=== PATIENT | female | born 1950 | race Caucasian/White ===

== ENCOUNTER 2016-06-09 02:05 | Inpatient (IN) | payer MEDICARE ==
[~2016-06-09] VITALS: Ht 167.6 cm; Wt 73.4 kg
[2016-06-09] VITALS (20 sets, daily range): BP systolic 76–188; BP diastolic 7–100; PULSE 87–151; RESP 16–40; TEMP 97.9–100.7; O2SAT 85–100
[2016-06-09] MEDS ORDERED: PIPERACIL-TAZO 4.5 GM PREMIX 100 ML IV ONE (02:15)
[2016-06-09] MEDS ORDERED: AZITHROMYCIN INJ 500 MG in SODIUM CHLOR 0.9% 250 ML INJ 250 ML IV ONE (02:15)
[2016-06-09] MEDS ORDERED: ACETAMINOPHEN 325 MG TAB PO ONE (02:15)
[2016-06-09] MEDS: RESP: ALBUTEROL 2.5 MG/IPRATROPIUM 0.5 MG NEB (SCH) INH ×2 (02:17→02:23)
--- NOTE | 2016-06-09 02:20 | PD ---
HPI Chief Complaint: Respiratory Distress Time Seen by Provider: 02:07 Travel History International Travel<30 days: No Contact w/Intl Traveler<30days: No Traveled to known affect area: No History of Present Illness HPI 65-year-old female came to the emergency room with history of progressive shortness of breath over past 2 days. She has history of COPD and says that it started 2 days ago. She was using her inhaler but her bleeding continued to get worse even at rest. Tonight she was unable to breathe better at all and called EMS. As per EMS she was saturating 78% with 2 L of oxygen. They started her on albuterol nebulizer which made the saturation bump up to 95%. She received 3 albuterol nebs prior to arrival. She also got IV Solu-Medrol. Patient upon arrival was still in respiratory distress but says she felt little better. She could only speak 2-3 words per breath. Her temperature was 100.7 orally. Heart rate was in 140s. Patient denied of any chest pain. She says that 16 years ago she was admitted in the ICU and was on a ventilator for COPD exacerbation. She says that she quit smoking 16 years ago. Her blood pressure was 188 systolic. Patient drove from [place] in March 2016 to come here. No leg swelling and some tenderness. No associated chest pain or syncopal episodes. [facility] Past Medical History Narrative Medical List of her past medical history as reviewed from the nursing note. Social History Tobacco Use: No Allergies-Medications (Allergen,Severity, Reaction): Coded Allergies: Doxycycline (Unverified Allergy, Mild, 06/09/16) Comments List of her allergies reviewed from the nursing note. Reported Meds & Prescriptions Reported Meds & Active Scripts Active Reported Albuterol Neb (Albuterol Sulfate) 1.25 Mg/3 Ml Neb 1.25 Mg NEB Q6HR NEB PRN Symbicort Inh (Budesonide/Formoterol Fumarate) 80-4.5 Mcg/Act Aero 2 Puff INH Q12HR Lisinopril 5 Mg Tab 5 Mg PO DAILY Omeprazole 40 Mg Cap 40 Mg PO DAILY Theophylline CR (Theophylline) 200 Mg Tab 200 Mg PO Q12H Narrative Medication List of her home medications reviewed from the nursing note. Review of Systems Except as stated in HPI: all other systems reviewed are Neg Physical Exam Narrative GENERAL: Awake, alert, anxious, moderate to severe respiratory distress SKIN: Warm and dry. HEAD: Atraumatic. Normocephalic. EYES: Pupils equal and round. No scleral icterus. No injection or drainage. ENT: No nasal bleeding or discharge. Mucous membranes pink and moist. NECK: Trachea midline. No JVD. CARDIOVASCULAR: Regular rate and rhythm. No murmur appreciated. RESPIRATORY: Decreased air entry bilaterally with coarse crackles in an expiratory wheeze. Using accessory muscles. GASTROINTESTINAL: Abdomen soft, non-tender, nondistended. Hepatic and splenic margins not palpable. MUSCULOSKELETAL: No obvious deformities. No clubbing. No cyanosis. No edema. NEUROLOGICAL: Awake and alert. No obvious cranial nerve deficits. Motor grossly within normal limits. Normal speech. PSYCHIATRIC: Appropriate mood and affect; insight and judgment normal. Data Data Last Documented VS Vital Signs Date Time Temp Pulse Resp B/P Pulse Ox O2 Delivery O2 Flow Rate FiO2 06/09/16 03:33 130 18 85/49 100 BiPAP 100 06/09/16 02:37 3 06/09/16 02:05 100.7 Orders Complete Blood Count With Diff (06/09/16 02:07) Basic Metabolic Panel (Bmp) (06/09/16 02:07) B-Type Natriuretic Peptide (06/09/16 02:07) Prothrombin Time / Inr (Pt) (06/09/16 02:07) Magnesium (Mg) (06/09/16 02:07) Troponin I (06/09/16 02:07) Arterial Blood Gas (Abg) (06/09/16 02:07) Influenzae A/B Antigen (06/09/16 02:07) Blood Culture (06/09/16 02:07) Iv Access Insert/Monitor (06/09/16 02:07) Electrocardiogram (06/09/16 02:07) Ecg Monitoring (06/09/16 02:07) Oximetry (06/09/16 02:07) Oxygen Administration (06/09/16 02:07) Chest, Single Ap (06/09/16 02:07) Lactic Acid (06/09/16 02:11) Albuterol-Ipratropium Neb (Duoneb Neb) (06/09/16 02:15) Piperacil-Tazo 4.5 Gm Premix (Zosyn 4.5 (06/09/16 02:15) Azithromycin Inj (Zithromax Inj) (06/09/16 02:15) Acetaminophen (Tylenol) (06/09/16 02:15) Arterial Blood Gas (Abg) (06/09/16 04:00) Admit To Inpatient (06/09/16 ) Vital Signs (Adult) Q4H (06/09/16 03:53) Activity Oob With Assistance (06/09/16 03:53) Operations Research Director / Telemetry .CONTINUOUS (06/09/16 03:53) Diet Heart Healthy (06/09/16 Breakfast) Sodium Chloride 0.9% Flush (Ns Flush) (06/09/16 04:00) Sodium Chloride 0.9% Flush (Ns Flush) (06/09/16 09:00) Basic Metabolic Panel (Bmp) (06/10/16 06:00) Complete Blood Count With Diff (06/10/16 06:00) Pt Request For Service (06/09/16 03:53) Enoxaparin Inj (Lovenox Inj) (06/09/16 09:00) Naloxone Inj (Narcan Inj) (06/09/16 04:00) Inpatient Certification (06/09/16 ) Admit Order (Ed Use Only) (06/09/16 03:53) Labs Laboratory Tests Test 06/09/16 06/09/16 02:15 02:36 White Blood Count 10.7 TH/MM3 Red Blood Count 4.56 MIL/MM3 Hemoglobin 12.7 GM/DL Hematocrit 39.7 % Mean Corpuscular Volume 87.1 FL Mean Corpuscular Hemoglobin 27.8 PG Mean Corpuscular Hemoglobin 32.0 % Concent Red Cell Distribution Width 14.8 % Platelet Count 281 TH/MM3 Mean Platelet Volume 8.9 FL Neutrophils (%) (Auto) 73.7 % Lymphocytes (%) (Auto) 17.5 % Monocytes (%) (Auto) 7.7 % Eosinophils (%) (Auto) 0.1 % Basophils (%) (Auto) 1.0 % Neutrophils # (Auto) 7.9 TH/MM3 Lymphocytes # (Auto) 1.9 TH/MM3 Monocytes # (Auto) 0.8 TH/MM3 Eosinophils # (Auto) 0.0 TH/MM3 Basophils # (Auto) 0.1 TH/MM3 CBC Comment AUTO DIFF Differential Comment AUTO DIFF CONFIRMED Platelet Estimate NORMAL Platelet Morphology Comment NORMAL Red Cell Morphology Comment NORMAL Prothrombin Time 11.9 SEC Prothromb Time International 1.1 RATIO Ratio Sodium Level 137 MEQ/L Potassium Level 4.5 MEQ/L Chloride Level 102 MEQ/L Carbon Dioxide Level 28.2 MEQ/L Anion Gap 7 MEQ/L Blood Urea Nitrogen 11 MG/DL Creatinine 1.05 MG/DL Estimat Glomerular Filtration 52 ML/MIN Rate Random Glucose 151 MG/DL Lactic Acid Level 1.8 mmol/L Calcium Level 8.8 MG/DL Magnesium Level 2.1 MG/DL Troponin I LESS THAN 0.02 NG/ML B-Type Natriuretic Peptide 199 PG/ML Theophylline Level 21.5 MCG/ML Blood Gas Puncture Site LT RADIAL Blood Gas Patient Temperature 98.6 Blood Gas HCO3 26 mmol/L Blood Gas Base Excess 0.9 mmol/L Blood Gas Oxygen Saturation 88 % Arterial Blood pH 7.34 Arterial Blood Partial 50 mmHg Pressure CO2 Arterial Blood Partial 61 mmHG Pressure O2 Arterial Blood Oxygen Content 15.5 Vol % Arterial Blood 1.8 % Carboxyhemoglobin Arterial Blood Methemoglobin 1.6 % Blood Gas Hemoglobin 12.5 G/DL Oxygen Delivery Device NASAL CANNULA Blood Gas Liter Flow 2.5 L/M MDM Medical Decision Making Medical Screen Exam Complete: Yes Emergency Medical Condition: Yes Medical Record Reviewed: Yes Interpretation(s) Twelve-lead EKG was reviewed by me. Normal sinus rhythm, normal axis, PVCs, tachycardia, motion artifacts. Heart rate of 150 bpm. Differential Diagnosis Pneumonia, sepsis, acute COPD exacerbation, influenza Narrative Course 3:30 AM blood test results are back and patient has some renal insufficiency. Apart from that blood gas is suggestive of hypoxia. There is no CO2 retention. Chest x-ray is read as bibasilar infiltrates. Patient was given 3 duo nebs upon arrival along with Tylenol for the fever. However after the duo nebs she continued to be tachypneic and short of breath. Air entry had improved however. I decided to start her on BiPAP. I just reassessed her and her heart rate is down to the 120s and patient seems to be asleep and looks comfortable. Patient is getting antibiotics as per sepsis protocol. I will give her a liter of fluid bolus at this point since it does not look like she is in congestive heart failure. Awaiting for the hospitalist to call back for admission. Critical Care Narrative Aggregate critical care time was 45 minutes. Time to perform other separately billable procedures was not included in the critical care time. My time did not include minutes spent treating any other patients simultaneously or on activities that did not directly contribute to the patient's treatment. The services I provided to this patient were to treat and/or prevent clinically significant deterioration that could result in: Respiratory distress, hypoxia, Acute COPD exacerbation, pneumonia, BiPAP I provided critical care services requiring my management, as noted below: Chart data review, documentation time, medication orders and management, vital sign assessments/reviewing monitor data, ordering and reviewing lab tests, ordering and interpreting/reviewing x-rays and diagnostic studies, care of the patient and discussion of the patient with the admitting physicians. Procedures EKG Prior to Arrival: Yes Diagnosis Primary Impression: Respiratory distress Additional Impressions: Acute exacerbation of chronic obstructive pulmonary disease (COPD) Fever Qualified Code: R50.9 - Fever, unspecified fever cause Hypoxia Pneumonia Qualified Code: J18.9 - Pneumonia of both lower lobes due to infectious organism Admitting Information Admitting Physician Requests: Floyd Field MD Jun 09, 2016 02:20
[2016-06-09] MEDS ORDERED: LISI-519 PO (02:35)
[2016-06-09] MEDS ORDERED: OMEP40CA2 PO (02:35)
[2016-06-09] MEDS ORDERED: SYMB80AE INH (02:35)
[2016-06-09] MEDS ORDERED: ALBU1.25 NEB (02:35)
[2016-06-09] MEDS ORDERED: THEO200T4 PO (02:35)
[2016-06-09 02:38] LABS: AUTOMATED NEUTROPHIL # 7.9 TH/MM3 (1.8-7.7); BASOPHIL # 0.1 TH/MM3 (0-0.2); EOSINOPHIL % 0.1 % (0.0-4.0); HEMATOCRIT 39.7 % (35.0-46.0); LYMPH % 17.5 % (9.0-44.0); LYMPHOCYTE # 1.9 TH/MM3 (1.0-4.8); MEAN CELL VOLUME 87.1 FL (80.0-100.0); MEAN CORPUSCULAR HEMOGLOBIN 27.8 PG (27.0-34.0); MONO % 7.7 % (0.0-8.0); NEUT % 73.7 % (16.0-70.0); PLATELET COUNT 281 TH/MM3 (150-450); RED BLOOD COUNT 4.56 MIL/MM3 (4.00-5.30); RED CELL DISTRIBUTION WIDTH 14.8 % (11.6-17.2); WHITE BLOOD COUNT 10.7 TH/MM3 (4.0-11.0)
[2016-06-09 02:45] LABS: HEMO FLAGS AUTO DIFF
[2016-06-09 02:47] LABS: INTERNATIONAL NORMALIZED RATIO 1.1 RATIO; PROTHROMBIN TIME - PATIENT 11.9 SEC (9.8-11.6)
[2016-06-09 02:51] LABS: BLOOD GAS BASE EXCESS 0.9 mmol/L (-2-2); BLOOD GAS CARBOXYHEMOGLOBIN 1.8 % (0-4); BLOOD GAS HCO3 26 mmol/L (22-26); BLOOD GAS METHEMOGLOBIN 1.6 % (0-2); BLOOD GAS O2 HGB SATURATION 88 % (90-100); BLOOD GAS OXYGEN CONTENT 15.5 Vol % (12.0-20.0); BLOOD GAS PCO2 50 mmHg (38-42); BLOOD GAS PO2 61 mmHG (61-120); BLOOD GAS TOTAL HGB 12.5 G/DL (12.0-16.0); TEMP CORR TO 98.6
[2016-06-09 02:52] LABS: CRITICAL VALUE YES; DRAW SITE LT RADIAL; LITER FLOW 2.5 L/M; NUMBER OF ARTERIAL PUNCTURES 1; OXYGEN DEVICE NASAL CANNULA
[2016-06-09 02:53] LABS: STAT YES; ULNAR PULSE PRESENT
[2016-06-09 03:05] LABS: ANION GAP 7 MEQ/L (5-15); BICARBONATE 28.2 MEQ/L (21.0-32.0); BLOOD UREA NITROGEN 11 MG/DL (7-18); CHLORIDE 102 MEQ/L (98-107); GLOMERULAR FILTRATION RATE 52 ML/MIN (>89); MAGNESIUM 2.1 MG/DL (1.5-2.5); POTASSIUM 4.5 MEQ/L (3.5-5.1); SODIUM (NA) 137 MEQ/L (136-145)
--- NOTE | 2016-06-09 03:14 | RADRPT ---
EXAM DATE/TIME: 06/09/2016 02:26 [facility] COMPARISON: No previous studies available for comparison. INDICATIONS : Patient states shortness of breath. MEDICAL HISTORY : Hypertension. Chronic obstructive pulmonary disease. SURGICAL HISTORY : None. ENCOUNTER: Initial ACUITY: 1 day PAIN SCORE: 0/10 LOCATION: Bilateral chest FINDINGS: Mild bibasilar opacities are present suggesting slight degree of pulmonary edema. No pleural effusion . No pneumothorax. Normal heart size. CONCLUSION: Mild bibasilar infiltrates. Jesus Estrada MD on June 09, 2016 at 3:12 Board Certified Radiologist. This report was verified electronically.
[2016-06-09 03:31] LABS: PLATELET ESTIMATE SMEAR NORMAL (NORMAL); PLATELET MORPHOLOGY NORMAL (NORMAL); SCAN/DIFF AUTO DIFF CONFIRMED
[2016-06-09] MEDS ORDERED: SODIUM CHLORIDE 0.9% FLUSH 5 ML FLUSH FLUSH PRN (04:00)
[2016-06-09] MEDS ORDERED: NALOXONE HCL 0.4 MG/ML AMP IV PRN (04:00)
[2016-06-09] MEDS ORDERED: SODIUM CHLOR 0.9% 1000 ML INJ 1,000 ML IV ONE ×2 (04:15→06:00)
[2016-06-09] MEDS: RESP: ALBUTEROL 2.5 MG/IPRATROPIUM 0.5 MG NEB (SCH) NEB ×4 (04:30→21:11)
[2016-06-09 04:37] LABS: BLOOD GAS BASE EXCESS 1.7 mmol/L (-2-2); BLOOD GAS CARBOXYHEMOGLOBIN 1.8 % (0-4); BLOOD GAS HCO3 27 mmol/L (22-26); BLOOD GAS O2 HGB SATURATION 96 % (90-100); BLOOD GAS OXYGEN CONTENT 16.1 Vol % (12.0-20.0); BLOOD GAS PCO2 47 mmHg (38-42); BLOOD GAS PO2 331 mmHG (61-120); BLOOD GAS TOTAL HGB 11.4 G/DL (12.0-16.0); CRITICAL VALUE NO; DRAW SITE LT RADIAL; FIO2 100 %; NUMBER OF ARTERIAL PUNCTURES 1; OXYGEN DEVICE BiPAP; STAT NO; TEMP CORR TO 98.6; ULNAR PULSE PRESENT; VENT SETTINGS IPAP14/EPAP7
--- NOTE | 2016-06-09 05:31 | HHI.HP ---
[facility] No Primary Care Physician Admission Diagnosis respiratory distress, acute COPD exacerbation, hypoxia, pneumonia Diagnoses: Chief Complaint: Shortness of breath Travel History International Travel<30 Days: No Contact w/Intl Traveler <30 Da: No Traveled to Known Affected Are: No History of Present Illness History from patient, her at the bedside, ER physician communication, and review of medical records. Patient reported that she came to the hospital because she has been short of breath for the past 2 days. Denies fever. Reports of cough productive of yellowish sputum. Denies any chest pain/palpitations/dizziness/focal weakness. Denies seeing any blood in her stool or urine. Denies abdominal pains. Patient took multiple rounds of nebulizer treatments at home and did not improve much therefore called 911. As per ER report, patient also did receive about 6 rounds of nebulizer treatments between ambulance personnel and ER treatment. She was however not doing well and her saturation was not picking up and therefore she was placed on BiPAP. The time of my exam, patient is awake, alert, oriented. She is on BiPAP. FiO2 of 90%, saturating 96%. After the BiPAP placement, patient also became hypotensive with systolic in the 70s and diastolic as low as 40s and 50s. However patient is awake alert and asymptomatic. Not tachycardic. She was given IV fluids bolus total 2 L. After that treatment, patient's blood pressure did machine pecan picker to about 110/70. Review of Systems Other 12 point review of system was obtained and negative apart from what is mentioned in HPI Past Family Social History Past Medical History Hypertension COPDon home nocturnal oxygen Breast cancerstatus post right cystectomy, chemotherapy, radiation therapy2 years ago Past Surgical History Right mastectomy Meniscus tear repair Reported Medications Patient's medication. EMR reviewed. Patient states that she only takes lisinopril and theophylline. The rest are all her inhalers. Allergies: Coded Allergies: Doxycycline (Unverified Allergy, Mild, 06/09/16) Family History Reports of family history of breast cancer in sister. Social History Used to smoke cigarettes, quit 17 years ago. Denies any alcohol abuse or drug abuse. Lives with her Physical Exam Vital Signs Vital Signs Date Time Temp Pulse Resp B/P Pulse Ox O2 Delivery O2 Flow Rate FiO2 06/09/16 05:21 103 19 89/52 100 BiPAP 90 06/09/16 05:00 104 18 76/43 100 BiPAP 90 06/09/16 04:36 98.7 107 18 77/42 100 BiPAP 90 06/09/16 04:26 100 90 06/09/16 03:33 130 18 85/49 100 BiPAP 100 06/09/16 03:00 99 100 06/09/16 02:37 151 40 163/77 95 Nasal Cannula 3 06/09/16 02:35 95 Nasal Cannula 2.50 06/09/16 02:13 40 100 Aerosol Mask 8 06/09/16 02:05 88 Nasal Cannula 4 06/09/16 02:05 100.7 150 40 188/100 100 Aerosol Mask 8 Physical Exam GENERAL: This is a well-nourished, well-developed patient, in no apparent distress. On BiPAP. Saturating 96% on FiO2 of 90%. SKIN: No rashes, ecchymoses or lesions. Cool and dry. HEAD: Atraumatic. Normocephalic. No temporal or scalp tenderness. EYES No scleral icterus. No injection or drainage. ENT: Nose without bleeding, purulent drainage or septal hematoma Airway patent. NECK: Trachea midline. No JVD CARDIOVASCULAR: Regular rate and rhythm without murmurs, gallops, or rubs. RESPIRATORY: Limited exam due to BiPAP sounds GASTROINTESTINAL: Abdomen soft, non-tender, nondistended. No guarding. MUSCULOSKELETAL: Extremities without clubbing, cyanosis, or edema. No calf tenderness. NEUROLOGICAL: Awake and alert. Motor and sensory grossly within normal limits. Normal speech. Laboratory Laboratory Tests Test 06/09/16 06/09/16 06/09/16 02:15 02:36 04:16 White Blood Count 10.7 Red Blood Count 4.56 Hemoglobin 12.7 Hematocrit 39.7 Mean Corpuscular Volume 87.1 Mean Corpuscular Hemoglobin 27.8 Mean Corpuscular Hemoglobin 32.0 Concent Red Cell Distribution Width 14.8 Platelet Count 281 Mean Platelet Volume 8.9 Neutrophils (%) (Auto) 73.7 Lymphocytes (%) (Auto) 17.5 Monocytes (%) (Auto) 7.7 Eosinophils (%) (Auto) 0.1 Basophils (%) (Auto) 1.0 Neutrophils # (Auto) 7.9 Lymphocytes # (Auto) 1.9 Monocytes # (Auto) 0.8 Eosinophils # (Auto) 0.0 Basophils # (Auto) 0.1 CBC Comment AUTO DIFF Differential Comment AUTO DIFF CONFIRMED Platelet Estimate NORMAL Platelet Morphology Comment NORMAL Red Cell Morphology Comment NORMAL Prothrombin Time 11.9 Prothromb Time International 1.1 Ratio Sodium Level 137 Potassium Level 4.5 Chloride Level 102 Carbon Dioxide Level 28.2 Anion Gap 7 Blood Urea Nitrogen 11 Creatinine 1.05 Estimat Glomerular Filtration 52 Rate Random Glucose 151 Lactic Acid Level 1.8 Calcium Level 8.8 Magnesium Level 2.1 Troponin I LESS THAN 0.02 B-Type Natriuretic Peptide 199 Blood Gas Puncture Site LT RADIAL LT RADIAL Blood Gas Patient Temperature 98.6 98.6 Blood Gas HCO3 26 27 Blood Gas Base Excess 0.9 1.7 Blood Gas Oxygen Saturation 88 96 Arterial Blood pH 7.34 7.37 Arterial Blood Partial 50 47 Pressure CO2 Arterial Blood Partial 61 331 Pressure O2 Arterial Blood Oxygen Content 15.5 16.1 Arterial Blood 1.8 1.8 Carboxyhemoglobin Arterial Blood Methemoglobin 1.6 2.0 Blood Gas Hemoglobin 12.5 11.4 Oxygen Delivery Device NASAL CANNULA BiPAP Blood Gas Liter Flow 2.5 Blood Gas Ventilator Setting [id number] Blood Gas Inspired Oxygen 100 Date/Time Procedure Status Source Growth 06/09/16 02:15 Influenza Types A,B Antigen ([facility]ILLIP) - Final Complete Nasal Aspirate NEGATIVE FOR FLU A AND B ANTIGEN.... 06/09/16 02:15 Aerobic Blood Culture Received Blood Peripheral Pending 06/09/16 02:15 Anaerobic Blood Culture Received Blood Peripheral Pending Result Diagram: 06/09/165 06/09/16 0215 Imaging Last 48 hours Impressions Chest X-Ray 06/09/16 0207 Signed Impressions: Service Date/Time: June 02:26 - CONCLUSION: Mild bibasilar infiltrates. Jesus Estrada MD CT Angiography 06/09/16 0000 Signed Impressions: Service Date/Time: June 06:47 - CONCLUSION: 1. Negative for pulmonary embolus. 2. Moderate to severe emphysema. 3. Multiple calcified gallstones. Antony Ledezma MD Assessment and Plan Problem List: (1) Pneumonia ICD Code: J18.9 Status: Acute (2) Hypoxia ICD Code: R09.02 Status: Acute (3) Respiratory distress ICD Code: R06.00 Status: Acute Assessment and Plan Impression: COPD exacerbation Pneumonia Mild elevated BNP Plan: Continue BiPAP. Nebulizers scheduled and when necessary. Solu-Medrol 40 mg IV every 6 hours. We'll follow up clinically. Also start patient on levofloxacin 750 mg IV every 24 hours. Resume home antihypertensives. Resume theophylline. Check theophylline level. DVT prophylaxiswith Lovenox. GI prophylaxis on pantoprazole. Critical care time 35 minutes Discussed Condition With Patient's and ER Physician Certification 2 Midnight Certification Type: Admission for Inpatient Services Order for Inpatient Services The services are ordered in accordance with Medicare regulations or non- Medicare payer requirements, as applicable. In the case of services not specified as inpatient-only, they are appropriately provided as inpatient services in accordance with the 2-midnight benchmark. Estimated LOS (days): 3 days is the estimated time the patient will need to remain in the hospital, assuming treatment plan goals are met and no additional complications. Post-Hospital Plan: Home Problem Qualifiers (1) Pneumonia: Qualified Code: J18.9 - Pneumonia of both lower lobes due to infectious organism Emily Horn MD Jun 09, 2016 05:31
[2016-06-09] MEDS: methylPREDNISolone SOD SUCC 40 MG/1 ML VIAL IV PUSH SCH ×4 (06:17→23:07)
[2016-06-09] MEDS ORDERED: IOHEXOL 350 MG/ML 10 ML VIAL (for RAD DIAG) IV ONE (06:50)
--- NOTE | 2016-06-09 07:08 | RADRPT ---
EXAM DATE/TIME: 06/09/2016 06:47 [facility] COMPARISON: No previous studies available for comparison. INDICATIONS : Short of breath. IV CONTRAST: 60 cc Omnipaque 350 (iohexol) IV RADIATION DOSE: 23.19 CTDIvol (mGy) MEDICAL HISTORY : Hypercholesterolemia. Hypertension. Chronic obstructive pulmonary disease. SURGICAL HISTORY : Mastectomy, right. ENCOUNTER: Initial ACUITY: 1 day PAIN SCALE: 0/10 LOCATION: chest TECHNIQUE: Volumetric scanning of the chest was performed using a pulmonary embolism protocol MIP images were re constructed. Using automated exposure control and adjustment of the mA and/or kV according to patien t size, radiation dose was kept as low as reasonably achievable to obtain optimal diagnostic quality images. FINDINGS: No filling defects to suggest pulmonary embolus. Moderate to severe centrilobular emphysema. No pleur al pericardial effusion. No adenopathy. Right breast implant. No acute finding upper abdomen. Multiple calcified gallstones. CONCLUSION: 1. Negative for pulmonary embolus. 2. Moderate to severe emphysema. 3. Multiple calcified gallstones. Antony Ledezma MD on June 09, 2016 at 6:58 Board Certified Radiologist. This report was verified electronically.
[2016-06-09] MEDS: SODIUM CHLORIDE 0.9% FLUSH 5 ML FLUSH FLUSH SCH ×2 (08:05→19:56)
[2016-06-09] MEDS: PANTOPRAZOLE SOD 40 MG DELAYED RELEASE TAB PO SCH (08:05)
[2016-06-09] MEDS: LEVOFLOXACIN 750 MG PREMIX INJ 150 ML IV SCH (08:05)
[2016-06-09] MEDS: ENOXAPARIN SODIUM 40 MG/0.4 ML SYRINGE SQ SCH (08:05)
[2016-06-09] MEDS: LISINOPRIL 5 MG TAB PO SCH (08:19)
[2016-06-09] MEDS: RESP: ALBUTEROL 2.5 MG/IPRATROPIUM 0.5 MG NEB (PRN) NEB (12:17)
[2016-06-09] MEDS ORDERED: PILL SPLITTER OTHER PRN (18:15)
[2016-06-09] MEDS: BUDESONIDE-FORMOTEROL 80/4.5 MCG INHALER INH SCH (19:56)
[2016-06-09] MEDS: CALCIPOTRIENE 0.005% CREAM 60 GM TOPICAL SCH (21:00)
[2016-06-09] MEDS ORDERED: CHLORHEXIDINE GLUCONATE 2 % 1 PACK (2 CLOTHS)(extra cloths) TOP PRN (23:00)
[2016-06-09] MEDS: ALPRAZolam 0.25 MG TAB PO PRN (23:07)
[2016-06-10] VITALS (16 sets, daily range): BP systolic 108–149; BP diastolic 54–73; PULSE 90–99; RESP 14–22; TEMP 97.6–98.5; O2SAT 94–99
[2016-06-10] MEDS: RESP: ALBUTEROL 2.5 MG/IPRATROPIUM 0.5 MG NEB (SCH) NEB ×4 (03:38→20:34)
[2016-06-10] MEDS: CHLORHEXIDINE GLUCONATE 2 % 1 PACK (2 CLOTHS)(taper/protocol) TOP SCH (04:00)
[2016-06-10 05:20] LABS: BICARBONATE 28.7 MEQ/L (21.0-32.0); THEOPHYLLINE 3.7 MCG/ML (10.0-20.0)
[2016-06-10] MEDS: methylPREDNISolone SOD SUCC 40 MG/1 ML VIAL IV PUSH SCH ×3 (06:01→17:18)
--- NOTE | 2016-06-10 06:55 | EKG ---
Date Performed: 06/09/2016 Time Performed: 02:14:02 PTAGE: 65 years EKG: SINUS TACHYCARDIA WITH OCCASIONAL SUPRAVENTRICULAR PREMATURE COMPLEXES, POSSIBLE ATRIAL FLU TTER NONSPECIFIC T-WAVE ABNORMALITY ABNORMAL RHYTHM ECG NO PREVIOUS TRACING DOCTOR: Dilan Keller Interpretating Date/Time 06/10/2016 06:53:31
[2016-06-10 07:34] LABS: AUTOMATED NEUTROPHIL # 7.4 TH/MM3 (1.8-7.7); BASOPHIL % 0.2 % (0.0-2.0); EOSINOPHIL % 0.1 % (0.0-4.0); HEMATOCRIT 32.6 % (35.0-46.0); HEMO FLAGS DIFF FINAL; LYMPH % 2.3 % (9.0-44.0); LYMPHOCYTE # 0.2 TH/MM3 (1.0-4.8); MEAN CELL VOLUME 86.4 FL (80.0-100.0); MEAN CORPUSCULAR HEMOGLOBIN 27.9 PG (27.0-34.0); MEAN CORPUSCULAR HGB CONC 32.3 % (32.0-36.0); MONO % 3.2 % (0.0-8.0); NEUT % 94.2 % (16.0-70.0); PLATELET COUNT 201 TH/MM3 (150-450); RED BLOOD COUNT 3.77 MIL/MM3 (4.00-5.30); RED CELL DISTRIBUTION WIDTH 15.2 % (11.6-17.2); WHITE BLOOD COUNT 7.9 TH/MM3 (4.0-11.0)
[2016-06-10] MEDS ORDERED: POLYETHYLENE GLYCOL 17 GM PKG PO PRN (07:45)
[2016-06-10] MEDS: ENOXAPARIN SODIUM 40 MG/0.4 ML SYRINGE SQ SCH (08:07)
[2016-06-10] MEDS: PANTOPRAZOLE SOD 40 MG DELAYED RELEASE TAB PO SCH (08:07)
[2016-06-10] MEDS: LEVOFLOXACIN 750 MG PREMIX INJ 150 ML IV SCH (08:07)
[2016-06-10] MEDS: ACETAMINOPHEN 325 MG TAB PO PRN ×2 (08:07→22:30)
[2016-06-10] MEDS: LISINOPRIL 5 MG TAB PO SCH (08:07)
[2016-06-10] MEDS: CALCIPOTRIENE 0.005% CREAM 60 GM TOPICAL SCH ×2 (09:18→21:16)
[2016-06-10] MEDS: SODIUM CHLORIDE 0.9% FLUSH 5 ML FLUSH FLUSH SCH ×2 (09:19→21:17)
[2016-06-10] MEDS: BUDESONIDE-FORMOTEROL 80/4.5 MCG INHALER INH SCH ×2 (09:22→21:17)
[2016-06-10 11:38] LABS: BLOOD GAS BASE EXCESS 1.8 mmol/L (-2-2); BLOOD GAS HCO3 28 mmol/L (22-26); BLOOD GAS O2 HGB SATURATION 97 % (90-100); BLOOD GAS OXYGEN CONTENT 14.1 Vol % (12.0-20.0); BLOOD GAS PCO2 63 mmHg (38-42); BLOOD GAS PO2 121 mmHg (61-120); BLOOD GAS TOTAL HGB 10.2 G/DL (12.0-16.0); CRITICAL VALUE YES; DRAW SITE LT BRACHIAL; FIO2 40 %; NUMBER OF ARTERIAL PUNCTURES 2; OXYGEN DEVICE BIPAP; STAT NO; TEMP CORR TO 98.6; VENT SETTINGS IPAP12/EPAP5
[2016-06-10] MEDS ORDERED: FUROSEMIDE 40 MG/4 ML VIAL IV PUSH ONE (13:00)
--- NOTE | 2016-06-10 13:31 | HHI.PR ---
Subjective Remarks Follow-up for shortness of breath I was paged since patient has been more short of breath, I asked to have BIPAP started. ABG was done. ABG showed hypoxic and hypercapnic respiratory failure. Per patient, she is more short of breath, quite tired, no chest pain, nausea or vomiting. No lower extremity edema. No change in mental status. Patient is awake, conversant and oriented. Objective Vitals Vital Signs Date Time Temp Pulse Resp B/P Pulse Ox O2 Delivery O2 Flow Rate FiO2 06/10/16 10:26 97 40 06/10/16 10:06 95 Nasal Cannula 4.00 06/10/16 10:00 92 06/10/16 08:00 98 06/10/16 06:00 97 06/10/16 04:00 97 06/10/16 04:00 98.5 97 21 136/61 97 06/10/16 02:00 93 06/10/16 00:00 98.4 98 22 108/54 98 06/10/16 00:00 96 06/09/16 22:00 94 06/09/16 21:13 95 Nasal Cannula 4.00 06/09/16 20:00 98.6 96 20 121/57 95 06/09/16 20:00 96 06/09/16 18:00 92 06/09/16 16:00 97 06/09/16 16:00 98.3 06/09/16 14:00 89 I/O 06/09/16 06/09/16 06/09/16 06/10/16 06/10/16 06/10/16 07:00 15:00 23:00 07:00 15:00 23:00 Intake Total 520 ml 240 ml 120 ml Balance 520 ml 240 ml 120 ml Intake Oral 520 ml 240 ml 120 ml # Voids 2 1 1 # Bowel Movements 0 1 0 Result Diagram: 06/10/16 0325 06/10/16 0325 Objective Remarks GENERAL: In mild respiratory distress, on BiPAP. SKIN: No rashes, ecchymoses or lesions. Cool and dry. HEAD: Atraumatic. Normocephalic. No temporal or scalp tenderness. NECK: Trachea midline. No JVD CARDIOVASCULAR: Regular rate and rhythm without murmurs, gallops, or rubs. RESPIRATORY: Crackles at both bases especially on the left, occasional wheezing. GASTROINTESTINAL: Abdomen soft, non-tender, nondistended. No guarding. MUSCULOSKELETAL: Extremities without clubbing, cyanosis, or edema. No calf tenderness. NEUROLOGICAL: Awake and alert. Motor and sensory grossly within normal limits. Normal speech. A/P Problem List: (1) Pneumonia ICD Code: J18.9 Status: Acute (2) Hypoxia ICD Code: R09.02 Status: Acute (3) Respiratory distress ICD Code: R06.00 Status: Acute Assessment and Plan This is a 65-year-old female admitted with respiratory failure secondary to COPD exacerbation Acute hypoxic and hypercapnic respiratory failure secondary to COPD exacerbation and pneumonia- continue BiPAP, blood gas showing respiratory acidosis. Recheck ABG in 2-3 hours. Check stat chest x-ray, will give a dose of Lasix, check BMP and BNP. Start Lasix twice a day. Recheck CBC and BMP tomorrow. CT scan reviewed negative for PE. Chest x-ray previously showed bilateral infiltrates. Continue steroids, continue Levaquin, no leukocytosis, continue duo nebs [id number] and as needed, oxygen support. Continue Symbicort. Resume theophylline, MRSA negative. Check urine Legionella, rapid flu negative. Insert FC Rule out congestive heart failure - check echocardiogram, recheck CXR Theophylline toxicity-may resume theophylline, theophylline levels are low today. DVT prophylaxis: Lovenox Aggregate critical care time was 35 minutes spent at bedside or in the hospital [facility]. Time to perform other separately billable procedures was not included in the critical care time. My time did not include minutes spent treating any other patients simultaneously or on activities that did not directly contribute to the patient's treatment. The services I provided to this patient were to treat and/or prevent clinically significant deterioration that could result in: organ failure, , disability or imminent clinical deterioration in the patient's condition. I provided critical care services requiring my management, as noted below: chart data review, documentation time, medication orders and management, vital sign assessments/reviewing monitor data, ordering and reviewing lab tests, ordering and interpreting/reviewing x-rays and diagnostic studies, care of the patient and discussion with other physicians and caregivers as needed. Will discuss with Dr. Hanson as NIKOLAYI. Discussed with RN Problem Qualifiers (1) Pneumonia: Qualified Code: J18.9 - Pneumonia of both lower lobes due to infectious organism Hank Bhakta MD Jun 10, 2016 13:31
--- NOTE | 2016-06-10 14:29 | RADRPT ---
EXAM DATE/TIME: 06/10/2016 13:12 [facility] COMPARISON: CHEST SINGLE AP, June 09, 2016, 2:26. INDICATIONS : Shortness of breath. MEDICAL HISTORY : Hypertension. Chronic obstructive pulmonary disease. SURGICAL HISTORY : None. ENCOUNTER: Subsequent ACUITY: 2 days PAIN SCORE: 0/10 LOCATION: Bilateral chest FINDINGS: Lungs are hyperaerated. There is no evidence of acute air space disease or significant congestion. Heart and mediastinal structures are stable. CONCLUSION: COPD No evidence of acute cardiopulmonary process. Guy Quach MD on June 10, 2016 at 14:27 Board Certified Radiologist. This report was verified electronically.
[2016-06-10 15:09] LABS: BLOOD GAS BASE EXCESS 4.7 mmol/L (-2-2); BLOOD GAS HCO3 30 mmol/L (22-26); BLOOD GAS METHEMOGLOBIN 0.9 % (0-2); BLOOD GAS O2 HGB SATURATION 96 % (90-100); BLOOD GAS OXYGEN CONTENT 14.7 Vol % (12.0-20.0); BLOOD GAS PCO2 59 mmHg (38-42); BLOOD GAS PO2 100 mmHg (61-120); BLOOD GAS TOTAL HGB 10.8 G/DL (12.0-16.0); CRITICAL VALUE YES; DRAW SITE LT BRACHIAL; FIO2 40 %; NUMBER OF ARTERIAL PUNCTURES 1; OXYGEN DEVICE BIPAP; STAT NO; TEMP CORR TO 98.6; VENT SETTINGS IPAP12/EPAP5
[2016-06-10] MEDS ORDERED: FUROSEMIDE 40 MG/4 ML VIAL IV PUSH SCH (18:00)
[2016-06-10] MEDS: ALPRAZolam 0.25 MG TAB PO PRN (18:46)
[2016-06-10] MEDS: THEOPHYLLINE PO SCH (21:00)
[2016-06-11] VITALS (19 sets, daily range): BP systolic 81–145; BP diastolic 51–78; PULSE 76–98; RESP 18–28; TEMP 97.3–99.2; O2SAT 88–99
[2016-06-11] MEDS: methylPREDNISolone SOD SUCC 40 MG/1 ML VIAL IV PUSH SCH ×4 (01:24→18:03)
[2016-06-11] MEDS: RESP: ALBUTEROL 2.5 MG/IPRATROPIUM 0.5 MG NEB (SCH) NEB ×4 (03:26→20:08)
[2016-06-11] MEDS: CHLORHEXIDINE GLUCONATE 2 % 1 PACK (2 CLOTHS)(taper/protocol) TOP SCH (04:00)
[2016-06-11 06:12] LABS: AUTOMATED NEUTROPHIL # 7.9 TH/MM3 (1.8-7.7); HEMATOCRIT 35.1 % (35.0-46.0); HEMO FLAGS DIFF FINAL; LYMPH % 3.2 % (9.0-44.0); LYMPHOCYTE # 0.3 TH/MM3 (1.0-4.8); MEAN CELL VOLUME 86.2 FL (80.0-100.0); MEAN CORPUSCULAR HEMOGLOBIN 27.9 PG (27.0-34.0); MEAN CORPUSCULAR HGB CONC 32.4 % (32.0-36.0); MONO % 3.2 % (0.0-8.0); NEUT % 93.6 % (16.0-70.0); PLATELET COUNT 259 TH/MM3 (150-450); RED BLOOD COUNT 4.07 MIL/MM3 (4.00-5.30); RED CELL DISTRIBUTION WIDTH 15.1 % (11.6-17.2); WHITE BLOOD COUNT 8.4 TH/MM3 (4.0-11.0)
[2016-06-11 07:15] LABS: BICARBONATE 33.9 MEQ/L (21.0-32.0); MAGNESIUM 2.5 MG/DL (1.5-2.5); POTASSIUM 3.8 MEQ/L (3.5-5.1)
[2016-06-11] MEDS ORDERED: ETOMIDATE 20 MG/10 ML VIAL ONE (08:14)
[2016-06-11] MEDS ORDERED: PROPOFOL 1000 MG/100 ML INJ 100 ML ONE (08:15)
[2016-06-11] MEDS ORDERED: PROPOFOL 1000 MG/100 ML INJ 100 ML IV SCH (08:45)
[2016-06-11] MEDS ORDERED: MAGNESIUM SULFATE INJ 2 GM in SODIUM CHLORIDE 0.9% INJ 96 ML IV PRN (08:45)
[2016-06-11] MEDS ORDERED: POTASSIUM CHLOR 40 MEQ PREMIX 100 ML IV PRN ×2 (08:45)
[2016-06-11] MEDS ORDERED: POTASSIUM CHLOR 20 MEQ PREMIX 100 ML IV PRN ×2 (08:45)
[2016-06-11] MEDS ORDERED: MAGNESIUM OXIDE 400 MG TAB PO PRN (08:45)
[2016-06-11] MEDS ORDERED: SODIUM PHOSPHATE INJ 30 MMOL in SODIUM CHLOR 0.9% 250 ML INJ 240 ML IV PRN (08:45)
[2016-06-11] MEDS ORDERED: POTASSIUM PHOSPHATE MONOBASIC 500 MG TAB PO PRN (08:45)
[2016-06-11] MEDS ORDERED: POTASSIUM CL 40 MEQ/30 ML LIQ UDC PO/TUBE PRN ×2 (08:45)
[2016-06-11] MEDS ORDERED: POTASSIUM PHOSPHATE MONOBASIC 500 MG TAB PO/TUBE PRN (08:45)
[2016-06-11] MEDS ORDERED: GLUCAGON 1 MG/ML VIAL OTHER PRN (08:45)
[2016-06-11] MEDS ORDERED: MAGNESIUM SULFATE INJ 4 GM in SODIUM CHLORIDE 0.9% INJ 92 ML IV PRN (08:45)
[2016-06-11] MEDS ORDERED: POTASSIUM PHOSPHATE INJ 30 MMOL in SODIUM CHLOR 0.9% 250 ML INJ 250 ML IV PRN (08:45)
[2016-06-11] MEDS: LISINOPRIL 5 MG TAB PO SCH (09:00)
[2016-06-11] MEDS: SODIUM CHLORIDE 0.9% FLUSH 5 ML FLUSH FLUSH SCH ×2 (09:00→20:40)
[2016-06-11] MEDS: THEOPHYLLINE PO SCH ×2 (09:00→21:00)
[2016-06-11] MEDS: INSULIN NovoLIN REGULAR SUPPLEMENTAL SCALE SQ SCH ×3 (09:00→20:41)
--- NOTE | 2016-06-11 09:13 | MB ---
cc: FARIDEH GIRON M.D. DATE OF CONSULTATION: 06/11/2016 DATE OF : 1950. REASON FOR CONSULTATION: The patient is a 65 year old female with past medical history of chronic obstructive pulmonary disease on home oxygen nocturnally hypertension, breast cancer, status post chemotherapy and radiation approximately a two years ago. She was admitted to [facility] on June 14, under hospitalist service for any acute hypercapnic respiratory failure and COPD exacerbation. The patient was treated with bronchial bronchodilators and empiric antibiotics. She had multiple arterial blood gases since admission and her last ABG from yesterday afternoon showed pH of 7.33, CO2 59, pAO2 100, bicarb of 30 and saturation of 96% on BiPap 12/5 with 40% FIO2. This morning the patient was in respiratory distress, in addition she was tachypneic, tachycardiac and using her accessory muscles for respirations. She was on a BiPap for a short time without any significant improvements and given her respiratory status, She was subsequently intubated by myself and placed on full mechanical ventilation. PAST MEDICAL HISTORY: 1. Past medical history significant for hypertension 2. COPD 3. Breast cancer. PAST SURGICAL HISTORY 1. Previous right mastectomy 2. previous man meniscus tear repair. ALLERGIES DOXYCYCLINE FAMILY HISTORY Sister with breast cancer. SOCIAL HISTORY Ex-smoker, quit smoking 17 years ago. No history of alcohol or drug use. She lives with . MEDICATIONS: Medications reviewed which include 1. Symbicort 2. Lovenox 3. Protonix 4. Levaquin 5. lisinopril 6. Solu-Medrol REVIEW OF SYSTEMS As per HPI. Rest of the systems limited as the patient is intubated. PHYSICAL EXAMINATION IN GENERAL: 65-year female intubated for acute hypoxemic rest for acute hypercapnic respiratory failure. VITAL SIGNS: Temperature 97.7. Pulse was 89% earlier on 4 liters now on 97% on vent support blood pressure 141/73, vent setting assist control rate of 14, tidal volume 450, PEEP of five, FIO2 100%. HEAD, EYES, EARS, NOSE, AND THROAT: Atraumatic, normocephalic pupil equal and active to accommodation X on muscles intact. Conjunctivae pink. Nonicteric sclerae. Oral mucosa within normal. NECK: Supple. No JVD, adenopathy or thyromegaly. Trachea midline. Orally intubated. CARDIOVASCULAR SYSTEM: Tachycardiac normal S1-S2. No murmurs, rubs or gallops noted. PULMONARY: Pulmonary exam bilateral equal entry with few scattered wheezing overall diminished. ABDOMEN: Soft, nontender, no distension. Positive bowel sounds. EXTREMITIES: No cyanosis, clubbing or edema. NEUROLOGIC: Intubated and sedated with Diprivan. LABORATORY DATA Sodium of 42,003.8, chloride 102, CO2 33, BUN 29, creatinine 1.21, glucose of 94, WBC 8.4, hemoglobin 11.4, hematocrit 35, platelet count 259. RADIOGRAPHY CT angiogram of the chest from June 09 negative for PE however it showed moderate to severe emphysema and multiple calcified gallstones. Chest x-ray Yesterday showed COPD changes with no evidence of any acute cardiopulmonary process. IMPRESSION 1. Acute hypercapnic and hypoxemic respiratory failure. 2. COPD exacerbation. 3. Hypertension. 4. History of breast cancer. 5. Mild acute kidney injury. 1. RECOMMENDATIONS: We will continue with Diprivan infusion for sedation and daily sedation vacation when appropriate. 2. Continue with vent support and maintain saturation above 92%. Bronchodilators in the form of DuoNeb q. six and will initiate an ICU vent bundle. Continue with IV steroids in the form of Solu-Medrol 40 mg IV q. six. 3. Obtain chest x-ray and ABG post intubation. 4. Monitor heart rate and blood pressure and maintain MAP greater 65 mmHg. Continue with lisinopril 5 mg p.o. daily. 5. Monitor renal function Is and Os and electrolyte replacement per protocol. 6. Switch Protonix to 40 mg IV daily. 7. Insert OG tube and start tube feeds within the next 24 hours if remains intubated. 8. Continue with empiric antibiotics in the form of Levaquin and monitor for signs of infections which include fever and WBC. Monitor CBC 9. Place on sliding scale insulin with Accu-Chek q. 6-hour for glycemic control as the patient is on IV steroids. 10. GI prophylaxis with Protonix 40 mg IV daily and DVT prophylaxis with SCDs and in addition the patient is on Lovenox 40 mg Subcu daily. 11. Further recommendations will be based on hospital course. 12. Critical care time 50 minutes excluding procedures. Thank you MD Rip Poon /8:40 AM /9:03 AM
--- NOTE | 2016-06-11 09:17 | RADRPT ---
EXAM DATE/TIME: 06/11/2016 08:36 [place] COMPARISON: CHEST SINGLE AP, June 10, 2016, 13:12. INDICATIONS : Post Intubation. MEDICAL HISTORY : Hypercholesterolemia. Hypertension. Chronic obstructive pulmonary disease. SURGICAL HISTORY : Mastectomy, right. ENCOUNTER: Initial ACUITY: 1 day PAIN SCORE: Non-responsive. LOCATION: Bilateral chest FINDINGS: A single view of the chest demonstrates the lungs to be symmetrically aerated without evidence of mas s, infiltrate or effusion. Endotracheal tube 5 cm above the irieno. The cardiomediastinal contours ar e unremarkable. Osseous structures are intact. CONCLUSION: 1. No acute cardiopulmonary disease. 2. Adequate placement of endotracheal tube. Salty Henley MD on June 11, 2016 at 9:15 Board Certified Radiologist. This report was verified electronically.
[2016-06-11 09:36] LABS: BLOOD GAS BASE EXCESS 5.7 mmol/L (-2-2); BLOOD GAS HCO3 33 mmol/L (22-26); BLOOD GAS METHEMOGLOBIN 1.1 % (0-2); BLOOD GAS O2 HGB SATURATION 93 % (90-100); BLOOD GAS OXYGEN CONTENT 15.1 Vol % (12.0-20.0); BLOOD GAS PCO2 80 mmHg (38-42); BLOOD GAS PO2 85 mmHg (61-120); BLOOD GAS TOTAL HGB 11.6 G/DL (12.0-16.0); CRITICAL VALUE YES; TEMP CORR TO 98.6
[2016-06-11 09:37] LABS: DRAW SITE RT RADIAL; FIO2 40 %; NUMBER OF ARTERIAL PUNCTURES 1; OXYGEN DEVICE VENTILATOR; STAT NO; ULNAR PULSE PRESENT; VENT SETTINGS A/C 450/14/5PEEP
[2016-06-11] MEDS ORDERED: RESP: ALBUTEROL 2.5 MG/IPRATROPIUM 0.5 MG NEB (SCH) NEB (10:00)
[2016-06-11] MEDS: LEVOFLOXACIN 750 MG PREMIX INJ 150 ML IV SCH (10:27)
[2016-06-11] MEDS: PANTOPRAZOLE SODIUM 40 MG VIAL IV PUSH SCH (10:28)
[2016-06-11] MEDS: ENOXAPARIN SODIUM 40 MG/0.4 ML SYRINGE SQ SCH (10:28)
[2016-06-11] MEDS: BUDESONIDE-FORMOTEROL 80/4.5 MCG INHALER INH SCH ×2 (10:28→20:40)
[2016-06-11] MEDS ORDERED: SODIUM CHLORID 0.9% 500 ML INJ 500 ML IV ONE (10:30)
[2016-06-11] MEDS: CALCIPOTRIENE 0.005% CREAM 60 GM TOPICAL SCH ×2 (11:26→20:42)
--- NOTE | 2016-06-11 12:12 | EC ---
Study Study Date:06/11/2016 STUDY CONCLUSIONS SUMMARY - Left ventricle: The cavity size was normal. Wall thickness was normal. Systolic function was normal. The estimated ejection fraction was in the range of 50% to 55%. Wall motion was normal; there were no regional wall motion abnormalities. - Aortic valve: Valve area: 1.22cm^2(VTI). Valve area: 1.25cm^2 (Vmax). - Mitral valve: Mildly calcified annulus. Mildly thickened leaflets, . If LV function is below 40, please consider prescribing an ACEI or ARB or document rationale for non-use. PROCEDURE DATA STUDY STATUS: Elective. Procedure: Transthoracic echocardiography. Image quality was adequate. Scanning was performed from the parasternal, apical, and subcostal acoustic windows. Study completion: The patient tolerated the procedure well. Transthoracic echocardiography. M-mode, complete 2D, complete spectral Doppler, and color Doppler. Height: Height: 66in. Weight: Weight: 123.7lb. Body mass index: BMI: 20kg/m^2. Body surface area: BSA: 1.63m^2. Patient status: Inpatient. CARDIAC ANATOMY LEFT VENTRICLE: The cavity size was normal. Wall thickness was normal. Systolic function was normal. The estimated ejection fraction was in the range of 50% to 55%. Wall motion was normal; there were no regional wall motion abnormalities. AORTIC VALVE: Mildly thickened, mildly calcified leaflets. Doppler: Transvalvular velocity was within the normal range. There was no stenosis. No regurgitation. Valve area: 1.22cm^2(VTI). Indexed valve area: 0.75cm^2/m^2 (VTI). Valve area: 1.25cm^2 (Vmax). Indexed valve area: 0.77cm^2/m^2 (Vmax). Mean gradient: 2mm Hg (S). AORTA: Aortic root: The aortic root was normal in size. MITRAL VALVE: Mildly calcified annulus. Mildly thickened leaflets, . Doppler: Transvalvular velocity was within the normal range. There was no evidence for stenosis. Trace regurgitation. LEFT ATRIUM: The atrium was normal in size. RIGHT VENTRICLE: The cavity size was normal. Wall thickness was normal. PULMONIC VALVE: Doppler: Transvalvular velocity was within the normal range. There was no evidence for stenosis. No regurgitation. TRICUSPID VALVE: Structurally normal valve. Doppler: Transvalvular velocity was within the normal range. Trace regurgitation. PULMONARY ARTERY: The main pulmonary artery was normal-sized. Systolic pressure was within the normal range. RIGHT ATRIUM: The atrium was normal in size. PERICARDIUM: There was no pericardial effusion. SYSTEMIC VEINS: Inferior vena cava: The vessel was normal in size. Patient weight: 123.7lb _Ejection fraction:_ 65-75% _Fractional shortening:_ 32% up to 5Kg 5-11.5Kg 11.6-22.9Kg 23-45Kg 45-57Kg Aortic Root 7-13 <17 13-22 17-27 17-27 LA diam 6-13 <23 24-38 33-47 37-40 RVID 10-17 7-15 7-15 7-18 8-17 LVIDd 12-22 <32 24-38 33-47 37-40 LVPW 2-4 3-6 5-7 6-8 7-8 IVS 2-4 3-6 5-7 6-8 7-8 BASIC MEASUREMENTS ADULT NORMAL Left ventricle LV internal dimension, ED, chordal *52.3 mm 43-52 level, PLAX LV internal dimension, ES, chordal 37.6 mm 23-38 level, PLAX Fractional shortening, chordal level, *28 % >29 PLAX LV posterior wall thickness, ED 7.77 mm IVS/LVPW ratio, ED 0.91 <1.3 Ventricular septum Septal thickness, ED 7.09 mm Aorta Root diameter, ED 31 mm Left atrium Anterior-posterior dimension 26 mm Anterior-posterior dimension index 1.6 cm/m^2 <2.2 DOPPLER MEASUREMENTS ADULT NORMAL Main pulmonary artery Pressure, S 17 mm Hg =30 Aortic valve Peak velocity, S 97.9 cm/s Mean velocity, S 68.1 cm/s VTI, S 15.2 cm Mean gradient, S 2 mm Hg Valve area, VTI 1.22 cm^2 Valve area index, VTI 0.75 cm^2/m^2 Valve area, Vmax 1.25 cm^2 Valve area index, Vmax 0.77 cm^2/m^2 Mitral valve Peak E-wave velocity 25.2 cm/s Peak A-wave velocity 45.9 cm/s Peak E/A ratio 0.5 Tricuspid valve Regurgitant peak velocity 191 cm/s Peak RV-RA gradient, S 15 mm Hg Maximal regurgitant velocity 191 cm/s Systemic veins Estimated CVP 5 mm Hg Right ventricle RV pressure, S 20 mm Hg <30 Pulmonic valve Peak velocity, S 91.7 cm/s LEGEND: Mean values are shown as u=mean value. Asterisk (*) hall values outside specified normal range. Prepared and signed by Pastor Morales [id number]
[2016-06-11 12:32] LABS: BLOOD GAS BASE EXCESS 6.3 mmol/L (-2-2); BLOOD GAS CARBOXYHEMOGLOBIN 1.2 % (0-4); BLOOD GAS HCO3 31 mmol/L (22-26); BLOOD GAS METHEMOGLOBIN 0.9 % (0-2); BLOOD GAS O2 HGB SATURATION 95 % (90-100); BLOOD GAS PCO2 53 mmHg (38-42); BLOOD GAS PO2 83 mmHg (61-120); BLOOD GAS TOTAL HGB 10.5 G/DL (12.0-16.0); CRITICAL VALUE YES; OXYGEN DEVICE VENTILATOR; TEMP CORR TO 98.6
[2016-06-11 12:33] LABS: DRAW SITE LT RADIAL; FIO2 40 %; NUMBER OF ARTERIAL PUNCTURES 1; STAT NO; ULNAR PULSE PRESENT; VENT SETTINGS A/C 450/18/5PEEP
[2016-06-11] MEDS: CHLORHEXIDINE 0.12% (ORAL KIT) 15 ML CUP MT SCH (20:41)
[2016-06-12] VITALS (19 sets, daily range): BP systolic 95–133; BP diastolic 52–71; PULSE 67–80; RESP 18–19; TEMP 97.2–98.3; O2SAT 91–97
[2016-06-12] MEDS: methylPREDNISolone SOD SUCC 40 MG/1 ML VIAL IV PUSH SCH ×5 (00:18→23:57)
[2016-06-12] MEDS: INSULIN NovoLIN REGULAR SUPPLEMENTAL SCALE SQ SCH ×4 (03:00→20:49)
[2016-06-12] MEDS: RESP: ALBUTEROL 2.5 MG/IPRATROPIUM 0.5 MG NEB (SCH) NEB ×4 (03:46→20:25)
[2016-06-12] MEDS: fentaNYL DRIP 250 ML IV SCH (03:52)
[2016-06-12] MEDS: CHLORHEXIDINE GLUCONATE 2 % 1 PACK (2 CLOTHS)(taper/protocol) TOP SCH (04:00)
[2016-06-12 07:05] LABS: AUTOMATED NEUTROPHIL # 4.3 TH/MM3 (1.8-7.7); BASOPHIL % 0.1 % (0.0-2.0); HEMO FLAGS DIFF FINAL; LYMPH % 4.1 % (9.0-44.0); LYMPHOCYTE # 0.2 TH/MM3 (1.0-4.8); MEAN CELL VOLUME 85.6 FL (80.0-100.0); MEAN CORPUSCULAR HEMOGLOBIN 27.6 PG (27.0-34.0); MEAN CORPUSCULAR HGB CONC 32.3 % (32.0-36.0); MONO % 5.9 % (0.0-8.0); NEUT % 89.9 % (16.0-70.0); PLATELET COUNT 220 TH/MM3 (150-450); RED BLOOD COUNT 3.74 MIL/MM3 (4.00-5.30); WHITE BLOOD COUNT 4.8 TH/MM3 (4.0-11.0)
--- NOTE | 2016-06-12 07:12 | HHI.CCPN ---
Subjective Remarks/Hospital Course The patient is a 65 year old female with past medical history of chronic obstructive pulmonary disease on home oxygen nocturnally hypertension, breast cancer, status post chemotherapy and radiation approximately a two years ago. She was admitted to [facility] on June 14, under hospitalist service for any acute hypercapnic respiratory failure and COPD exacerbation. The patient was treated with bronchial bronchodilators and empiric antibiotics. She had multiple arterial blood gases since admission and her last ABG from yesterday afternoon showed pH of 7.33, CO2 59, pAO2 100, bicarb of 30 and saturation of 96% on BiPap 04/11 with 40% FIO2. This morning the patient was in respiratory distress, in addition she was tachypneic, tachycardiac and using her accessory muscles for respirations. She was on a BiPap for a short time without any significant improvements and given her respiratory status, She was subsequently intubated by myself and placed on full mechanical ventilation. 06/12 Patient is on fentanyl infusion for sedation but awake intubated. Afebrile. Objective Vital Signs Date Time Temp Pulse Resp B/P Pulse Ox O2 Delivery O2 Flow Rate FiO2 06/12/16 04:06 92 40 06/12/16 00:00 71 06/12/16 00:00 98.3 19 95/52 06/11/16 07:50 Nasal Cannula 4.00 Intake and Output 06/11/16 06/11/16 06/12/16 08:00 16:00 00:00 Intake Total 300 ml 520 ml 357 ml Output Total 350 ml 150 ml 100 ml Balance -50 ml 370 ml 257 ml Result Diagram: 06/12/16 0550 06/11/16 0433 Other Results Laboratory Tests Test 06/11/16 06/11/16 06/12/16 09:30 12:22 05:50 Blood Gas Puncture Site RT RADIAL LT RADIAL Blood Gas Patient Temperature 98.6 98.6 Blood Gas HCO3 33 mmol/L 31 mmol/L Blood Gas Base Excess 5.7 mmol/L 6.3 mmol/L Blood Gas Oxygen Saturation 93 % 95 % Arterial Blood pH 7.24 7.39 Arterial Blood Partial 80 mmHg 53 mmHg Pressure CO2 Arterial Blood Partial 85 mmHg 83 mmHg Pressure O2 Arterial Blood Oxygen Content 15.1 Vol % 14.0 Vol % Arterial Blood 1.0 % 1.2 % Carboxyhemoglobin Arterial Blood Methemoglobin 1.1 % 0.9 % Blood Gas Hemoglobin 11.6 G/DL 10.5 G/DL Oxygen Delivery Device VENTILATOR VENTILATOR Blood Gas Ventilator Setting A/C A/C 450/14/5PEEP 450/18/5PEEP Blood Gas Inspired Oxygen 40 % 40 % White Blood Count 4.8 TH/MM3 Red Blood Count 3.74 MIL/MM3 Hemoglobin 10.3 GM/DL Hematocrit 32.0 % Mean Corpuscular Volume 85.6 FL Mean Corpuscular Hemoglobin 27.6 PG Mean Corpuscular Hemoglobin 32.3 % Concent Red Cell Distribution Width 15.0 % Platelet Count 220 TH/MM3 Mean Platelet Volume 9.5 FL Neutrophils (%) (Auto) 89.9 % Lymphocytes (%) (Auto) 4.1 % Monocytes (%) (Auto) 5.9 % Eosinophils (%) (Auto) 0.0 % Basophils (%) (Auto) 0.1 % Neutrophils # (Auto) 4.3 TH/MM3 Lymphocytes # (Auto) 0.2 TH/MM3 Monocytes # (Auto) 0.3 TH/MM3 Eosinophils # (Auto) 0.0 TH/MM3 Basophils # (Auto) 0.0 TH/MM3 CBC Comment DIFF FINAL Differential Comment Imaging Last Impressions Chest X-Ray 06/11/16 0000 Signed Impressions: Service Date/Time: Saturday, June 11, 2016 08:36 - CONCLUSION: 1. No acute cardiopulmonary disease. 2. Adequate placement of endotracheal tube. Salty Henley MD CT Angiography 06/09/16 0000 Signed Impressions: Service Date/Time: June 06:47 - CONCLUSION: 1. Negative for pulmonary embolus. 2. Moderate to severe emphysema. 3. Multiple calcified gallstones. Antony Ledezma MD Objective Remarks GENERAL: Patient is 65 yo intubated and sedated. SKIN: Warm and dry. HEAD: Normocephalic. EYES: No scleral icterus. No injection or drainage. NECK: Supple, trachea midline. No JVD or lymphadenopathy. CARDIOVASCULAR: Regular rate and rhythm without murmurs, gallops, or rubs. RESPIRATORY: Breath sounds equal bilaterally. No accessory muscle use.Diminished GASTROINTESTINAL: Abdomen soft, non-tender, nondistended. MUSCULOSKELETAL: No cyanosis, or edema. Neuro: Intubated A/P Assessment and Plan 1. VDRF 2. COPD exacerbation. 3. Hypertension. 4. History of breast cancer. 5. Acute kidney injury. Plan Neuro: On Fentanyl infusion for sedation, daily sedation vacation when appropriate. Pulm: Continue with vent support and maintain saturation above 92%. Bronchodilators, Solu-Medrol 40 mg IV q.6 ICU vent bundle, start SBT daily as aamir CV: Monitor HR and BP keep MAP >65 mmHg. Echo showed EF 50-55%, no RWMA : Monitor renal function Is and Os and electrolyte replacement per protocol. Place on NS@100 ml/hr GI: Protonix to 40 mg IV daily for GI prophylaxis. On Glucerna 1.5 advance to goal rate 45ml/hr ID: Continue with empiric abx(Levaquin) and monitor for signs of infections ( fever and WBC) Heme: Monitor CBC Endo: On SSI with Accu-Chek q. 6-hour for glycemic control GI prophylaxis with Protonix 40 mg IV daily and DVT prophylaxis with SCDs/ Lovenox 40 mg Subcu daily. Level 3 Carolee Martel MD Jun 12, 2016 07:11
[2016-06-12 07:33] LABS: BICARBONATE 31.8 MEQ/L (21.0-32.0); MAGNESIUM 2.6 MG/DL (1.5-2.5); POTASSIUM 3.8 MEQ/L (3.5-5.1)
[2016-06-12] MEDS: SODIUM CHLOR 0.9% 1000 ML INJ 1,000 ML IV SCH ×2 (08:00→17:19)
[2016-06-12] MEDS: CHLORHEXIDINE 0.12% (ORAL KIT) 15 ML CUP MT SCH ×2 (08:01→20:50)
[2016-06-12] MEDS: ENOXAPARIN SODIUM 40 MG/0.4 ML SYRINGE SQ SCH (08:52)
[2016-06-12] MEDS: SODIUM CHLORIDE 0.9% FLUSH 5 ML FLUSH FLUSH SCH ×2 (08:52→20:48)
[2016-06-12] MEDS: PANTOPRAZOLE SODIUM 40 MG VIAL IV PUSH SCH (08:53)
[2016-06-12] MEDS: THEOPHYLLINE PO SCH ×2 (08:53→20:50)
[2016-06-12] MEDS: CALCIPOTRIENE 0.005% CREAM 60 GM TOPICAL SCH ×2 (08:53→20:49)
[2016-06-12] MEDS: BUDESONIDE-FORMOTEROL 80/4.5 MCG INHALER INH SCH ×2 (08:54→20:49)
[2016-06-12] MEDS: ONDANSETRON HCL 4 MG/2 ML VIAL IV PUSH PRN (15:20)
[2016-06-13] VITALS (15 sets, daily range): BP systolic 90–159; BP diastolic 56–77; PULSE 61–77; RESP 11–20; TEMP 97.1–97.7; O2SAT 94–97
[2016-06-13] MEDS: SODIUM CHLOR 0.9% 1000 ML INJ 1,000 ML IV SCH ×3 (02:14→22:23)
[2016-06-13] MEDS: INSULIN NovoLIN REGULAR SUPPLEMENTAL SCALE SQ SCH ×4 (03:00→21:02)
[2016-06-13] MEDS: RESP: ALBUTEROL 2.5 MG/IPRATROPIUM 0.5 MG NEB (SCH) NEB (03:33)
[2016-06-13] MEDS: methylPREDNISolone SOD SUCC 40 MG/1 ML VIAL IV PUSH SCH ×3 (06:28→18:00)
[2016-06-13 07:59] LABS: AUTOMATED NEUTROPHIL # 5.8 TH/MM3 (1.8-7.7); BASOPHIL % 0.1 % (0.0-2.0); HEMATOCRIT 30.4 % (35.0-46.0); HEMO FLAGS DIFF FINAL; LYMPH % 3.2 % (9.0-44.0); LYMPHOCYTE # 0.2 TH/MM3 (1.0-4.8); MEAN CELL VOLUME 86.5 FL (80.0-100.0); MEAN CORPUSCULAR HEMOGLOBIN 27.6 PG (27.0-34.0); MEAN CORPUSCULAR HGB CONC 31.9 % (32.0-36.0); MONO % 6.2 % (0.0-8.0); NEUT % 90.5 % (16.0-70.0); PLATELET COUNT 207 TH/MM3 (150-450); RED BLOOD COUNT 3.51 MIL/MM3 (4.00-5.30); RED CELL DISTRIBUTION WIDTH 15.2 % (11.6-17.2); WHITE BLOOD COUNT 6.4 TH/MM3 (4.0-11.0)
[2016-06-13] MEDS: CHLORHEXIDINE 0.12% (ORAL KIT) 15 ML CUP MT SCH ×2 (08:00→20:15)
[2016-06-13] MEDS: ALPRAZolam 0.25 MG TAB PO PRN (08:15)
--- NOTE | 2016-06-13 08:16 | HHI.CCPN ---
Subjective Remarks/Hospital Course The patient is a 65 year old female with past medical history of chronic obstructive pulmonary disease on home oxygen nocturnally hypertension, breast cancer, status post chemotherapy and radiation approximately a two years ago. She was admitted to [facility] on June 14, under hospitalist service for any acute hypercapnic respiratory failure and COPD exacerbation. The patient was treated with bronchial bronchodilators and empiric antibiotics. She had multiple arterial blood gases since admission and her last ABG from yesterday afternoon showed pH of 7.33, CO2 59, pAO2 100, bicarb of 30 and saturation of 96% on BiPap 04/11 with 40% FIO2. This morning the patient was in respiratory distress, in addition she was tachypneic, tachycardiac and using her accessory muscles for respirations. She was on a BiPap for a short time without any significant improvements and given her respiratory status, She was subsequently intubated by myself and placed on full mechanical ventilation. 06/12 Patient is on fentanyl infusion for sedation but awake intubated. Afebrile. 06/13 No acute events overnight. Sedated and intubated. Patient tolerated CPAP x 2 hrs yesterday. Afebrile. Objective Vital Signs Date Time Temp Pulse Resp B/P Pulse Ox O2 Delivery O2 Flow Rate FiO2 06/13/16 08:00 97 40 06/13/16 06:00 67 06/13/16 04:00 97.7 18 127/67 06/11/16 07:50 Nasal Cannula 4.00 Intake and Output 06/12/16 06/12/16 06/13/16 08:00 16:00 00:00 Intake Total 441 ml 1175 ml 1097 ml Output Total 150 ml 250 ml 200 ml Balance 291 ml 925 ml 897 ml Result Diagram: 06/13/16 0615 06/12/16 0550 Other Results Laboratory Tests Test 06/13/16 06:15 White Blood Count 6.4 TH/MM3 Red Blood Count 3.51 MIL/MM3 Hemoglobin 9.7 GM/DL Hematocrit 30.4 % Mean Corpuscular Volume 86.5 FL Mean Corpuscular Hemoglobin 27.6 PG Mean Corpuscular Hemoglobin 31.9 % Concent Red Cell Distribution Width 15.2 % Platelet Count 207 TH/MM3 Mean Platelet Volume 9.6 FL Neutrophils (%) (Auto) 90.5 % Lymphocytes (%) (Auto) 3.2 % Monocytes (%) (Auto) 6.2 % Eosinophils (%) (Auto) 0.0 % Basophils (%) (Auto) 0.1 % Neutrophils # (Auto) 5.8 TH/MM3 Lymphocytes # (Auto) 0.2 TH/MM3 Monocytes # (Auto) 0.4 TH/MM3 Eosinophils # (Auto) 0.0 TH/MM3 Basophils # (Auto) 0.0 TH/MM3 CBC Comment DIFF FINAL Differential Comment Imaging Last Impressions Chest X-Ray 06/11/16 0000 Signed Impressions: Service Date/Time: Saturday, June 11, 2016 08:36 - CONCLUSION: 1. No acute cardiopulmonary disease. 2. Adequate placement of endotracheal tube. Salty Henley MD CT Angiography 06/09/16 Signed Impressions: Service Date/Time: June 06:47 - CONCLUSION: 1. Negative for pulmonary embolus. 2. Moderate to severe emphysema. 3. Multiple calcified gallstones. Antony Ledezma MD Objective Remarks GENERAL: Patient is 65 yo intubated and sedated. SKIN: Warm and dry. HEAD: Normocephalic. EYES: No scleral icterus. No injection or drainage. NECK: Supple, trachea midline. No JVD or lymphadenopathy. CARDIOVASCULAR: Regular rate and rhythm without murmurs, gallops, or rubs. RESPIRATORY: Breath sounds equal bilaterally. No accessory muscle use.Diminished GASTROINTESTINAL: Abdomen soft, non-tender, nondistended. MUSCULOSKELETAL: No cyanosis, or edema. Neuro: Intubated A/P Assessment and Plan 1. VDRF 2. COPD exacerbation. 3. Hypertension. 4. History of breast cancer. 5. Acute kidney injury. Plan Neuro: On Fentanyl infusion for sedation, daily sedation vacation when appropriate. Pulm: Continue with vent support and maintain saturation above 92%. Bronchodilators, Solu-Medrol 40 mg IV q.6 ICU vent bundle, SBT daily as aamir and possible extubation today CV: Monitor HR and BP keep MAP >65 mmHg. Echo showed EF 50-55%, no RWMA : Monitor renal function I/Os and electrolyte replacement per protocol. On NS@100 ml/hr GI: Protonix to 40 mg IV daily for GI prophylaxis. On Glucerna 1.5 @45ml/hr ID: Continue with empiric abx(Levaquin) and monitor for signs of infections ( fever and WBC) Heme: Monitor CBC Endo: On SSI with Accu-Chek q. 6-hour for glycemic control GI prophylaxis with Protonix 40 mg IV daily and DVT prophylaxis with SCDs/ Lovenox 40 mg Subcu daily. Level 3 Carolee Martel MD Jun 13, 2016 08:16
[2016-06-13 08:32] LABS: BICARBONATE 32.1 MEQ/L (21.0-32.0); MAGNESIUM 2.8 MG/DL (1.5-2.5)
[2016-06-13] MEDS: ONDANSETRON HCL 4 MG/2 ML VIAL IV PUSH PRN ×2 (08:50→12:20)
[2016-06-13] MEDS: PANTOPRAZOLE SODIUM 40 MG VIAL IV PUSH SCH (08:50)
[2016-06-13] MEDS: ENOXAPARIN SODIUM 40 MG/0.4 ML SYRINGE SQ SCH (08:51)
[2016-06-13] MEDS: SODIUM CHLORIDE 0.9% FLUSH 5 ML FLUSH FLUSH SCH ×2 (08:53→20:15)
[2016-06-13] MEDS: CALCIPOTRIENE 0.005% CREAM 60 GM TOPICAL SCH ×2 (09:00→20:14)
[2016-06-13] MEDS: BUDESONIDE-FORMOTEROL 80/4.5 MCG INHALER INH SCH ×2 (09:00→20:15)
[2016-06-13] MEDS: THEOPHYLLINE PO SCH ×2 (09:00→20:15)
[2016-06-13] MEDS: LEVOFLOXACIN 750 MG PREMIX INJ 150 ML IV SCH (09:02)
[2016-06-13] MEDS: CHLORHEXIDINE GLUCONATE 2 % 1 PACK (2 CLOTHS)(taper/protocol) TOP SCH (10:36)
[2016-06-13] MEDS: fentaNYL DRIP 250 ML IV SCH (12:22)
[2016-06-13 13:04] LABS: BLOOD GAS BASE EXCESS 3.7 mmol/L (-2-2); BLOOD GAS CARBOXYHEMOGLOBIN 0.8 % (0-4); BLOOD GAS HCO3 30 mmol/L (22-26); BLOOD GAS METHEMOGLOBIN 1.1 % (0-2); BLOOD GAS O2 HGB SATURATION 94 % (90-100); BLOOD GAS OXYGEN CONTENT 13.8 Vol % (12.0-20.0); BLOOD GAS PCO2 70 mmHg (38-42); BLOOD GAS PO2 90 mmHg (61-120); BLOOD GAS TOTAL HGB 10.4 G/DL (12.0-16.0); TEMP CORR TO 98.6
[2016-06-13 13:05] LABS: CRITICAL VALUE YES; DRAW SITE LT RADIAL; FIO2 40 %; NUMBER OF ARTERIAL PUNCTURES 1; OXYGEN DEVICE VENTILATOR; STAT NO; ULNAR PULSE PRESENT; VENT SETTINGS CPAP+5/PS10
[2016-06-14] VITALS (17 sets, daily range): BP systolic 107–142; BP diastolic 64–97; PULSE 53–83; RESP 18–20; TEMP 97.5–98.8; O2SAT 93–99
[2016-06-14] MEDS: RESP: ALBUTEROL 1.25 MG/3 ML NEB (PRN) NEB (00:07)
[2016-06-14] MEDS: methylPREDNISolone SOD SUCC 40 MG/1 ML VIAL IV PUSH SCH ×3 (00:40→18:00)
[2016-06-14] MEDS: ALPRAZolam 0.25 MG TAB PO PRN ×2 (00:40→10:27)
[2016-06-14] MEDS: MIDAZOLAM 100 MG/ML INJ 100 ML IV SCH (02:21)
[2016-06-14] MEDS: INSULIN NovoLIN REGULAR SUPPLEMENTAL SCALE SQ SCH ×4 (03:02→21:00)
[2016-06-14] MEDS: CHLORHEXIDINE GLUCONATE 2 % 1 PACK (2 CLOTHS)(taper/protocol) TOP SCH (04:00)
[2016-06-14] MEDS: fentaNYL DRIP 250 ML IV SCH (05:36)
[2016-06-14] MEDS: SODIUM CHLOR 0.9% 1000 ML INJ 1,000 ML IV SCH ×2 (06:38→21:45)
[2016-06-14 07:11] LABS: AUTOMATED NEUTROPHIL # 5.1 TH/MM3 (1.8-7.7); HEMATOCRIT 30.9 % (35.0-46.0); HEMO FLAGS DIFF FINAL; LYMPH % 3.1 % (9.0-44.0); LYMPHOCYTE # 0.2 TH/MM3 (1.0-4.8); MEAN CELL VOLUME 88.3 FL (80.0-100.0); MEAN CORPUSCULAR HEMOGLOBIN 27.4 PG (27.0-34.0); NEUT % 91.9 % (16.0-70.0); PLATELET COUNT 177 TH/MM3 (150-450); RED CELL DISTRIBUTION WIDTH 15.5 % (11.6-17.2); WHITE BLOOD COUNT 5.5 TH/MM3 (4.0-11.0)
[2016-06-14 07:51] LABS: BICARBONATE 32.5 MEQ/L (21.0-32.0); POTASSIUM 4.7 MEQ/L (3.5-5.1)
[2016-06-14] MEDS: CHLORHEXIDINE 0.12% (ORAL KIT) 15 ML CUP MT SCH ×4 (08:00→19:41)
--- NOTE | 2016-06-14 08:20 | HHI.CCPN ---
Subjective Remarks/Hospital Course The patient is a 65 year old female with past medical history of chronic obstructive pulmonary disease on home oxygen nocturnally hypertension, breast cancer, status post chemotherapy and radiation approximately a two years ago. She was admitted to [facility] on June 14, under hospitalist service for any acute hypercapnic respiratory failure and COPD exacerbation. The patient was treated with bronchial bronchodilators and empiric antibiotics. She had multiple arterial blood gases since admission and her last ABG from yesterday afternoon showed pH of 7.33, CO2 59, pAO2 100, bicarb of 30 and saturation of 96% on BiPap 04/11 with 40% FIO2. This morning the patient was in respiratory distress, in addition she was tachypneic, tachycardiac and using her accessory muscles for respirations. She was on a BiPap for a short time without any significant improvements and given her respiratory status, She was subsequently intubated by myself and placed on full mechanical ventilation. 06/12 Patient is on fentanyl infusion for sedation but awake intubated. Afebrile. 06/13 No acute events overnight. Sedated and intubated. Patient tolerated CPAP x 2 hrs yesterday. Afebrile. 06/14 Patient had high peak pressires overnight switched to PRVC/AC mode and Versed drip was added to Fentanyl drip. Tolerating tube feeds. Afebrile. Objective Vital Signs Date Time Temp Pulse Resp B/P Pulse Ox O2 Delivery O2 Flow Rate FiO2 06/14/16 06:00 53 06/14/16 04:16 98 40 06/14/16 04:00 98.2 18 112/65 06/11/16 07:50 Nasal Cannula 4.00 Intake and Output 06/13/16 06/13/16 06/14/16 08:00 16:00 00:00 Intake Total 1269 ml 942 ml 603 ml Output Total 275 ml 300 ml 125.0 ml Balance 994 ml 642 ml 478.0 ml Result Diagram: 06/14/16 0502 06/14/16 0502 Other Results Laboratory Tests Test 06/13/16 06/14/16 12:55 05:02 Blood Gas Puncture Site LT RADIAL Blood Gas Patient Temperature 98.6 Blood Gas HCO3 30 mmol/L Blood Gas Base Excess 3.7 mmol/L Blood Gas Oxygen Saturation 94 % Arterial Blood pH 7.26 Arterial Blood Partial 70 mmHg Pressure CO2 Arterial Blood Partial 90 mmHg Pressure O2 Arterial Blood Oxygen Content 13.8 Vol % Arterial Blood 0.8 % Carboxyhemoglobin Arterial Blood Methemoglobin 1.1 % Blood Gas Hemoglobin 10.4 G/DL Oxygen Delivery Device VENTILATOR Blood Gas Ventilator Setting CPAP+5/PS10 Blood Gas Inspired Oxygen 40 % White Blood Count 5.5 TH/MM3 Red Blood Count 3.50 MIL/MM3 Hemoglobin 9.6 GM/DL Hematocrit 30.9 % Mean Corpuscular Volume 88.3 FL Mean Corpuscular Hemoglobin 27.4 PG Mean Corpuscular Hemoglobin 31.0 % Concent Red Cell Distribution Width 15.5 % Platelet Count 177 TH/MM3 Mean Platelet Volume 9.5 FL Neutrophils (%) (Auto) 91.9 % Lymphocytes (%) (Auto) 3.1 % Monocytes (%) (Auto) 5.0 % Eosinophils (%) (Auto) 0.0 % Basophils (%) (Auto) 0.0 % Neutrophils # (Auto) 5.1 TH/MM3 Lymphocytes # (Auto) 0.2 TH/MM3 Monocytes # (Auto) 0.3 TH/MM3 Eosinophils # (Auto) 0.0 TH/MM3 Basophils # (Auto) 0.0 TH/MM3 CBC Comment DIFF FINAL Differential Comment Sodium Level 149 MEQ/L Potassium Level 4.7 MEQ/L Chloride Level 111 MEQ/L Carbon Dioxide Level 32.5 MEQ/L Anion Gap 6 MEQ/L Blood Urea Nitrogen 68 MG/DL Creatinine 1.17 MG/DL Estimat Glomerular Filtration 46 ML/MIN Rate Random Glucose 159 MG/DL Calcium Level 8.1 MG/DL Phosphorus Level 2.4 MG/DL Magnesium Level 3.0 MG/DL Imaging Last Impressions Chest X-Ray 06/11/16 0000 Signed Impressions: Service Date/Time: Saturday, June 11, 2016 08:36 - CONCLUSION: 1. No acute cardiopulmonary disease. 2. Adequate placement of endotracheal tube. Salty Henley MD CT Angiography 06/09/16 0000 Signed Impressions: Service Date/Time: June 06:47 - CONCLUSION: 1. Negative for pulmonary embolus. 2. Moderate to severe emphysema. 3. Multiple calcified gallstones. Antony Ledezma MD Objective Remarks GENERAL: Patient is 65 yo intubated and sedated. SKIN: Warm and dry. HEAD: Normocephalic. EYES: No scleral icterus. No injection or drainage. NECK: Supple, trachea midline. No JVD or lymphadenopathy. CARDIOVASCULAR: Regular rate and rhythm without murmurs, gallops, or rubs. RESPIRATORY: Breath sounds equal bilaterally. No accessory muscle use.Diminished GASTROINTESTINAL: Abdomen soft, non-tender, nondistended. MUSCULOSKELETAL: No cyanosis, or edema. Neuro: Intubated A/P Assessment and Plan 1. VDRF 2. COPD exacerbation. 3. Hypertension. 4. History of breast cancer. 5. Acute kidney injury. Plan Neuro: On Fentanyl/Versed infusion for sedation, daily sedation vacation Pulm: O PRVC/AC RR 18, TV 500, PEEP: 5, FIO2 40%, IT:1.0 Continue with vent support and maintain saturation above 92%. Bronchodilators, decrease Solu-Medrol 40 mg IV q12. Pulm eval ICU vent bundle, SBT daily as aamir CV: Monitor HR and BP keep MAP >65 mmHg. Echo showed EF 50-55%, no RWMA : Monitor renal function I/Os and electrolyte replacement per protocol. d/c IVF, place on Free water 250ml Q12, monitor sodium level. GI: Protonix to 40 mg IV daily for GI prophylaxis. On Glucerna 1.5 @45ml/hr ID: Continue with empiric abx(Levaquin) and monitor for signs of infections ( fever and WBC) Heme: Monitor CBC Endo: On SSI with Accu-Chek q. 6-hour for glycemic control GI prophylaxis with Protonix 40 mg IV daily and DVT prophylaxis with SCDs/ Lovenox 40 mg Subcu daily. CCT 30 mins Carolee Martel MD Jun 14, 2016 08:20
[2016-06-14] MEDS: THEOPHYLLINE PO SCH ×2 (09:00→19:41)
[2016-06-14] MEDS: SODIUM CHLORIDE 0.9% FLUSH 5 ML FLUSH FLUSH SCH ×2 (09:00→21:13)
[2016-06-14] MEDS: FREE WATER G-TUBE SCH ×2 (09:00→21:00)
[2016-06-14 09:26] LABS: BLOOD GAS BASE EXCESS 4.1 mmol/L (-2-2); BLOOD GAS CARBOXYHEMOGLOBIN 1.2 % (0-4); BLOOD GAS HCO3 29 mmol/L (22-26); BLOOD GAS METHEMOGLOBIN 0.9 % (0-2); BLOOD GAS O2 HGB SATURATION 96 % (90-100); BLOOD GAS OXYGEN CONTENT 13.1 Vol % (12.0-20.0); BLOOD GAS PCO2 55 mmHg (38-42); BLOOD GAS PO2 114 mmHg (61-120); BLOOD GAS TOTAL HGB 9.5 G/DL (12.0-16.0); CRITICAL VALUE YES; OXYGEN DEVICE VENTILATOR; TEMP CORR TO 98.6
[2016-06-14 09:27] LABS: DRAW SITE LT RADIAL; FIO2 40 %; NUMBER OF ARTERIAL PUNCTURES 1; STAT NO; ULNAR PULSE PRESENT; VENT SETTINGS SEE COMMENTS
[2016-06-14] MEDS: ENOXAPARIN SODIUM 40 MG/0.4 ML SYRINGE SQ SCH (10:28)
[2016-06-14] MEDS: PANTOPRAZOLE SODIUM 40 MG VIAL IV PUSH SCH (10:28)
[2016-06-14] MEDS: BUDESONIDE-FORMOTEROL 80/4.5 MCG INHALER INH SCH ×2 (10:29→19:41)
[2016-06-14] MEDS: CALCIPOTRIENE 0.005% CREAM 60 GM TOPICAL SCH ×2 (10:29→21:00)
[2016-06-14 13:06] LABS: BLOOD GAS CARBOXYHEMOGLOBIN 1.1 % (0-4); BLOOD GAS HCO3 30 mmol/L (22-26); BLOOD GAS METHEMOGLOBIN 0.8 % (0-2); BLOOD GAS O2 HGB SATURATION 93 % (90-100); BLOOD GAS OXYGEN CONTENT 13.4 Vol % (12.0-20.0); BLOOD GAS PCO2 61 mmHg (38-42); BLOOD GAS PO2 77 mmHg (61-120); BLOOD GAS TOTAL HGB 10.2 G/DL (12.0-16.0); TEMP CORR TO 98.6
[2016-06-14 13:07] LABS: CRITICAL VALUE YES; DRAW SITE RT RADIAL; FIO2 35 %; NUMBER OF ARTERIAL PUNCTURES 1; OXYGEN DEVICE VENTILATOR; STAT NO; ULNAR PULSE PRESENT; VENT SETTINGS CPAP 5, PS10
[2016-06-14 18:23] LABS: HEMATOCRIT 29.4 % (35.0-46.0); REVIEW FLAG FINAL
[2016-06-14] MEDS: RESP: ALBUTEROL 2.5 MG/IPRATROPIUM 0.5 MG NEB (PRN) NEB (20:02)
[2016-06-14 23:22] LABS: HEMATOCRIT 30.8 % (35.0-46.0); REVIEW FLAG FINAL
[2016-06-14 23:31] LABS: APTT (PATIENT) 25.4 SEC (24.3-30.1)
[2016-06-15] VITALS (17 sets, daily range): BP systolic 103–153; BP diastolic 55–70; PULSE 61–73; RESP 12–24; TEMP 97.6–98.9; O2SAT 93–100
[2016-06-15] MEDS: INSULIN NovoLIN REGULAR SUPPLEMENTAL SCALE SQ SCH ×4 (01:45→21:00)
[2016-06-15] MEDS: SODIUM CHLOR 0.9% 1000 ML INJ 1,000 ML IV SCH ×2 (01:53→16:19)
[2016-06-15] MEDS: methylPREDNISolone SOD SUCC 40 MG/1 ML VIAL IV PUSH SCH ×2 (03:57→16:19)
[2016-06-15] MEDS: MIDAZOLAM 100 MG/ML INJ 100 ML IV SCH (03:57)
--- NOTE | 2016-06-15 05:24 | MB ---
cc: JAKOB HORN DATE OF CONSULTATION 06/14/2016 REASON FOR CONSULTATION COPD and respiratory failure. HISTORY OF PRESENT ILLNESS This is a 65-year-old white female who was seen in the emergency room for shortness of breath of 2-3 days duration. Has had a past history for chronic bronchitis. She had used a nebulize and in spite of taking 2-3 nebulized albuterol treatments, she did not feel better and thus was brought in by [facility]. Upon arrival the patient was alert and was placed on BiPap for respiratory failure and subsequently the patient became hypotensive and was intubated and placed on ventilator support. The patient had been sedated for the past 24 hours. Attempts have been made to wean her down to C-PAP and presently she is on 40% FIO2 and PEEP of 5 and seems to be responding well and maintaining adequate saturations of over 95%. The patient is not running any fevers. She has clear secretions in the ET tube and seems to be cooperative and responding well to commands. PAST HISTORY The patient's past history has been significant for - 1. Carcinoma of the breast with the right mastectomy and chemotherapy as well as radiation therapy two years ago. 1. She has had meniscus repair. 2. History of hypertension. 3. History of chronic bronchitis and has been on home O2 at 2 liters at night. ALLERGIES DOXYCYCLINE. HABITS The patient has a longstanding history of smoking for over 30 years a pack per day. No significant alcohol use. SYSTEMS REVIEW The patient is intubated and on ventilator support. PHYSICAL EXAMINATION GENERAL: This is averagely built elderly white female who is in bed. She is responsive, intubated, assisting the ventilator. VITAL SIGNS: Blood pressure 130/70, pulse is 105, respirations of 24, temperature 98.2. HEENT: Head normocephalic. Pupils are reactive and equal. Tongue is dry. Throat is injected. Nasal mucosa edematous. NECK: Supple. No bruits or thyroid enlargement or lymphadenopathy. CHEST: Equal movements with percussion note, resonant throughout. Breath sounds slightly diminished over the periphery with wheezes heard throughout both lung espinoza. Prolonged expirations. HEART: The heart sounds are irregular. S1-S2 with no murmur. No S3 gallop. ABDOMEN: Soft, protuberant, without masses. No organomegaly or tenderness. The bowel sounds are active. EXTREMITIES: No edema. Peripheral pulses are diminished. There is no calf tenderness or swelling. NEUROLOGIC: She is moving all extremities with no gross motor deficits and cranial nerves grossly intact. RECTAL: Exam is deferred. SKIN: No lesions. IMPRESSION 1. Acute respiratory failure. 2. COPD with emphysema, chronic bronchitis. 3. History of hypertension. 4. History of breast cancer with right mastectomy and radiation therapy. PLAN 1. The patient will be weaned to C-PAP, FIO2 of 35% and sedation will be held, nebulized albuterol/Atrovent solution started every 6 hours and Solu-Medrol 40 mg IV every 8 hours. 2. We will also continue with antibiotic coverage as ordered and also hold off on the tube feedings at this time. 3. If her Wai and post-vital capacity are adequate, the patient will be extubated to nasal cannula at 3 liters. The patient will have a pulmonary function study ordered when she is stable and we will also get a culture from the tracheal aspirate with Gram's stain. Thank you Dr. Hanson for this consultation. Jakob Horn MD JVD/FILIBERTO /10:52 PM /5:06 AM
--- NOTE | 2016-06-15 05:27 | RADRPT ---
EXAM DATE/TIME: 06/15/2016 03:30 [facility] COMPARISON: CHEST SINGLE AP, June 11, 2016, 8:36. INDICATIONS : Shortness of breath. MEDICAL HISTORY : Hypercholesterolemia. Hypertension Chronic obstructive pulmonary disease. SURGICAL HISTORY : Mastectomy, right. ENCOUNTER: Subsequent ACUITY: 4 - 6 days PAIN SCORE: Non-responsive. LOCATION: Bilateral chest FINDINGS: Endotracheal tube and enteric tube again seen. EKG leads overlie the chest. No consolidation or effus ion. Heart size normal. CONCLUSION: No significant change has occurred. Teto Anderson MD on June 15, 2016 at 5:25 Board Certified Radiologist. This report was verified electronically.
[2016-06-15] MEDS: CHLORHEXIDINE 0.12% (ORAL KIT) 15 ML CUP MT SCH ×4 (07:25→21:08)
[2016-06-15] MEDS: BUDESONIDE-FORMOTEROL 80/4.5 MCG INHALER INH SCH ×2 (07:25→21:00)
[2016-06-15] MEDS: THEOPHYLLINE PO SCH ×2 (09:00→21:00)
[2016-06-15] MEDS: FREE WATER G-TUBE SCH ×2 (09:00→21:00)
[2016-06-15] MEDS: CALCIPOTRIENE 0.005% CREAM 60 GM TOPICAL SCH ×2 (09:00→21:09)
[2016-06-15] MEDS: SODIUM CHLORIDE 0.9% FLUSH 5 ML FLUSH FLUSH SCH ×2 (09:00→21:06)
[2016-06-15] MEDS: PANTOPRAZOLE SODIUM 40 MG VIAL IV PUSH SCH ×2 (09:00→21:07)
--- NOTE | 2016-06-15 14:03 | RADRPT ---
EXAM DATE/TIME: 06/15/2016 11:15 [facility] COMPARISON: No previous studies available for comparison. INDICATIONS : Hemmorrhage. DOSE: 21.2 mCi Tc99m Ultratag labeled red blood cells IV IMAGIN hrs MEDICAL HISTORY : Carcinoma, breast. Hypertension. Chronic obstructive pulmonary disease. SURGICAL HISTORY : Bilateral knee surgery. ENCOUNTER: Initial ACUITY: 1 day PAIN SCALE: 2/10 LOCATION: Abdomen. TECHNIQUE: Following the modified in vitro labeling of autologous red cells, dynamic continuous i mages were acquired for the specified interval. FINDINGS: BIODISTRIBUTION: There is a very good labeling of red cells without significant uptake in the gas tric wall. There is good delineation of the blood pool of the spleen and abdominal vessels. BLEEDING: No episodes of active GI bleeding are observed during specified interval of continuous observation. CONCLUSION: Negative for slight gastrointestinal hemorrhage. Gary Cook MD FACR on June 15, 2016 at 14:01 Board Certified Radiologist. This report was verified electronically.
--- NOTE | 2016-06-15 14:35 | PD.CONS ---
HPI History of Present Illness This is a 65 year old female with past medical history of chronic obstructive pulmonary disease on home oxygen nocturnally, hypertension, breast cancer, s/p chemotherapy and radiation approximately a two years ago who is here for acute hypercapnic respiratory failure and COPD exacerbation. Currently patient is sedated on a vent, GI consulted for lower GI bleed that started yesterday around 6 pm, this is described as dark maroon, significant amount of bleeding. Not able to obtain further information, no previous history of this per . Bleeding scan negative. Significant drop in hgb, yesterday hgb was 9.7 , it was 12.7 on 06/09/16. (Lissy Nunez) PFSH Past Medical History Per EMR Hypertension COPDon home nocturnal oxygen Breast cancerstatus post right cystectomy, chemotherapy, radiation therapy2 years ago Past Surgical History Per EMR Right mastectomy Meniscus tear repair (Lissy Nunez) Coded Allergies: Doxycycline (Unverified Allergy, Mild, 06/09/16) Medications Current Medications Medications (Trade) Dose Ordered Sig/Reese Route Start Time Stop Time Status Last Admin (NS Flush) 2 ml UNSCH PRN FLUSH 06/09/16 04:00 06/09/16 17:12 (NS Flush) 2 ml BID FLUSH 06/09/16 09:00 06/15/16 09:00 (Narcan Inj) 0.4 mg UNSCH PRN IV 06/09/16 04:00 (Prinivil) 5 mg DAILY PO 06/09/16 09:00 Hold 06/10/16 08:07 Patient Own Medication PT OWN MED: THEOCHRON (THEOPHYLL... Q12HR PO 06/09/16 09:00 (Symbicort 80-4.5 Mcg Inh) 2 puff Q12HR INH 06/09/16 21:00 06/14/16 10:29 (Xanax) 0.125 mg Q6H PRN PO 06/09/16 17:45 06/14/16 10:27 (Dovonex 0.005% Cream) 1 applic Q12HR TOPICAL 06/09/16 21:00 06/15/16 09:00 (Pill Splitter) 1 ea UNSCH PRN OTHER 06/09/16 18:15 Miscellaneous Information Patient in critical care unit? Ass... Q361D XX 06/09/16 22:45 (Tylenol) 650 mg Q4H PRN PO 06/10/16 07:45 06/10/16 22:30 (Miralax) 17 gm DAILY PRN PO 06/10/16 07:45 Chlorhexidine Gluconate 15 ml 15 ml BID@08,20 MT 06/11/16 20:00 06/14/16 19:41 (Diprivan 1000 Mg/100ml Inj) 100 ml @ 0 mls/hr TITRATE IV 06/11/16 08:45 06/11/16 08:58 (D50w (Vial) Inj) 25 ml UNSCH PRN IV PUSH 06/11/16 08:45 (Glucagon Inj) 1 mg UNSCH PRN OTHER 06/11/16 08:45 Insulin Human Regular 1 1 Q6H SQ 06/11/16 09:00 06/14/16 03:02 Potassium Chloride 100 ml @ 50 mls/hr Q2H PRN IV 06/11/16 08:45 (KCl 20 Meq Premix Inj) 100 ml @ 50 mls/hr Q2H PRN IV 06/11/16 08:45 Potassium Chloride 40 meq 40 meq UNSCH PRN PO/TUBE 06/11/16 08:45 Potassium Chloride 100 ml @ 25 mls/hr UNSCH PRN IV 06/11/16 08:45 Potassium Chloride 100 ml @ 50 mls/hr Q2H PRN IV 06/11/16 08:45 (Magnesium Sulfate Inj/NS Inj) 100 ml @ 50 mls/hr UNSCH PRN IV 06/11/16 08:45 Magnesium Oxide 800 mg 800 mg UNSCH PRN PO 06/11/16 08:45 (Magnesium Sulfate Inj/NS Inj) 100 ml @ 50 mls/hr UNSCH PRN IV 06/11/16 08:45 Potassium Phosphate 2000 mg 2,000 mg Q4H PRN PO 06/11/16 08:45 (Sodium Phosphate Inj/NS 250 ml Inj) 250 ml @ 42 mls/hr UNSCH PRN IV 06/11/16 08:45 (KCl 40 Meq/30 ml Liq) 40 meq UNSCH PRN PO/TUBE 06/11/16 08:45 Potassium Phosphate 2000 mg 2,000 mg UNSCH PRN PO/TUBE 06/11/16 08:45 Potassium Phosphate 30 mmol/ Sodium Chloride 260 ml @ 42 mls/hr UNSCH PRN IV 06/11/16 08:45 Fentanyl Citrate 250 ml @ 0 mls/hr TITRATE IV 06/11/16 10:30 06/14/16 05:36 (Levaquin 750 Mg Premix Inj) 150 ml @ 100 mls/hr Q48H IV 06/13/16 10:00 06/13/16 09:02 (Zofran Inj) 4 mg Q6HR PRN IV PUSH 06/11/16 20:45 06/13/16 12:20 Chlorhexidine Gluconate 15 ml 15 ml BID@08,20 MT 06/14/16 08:00 06/15/16 07:25 (Versed Inj) 100 ml @ 0 mls/hr TITRATE IV 06/14/16 01:45 06/15/16 03:57 (SoluMEDROL INJ) 40 mg Q12H IV PUSH 06/14/16 18:00 06/15/16 03:57 (Free Water) 250 ml Q12H G-TUBE 06/14/16 09:00 06/15/16 09:00 Pantoprazole Sodium 40 mg 40 mg BID IV PUSH 06/15/16 09:00 (NS 1000 ml Inj) 1,000 ml @ 100 mls/hr Q10H IV 06/14/16 21:45 06/15/16 01:53 Family History Reports of family history of breast cancer in sister. Social History Per EMR Used to smoke cigarettes, quit 17 years ago. Denies any alcohol abuse or drug abuse. Lives with her (Lissy Nunez) Review of Systems ROS Unable to obtain, patient sedated on a vent (Lissy Nunez) GI Exam Vitals I&O Vital Signs Date Time Temp Pulse Resp B/P Pulse Ox O2 Delivery O2 Flow Rate FiO2 06/15/16 12:00 97.6 62 12 103/59 100 06/15/16 12:00 35 06/15/16 12:00 62 06/15/16 10:00 68 06/15/16 08:10 35 06/15/16 08:00 67 06/15/16 08:00 97.6 72 12 145/64 96 06/15/16 08:00 35 06/15/16 07:31 93 35 06/15/16 06:00 66 06/15/16 05:04 99 35 06/15/16 04:00 98.0 61 18 125/65 97 06/15/16 04:00 61 06/15/16 04:00 40 06/15/16 02:00 62 06/15/16 00:32 100 35 06/15/16 00:00 40 06/15/16 00:00 98.9 65 24 140/63 98 06/15/16 00:00 65 06/15/16 00:00 98.2 65 18 140/63 98 06/14/16 22:00 69 06/14/16 20:01 96 35 06/14/16 20:00 40 06/14/16 20:00 65 06/14/16 20:00 98.8 61 18 119/69 98 06/14/16 18:00 65 112/65 06/14/16 16:42 95 35 06/14/16 16:00 97.5 62 20 142/91 97 06/14/16 16:00 40 I/O 06/14/16 06/14/16 06/14/16 06/15/16 06/15/16 06/15/16 07:00 15:00 23:00 07:00 15:00 23:00 Intake Total 1283 ml 1089 ml 591 ml 850 ml Output Total 200 ml 400 ml 350 ml 450 ml Balance 1083 ml 689 ml 241 ml 400 ml IV Total 905 ml 558 ml 366 ml 850 ml Tube Feeding 318 ml 281 ml 225 ml Other 60 ml 250 ml Output Urine Total 200 ml 400 ml 350 ml 450 ml Tube Feeding Residual Discard 0 ml # Bowel Movements 1 1 Imaging Last Impressions Chest X-Ray 06/15/16 0600 Signed Impressions: Service Date/Time: Wednesday, June 15, 2016 03:30 - CONCLUSION: No significant change has occurred. Teto Anderson MD GI Bleed Scan Nuclear Medicine 06/15/16 0000 Signed Impressions: Service Date/Time: Wednesday, June 15, 2016 11:15 - CONCLUSION: Negative for slight gastrointestinal hemorrhage. Gary Cook MD FACR CT Angiography 06/09/16 0000 Signed Impressions: Service Date/Time: June 06:47 - CONCLUSION: 1. Negative for pulmonary embolus. 2. Moderate to severe emphysema. 3. Multiple calcified gallstones. Antony Ledezma MD Laboratory Test 06/14/16 06/14/16 06/14/16 18:04 23:00 23:05 Hemoglobin 9.3 GM/DL 9.7 GM/DL Hematocrit 29.4 % 30.8 % Blood Type B POSITIVE B POSITIVE Antibody Screen NEGATIVE Crossmatch Leukocyte-Reduced Red Blood Cells Blood Bank Comment Prothrombin Time 11.0 SEC Prothromb Time International 1.0 RATIO Ratio Activated Partial 25.4 SEC Thromboplast Time Fibrinogen 217 mg/dL Date/Time Procedure Status Source Growth 06/14/16 17:30 Stool Occult Blood ([facility]) - Final Complete Stool Stool HEMOCCULT POSITIVE Physical Examination HEENT: normocephalic; atraumatic; no jaundice. Throat is clear. NECK: Neck is supple, no JVD, no lymphadenopathy. CHEST: Chest is clear to auscultation and percussion. CARDIAC: Regular rate and rhythm with no murmur gallop or rubs. ABDOMEN: Soft, nondistended, nontender; no hepatosplenomegaly; bowel sounds are present in all four quadrants. EXTREMITIES: No clubbing, cyanosis, or edema. SKIN: Normal; no rash; no jaundice. RN DIABETES: Sedated on a vent (Lissy Nunez) Assessment and Plan Plan - Lower gI bleed, acute onset started yesterday- Currently patient is sedated on a vent, GI consulted for lower GI bleed that started yesterday around 6 pm, this is described as dark maroon, significant amount of bleeding. Not able to obtain further information, no family in the room. Bleeding scan negative. Significant drop in hgb, yesterday hgb was 9.7, it was 12.7 on 06/09/16. - respiratory failure and COPD exacerbation- per [facility], on a vent - Acute kidney failure per [facility] Plan: - NPO - EGD/Colonoscopy in the am, this was discussed with nurse, and at bed side, risk, alternatives, and benefits were discussed and is agreeing - Golytely today - Monitor hh - Transfuse as needed - Notify GI for active bleed - Cont. PPI - supportive care - Patient seen and examined by Dr. Subramanian and myself and this note is written on his behalf. (Lissy Nunez) Physician Comments Seen and examined with Ms. Mayra KESSLER, egd/colonoscopy planned for tomorrow. Bleeding scan -p. Monitor labs. Will follow, thank you (Gregoria Subramanian MD) Lissy Nunez Jun 15, 2016 14:35 Gregoria Subramanian MD Jun 15, 2016 17:00
[2016-06-15 15:13] LABS: AUTOMATED NEUTROPHIL # 4.2 TH/MM3 (1.8-7.7); BASOPHIL % 0.1 % (0.0-2.0); EOSINOPHIL % 0.1 % (0.0-4.0); HEMATOCRIT 31.8 % (35.0-46.0); HEMO FLAGS DIFF FINAL; LYMPH % 11.2 % (9.0-44.0); LYMPHOCYTE # 0.6 TH/MM3 (1.0-4.8); MEAN CORPUSCULAR HEMOGLOBIN 27.6 PG (27.0-34.0); MEAN CORPUSCULAR HGB CONC 32.1 % (32.0-36.0); MONO % 9.1 % (0.0-8.0); NEUT % 79.5 % (16.0-70.0); PLATELET COUNT 172 TH/MM3 (150-450); RED CELL DISTRIBUTION WIDTH 15.5 % (11.6-17.2); WHITE BLOOD COUNT 5.3 TH/MM3 (4.0-11.0)
--- NOTE | 2016-06-15 15:38 | HHI.CCPN ---
Subjective Remarks/Hospital Course The patient is a 65 year old female with past medical history of chronic obstructive pulmonary disease on home oxygen nocturnally hypertension, breast cancer, status post chemotherapy and radiation approximately a two years ago. She was admitted to [facility] on June 14, under hospitalist service for any acute hypercapnic respiratory failure and COPD exacerbation. The patient was treated with bronchial bronchodilators and empiric antibiotics. She had multiple arterial blood gases since admission and her last ABG from yesterday afternoon showed pH of 7.33, CO2 59, pAO2 100, bicarb of 30 and saturation of 96% on BiPap 04/11 with 40% FIO2. This morning the patient was in respiratory distress, in addition she was tachypneic, tachycardiac and using her accessory muscles for respirations. She was on a BiPap for a short time without any significant improvements and given her respiratory status, She was subsequently intubated by myself and placed on full mechanical ventilation. 06/12 Patient is on fentanyl infusion for sedation but awake intubated. Afebrile. 06/13 No acute events overnight. Sedated and intubated. Patient tolerated CPAP x 2 hrs yesterday. Afebrile. 06/14 Patient had high peak pressires overnight switched to PRVC/AC mode and Versed drip was added to Fentanyl drip. Tolerating tube feeds. Afebrile. Objective Vital Signs Date Time Temp Pulse Resp B/P Pulse Ox O2 Delivery O2 Flow Rate FiO2 06/15/16 12:00 97.6 62 12 103/59 100 06/15/16 12:00 35 06/14/16 10:26 BiPAP/CPAP 06/11/16 07:50 4.00 Intake and Output 06/14/16 06/14/16 06/15/16 08:00 16:00 00:00 Intake Total 1283 ml 1089 ml 591 ml Output Total 200 ml 400 ml 350 ml Balance 1083 ml 689 ml 241 ml Result Diagram: 06/15/16 1455 06/14/16 0502 Other Results Microbiology Date/Time Procedure Status Source Growth 06/14/16 17:30 Stool Occult Blood ([facility]) - Final Complete Stool Stool HEMOCCULT POSITIVE Imaging Last Impressions Chest X-Ray 06/11/16 0000 Signed Impressions: Service Date/Time: Saturday, June 11, 2016 08:36 - CONCLUSION: 1. No acute cardiopulmonary disease. 2. Adequate placement of endotracheal tube. Salty Henley MD CT Angiography 06/09/16 0000 Signed Impressions: Service Date/Time: June 06:47 - CONCLUSION: 1. Negative for pulmonary embolus. 2. Moderate to severe emphysema. 3. Multiple calcified gallstones. Antony Ledezma MD Objective Remarks GENERAL: Patient is 65 yo intubated and sedated. SKIN: Warm and dry. HEAD: Normocephalic. EYES: No scleral icterus. No injection or drainage. NECK: Supple, trachea midline. No JVD or lymphadenopathy. CARDIOVASCULAR: Regular rate and rhythm without murmurs, gallops, or rubs. RESPIRATORY: Breath sounds equal bilaterally. No accessory muscle use.Diminished GASTROINTESTINAL: Abdomen soft, non-tender, nondistended. MUSCULOSKELETAL: No cyanosis, or edema. Neuro: Intubated A/P Assessment and Plan 1. VDRF 2. COPD exacerbation. 3. Hypertension. 4. History of breast cancer. 5. Acute kidney injury. Plan Neuro: On Fentanyl/Versed infusion for sedation, daily sedation vacation Pulm: O PRVC/AC RR 18, TV 500, PEEP: 5, FIO2 40%, IT:1.0 Continue with vent support and maintain saturation above 92%. Bronchodilators, decrease Solu-Medrol 40 mg IV q12. Pulm eval ICU vent bundle, Flowers SBT today Patient scheduled for colonoscopy and EGD tomorrow morning We'll proceed with SBT tomorrow after procedures CV: Monitor HR and BP keep MAP >65 mmHg. Echo showed EF 50-55%, no RWMA : Monitor renal function I/Os and electrolyte replacement per protocol. d/c IVF, place on Free water 250ml Q12, monitor sodium level. GI: Protonix to 40 mg IV daily for GI prophylaxis. No obvious GI bleed H&H is stable On Glucerna 1.5 @45ml/hr ID: Continue with empiric abx(Levaquin) and monitor for signs of infections ( fever and WBC) Heme: Monitor CBC Endo: On SSI with Accu-Chek q. 6-hour for glycemic control GI prophylaxis with Protonix 40 mg IV daily and DVT prophylaxis with SCDs/ Lovenox 40 mg Subcu daily. CCT 30 mins Ventura Bailon MD Jun 15, 2016 15:38
[2016-06-15 15:50] LABS: BICARBONATE 29.7 MEQ/L (21.0-32.0); MAGNESIUM 2.8 MG/DL (1.5-2.5); POTASSIUM 4.7 MEQ/L (3.5-5.1)
[2016-06-15] MEDS ORDERED: PEG (High)/E-LYTE SOLN 4000 ML BTL PO ONE (16:00)
[2016-06-15] MEDS: LEVOFLOXACIN 750 MG PREMIX INJ 150 ML IV SCH (16:19)
[2016-06-15 18:26] LABS: REVIEW FLAG FINAL
--- NOTE | 2016-06-15 19:07 | HHI.PR ---
Subjective Remarks Had a lower GI bleed. Went for a Scan . Transfused 1 U packed cells.Hgb now stable.Still on Vent support Objective Vital Signs Date Time Temp Pulse Resp B/P Pulse Ox O2 Delivery O2 Flow Rate FiO2 06/15/16 18:00 73 06/15/16 16:04 95 35 06/15/16 16:00 35 06/15/16 16:00 98.4 65 13 153/70 99 06/15/16 16:00 67 06/15/16 14:00 64 06/15/16 12:00 97.6 62 12 103/59 100 06/15/16 12:00 35 06/15/16 12:00 62 06/15/16 10:00 68 06/15/16 08:10 35 06/15/16 08:00 67 06/15/16 08:00 97.6 72 12 145/64 96 06/15/16 08:00 35 06/15/16 07:31 93 35 06/15/16 06:00 66 06/15/16 05:04 99 35 06/15/16 04:00 98.0 61 18 125/65 97 06/15/16 04:00 61 06/15/16 04:00 40 06/15/16 02:00 62 06/15/16 00:32 100 35 06/15/16 00:00 40 06/15/16 00:00 98.9 65 24 140/63 98 06/15/16 00:00 65 06/15/16 00:00 98.2 65 18 140/63 98 06/14/16 22:00 69 06/14/16 20:01 96 35 06/14/16 20:00 40 06/14/16 20:00 65 06/14/16 20:00 98.8 61 18 119/69 98 I/O 06/14/16 06/14/16 06/14/16 06/15/16 06/15/16 06/15/16 07:00 15:00 23:00 07:00 15:00 23:00 Intake Total 1283 ml 1089 ml 591 ml 850 ml 1020 ml Output Total 200 ml 400 ml 350 ml 450 ml 550 ml Balance 1083 ml 689 ml 241 ml 400 ml 470 ml IV Total 905 ml 558 ml 366 ml 850 ml 1020 ml Tube Feeding 318 ml 281 ml 225 ml Other 60 ml 250 ml Output Urine Total 200 ml 400 ml 350 ml 450 ml 550 ml Tube Feeding Residual Discard 0 ml # Bowel Movements 1 1 Result Diagram: 06/15/16 1806 06/15/16 1455 Objective Remarks GENERAL: This is averagely built elderly white female who is in bed. She is responsive, intubated, assisting the ventilator.Follows commands. HEENT: Head normocephalic. Pupils are reactive and equal. Tongue is dry. Throat is clear. Nasal mucosa edematous. NECK: Supple. No bruits or thyroid enlargement or lymphadenopathy. CHEST: Equal movements with percussion note, resonant throughout. Breath sounds slightly diminished over the periphery with wheezes heard throughout both lung espinoza. HEART: The heart sounds are irregular. S1-S2 with no murmur. No S3 gallop. ABDOMEN: Soft, protuberant, without masses. No organomegaly or tenderness. The bowel sounds are active. EXTREMITIES: No edema. Peripheral pulses are diminished. There is no calf tenderness or swelling. NEUROLOGIC: She is moving all extremities with no gross motor deficits . RECTAL: Exam is deferred. SKIN: No lesions. Assessment and Plan Assessment and Plan IMPRESSION 1. Acute respiratory failure. 2. COPD with emphysema, chronic bronchitis. 3. History of hypertension. 4. History of breast cancer with right mastectomy and radiation therapy. 5. GI Bleeding. Plan : 1. Wean Vent to rate 15 and FIO2 35 %. 2. CBC,BMP in am. 3. EGD , Colonoscopy in am. 4. Keep sedated lightly. 5. CXR in am. 6. [facility] [place] jahaira , Darlene Cuevas MD Jun 15, 2016 19:07
[2016-06-16] VITALS (15 sets, daily range): BP systolic 95–146; BP diastolic 56–80; PULSE 56–70; RESP 18; TEMP 97–98.5; O2SAT 90–100
[2016-06-16] MEDS: INSULIN NovoLIN REGULAR SUPPLEMENTAL SCALE SQ SCH ×4 (03:00→21:00)
[2016-06-16] MEDS: SODIUM CHLOR 0.9% 1000 ML INJ 1,000 ML IV SCH ×3 (03:45→23:45)
[2016-06-16] MEDS: fentaNYL DRIP 250 ML IV SCH (03:47)
[2016-06-16] MEDS: MIDAZOLAM 100 MG/ML INJ 100 ML IV SCH ×2 (03:47→22:38)
--- NOTE | 2016-06-16 05:30 | RADRPT ---
EXAM DATE/TIME: 06/16/2016 03:58 [facility] COMPARISON: CHEST SINGLE AP, June 15, 2016, 3:30. INDICATIONS : Shortness of breath, possible pulmonary disease. MEDICAL HISTORY : Hypertension. Carcinoma, breast. Chronic obstructive pulmonary disease. SURGICAL HISTORY : None. ENCOUNTER: Subsequent ACUITY: 1 week PAIN SCORE: Non-responsive. LOCATION: Bilateral chest FINDINGS: Hyperinflation. Heart size upper limits normal. Endotracheal tube in satisfactory position. NG tube c ourses beneath the diaphragm. There are degenerative changes of the spine. CONCLUSION: No significant change has occurred. Teto Anderson MD on June 16, 2016 at 5:28 Board Certified Radiologist. This report was verified electronically.
[2016-06-16] MEDS: methylPREDNISolone SOD SUCC 40 MG/1 ML VIAL IV PUSH SCH ×2 (06:00→17:54)
[2016-06-16 06:13] LABS: BLOOD GAS BASE EXCESS 2.9 mmol/L (-2-2); BLOOD GAS CARBOXYHEMOGLOBIN 1.2 % (0-4); BLOOD GAS HCO3 28 mmol/L (22-26); BLOOD GAS METHEMOGLOBIN 0.4 % (0-2); BLOOD GAS O2 HGB SATURATION 97 % (90-100); BLOOD GAS OXYGEN CONTENT 14.6 Vol % (12.0-20.0); BLOOD GAS PCO2 52 mmHg (38-42); BLOOD GAS PO2 116 mmHg (61-120); BLOOD GAS TOTAL HGB 10.6 G/DL (12.0-16.0); TEMP CORR TO 98.6
[2016-06-16 06:15] LABS: CRITICAL VALUE YES; DRAW SITE LT BRACHIAL; FIO2 35 %; NUMBER OF ARTERIAL PUNCTURES 1; OXYGEN DEVICE VENTILATOR; STAT NO; ULNAR PULSE PRESENT; VENT SETTINGS PRVC/AC
[2016-06-16] MEDS: CHLORHEXIDINE 0.12% (ORAL KIT) 15 ML CUP MT SCH ×4 (08:00→21:29)
--- NOTE | 2016-06-16 08:45 | HHI.CCPN ---
Subjective Remarks/Hospital Course The patient is a 65 year old female with past medical history of chronic obstructive pulmonary disease on home oxygen nocturnally hypertension, breast cancer, status post chemotherapy and radiation approximately a two years ago. She was admitted to [facility] on June 14, under hospitalist service for any acute hypercapnic respiratory failure and COPD exacerbation. The patient was treated with bronchial bronchodilators and empiric antibiotics. She had multiple arterial blood gases since admission and her last ABG from yesterday afternoon showed pH of 7.33, CO2 59, pAO2 100, bicarb of 30 and saturation of 96% on BiPap 04/11 with 40% FIO2. This morning the patient was in respiratory distress, in addition she was tachypneic, tachycardiac and using her accessory muscles for respirations. She was on a BiPap for a short time without any significant improvements and given her respiratory status, She was subsequently intubated by myself and placed on full mechanical ventilation. 06/12 Patient is on fentanyl infusion for sedation but awake intubated. Afebrile. 06/13 No acute events overnight. Sedated and intubated. Patient tolerated CPAP x 2 hrs yesterday. Afebrile. 06/14 Patient had high peak pressure overnight switched to PRVC/AC mode and Versed drip was added to Fentanyl drip. Tolerating tube feeds. Afebrile. 06/16 no acute events overnight Objective Vital Signs Date Time Temp Pulse Resp B/P Pulse Ox O2 Delivery O2 Flow Rate FiO2 06/16/16 08:08 100 35 06/16/16 06:00 66 06/16/16 04:00 98.5 18 141/60 06/14/16 10:26 BiPAP/CPAP Intake and Output 06/15/16 06/15/16 06/16/16 08:00 16:00 00:00 Intake Total 850 ml 1020 ml 877 ml Output Total 450 ml 550 ml 350 ml Balance 400 ml 470 ml 527 ml Result Diagram: 06/15/16 1806 06/15/16 1455 Other Results Microbiology Date/Time Procedure Status Source Growth 06/14/16 17:30 Stool Occult Blood (PHILLIP) - Final Complete Stool Stool HEMOCCULT POSITIVE Laboratory Tests Test 06/16/16 06:02 Blood Gas Puncture Site LT BRACHIAL Blood Gas Patient Temperature 98.6 Blood Gas HCO3 28 mmol/L (22-26) Blood Gas Base Excess 2.9 mmol/L (-2-2) Blood Gas Oxygen Saturation 97 % (90-100) Arterial Blood pH 7.35 (7.380-7.420) Arterial Blood Partial 52 mmHg (38-42) Pressure CO2 Arterial Blood Partial 116 mmHg Pressure O2 (61-120) Arterial Blood Oxygen Content 14.6 Vol % (12.0-20.0) Arterial Blood 1.2 % (0-4) Carboxyhemoglobin Arterial Blood Methemoglobin 0.4 % (0-2) Blood Gas Hemoglobin 10.6 G/DL (12.0-16.0) Oxygen Delivery Device VENTILATOR Blood Gas Ventilator Setting PRVC/AC Blood Gas Inspired Oxygen 35 % Imaging Last Impressions Chest X-Ray 06/11/16 0000 Signed Impressions: Service Date/Time: Saturday, June 11, 2016 08:36 - CONCLUSION: 1. No acute cardiopulmonary disease. 2. Adequate placement of endotracheal tube. Salty Henley MD CT Angiography 06/09/16 0000 Signed Impressions: Service Date/Time: June 06:47 - CONCLUSION: 1. Negative for pulmonary embolus. 2. Moderate to severe emphysema. 3. Multiple calcified gallstones. Antony Ledezma MD Objective Remarks GENERAL: Patient is 65 yo intubated and sedated. SKIN: Warm and dry. HEAD: Normocephalic. EYES: No scleral icterus. No injection or drainage. NECK: Supple, trachea midline. No JVD or lymphadenopathy. CARDIOVASCULAR: Regular rate and rhythm without murmurs, gallops, or rubs. RESPIRATORY: Breath sounds equal bilaterally. No accessory muscle use.Diminished GASTROINTESTINAL: Abdomen soft, non-tender, nondistended. MUSCULOSKELETAL: No cyanosis, or edema. Neuro: Intubated Procedures EGD and colonoscopy today A/P Assessment and Plan Acute respiratory failure - Continue mechanical ventilatory - SBT and attempts to wean post procedures COPD exacerbation - Steroid - Albuterol/ipratropium Hypertension - Echo showed EF 50-55%, no RWMA - Currently normotensive - Lisinopril home dose due to acute renal failure Acute kidney injury - IV fluid hydration - Electrolyte replacement per ICU protocol - Monitor urine output and creatinine GI bleed - Patient scheduled for colonoscopy and EGD today - Continue PPI IV - Continue to monitor H&H - GI consult appreciated DVT GI prophylaxis - Teds SCDs IV PPI Critical Care: The total critical care time was 35 minutes. Time to perform other separately billable procedures was not included in the critical care time. Ventura Bailon MD Jun 16, 2016 08:45
[2016-06-16] MEDS: SODIUM CHLORIDE 0.9% FLUSH 5 ML FLUSH FLUSH SCH ×2 (09:00→22:39)
[2016-06-16] MEDS: CALCIPOTRIENE 0.005% CREAM 60 GM TOPICAL SCH (09:00)
[2016-06-16] MEDS: FREE WATER G-TUBE SCH ×2 (09:00→21:00)
[2016-06-16] MEDS: PANTOPRAZOLE SODIUM 40 MG VIAL IV PUSH SCH ×2 (09:19→21:26)
[2016-06-16] MEDS: DEXTROSE 50% IN WATER 50 ML VIAL(D50) IV PUSH PRN (10:30)
[2016-06-16 10:45] LABS: BASOPHIL % 0.2 % (0.0-2.0); EOSINOPHIL % 0.8 % (0.0-4.0); HEMATOCRIT 30.1 % (35.0-46.0); HEMO FLAGS DIFF FINAL; LYMPH % 14.7 % (9.0-44.0); LYMPHOCYTE # 0.6 TH/MM3 (1.0-4.8); MEAN CELL VOLUME 85.8 FL (80.0-100.0); MEAN CORPUSCULAR HEMOGLOBIN 27.6 PG (27.0-34.0); MEAN CORPUSCULAR HGB CONC 32.2 % (32.0-36.0); MONO % 8.9 % (0.0-8.0); NEUT % 75.4 % (16.0-70.0); PLATELET COUNT 177 TH/MM3 (150-450); RED BLOOD COUNT 3.51 MIL/MM3 (4.00-5.30); RED CELL DISTRIBUTION WIDTH 15.7 % (11.6-17.2)
[2016-06-16 11:14] LABS: BICARBONATE 31.9 MEQ/L (21.0-32.0); CALCIUM-PROTEIN CORRECTED 8.6 MG/DL (8.5-10.1); MAGNESIUM 2.5 MG/DL (1.5-2.5); POTASSIUM 4.2 MEQ/L (3.5-5.1); TOTAL BILIRUBIN ADULT 0.3 MG/DL (0.2-1.0)
[2016-06-16] MEDS: LEVOFLOXACIN 750 MG PREMIX INJ 150 ML IV SCH (16:00)
--- NOTE | 2016-06-16 18:51 | HHI.PR ---
Subjective Remarks Had EGD and Colonoscopy. Has Gastric and Duodenal ulcers . No active bleed .Hgb now stable. Still on Vent support Objective Vital Signs Date Time Temp Pulse Resp B/P Pulse Ox O2 Delivery O2 Flow Rate FiO2 06/16/16 17:03 98 35 06/16/16 16:00 67 06/16/16 16:00 97.0 65 18 95/56 100 06/16/16 12:00 35 06/16/16 11:45 100 35 06/16/16 08:08 100 35 06/16/16 08:00 58 06/16/16 06:00 66 06/16/16 04:28 100 35 06/16/16 04:00 98.5 56 18 141/60 100 06/16/16 04:00 63 06/16/16 04:00 35 06/16/16 01:11 98 35 06/16/16 00:00 35 06/16/16 00:00 98.2 70 18 133/70 100 06/16/16 00:00 70 06/15/16 22:00 63 06/15/16 20:17 97 35 06/15/16 20:00 35 06/15/16 20:00 66 06/15/16 20:00 98.0 66 18 109/55 98 I/O 06/15/16 06/15/16 06/15/16 06/16/16 06/16/16 06/16/16 07:00 15:00 23:00 07:00 15:00 23:00 Intake Total 850 ml 1020 ml 877 ml 755 ml 650 ml Output Total 450 ml 550 ml 350 ml 450 ml 501 ml Balance 400 ml 470 ml 527 ml 305 ml 149 ml IV Total 850 ml 1020 ml 627 ml 755 ml 650 ml Tube Feeding 0 ml Other 250 ml Output Urine Total 450 ml 550 ml 350 ml 450 ml 500 ml Stool Total 0 ml 1 ml # Bowel Movements 4 Result Diagram: 06/16/16 1010 06/16/16 1010 Objective Remarks GENERAL: This is averagely built elderly white female who is in bed. She is responsive, intubated, assisting the ventilator. HEENT: Head normocephalic. Pupils are reactive and equal. Tongue is dry. Throat is clear. Nasal mucosa edematous. NECK: Supple. No bruits or thyroid enlargement or lymphadenopathy. CHEST: Equal movements with percussion note, resonant throughout. Breath sounds slightly diminished over the periphery with wheezes heard throughout both lung espinoza.Few right base Crackles. HEART: The heart sounds are irregular. S1-S2 with no murmur. No S3 gallop. ABDOMEN: Soft, protuberant, without masses. No organomegaly or tenderness. The bowel sounds are active. EXTREMITIES: Mild edema. Peripheral pulses are diminished. There is no calf tenderness or swelling. NEUROLOGIC: She is moving all extremities with no gross motor deficits . RECTAL: Exam is deferred. SKIN: No lesions. Assessment and Plan Assessment and Plan IMPRESSION 1. Acute respiratory failure. 2. COPD with emphysema, chronic bronchitis. 3. History of hypertension. 4. History of breast cancer with right mastectomy and radiation therapy. 5. GI Bleeding. Plan : 1. Wean Vent to rate 16 and FIO2 30 %. 2. CBC,BMP in am. 3. Chest X ray in am 4. Keep sedated lightly. 5. Cont Antibiotics as ordered. 6. CPAP trial in am. and Check NIF,FVC. 6. Nebs jahaira , Darlene Cuevas MD Jun 16, 2016 18:51
[2016-06-16] MEDS: RESP: ALBUTEROL 2.5 MG/IPRATROPIUM 0.5 MG NEB (PRN) NEB (19:26)
[2016-06-16] MEDS: THEOPHYLLINE PO SCH (21:00)
[2016-06-16] MEDS: BUDESONIDE-FORMOTEROL 80/4.5 MCG INHALER INH SCH (21:00)
[2016-06-17] VITALS (20 sets, daily range): BP systolic 114–163; BP diastolic 63–83; PULSE 44–111; RESP 10–18; TEMP 97–98.9; O2SAT 93–100
[2016-06-17] MEDS: INSULIN NovoLIN REGULAR SUPPLEMENTAL SCALE SQ SCH ×4 (03:00→21:00)
[2016-06-17] MEDS: fentaNYL DRIP 250 ML IV SCH (04:46)
[2016-06-17] MEDS: methylPREDNISolone SOD SUCC 40 MG/1 ML VIAL IV PUSH SCH ×2 (04:47→18:00)
[2016-06-17] MEDS: CALCIPOTRIENE 0.005% CREAM 60 GM TOPICAL SCH ×3 (04:47→22:11)
[2016-06-17 05:32] LABS: BLOOD GAS BASE EXCESS -0.9 mmol/L (-2-2); BLOOD GAS CARBOXYHEMOGLOBIN 1.2 % (0-4); BLOOD GAS HCO3 25 mmol/L (22-26); BLOOD GAS METHEMOGLOBIN 0.9 % (0-2); BLOOD GAS O2 HGB SATURATION 95 % (90-100); BLOOD GAS OXYGEN CONTENT 14.1 Vol % (12.0-20.0); BLOOD GAS PCO2 58 mmHg (38-42); BLOOD GAS PO2 99 mmHg (61-120); BLOOD GAS TOTAL HGB 10.5 G/DL (12.0-16.0); TEMP CORR TO 98.6
[2016-06-17 05:33] LABS: CRITICAL VALUE YES; FIO2 40 %; OXYGEN DEVICE VENTILATOR; VENT SETTINGS PRVC/AC
[2016-06-17 05:34] LABS: DRAW SITE LT BRACHIAL; NUMBER OF ARTERIAL PUNCTURES 1; STAT NO
[2016-06-17] MEDS: CHLORHEXIDINE 0.12% (ORAL KIT) 15 ML CUP MT SCH ×4 (08:00→22:10)
[2016-06-17] MEDS: BUDESONIDE-FORMOTEROL 80/4.5 MCG INHALER INH SCH ×2 (08:27→22:11)
[2016-06-17] MEDS: PANTOPRAZOLE SODIUM 40 MG VIAL IV PUSH SCH ×2 (09:00→22:12)
[2016-06-17] MEDS: FREE WATER G-TUBE SCH ×2 (09:00→21:00)
[2016-06-17] MEDS: SODIUM CHLORIDE 0.9% FLUSH 5 ML FLUSH FLUSH SCH ×2 (09:00→22:10)
--- NOTE | 2016-06-17 09:10 | HHI.CCPN ---
Subjective Remarks/Hospital Course The patient is a 65 year old female with past medical history of chronic obstructive pulmonary disease on home oxygen nocturnally hypertension, breast cancer, status post chemotherapy and radiation approximately a two years ago. She was admitted to [facility] on June 14, under hospitalist service for any acute hypercapnic respiratory failure and COPD exacerbation. The patient was treated with bronchial bronchodilators and empiric antibiotics. She had multiple arterial blood gases since admission and her last ABG from yesterday afternoon showed pH of 7.33, CO2 59, pAO2 100, bicarb of 30 and saturation of 96% on BiPap 04/11 with 40% FIO2. This morning the patient was in respiratory distress, in addition she was tachypneic, tachycardiac and using her accessory muscles for respirations. She was on a BiPap for a short time without any significant improvements and given her respiratory status, She was subsequently intubated by myself and placed on full mechanical ventilation. 06/12 Patient is on fentanyl infusion for sedation but awake intubated. Afebrile. 06/13 No acute events overnight. Sedated and intubated. Patient tolerated CPAP x 2 hrs yesterday. Afebrile. 06/14 Patient had high peak pressure overnight switched to PRVC/AC mode and Versed drip was added to Fentanyl drip. Tolerating tube feeds. Afebrile. 06/16 no acute events overnight 06/17 EGD performed yesterday with finding of gastric ulcer and duodenal ulcer not actively bleeding Objective Vital Signs Date Time Temp Pulse Resp B/P Pulse Ox O2 Delivery O2 Flow Rate FiO2 06/17/16 08:13 100 40 06/17/16 08:00 98.0 74 16 163/75 06/14/16 10:26 BiPAP/CPAP Intake and Output 06/16/16 06/16/16 06/17/16 08:00 16:00 00:00 Intake Total 755 ml 650 ml 580 ml Output Total 450 ml 501 ml 301 ml Balance 305 ml 149 ml 279 ml Result Diagram: 06/16/16 1010 06/16/16 1010 Other Results Microbiology Date/Time Procedure Status Source Growth 06/14/16 17:30 Stool Occult Blood (PHILLIP) - Final Complete Stool Stool HEMOCCULT POSITIVE Laboratory Tests Test 06/17/16 05:20 Blood Gas Puncture Site LT BRACHIAL Blood Gas Patient Temperature 98.6 Blood Gas HCO3 25 mmol/L (22-26) Blood Gas Base Excess -0.9 mmol/L (-2-2) Blood Gas Oxygen Saturation 95 % (90-100) Arterial Blood pH 7.26 (7.380-7.420) Arterial Blood Partial 58 mmHg (38-42) Pressure CO2 Arterial Blood Partial 99 mmHg Pressure O2 (61-120) Arterial Blood Oxygen Content 14.1 Vol % (12.0-20.0) Arterial Blood 1.2 % (0-4) Carboxyhemoglobin Arterial Blood Methemoglobin 0.9 % (0-2) Blood Gas Hemoglobin 10.5 G/DL (12.0-16.0) Oxygen Delivery Device VENTILATOR Blood Gas Ventilator Setting PRVC/AC Blood Gas Inspired Oxygen 40 % Imaging Last Impressions Chest X-Ray 06/11/16 0000 Signed Impressions: Service Date/Time: Saturday, June 11, 2016 08:36 - CONCLUSION: 1. No acute cardiopulmonary disease. 2. Adequate placement of endotracheal tube. Salty Henley MD CT Angiography 06/09/16 0000 Signed Impressions: Service Date/Time: June 06:47 - CONCLUSION: 1. Negative for pulmonary embolus. 2. Moderate to severe emphysema. 3. Multiple calcified gallstones. Antony Ledezma MD Objective Remarks GENERAL: Patient is 65 yo intubated and sedated. SKIN: Warm and dry. HEAD: Normocephalic. EYES: No scleral icterus. No injection or drainage. NECK: Supple, trachea midline. No JVD or lymphadenopathy. CARDIOVASCULAR: Regular rate and rhythm without murmurs, gallops, or rubs. RESPIRATORY: Breath sounds equal bilaterally. No accessory muscle use.Diminished GASTROINTESTINAL: Abdomen soft, non-tender, nondistended. MUSCULOSKELETAL: No cyanosis, or edema. Neuro: Intubated Procedures EGD and colonoscopy today A/P Assessment and Plan Acute respiratory failure - SBT today - Repeat ABG COPD exacerbation - Steroid - Albuterol/ipratropium - Pulmonary consult appreciated Hypertension - Echo showed EF 50-55%, no RWMA - Currently normotensive - Lisinopril home dose due to acute renal failure Acute kidney injury - IV fluid hydration - Electrolyte replacement per ICU protocol - Monitor urine output and creatinine GI bleed -EGD yesterday revealed gastric and duodenal ulcers - Continue PPI IV - No active bleeding - GI consult appreciated DVT GI prophylaxis - Teds SCDs IV PPI Critical Care: The total critical care time was 35 minutes. Time to perform other separately billable procedures was not included in the critical care time. Ventura Bailon MD Jun 17, 2016 09:10
[2016-06-17] MEDS: SODIUM CHLOR 0.9% 1000 ML INJ 1,000 ML IV SCH ×2 (09:45→19:32)
--- NOTE | 2016-06-17 11:48 | HHI.GIFU ---
Subjective Remarks Patient still vented but alert, by bed side, no signs of bleeding. ( Lissy Nunez VICTORIA) Objective Vitals I&O Vital Signs Date Time Temp Pulse Resp B/P Pulse Ox O2 Delivery O2 Flow Rate FiO2 06/17/16 10:37 85 06/17/16 10:28 99 40 06/17/16 08:13 100 40 06/17/16 08:00 98.0 74 16 163/75 99 06/17/16 08:00 35 06/17/16 08:00 72 06/17/16 07:50 35 06/17/16 06:00 72 06/17/16 04:05 97 40 06/17/16 04:00 97.2 66 16 139/75 99 06/17/16 04:00 35 06/17/16 04:00 84 06/17/16 02:00 76 06/17/16 01:09 98 40 06/17/16 00:00 97.0 84 18 114/67 97 06/17/16 00:00 84 06/17/16 00:00 35 06/16/16 22:20 90 45 06/16/16 22:00 66 06/16/16 20:00 35 06/16/16 20:00 66 06/16/16 20:00 97.3 67 18 146/80 91 06/16/16 19:26 94 35 06/16/16 18:00 66 06/16/16 17:03 98 35 06/16/16 16:00 67 06/16/16 16:00 97.0 65 18 95/56 100 06/16/16 16:00 35 06/16/16 12:00 35 06/16/16 11:45 100 35 I/O 06/16/16 06/16/16 06/16/16 06/17/16 06/17/16 06/17/16 07:00 15:00 23:00 07:00 15:00 23:00 Intake Total 755 ml 650 ml 580 ml 175 ml Output Total 450 ml 501 ml 301 ml 301 ml Balance 305 ml 149 ml 279 ml -126 ml IV Total 755 ml 650 ml 580 ml 175 ml Tube Feeding 0 ml 0 ml 0 ml Output Urine Total 450 ml 500 ml 300 ml 300 ml Stool Total 1 ml 1 ml 1 ml # Bowel Movements 4 Laboratory Laboratory Tests Test 06/17/16 05:20 Blood Gas Puncture Site LT BRACHIAL Blood Gas Patient Temperature 98.6 Blood Gas HCO3 25 Blood Gas Base Excess -0.9 Blood Gas Oxygen Saturation 95 Arterial Blood pH 7.26 Arterial Blood Partial 58 Pressure CO2 Arterial Blood Partial 99 Pressure O2 Arterial Blood Oxygen Content 14.1 Arterial Blood 1.2 Carboxyhemoglobin Arterial Blood Methemoglobin 0.9 Blood Gas Hemoglobin 10.5 Oxygen Delivery Device VENTILATOR Blood Gas Ventilator Setting PRVC/AC Blood Gas Inspired Oxygen 40 Date/Time Procedure Status Source Growth 06/14/16 17:30 Stool Occult Blood (PHILLIP) - Final Complete Stool Stool HEMOCCULT POSITIVE Imaging Last Impressions Chest X-Ray 06/16/16 0600 Signed Impressions: Service Date/Time: June 03:58 - CONCLUSION: No significant change has occurred. Teto Anderson MD GI Bleed Scan Nuclear Medicine 06/15/16 0000 Signed Impressions: Service Date/Time: Wednesday, June 15, 2016 11:15 - CONCLUSION: Negative for slight gastrointestinal hemorrhage. Gary Cook MD FACR CT Angiography 06/09/16 0000 Signed Impressions: Service Date/Time: June 06:47 - CONCLUSION: 1. Negative for pulmonary embolus. 2. Moderate to severe emphysema. 3. Multiple calcified gallstones. Antony Ledezma MD Physical Exam HEENT: normocephalic; atraumatic; no jaundice. Throat is clear. NECK: Neck is supple, no JVD, no lymphadenopathy. CHEST: Chest is clear to auscultation and percussion. CARDIAC: Regular rate and rhythm with no murmur gallop or rubs. ABDOMEN: Soft, nondistended, nontender; no hepatosplenomegaly; bowel sounds are present in all four quadrants. EXTREMITIES: No clubbing, cyanosis, or edema. SKIN: Gen. edema [employer]ICE [employer]PERATOR: alert on the vent (Lissy Nunez) Assessment and Plan Plan - Lower gI bleed, acute onset - no more bleeding s/p EGD/colonoscopy on (06/16/16 )---> gastric ulcer, colonic ulcer, colon polyps, colitis, diverticulosis, internal hemorrhoids, bx pending hgb stable - respiratory failure and COPD exacerbation- per [facility], on a vent - Acute kidney failure per [facility] Plan: - If no signs of bleeding, can feed patient - Await bx - Monitor hh - Notify GI for active bleed - Cont. PPI - supportive care - Patient seen and examined by Dr. Subramanian and myself and this note is written on his behalf. (Lissy Nunez) Physician Comments Seen and examined with Ms. Mayra KESSLER, s/p egd/colonoscopy yesterday. Colitis, gastric ulcer. Monitor labs. No Nsaids. TF as tolerated. (Gregoria Subramanian MD) Lissy Nunez Jun 17, 2016 11:48 Gregoria Subramanian MD Jun 17, 2016 16:43
--- NOTE | 2016-06-17 12:51 | HHI.PR ---
Subjective Remarks Had EGD and Colonoscopy. Has Gastric and Duodenal ulcers . No active bleed .Hgb now stable. Still on Vent support and on CPAP now FIO2 40%. Objective Vital Signs Date Time Temp Pulse Resp B/P Pulse Ox O2 Delivery O2 Flow Rate FiO2 06/17/16 12:23 35 06/17/16 10:37 85 06/17/16 10:28 99 40 06/17/16 08:13 100 40 06/17/16 08:00 98.0 74 16 163/75 99 06/17/16 08:00 35 06/17/16 08:00 72 06/17/16 07:50 35 06/17/16 06:00 72 06/17/16 04:05 97 40 06/17/16 04:00 97.2 66 16 139/75 99 06/17/16 04:00 35 06/17/16 04:00 84 06/17/16 02:00 76 06/17/16 01:09 98 40 06/17/16 00:00 97.0 84 18 114/67 97 06/17/16 00:00 84 06/17/16 00:00 35 06/16/16 22:20 90 45 06/16/16 22:00 66 06/16/16 20:00 35 06/16/16 20:00 66 06/16/16 20:00 97.3 67 18 146/80 91 06/16/16 19:26 94 35 06/16/16 18:00 66 06/16/16 17:03 98 35 06/16/16 16:00 67 06/16/16 16:00 97.0 65 18 95/56 100 06/16/16 16:00 35 I/O 06/16/16 06/16/16 06/16/16 06/17/16 06/17/16 06/17/16 07:00 15:00 23:00 07:00 15:00 23:00 Intake Total 755 ml 650 ml 580 ml 175 ml Output Total 450 ml 501 ml 301 ml 301 ml Balance 305 ml 149 ml 279 ml -126 ml IV Total 755 ml 650 ml 580 ml 175 ml Tube Feeding 0 ml 0 ml 0 ml Output Urine Total 450 ml 500 ml 300 ml 300 ml Stool Total 1 ml 1 ml 1 ml # Bowel Movements 4 Result Diagram: 06/16/16 1010 06/16/16 1010 Objective Remarks GENERAL: This is averagely built elderly white female who is in bed. She is responsive, intubated, assisting the ventilator. HEENT: Head normocephalic. Pupils are reactive and equal. Throat is clear. Nasal mucosa edematous. NECK: Supple. No bruits or thyroid enlargement or lymphadenopathy. CHEST: Equal movements with percussion note, resonant throughout. Breath sounds slightly diminished over the periphery with wheezes heard throughout both lung espinoza.Few Crackles. HEART: The heart sounds are irregular. S1-S2 with no murmur. No S3 gallop. ABDOMEN: Soft, protuberant, without masses. No organomegaly or tenderness. The bowel sounds are active. EXTREMITIES: No edema. Peripheral pulses are diminished. There is no calf tenderness or swelling. NEUROLOGIC: She is moving all extremities with no gross motor deficits . RECTAL: Exam is deferred. SKIN: No lesions. Assessment and Plan Assessment and Plan IMPRESSION 1. Acute respiratory failure. 2. COPD with emphysema, chronic bronchitis. 3. History of hypertension. 4. History of breast cancer with right mastectomy and radiation therapy. 5. GI Bleeding. Plan : 1. Wean Vent to CPAP and FIO2 35 %. 2. CBC,BMP in am. 3. NIF ,FVC ABG 4. Extubate if stable. 5. Cont Antibiotics as ordered. 6. Hold sedation 6. Nebs jahaira , Darlene Cuevas MD Jun 17, 2016 12:51
[2016-06-17] MEDS ORDERED: DEXAMETHASONE SOD PHOS 20 MG/5 ML VIAL IV PUSH SCH (14:00)
[2016-06-17] MEDS ORDERED: DEXAMETHASONE SOD PHOS 20 MG/5 ML VIAL IV ONE (14:00)
[2016-06-17] MEDS: LEVOFLOXACIN 750 MG PREMIX INJ 150 ML IV SCH (16:00)
[2016-06-17] MEDS: MIDAZOLAM 100 MG/ML INJ 100 ML IV SCH (22:14)
[2016-06-18] VITALS (21 sets, daily range): BP systolic 111–223; BP diastolic 59–109; PULSE 55–170; RESP 13–17; TEMP 96.4–98.1; O2SAT 91–100
[2016-06-18] MEDS: hydrALAZINE HCL 20 MG/ML VIAL IV PRN ×3 (00:05→13:32)
[2016-06-18] MEDS: INSULIN NovoLIN REGULAR SUPPLEMENTAL SCALE SQ SCH ×4 (03:00→20:45)
[2016-06-18] MEDS: SODIUM CHLOR 0.9% 1000 ML INJ 1,000 ML IV SCH ×3 (05:44→20:45)
[2016-06-18] MEDS: methylPREDNISolone SOD SUCC 40 MG/1 ML VIAL IV PUSH SCH ×2 (05:45→17:13)
[2016-06-18 05:55] LABS: AUTOMATED NEUTROPHIL # 7.2 TH/MM3 (1.8-7.7); BASOPHIL % 0.2 % (0.0-2.0); HEMATOCRIT 31.3 % (35.0-46.0); HEMO FLAGS DIFF FINAL; LYMPH % 4.2 % (9.0-44.0); LYMPHOCYTE # 0.3 TH/MM3 (1.0-4.8); MEAN CELL VOLUME 87.6 FL (80.0-100.0); MEAN CORPUSCULAR HEMOGLOBIN 27.9 PG (27.0-34.0); MEAN CORPUSCULAR HGB CONC 31.9 % (32.0-36.0); MONO % 4.1 % (0.0-8.0); NEUT % 91.5 % (16.0-70.0); PLATELET COUNT 197 TH/MM3 (150-450); RED BLOOD COUNT 3.57 MIL/MM3 (4.00-5.30); RED CELL DISTRIBUTION WIDTH 15.5 % (11.6-17.2); WHITE BLOOD COUNT 7.9 TH/MM3 (4.0-11.0)
[2016-06-18 06:17] LABS: ALKALINE PHOSPHATASE 51 U/L (45-117); TOTAL BILIRUBIN ADULT 0.2 MG/DL (0.2-1.0)
[2016-06-18 06:24] LABS: ALT (GPT) 15 U/L (10-53); ANION GAP 7 MEQ/L (5-15); AST (GOT) 16 U/L (15-37); BICARBONATE 25.7 MEQ/L (21.0-32.0); BLOOD UREA NITROGEN 32 MG/DL (7-18); CHLORIDE 115 MEQ/L (98-107); GLOMERULAR FILTRATION RATE 78 ML/MIN (>89); MAGNESIUM 2.2 MG/DL (1.5-2.5); SODIUM (NA) 148 MEQ/L (136-145)
[2016-06-18 06:25] LABS: POTASSIUM 4.3 MEQ/L (3.5-5.1)
[2016-06-18] MEDS: CHLORHEXIDINE 0.12% (ORAL KIT) 15 ML CUP MT SCH ×4 (08:00→20:38)
[2016-06-18] MEDS: RESP: ALBUTEROL 1.25 MG/3 ML NEB (PRN) NEB ×2 (08:05→12:59)
[2016-06-18] MEDS: BUDESONIDE-FORMOTEROL 80/4.5 MCG INHALER INH SCH ×2 (08:05→20:38)
[2016-06-18] MEDS: FREE WATER G-TUBE SCH ×2 (09:00→20:35)
[2016-06-18] MEDS: THEOPHYLLINE PO SCH ×2 (09:00→20:42)
[2016-06-18] MEDS: PANTOPRAZOLE SODIUM 40 MG VIAL IV PUSH SCH ×2 (09:17→20:36)
[2016-06-18] MEDS: SODIUM CHLORIDE 0.9% FLUSH 5 ML FLUSH FLUSH SCH ×2 (09:17→20:35)
[2016-06-18] MEDS: CALCIPOTRIENE 0.005% CREAM 60 GM TOPICAL SCH ×2 (09:20→20:36)
--- NOTE | 2016-06-18 09:53 | HHI.CCPN ---
Subjective Remarks/Hospital Course The patient is a 65 year old female with past medical history of chronic obstructive pulmonary disease on home oxygen nocturnally hypertension, breast cancer, status post chemotherapy and radiation approximately a two years ago. She was admitted to [facility] on June 14, under hospitalist service for any acute hypercapnic respiratory failure and COPD exacerbation. The patient was treated with bronchial bronchodilators and empiric antibiotics. She had multiple arterial blood gases since admission and her last ABG from yesterday afternoon showed pH of 7.33, CO2 59, pAO2 100, bicarb of 30 and saturation of 96% on BiPap 04/11 with 40% FIO2. This morning the patient was in respiratory distress, in addition she was tachypneic, tachycardiac and using her accessory muscles for respirations. She was on a BiPap for a short time without any significant improvements and given her respiratory status, She was subsequently intubated by myself and placed on full mechanical ventilation. 06/12 Patient is on fentanyl infusion for sedation but awake intubated. Afebrile. 06/13 No acute events overnight. Sedated and intubated. Patient tolerated CPAP x 2 hrs yesterday. Afebrile. 06/14 Patient had high peak pressure overnight switched to PRVC/AC mode and Versed drip was added to Fentanyl drip. Tolerating tube feeds. Afebrile. 06/16 no acute events overnight 06/17 EGD performed yesterday with finding of gastric ulcer and duodenal ulcer not actively bleeding 06/18 patient did well on a spontaneous breathing trial yesterday however there was no cuff leak appreciated she will started on Decadron Objective Vital Signs Date Time Temp Pulse Resp B/P Pulse Ox O2 Delivery O2 Flow Rate FiO2 06/18/16 07:51 100 35 06/18/16 06:00 56 06/18/16 04:00 97.9 17 128/92 06/14/16 10:26 BiPAP/CPAP Intake and Output 06/17/16 06/17/16 06/18/16 08:00 16:00 00:00 Intake Total 175 ml 922 ml 661 ml Output Total 301 ml 425 ml 325 ml Balance -126 ml 497 ml 336 ml Result Diagram: 06/18/16 0530 06/18/16 0530 Imaging Last Impressions Chest X-Ray 06/11/16 0000 Signed Impressions: Service Date/Time: Saturday, June 11, 2016 08:36 - CONCLUSION: 1. No acute cardiopulmonary disease. 2. Adequate placement of endotracheal tube. Salty Henley MD CT Angiography 06/09/16 0000 Signed Impressions: Service Date/Time: June 06:47 - CONCLUSION: 1. Negative for pulmonary embolus. 2. Moderate to severe emphysema. 3. Multiple calcified gallstones. Antony Ledezma MD Objective Remarks GENERAL: Patient is 65 yo intubated and sedated. SKIN: Warm and dry. HEAD: Normocephalic. EYES: No scleral icterus. No injection or drainage. NECK: Supple, trachea midline. No JVD or lymphadenopathy. CARDIOVASCULAR: Regular rate and rhythm without murmurs, gallops, or rubs. RESPIRATORY: Breath sounds equal bilaterally. No accessory muscle use.Diminished GASTROINTESTINAL: Abdomen soft, non-tender, nondistended. MUSCULOSKELETAL: No cyanosis, or edema. Neuro: Intubated Procedures EGD and colonoscopy today A/P Assessment and Plan Acute respiratory failure - SBT today again - She was doing well yesterday however there was leak appreciated - We will reassess today for cuff leak - Continue Decadron COPD exacerbation - Steroid - Albuterol/ipratropium - Pulmonary consult appreciated Hypertension - Echo showed EF 50-55%, no RWMA - Currently normotensive - Lisinopril home dose due to acute renal failure Acute kidney injury - IV fluid hydration - Electrolyte replacement per ICU protocol - Monitor urine output and creatinine GI bleed -EGD yesterday revealed gastric and duodenal ulcers - Continue PPI IV - No active bleeding - GI consult appreciated DVT GI prophylaxis - Teds SCDs IV PPI Level III Ventura Bailon MD Jun 18, 2016 09:53
[2016-06-18] MEDS: DEXTROSE 50% IN WATER 50 ML VIAL(D50) IV PUSH PRN (09:58)
[2016-06-18] MEDS: DEXAMETHASONE SOD PHOS 20 MG/5 ML VIAL IV PUSH SCH (09:58)
[2016-06-18] MEDS ORDERED: RESP: RACEPINEPHRINE 2.25% 0.5 ML NEB ONE (13:06)
[2016-06-18] MEDS ORDERED: methylPREDNISolone SOD SUCC 125 MG/2 ML VIAL ONE (13:13)
[2016-06-18] MEDS ORDERED: KETAMINE HCL 500 MG/10 ML VIAL IV ONE (13:30)
[2016-06-18] MEDS ORDERED: MIDAZOLAM HCL 5 MG/ML VIAL (1 ML) IV ONE (13:30)
[2016-06-18] MEDS ORDERED: methylPREDNISolone SOD SUCC 125 MG/2 ML VIAL IV PUSH ONE (13:30)
[2016-06-18] MEDS: fentaNYL DRIP 250 ML IV SCH (13:35)
[2016-06-18] MEDS: MIDAZOLAM 100 MG/ML INJ 100 ML IV SCH (13:36)
--- NOTE | 2016-06-18 14:08 | HHI.GIFU ---
Subjective Remarks Resting in bed. Pt was just recently extubated, but now with mildly labored breathing, stridor, tachypnea, elevated blood pressure. Respiratory in giving patient treatment. No bleeding. (Ana Lilia Faulkner) Objective Vitals I&O Vital Signs Date Time Temp Pulse Resp B/P Pulse Ox O2 Delivery O2 Flow Rate FiO2 06/18/16 12:53 Nasal Cannula 4 06/18/16 10:55 96 35 06/18/16 10:00 76 06/18/16 08:00 35 06/18/16 08:00 79 06/18/16 08:00 97.6 79 16 146/109 100 06/18/16 07:51 100 35 06/18/16 06:00 56 06/18/16 04:05 100 40 06/18/16 04:00 97.9 67 17 128/92 100 06/18/16 04:00 67 06/18/16 04:00 35 06/18/16 02:00 81 06/18/16 01:04 100 40 06/18/16 00:40 223/93 06/18/16 00:00 72 06/18/16 00:00 97.5 72 16 157/91 91 06/18/16 00:00 35 06/17/16 22:00 44 06/17/16 21:26 94 35 06/17/16 20:00 47 06/17/16 20:00 97.6 47 16 125/63 93 06/17/16 20:00 35 06/17/16 18:00 61 06/17/16 16:08 98.9 108 16 157/83 93 06/17/16 16:03 73 06/17/16 16:01 35 06/17/16 15:49 95 35 06/17/16 15:13 111 06/17/16 14:57 99 40 I/O 06/17/16 06/17/16 06/17/16 06/18/16 06/18/16 06/18/16 07:00 15:00 23:00 07:00 15:00 23:00 Intake Total 175 ml 922 ml 661 ml 781 ml Output Total 301 ml 425 ml 325 ml 500 ml Balance -126 ml 497 ml 336 ml 281 ml Intake Oral 0 ml IV Total 175 ml 922 ml 661 ml 781 ml Tube Feeding 0 ml 0 ml 0 ml Other 0 ml Output Urine Total 300 ml 425 ml 325 ml 500 ml Stool Total 1 ml 0 ml # Bowel Movements 0 0 Laboratory Laboratory Tests Test 06/18/16 05:30 White Blood Count 7.9 Red Blood Count 3.57 Hemoglobin 10.0 Hematocrit 31.3 Mean Corpuscular Volume 87.6 Mean Corpuscular Hemoglobin 27.9 Mean Corpuscular Hemoglobin 31.9 Concent Red Cell Distribution Width 15.5 Platelet Count 197 Mean Platelet Volume 9.7 Neutrophils (%) (Auto) 91.5 Lymphocytes (%) (Auto) 4.2 Monocytes (%) (Auto) 4.1 Eosinophils (%) (Auto) 0.0 Basophils (%) (Auto) 0.2 Neutrophils # (Auto) 7.2 Lymphocytes # (Auto) 0.3 Monocytes # (Auto) 0.3 Eosinophils # (Auto) 0.0 Basophils # (Auto) 0.0 CBC Comment DIFF FINAL Differential Comment Sodium Level 148 Potassium Level 4.3 Chloride Level 115 Carbon Dioxide Level 25.7 Anion Gap 7 Blood Urea Nitrogen 32 Creatinine 0.74 Estimat Glomerular Filtration 78 Rate Random Glucose 77 Calcium Level 7.9 Phosphorus Level 3.1 Magnesium Level 2.2 Total Bilirubin 0.2 Aspartate Amino Transf 16 (AST/SGOT) Alanine Aminotransferase 15 (ALT/SGPT) Alkaline Phosphatase 51 Total Protein 4.9 Albumin 2.0 Date/Time Procedure Status Source Growth 06/14/16 17:30 Stool Occult Blood (PHILLIP) - Final Complete Stool Stool HEMOCCULT POSITIVE Imaging Last Impressions Chest X-Ray 06/16/16 0600 Signed Impressions: Service Date/Time: June 03:58 - CONCLUSION: No significant change has occurred. Teto Anderson MD GI Bleed Scan Nuclear Medicine 06/15/16 0000 Signed Impressions: Service Date/Time: Wednesday, June 15, 2016 11:15 - CONCLUSION: Negative for slight gastrointestinal hemorrhage. Gary Cook MD FACR CT Angiography 06/09/16 0000 Signed Impressions: Service Date/Time: June 06:47 - CONCLUSION: 1. Negative for pulmonary embolus. 2. Moderate to severe emphysema. 3. Multiple calcified gallstones. Antony Ledezma MD Physical Exam HEENT: Normocephalic; atraumatic; no jaundice. CHEST: Stridor upper airway, wheezing. Tachypnea, mild labored breathing. CARDIAC: RRR ABDOMEN: Soft, nondistended, nontender; no hepatosplenomegaly; bowel sounds are present in all four quadrants. EXTREMITIES: No clubbing, cyanosis, or edema. SKIN: Gen. edema TRADER: Lethargic. (Ana Lilia Faulkner) Assessment and Plan Plan ASSESSMENT: - Lower GIB. S/P EGD/Colonoscopy (06/16/16)---> Single ulcer, retroflexed views revealed no abnormalities, severe diverticulosis was noted in the sigmoid colon , near circumferential abnormal mucosa was found in the sigmoid colon, the mucosa was erythematous and ulcerated, a sessile polp ranging between 3-5mm in size was found in the transverse polyp, an adenomatous polyp was found in the sigmoid colon, polypectomy was performed using snare cautery, retroflexed views revealed medium internal hemorrhoids, revealed external hemorrhoids. Pathology with transverse polyp with tubular adenoma, large villous adenoma in sigmiod colon, the margin of resecton of the stalk appears free from adenomatous change, colonic mucosa with hyalinization of the stroma and loss of crypts consistent with ischemia. - Anemia secondary to above. 10.0/31.3. - Respiratory failure and COPD exacerbation. S/P Extubation, but now with stridor, wheezing, tachypnea, mildly labored breathing, Respiratory in giving breathing tx. - Acute kidney failure per [place] Plan: - If patient remains extubated, will need swallow evaluation before diet being started - Cont. PPI - Monitor HH - Transfuse as necessary - FU JUSTIN in 2 weeks from discharge - Supportive care - Patient seen and examined by Dr. Subramanian and myself and this note is written on his behalf. (Ana Lilia Faulkner) Physician Comments Seen and examined with Ms. Kaushik KESSLER, no active bleeding, pathology consistent with ischemia. Monitor labs. Colonoscopy in 4 to 8 weeks. Speech evaluation. (Gregoria Subramanian MD) Ana Lilia Faulkner Jun 18, 2016 14:08 Gregoria Subramanian MD Jun 18, 2016 16:11
[2016-06-18] MEDS ORDERED: DIGOXIN 0.5 MG/2 ML VIAL IV PUSH ONE (15:00)
[2016-06-18] MEDS: LEVOFLOXACIN 750 MG PREMIX INJ 150 ML IV SCH (16:03)
--- NOTE | 2016-06-18 16:11 | RADRPT ---
EXAM DATE/TIME: 06/18/2016 14:52 [facility] COMPARISON: CHEST SINGLE AP, June 16, 2016, 3:58. INDICATIONS : Central line placement. MEDICAL HISTORY : None. SURGICAL HISTORY : None. ENCOUNTER: Subsequent ACUITY: 2 days PAIN SCORE: Non-responsive. LOCATION: Bilateral chest FINDINGS: A single view of the chest demonstrates endotracheal tube in satisfactory position. NG coiled in stom ach. Left central line in superior vena cava. Right basilar airspace disease increased from June 16. Left lung relatively clear. Mild hyperinflation. CONCLUSION: 1. Left central line in superior vena cava without pneumothorax. Right basilar lung consolidation. Antony Ledezma MD on June 18, 2016 at 16:05 Board Certified Radiologist. This report was verified electronically.
[2016-06-18] MEDS: RESP: ALBUTEROL 2.5 MG/IPRATROPIUM 0.5 MG NEB (SCH) NEB ×3 (16:17→23:34)
[2016-06-18] MEDS: PROPOFOL 1000 MG/100 ML INJ 100 ML IV SCH (20:42)
[2016-06-19] VITALS (22 sets, daily range): BP systolic 116–163; BP diastolic 57–75; PULSE 65–96; RESP 16–19; TEMP 96.4–97.3; O2SAT 90–100
[2016-06-19] MEDS: INSULIN NovoLIN REGULAR SUPPLEMENTAL SCALE SQ SCH ×4 (03:00→21:00)
[2016-06-19] MEDS: RESP: ALBUTEROL 2.5 MG/IPRATROPIUM 0.5 MG NEB (SCH) NEB ×6 (03:46→23:20)
[2016-06-19 04:33] LABS: AUTOMATED NEUTROPHIL # 7.1 TH/MM3 (1.8-7.7); HEMATOCRIT 30.6 % (35.0-46.0); HEMO FLAGS DIFF FINAL; LYMPHOCYTE # 0.1 TH/MM3 (1.0-4.8); MEAN CORPUSCULAR HEMOGLOBIN 27.5 PG (27.0-34.0); MONO % 4.5 % (0.0-8.0); NEUT % 94.5 % (16.0-70.0); PLATELET COUNT 210 TH/MM3 (150-450); RED BLOOD COUNT 3.56 MIL/MM3 (4.00-5.30); RED CELL DISTRIBUTION WIDTH 15.2 % (11.6-17.2); WHITE BLOOD COUNT 7.5 TH/MM3 (4.0-11.0)
[2016-06-19 05:00] LABS: ALT (GPT) 13 U/L (10-53); ANION GAP 9 MEQ/L (5-15); AST (GOT) 7 U/L (15-37); BICARBONATE 23.9 MEQ/L (21.0-32.0); BLOOD UREA NITROGEN 30 MG/DL (7-18); CHLORIDE 116 MEQ/L (98-107); GLOMERULAR FILTRATION RATE 85 ML/MIN (>89); MAGNESIUM 2.1 MG/DL (1.5-2.5); POTASSIUM 3.9 MEQ/L (3.5-5.1); SODIUM (NA) 149 MEQ/L (136-145)
[2016-06-19 05:02] LABS: ALKALINE PHOSPHATASE 50 U/L (45-117); TOTAL BILIRUBIN ADULT 0.2 MG/DL (0.2-1.0)
[2016-06-19] MEDS: methylPREDNISolone SOD SUCC 40 MG/1 ML VIAL IV PUSH SCH ×2 (05:15→17:14)
[2016-06-19] MEDS: CHLORHEXIDINE 0.12% (ORAL KIT) 15 ML CUP MT SCH ×4 (08:00→21:02)
[2016-06-19] MEDS: SODIUM CHLORIDE 0.9% FLUSH 5 ML FLUSH FLUSH SCH ×2 (08:36→21:03)
[2016-06-19] MEDS: FREE WATER G-TUBE SCH ×2 (08:36→21:00)
[2016-06-19] MEDS: fentaNYL DRIP 250 ML IV SCH (08:37)
[2016-06-19] MEDS: PROPOFOL 1000 MG/100 ML INJ 100 ML IV SCH ×2 (08:37→15:56)
[2016-06-19] MEDS: PANTOPRAZOLE SODIUM 40 MG VIAL IV PUSH SCH ×2 (08:38→21:03)
[2016-06-19] MEDS: CALCIPOTRIENE 0.005% CREAM 60 GM TOPICAL SCH ×2 (08:39→21:04)
[2016-06-19] MEDS: THEOPHYLLINE PO SCH ×2 (09:00→21:00)
[2016-06-19] MEDS: BUDESONIDE-FORMOTEROL 80/4.5 MCG INHALER INH SCH ×2 (09:00→10:04)
[2016-06-19 09:51] LABS: BLOOD GAS BASE EXCESS -3.2 mmol/L (-2-2); BLOOD GAS CARBOXYHEMOGLOBIN 1.1 % (0-4); BLOOD GAS HCO3 22 mmol/L (22-26); BLOOD GAS METHEMOGLOBIN 0.9 % (0-2); BLOOD GAS O2 HGB SATURATION 96 % (90-100); BLOOD GAS OXYGEN CONTENT 13.7 Vol % (12.0-20.0); BLOOD GAS PCO2 47 mmHg (38-42); BLOOD GAS PO2 110 mmHg (61-120); BLOOD GAS TOTAL HGB 10.1 G/DL (12.0-16.0); CRITICAL VALUE NO; OXYGEN DEVICE VENTILATOR; TEMP CORR TO 98.6
[2016-06-19 09:52] LABS: DRAW SITE LT RADIAL; FIO2 40 %; NUMBER OF ARTERIAL PUNCTURES 1; STAT NO; VENT SETTINGS SEE COMMENTS
[2016-06-19] MEDS: DEXAMETHASONE SOD PHOS 20 MG/5 ML VIAL IV PUSH SCH (09:58)
[2016-06-19] MEDS: SODIUM CHLOR 0.9% 1000 ML INJ 1,000 ML IV SCH ×2 (12:39→21:04)
[2016-06-19] MEDS: LEVOFLOXACIN 750 MG PREMIX INJ 150 ML IV SCH (15:55)
[2016-06-19] MEDS ORDERED: SODIUM CHLOR 0.9% 1000 ML INJ 1,000 ML IV ONE (16:15)
--- NOTE | 2016-06-19 16:50 | HHI.CCPN ---
Subjective Remarks/Hospital Course The patient is a 65 year old female with past medical history of chronic obstructive pulmonary disease on home oxygen nocturnally hypertension, breast cancer, status post chemotherapy and radiation approximately a two years ago. She was admitted to [facility] on June 14, under hospitalist service for any acute hypercapnic respiratory failure and COPD exacerbation. The patient was treated with bronchial bronchodilators and empiric antibiotics. She had multiple arterial blood gases since admission and her last ABG from yesterday afternoon showed pH of 7.33, CO2 59, pAO2 100, bicarb of 30 and saturation of 96% on BiPap 04/11 with 40% FIO2. This morning the patient was in respiratory distress, in addition she was tachypneic, tachycardiac and using her accessory muscles for respirations. She was on a BiPap for a short time without any significant improvements and given her respiratory status, She was subsequently intubated by myself and placed on full mechanical ventilation. 06/12 Patient is on fentanyl infusion for sedation but awake intubated. Afebrile. 06/13 No acute events overnight. Sedated and intubated. Patient tolerated CPAP x 2 hrs yesterday. Afebrile. 06/14 Patient had high peak pressure overnight switched to PRVC/AC mode and Versed drip was added to Fentanyl drip. Tolerating tube feeds. Afebrile. 06/16 no acute events overnight 06/17 EGD performed yesterday with finding of gastric ulcer and duodenal ulcer not actively bleeding 06/18 patient did well on a spontaneous breathing trial yesterday however there was no cuff leak appreciated she will started on Decadron 06/19 extubated yesterday afternoon developed stridor requiring reintubation Objective Vital Signs Date Time Temp Pulse Resp B/P Pulse Ox O2 Delivery O2 Flow Rate FiO2 06/19/16 16:00 40 06/19/16 16:00 79 06/19/16 16:00 97.3 16 116/57 91 06/18/16 12:53 Nasal Cannula 4 Intake and Output 06/18/16 06/18/16 06/19/16 08:00 16:00 00:00 Intake Total 781 ml 1680 ml 911 ml Output Total 500 ml 300 ml 225 ml Balance 281 ml 1380 ml 686 ml Result Diagram: 06/19/16 0340 06/19/16 0340 Other Results Laboratory Tests Test 06/19/16 09:41 Blood Gas Puncture Site LT RADIAL Blood Gas Patient Temperature 98.6 Blood Gas HCO3 22 mmol/L (22-26) Blood Gas Base Excess -3.2 mmol/L (-2-2) Blood Gas Oxygen Saturation 96 % (90-100) Arterial Blood pH 7.30 (7.380-7.420) Arterial Blood Partial 47 mmHg (38-42) Pressure CO2 Arterial Blood Partial 110 mmHg Pressure O2 (61-120) Arterial Blood Oxygen Content 13.7 Vol % (12.0-20.0) Arterial Blood 1.1 % (0-4) Carboxyhemoglobin Arterial Blood Methemoglobin 0.9 % (0-2) Blood Gas Hemoglobin 10.1 G/DL (12.0-16.0) Oxygen Delivery Device VENTILATOR Blood Gas Ventilator Setting SEE COMMENTS Blood Gas Inspired Oxygen 40 % Imaging Last Impressions Chest X-Ray 06/11/16 0000 Signed Impressions: Service Date/Time: Saturday, June 11, 2016 08:36 - CONCLUSION: 1. No acute cardiopulmonary disease. 2. Adequate placement of endotracheal tube. Salty Henley MD CT Angiography 06/09/16 0000 Signed Impressions: Service Date/Time: June 06:47 - CONCLUSION: 1. Negative for pulmonary embolus. 2. Moderate to severe emphysema. 3. Multiple calcified gallstones. Antony Ledezma MD Objective Remarks GENERAL: Patient is 65 yo intubated and sedated. SKIN: Warm and dry. HEAD: Normocephalic. EYES: No scleral icterus. No injection or drainage. NECK: Supple, trachea midline. No JVD or lymphadenopathy. CARDIOVASCULAR: Regular rate and rhythm without murmurs, gallops, or rubs. RESPIRATORY: Breath sounds equal bilaterally. No accessory muscle use.Diminished GASTROINTESTINAL: Abdomen soft, non-tender, nondistended. MUSCULOSKELETAL: No cyanosis, or edema. Neuro: Intubated Procedures EGD and colonoscopy today A/P Assessment and Plan Acute respiratory failure - SBT tomorrow if there is a cuff leak appreciated - Continue Decadron COPD exacerbation - Steroid - Albuterol/ipratropium - Pulmonary consult appreciated Hypertension - Echo showed EF 50-55%, no RWMA - Currently normotensive - Lisinopril home dose due to acute renal failure Acute kidney injury - IV fluid hydration - Electrolyte replacement per ICU protocol - Monitor urine output and creatinine GI bleed -EGD yesterday revealed gastric and duodenal ulcers - Continue PPI IV - No active bleeding - GI consult appreciated DVT GI prophylaxis - Teds SCDs IV PPI Level III Ventura Bailon MD Jun 19, 2016 16:50
[2016-06-20] VITALS (18 sets, daily range): BP systolic 117–198; BP diastolic 55–89; PULSE 69–102; RESP 8–18; TEMP 96.9–98.4; O2SAT 91–99
[2016-06-20] MEDS: fentaNYL DRIP 250 ML IV SCH ×2 (00:03→20:25)
[2016-06-20] MEDS: PROPOFOL 1000 MG/100 ML INJ 100 ML IV SCH ×3 (00:03→20:25)
[2016-06-20] MEDS: INSULIN NovoLIN REGULAR SUPPLEMENTAL SCALE SQ SCH ×4 (03:00→20:37)
[2016-06-20] MEDS: RESP: ALBUTEROL 2.5 MG/IPRATROPIUM 0.5 MG NEB (SCH) NEB ×6 (04:02→23:19)
[2016-06-20 04:19] LABS: AUTOMATED NEUTROPHIL # 9.1 TH/MM3 (1.8-7.7); BASOPHIL % 0.1 % (0.0-2.0); HEMATOCRIT 29.4 % (35.0-46.0); HEMO FLAGS DIFF FINAL; LYMPH % 1.1 % (9.0-44.0); LYMPHOCYTE # 0.1 TH/MM3 (1.0-4.8); MEAN CELL VOLUME 86.3 FL (80.0-100.0); MEAN CORPUSCULAR HEMOGLOBIN 27.7 PG (27.0-34.0); MEAN CORPUSCULAR HGB CONC 32.1 % (32.0-36.0); MONO % 6.1 % (0.0-8.0); NEUT % 92.7 % (16.0-70.0); PLATELET COUNT 201 TH/MM3 (150-450); RED CELL DISTRIBUTION WIDTH 15.2 % (11.6-17.2); WHITE BLOOD COUNT 9.8 TH/MM3 (4.0-11.0)
[2016-06-20 04:38] LABS: ALT (GPT) 12 U/L (10-53); ANION GAP 6 MEQ/L (5-15); AST (GOT) 7 U/L (15-37); BICARBONATE 25.6 MEQ/L (21.0-32.0); BLOOD UREA NITROGEN 33 MG/DL (7-18); CHLORIDE 116 MEQ/L (98-107); GLOMERULAR FILTRATION RATE 70 ML/MIN (>89); MAGNESIUM 2.1 MG/DL (1.5-2.5); SODIUM (NA) 148 MEQ/L (136-145)
[2016-06-20 04:40] LABS: ALKALINE PHOSPHATASE 50 U/L (45-117); TOTAL BILIRUBIN ADULT 0.2 MG/DL (0.2-1.0)
--- NOTE | 2016-06-20 05:14 | RADRPT ---
EXAM DATE/TIME: 06/20/2016 03:46 [facility] COMPARISON: CHEST SINGLE AP, June 18, 2016, 14:52. INDICATIONS : Shortness of breath, possible pulmonary disease. MEDICAL HISTORY : Hypertension. Carcinoma, breast. Chronic obstructive pulmonary disease. SURGICAL HISTORY : None. ENCOUNTER: Subsequent ACUITY: 1 week PAIN SCORE: Non-responsive. LOCATION: Bilateral chest FINDINGS: The cardiac silhouette is enlarged in transverse diameter. Support lines and tubes are in satisfactor y position. There is bilateral lower lobe atelectasis versus pneumonia. A small right sided effusion is present. CONCLUSION: 1. Increasing bibasilar atelectasis versus pneumonia 2. Small right effusion To Dailey MD on June 20, 2016 at 5:12 Board Certified Radiologist. This report was verified electronically.
[2016-06-20 05:26] LABS: BLOOD GAS BASE EXCESS -2.3 mmol/L (-2-2); BLOOD GAS CARBOXYHEMOGLOBIN 1.2 % (0-4); BLOOD GAS HCO3 23 mmol/L (22-26); BLOOD GAS METHEMOGLOBIN 1.2 % (0-2); BLOOD GAS O2 HGB SATURATION 82 % (90-100); BLOOD GAS OXYGEN CONTENT 11.1 Vol % (12.0-20.0); BLOOD GAS PCO2 50 mmHg (38-42); BLOOD GAS PO2 53 mmHg (61-120); BLOOD GAS TOTAL HGB 9.7 G/DL (12.0-16.0); TEMP CORR TO 98.6
[2016-06-20 05:27] LABS: CRITICAL VALUE YES; OXYGEN DEVICE VENTILATOR
[2016-06-20 05:28] LABS: DRAW SITE RT RADIAL; FIO2 40 %; NUMBER OF ARTERIAL PUNCTURES 1; STAT NO; ULNAR PULSE PRESENT; VENT SETTINGS PRVC/AC
[2016-06-20] MEDS: methylPREDNISolone SOD SUCC 40 MG/1 ML VIAL IV PUSH SCH ×2 (05:34→18:00)
[2016-06-20] MEDS: CHLORHEXIDINE 0.12% (ORAL KIT) 15 ML CUP MT SCH ×4 (07:22→20:25)
--- NOTE | 2016-06-20 07:54 | HHI.CCPN ---
Subjective Remarks/Hospital Course The patient is a 65 year old female with past medical history of chronic obstructive pulmonary disease on home oxygen nocturnally hypertension, breast cancer, status post chemotherapy and radiation approximately a two years ago. She was admitted to [facility] on June 14, under hospitalist service for any acute hypercapnic respiratory failure and COPD exacerbation. The patient was treated with bronchial bronchodilators and empiric antibiotics. She had multiple arterial blood gases since admission and her last ABG from yesterday afternoon showed pH of 7.33, CO2 59, pAO2 100, bicarb of 30 and saturation of 96% on BiPap 04/11 with 40% FIO2. This morning the patient was in respiratory distress, in addition she was tachypneic, tachycardiac and using her accessory muscles for respirations. She was on a BiPap for a short time without any significant improvements and given her respiratory status, She was subsequently intubated by myself and placed on full mechanical ventilation. 06/12 Patient is on fentanyl infusion for sedation but awake intubated. Afebrile. 06/13 No acute events overnight. Sedated and intubated. Patient tolerated CPAP x 2 hrs yesterday. Afebrile. 06/14 Patient had high peak pressure overnight switched to PRVC/AC mode and Versed drip was added to Fentanyl drip. Tolerating tube feeds. Afebrile. 06/16 no acute events overnight 06/17 EGD performed yesterday with finding of gastric ulcer and duodenal ulcer not actively bleeding 06/18 patient did well on a spontaneous breathing trial yesterday however there was no cuff leak appreciated she will started on Decadron 06/19 extubated yesterday afternoon developed stridor requiring reintubation 06/20 Patient is sedated with Diprivan, Fentanyl and intubated. Afebrile. Objective Vital Signs Date Time Temp Pulse Resp B/P Pulse Ox O2 Delivery O2 Flow Rate FiO2 06/20/16 06:00 74 06/20/16 04:07 98 40 06/20/16 04:00 97.1 16 139/65 06/18/16 12:53 Nasal Cannula 4 Intake and Output 06/19/16 06/19/16 06/20/16 08:00 16:00 00:00 Intake Total 974 ml 1377 ml 2365 ml Output Total 200 ml 175 ml 300.0 ml Balance 774 ml 1202 ml 2065.0 ml Result Diagram: 06/20/16 0355 06/20/16 0355 Other Results Laboratory Tests Test 06/19/16 06/20/16 06/20/16 09:41 03:55 05:14 Blood Gas Puncture Site LT RADIAL RT RADIAL Blood Gas Patient Temperature 98.6 98.6 Blood Gas HCO3 22 mmol/L 23 mmol/L Blood Gas Base Excess -3.2 mmol/L -2.3 mmol/L Blood Gas Oxygen Saturation 96 % 82 % Arterial Blood pH 7.30 7.29 Arterial Blood Partial 47 mmHg 50 mmHg Pressure CO2 Arterial Blood Partial 110 mmHg 53 mmHg Pressure O2 Arterial Blood Oxygen Content 13.7 Vol % 11.1 Vol % Arterial Blood 1.1 % 1.2 % Carboxyhemoglobin Arterial Blood Methemoglobin 0.9 % 1.2 % Blood Gas Hemoglobin 10.1 G/DL 9.7 G/DL Oxygen Delivery Device VENTILATOR VENTILATOR Blood Gas Ventilator Setting SEE COMMENTS PRVC/AC Blood Gas Inspired Oxygen 40 % 40 % White Blood Count 9.8 TH/MM3 Red Blood Count 3.40 MIL/MM3 Hemoglobin 9.4 GM/DL Hematocrit 29.4 % Mean Corpuscular Volume 86.3 FL Mean Corpuscular Hemoglobin 27.7 PG Mean Corpuscular Hemoglobin 32.1 % Concent Red Cell Distribution Width 15.2 % Platelet Count 201 TH/MM3 Mean Platelet Volume 9.5 FL Neutrophils (%) (Auto) 92.7 % Lymphocytes (%) (Auto) 1.1 % Monocytes (%) (Auto) 6.1 % Eosinophils (%) (Auto) 0.0 % Basophils (%) (Auto) 0.1 % Neutrophils # (Auto) 9.1 TH/MM3 Lymphocytes # (Auto) 0.1 TH/MM3 Monocytes # (Auto) 0.6 TH/MM3 Eosinophils # (Auto) 0.0 TH/MM3 Basophils # (Auto) 0.0 TH/MM3 CBC Comment DIFF FINAL Differential Comment Sodium Level 148 MEQ/L Potassium Level 4.0 MEQ/L Chloride Level 116 MEQ/L Carbon Dioxide Level 25.6 MEQ/L Anion Gap 6 MEQ/L Blood Urea Nitrogen 33 MG/DL Creatinine 0.82 MG/DL Estimat Glomerular Filtration 70 ML/MIN Rate Random Glucose 135 MG/DL Calcium Level 7.6 MG/DL Phosphorus Level 2.6 MG/DL Magnesium Level 2.1 MG/DL Total Bilirubin 0.2 MG/DL Aspartate Amino Transf 7 U/L (AST/SGOT) Alanine Aminotransferase 12 U/L (ALT/SGPT) Alkaline Phosphatase 50 U/L Total Protein 4.7 GM/DL Albumin 2.0 GM/DL Imaging Last Impressions Chest X-Ray 06/20/16 0600 Signed Impressions: Service Date/Time: Monday, June 20, 2016 03:46 - CONCLUSION: 1. Increasing bibasilar atelectasis versus pneumonia 2. Small right effusion To Dailey MD GI Bleed Scan Nuclear Medicine 06/15/16 0000 Signed Impressions: Service Date/Time: Wednesday, June 15, 2016 11:15 - CONCLUSION: Negative for slight gastrointestinal hemorrhage. Gary Cook MD FACR CT Angiography 06/09/16 0000 Signed Impressions: Service Date/Time: June 06:47 - CONCLUSION: 1. Negative for pulmonary embolus. 2. Moderate to severe emphysema. 3. Multiple calcified gallstones. Antony Ledezma MD Objective Remarks GENERAL: Patient is 65 yo intubated and sedated. SKIN: Warm and dry. HEAD: Normocephalic. EYES: No scleral icterus. No injection or drainage. NECK: Supple, trachea midline. No JVD or lymphadenopathy. CARDIOVASCULAR: Regular rate and rhythm without murmurs, gallops, or rubs. RESPIRATORY: Breath sounds equal bilaterally. No accessory muscle use.Diminished GASTROINTESTINAL: Abdomen soft, non-tender, nondistended. MUSCULOSKELETAL: No cyanosis, or edema. Neuro: Intubated A/P Assessment and Plan 1)VDRF 2)COPD exacerbation 3)Hypertension 4)Acute kidney injury- improved 5)GI bleed -EGD yesterday revealed gastric and duodenal ulcers 6)Anemia 7)Hypernatremia Plan Neuro: On Diprivan, Fentanyl infusion for sedation, daily sedation vacation. CV:Monitor HR and BP keep MAP>65mmHg Echo showed EF 50-55% Pulm: Continue with vent support keep sat >92% Bronchodilators, ICU vent bundle, CPAP trials a stol On Solumederol 40mg Q12, d/c Decadron : Monitor renal function, I/O's, electrolytes replacement protocol. On Free water 250ml Q12. Diurese with Bumex 1mg x1. d/c IVF GI: On Glucerna 1.5 @30ml/hr advance to goal rate, on Protonic 40mg BID ID: Continue with empiric abx ( Levaquin)monitor for signs of infections ( Fever , WBC) Check sputum cx Heme: Monitor CBC Endo: SSI if needed for glycemic control GI prophylaxis- on Protonix 40mg BID DVT prophylaxis- SCD's, not on chemical AC prophylaxis due to GI bleed CCT 30 mins Carolee Martel MD Jun 20, 2016 07:54
[2016-06-20] MEDS: SODIUM CHLORIDE 0.9% FLUSH 5 ML FLUSH FLUSH SCH ×2 (07:58→20:25)
[2016-06-20] MEDS ORDERED: BUMETANIDE INJ 1 MG/4 ML VIAL IV PUSH ONE (08:00)
[2016-06-20 08:35] LABS: BLOOD GAS BASE EXCESS -2.5 mmol/L (-2-2); BLOOD GAS CARBOXYHEMOGLOBIN 0.9 % (0-4); BLOOD GAS HCO3 23 mmol/L (22-26); BLOOD GAS METHEMOGLOBIN 1.2 % (0-2); BLOOD GAS O2 HGB SATURATION 96 % (90-100); BLOOD GAS OXYGEN CONTENT 14.6 Vol % (12.0-20.0); BLOOD GAS PCO2 52 mmHg (38-42); BLOOD GAS PO2 111 mmHg (61-120); BLOOD GAS TOTAL HGB 10.7 G/DL (12.0-16.0); CRITICAL VALUE YES; DRAW SITE L RAD; FIO2 35 %; NUMBER OF ARTERIAL PUNCTURES 1; OXYGEN DEVICE VENTILATOR; STAT NO; TEMP CORR TO 98.6; ULNAR PULSE PRESENT; VENT SETTINGS CPAP 5/12PS
--- NOTE | 2016-06-20 08:35 | HHI.GIFU ---
Subjective Remarks Resting in bed, lightly sedated on CPAP. Denies abdominal pain. Tolerating TF. Objective Vitals I&O Vital Signs Date Time Temp Pulse Resp B/P Pulse Ox O2 Delivery O2 Flow Rate FiO2 06/20/16 08:00 40 06/20/16 08:00 102 06/20/16 08:00 97.4 101 8 198/89 99 06/20/16 07:47 35 06/20/16 07:37 96 40 06/20/16 06:00 74 06/20/16 04:07 98 40 06/20/16 04:00 77 06/20/16 04:00 97.1 77 16 139/65 99 06/20/16 04:00 40 06/20/16 02:00 84 06/20/16 01:10 98 40 06/20/16 00:00 74 06/20/16 00:00 96.9 74 16 117/55 95 06/20/16 00:00 40 06/19/16 22:05 94 40 06/19/16 22:00 85 06/19/16 20:00 40 06/19/16 20:00 97.0 78 16 118/57 90 06/19/16 20:00 78 06/19/16 19:13 94 40 06/19/16 18:00 88 06/19/16 17:52 95 40 06/19/16 16:00 40 06/19/16 16:00 79 06/19/16 16:00 97.3 79 16 116/57 91 06/19/16 14:42 93 40 06/19/16 14:00 89 06/19/16 12:00 96 06/19/16 12:00 40 06/19/16 12:00 96.7 96 19 141/65 93 06/19/16 11:30 93 40 06/19/16 10:04 96 40 06/19/16 10:00 94 06/19/16 09:58 40 06/19/16 09:58 96 40 I/O 06/19/16 06/19/16 06/19/16 06/20/16 06/20/16 06/20/16 07:00 15:00 23:00 07:00 15:00 23:00 Intake Total 974 ml 1377 ml 2365 ml 1279 ml Output Total 200 ml 175 ml 300.0 ml 200 ml Balance 774 ml 1202 ml 2065.0 ml 1079 ml IV Total 974 ml 986 ml 1897 ml 1082 ml Tube Feeding 141 ml 218 ml 197 ml Tube Irrigant 250 ml 250 ml Output Urine Total 200 ml 175 ml 100 ml 200 ml Tube Feeding Residual Discard 200.0 ml # Bowel Movements 0 0 0 0 Laboratory Laboratory Tests Test 06/19/16 06/20/16 06/20/16 09:41 03:55 05:14 Blood Gas Puncture Site LT RADIAL RT RADIAL Blood Gas Patient Temperature 98.6 98.6 Blood Gas HCO3 22 23 Blood Gas Base Excess -3.2 -2.3 Blood Gas Oxygen Saturation 96 82 Arterial Blood pH 7.30 7.29 Arterial Blood Partial 47 50 Pressure CO2 Arterial Blood Partial 110 53 Pressure O2 Arterial Blood Oxygen Content 13.7 11.1 Arterial Blood 1.1 1.2 Carboxyhemoglobin Arterial Blood Methemoglobin 0.9 1.2 Blood Gas Hemoglobin 10.1 9.7 Oxygen Delivery Device VENTILATOR VENTILATOR Blood Gas Ventilator Setting SEE COMMENTS PRVC/AC Blood Gas Inspired Oxygen 40 40 White Blood Count 9.8 Red Blood Count 3.40 Hemoglobin 9.4 Hematocrit 29.4 Mean Corpuscular Volume 86.3 Mean Corpuscular Hemoglobin 27.7 Mean Corpuscular Hemoglobin 32.1 Concent Red Cell Distribution Width 15.2 Platelet Count 201 Mean Platelet Volume 9.5 Neutrophils (%) (Auto) 92.7 Lymphocytes (%) (Auto) 1.1 Monocytes (%) (Auto) 6.1 Eosinophils (%) (Auto) 0.0 Basophils (%) (Auto) 0.1 Neutrophils # (Auto) 9.1 Lymphocytes # (Auto) 0.1 Monocytes # (Auto) 0.6 Eosinophils # (Auto) 0.0 Basophils # (Auto) 0.0 CBC Comment DIFF FINAL Differential Comment Sodium Level 148 Potassium Level 4.0 Chloride Level 116 Carbon Dioxide Level 25.6 Anion Gap 6 Blood Urea Nitrogen 33 Creatinine 0.82 Estimat Glomerular Filtration 70 Rate Random Glucose 135 Calcium Level 7.6 Phosphorus Level 2.6 Magnesium Level 2.1 Total Bilirubin 0.2 Aspartate Amino Transf 7 (AST/SGOT) Alanine Aminotransferase 12 (ALT/SGPT) Alkaline Phosphatase 50 Total Protein 4.7 Albumin 2.0 Date/Time Procedure Status Source Growth 06/19/16 17:38 Gram Stain Received Sputum Endotracheal Pending 06/19/16 17:38 Sputum Culture Received Sputum Endotracheal Pending Imaging Last Impressions Chest X-Ray 06/20/16 0600 Signed Impressions: Service Date/Time: Monday, June 20, 2016 03:46 - CONCLUSION: 1. Increasing bibasilar atelectasis versus pneumonia 2. Small right effusion To Dailey MD GI Bleed Scan Nuclear Medicine 06/15/16 0000 Signed Impressions: Service Date/Time: Wednesday, June 15, 2016 11:15 - CONCLUSION: Negative for slight gastrointestinal hemorrhage. Gary Cook MD FACR CT Angiography 06/09/16 0000 Signed Impressions: Service Date/Time: June 06:47 - CONCLUSION: 1. Negative for pulmonary embolus. 2. Moderate to severe emphysema. 3. Multiple calcified gallstones. Antony Ledezma MD Physical Exam HEENT: Normocephalic; atraumatic; no jaundice. CHEST: OETT to CPAP. Resp. even/unlabored CARDIAC: RRR ABDOMEN: Soft, nondistended, nontender; no hepatosplenomegaly; bowel sounds are present in all four quadrants. EXTREMITIES: No clubbing, cyanosis, or edema. SKIN: Gen. 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 S/P EGD/Colonoscopy (06/16/16)---> Single ulcer, retroflexed views revealed no abnormalities, severe diverticulosis was noted in the sigmoid colon, near circumferential abnormal mucosa was found in the sigmoid colon, the mucosa was erythematous and ulcerated, a sessile polp ranging between 3-5mm in size was found in the transverse polyp, an adenomatous polyp was found in the sigmoid colon, polypectomy was performed using snare cautery, retroflexed views revealed medium internal hemorrhoids, revealed external hemorrhoids. Pathology with transverse polyp with tubular adenoma, large villous adenoma in sigmiod colon, the margin of resecton of the stalk appears free from adenomatous change, colonic mucosa with hyalinization of the stroma and loss of crypts consistent with ischemia.HH stable 9.4/29.4 - Anemia secondary to above. Stable. HH 9./29.4 - Respiratory failure and COPD exacerbation. S/P Extubation Monday, but required reintubation. Vent per CCM Plan: - TF via OGT - Cont. PPI - Monitor HH - Transfuse as necessary - FU JUSTIN in 2 weeks from discharge - Will need repeat colonoscopy in 4-8 weeks - Patient seen and examined by Dr. Mcleod and myself and this note is written on her behalf. Ana Lilia Faulkner Jun 20, 2016 08:35
[2016-06-20] MEDS: FREE WATER G-TUBE SCH ×2 (09:00→20:25)
[2016-06-20] MEDS: CALCIPOTRIENE 0.005% CREAM 60 GM TOPICAL SCH ×2 (09:00→20:37)
[2016-06-20] MEDS: THEOPHYLLINE PO SCH ×2 (09:00→20:47)
[2016-06-20] MEDS: PANTOPRAZOLE SODIUM 40 MG VIAL IV PUSH SCH ×2 (10:32→20:35)
--- NOTE | 2016-06-20 12:08 | HHI.CCPN ---
Subjective Remarks/Hospital Course The patient is a 65 year old female with past medical history of chronic obstructive pulmonary disease on home oxygen nocturnally hypertension, breast cancer, status post chemotherapy and radiation approximately a two years ago. She was admitted to [facility] on June 14, under hospitalist service for any acute hypercapnic respiratory failure and COPD exacerbation. The patient was treated with bronchial bronchodilators and empiric antibiotics. She had multiple arterial blood gases since admission and her last ABG from yesterday afternoon showed pH of 7.33, CO2 59, pAO2 100, bicarb of 30 and saturation of 96% on BiPap 04/11 with 40% FIO2. This morning the patient was in respiratory distress, in addition she was tachypneic, tachycardiac and using her accessory muscles for respirations. She was on a BiPap for a short time without any significant improvements and given her respiratory status, She was subsequently intubated by myself and placed on full mechanical ventilation. 06/12 Patient is on fentanyl infusion for sedation but awake intubated. Afebrile. 06/13 No acute events overnight. Sedated and intubated. Patient tolerated CPAP x 2 hrs yesterday. Afebrile. 06/14 Patient had high peak pressure overnight switched to PRVC/AC mode and Versed drip was added to Fentanyl drip. Tolerating tube feeds. Afebrile. 06/16 no acute events overnight 06/17 EGD performed yesterday with finding of gastric ulcer and duodenal ulcer not actively bleeding 06/18 patient did well on a spontaneous breathing trial yesterday however there was no cuff leak appreciated she will started on Decadron 06/19 extubated yesterday afternoon developed stridor requiring reintubation 06/20 Patient is sedated with Diprivan, Fentanyl and intubated. Afebrile. Objective Vital Signs Date Time Temp Pulse Resp B/P Pulse Ox O2 Delivery O2 Flow Rate FiO2 06/20/16 11:16 95 35 06/20/16 10:00 78 06/20/16 08:00 97.4 8 198/89 06/18/16 12:53 Nasal Cannula 4 Intake and Output 06/19/16 06/19/16 06/20/16 08:00 16:00 00:00 Intake Total 974 ml 1377 ml 2365 ml Output Total 200 ml 175 ml 300.0 ml Balance 774 ml 1202 ml 2065.0 ml Result Diagram: 06/20/16 0355 06/20/16 0355 Other Results Laboratory Tests Test 06/20/16 06/20/16 05:14 08:26 Blood Gas Puncture Site RT RADIAL L RAD Blood Gas Patient Temperature 98.6 98.6 Blood Gas HCO3 23 mmol/L 23 mmol/L (22-26) (22-26) Blood Gas Base Excess -2.3 mmol/L -2.5 mmol/L (-2-2) (-2-2) Blood Gas Oxygen Saturation 82 % (90-100) 96 % (90-100) Arterial Blood pH 7.29 7.27 (7.380-7.420) (7.380-7.420) Arterial Blood Partial 50 mmHg (38-42) 52 mmHg (38-42) Pressure CO2 Arterial Blood Partial 53 mmHg 111 mmHg Pressure O2 (61-120) (61-120) Arterial Blood Oxygen Content 11.1 Vol % 14.6 Vol % (12.0-20.0) (12.0-20.0) Arterial Blood 1.2 % (0-4) 0.9 % (0-4) Carboxyhemoglobin Arterial Blood Methemoglobin 1.2 % (0-2) 1.2 % (0-2) Blood Gas Hemoglobin 9.7 G/DL 10.7 G/DL (12.0-16.0) (12.0-16.0) Oxygen Delivery Device VENTILATOR VENTILATOR Blood Gas Ventilator Setting PRVC/AC CPAP 5/12PS Blood Gas Inspired Oxygen 40 % 35 % Imaging Last Impressions Chest X-Ray 06/20/16 0600 Signed Impressions: Service Date/Time: Monday, June 20, 2016 03:46 - CONCLUSION: 1. Increasing bibasilar atelectasis versus pneumonia 2. Small right effusion To Dailey MD GI Bleed Scan Nuclear Medicine 06/15/16 0000 Signed Impressions: Service Date/Time: Wednesday, June 15, 2016 11:15 - CONCLUSION: Negative for slight gastrointestinal hemorrhage. Gary Cook MD FACR CT Angiography 06/09/16 0000 Signed Impressions: Service Date/Time: June 06:47 - CONCLUSION: 1. Negative for pulmonary embolus. 2. Moderate to severe emphysema. 3. Multiple calcified gallstones. Antony Ledezma MD Objective Remarks GENERAL: Patient is 65 yo intubated and sedated. SKIN: Warm and dry. HEAD: Normocephalic. EYES: No scleral icterus. No injection or drainage. NECK: Supple, trachea midline. No JVD or lymphadenopathy. CARDIOVASCULAR: Regular rate and rhythm without murmurs, gallops, or rubs. RESPIRATORY: Breath sounds equal bilaterally. No accessory muscle use.Diminished GASTROINTESTINAL: Abdomen soft, non-tender, nondistended. MUSCULOSKELETAL: No cyanosis, or edema. Neuro: Intubated A/P Assessment and Plan 1)VDRF 2)COPD exacerbation 3)Hypertension 4)Acute kidney injury- improved 5)GI bleed -EGD yesterday revealed gastric and duodenal ulcers 6)Anemia 7)Hypernatremia Plan Neuro: On Diprivan, Fentanyl infusion for sedation, daily sedation vacation. CV:Monitor HR and BP keep MAP>65mmHg Echo showed EF 50-55% Pulm: Continue with vent support keep sat >92% Bronchodilators, ICU vent bundle, CPAP trials a stol On Solumederol 40mg Q12, d/c Decadron : Monitor renal function, I/O's, electrolytes replacement protocol. On Free water 250ml Q12. Diurese with Bumex 1mg x1. d/c IVF GI: On Glucerna 1.5 @30ml/hr advance to goal rate, on Protonic 40mg BID ID: Continue with empiric abx ( Levaquin)monitor for signs of infections ( Fever , WBC) Check sputum cx Heme: Monitor CBC Endo: SSI if needed for glycemic control GI prophylaxis- on Protonix 40mg BID DVT prophylaxis- SCD's, not on chemical AC prophylaxis due to GI bleed CCT 30 mins Carolee Martel MD Jun 20, 2016 12:08
[2016-06-20 12:35] LABS: BLOOD GAS BASE EXCESS -0.8 mmol/L (-2-2); BLOOD GAS CARBOXYHEMOGLOBIN 1.3 % (0-4); BLOOD GAS HCO3 24 mmol/L (22-26); BLOOD GAS METHEMOGLOBIN 0.9 % (0-2); BLOOD GAS O2 HGB SATURATION 95 % (90-100); BLOOD GAS OXYGEN CONTENT 13.4 Vol % (12.0-20.0); BLOOD GAS PCO2 45 mmHg (38-42); BLOOD GAS PO2 87 mmHg (61-120); CRITICAL VALUE NO; OXYGEN DEVICE VENTILATOR; TEMP CORR TO 98.6
[2016-06-20 12:37] LABS: DRAW SITE LT RADIAL; FIO2 35 %; NUMBER OF ARTERIAL PUNCTURES 1; STAT NO; ULNAR PULSE PRESENT; VENT SETTINGS A/C450/18/8PEEP
--- NOTE | 2016-06-20 12:48 | HHI.PR ---
Subjective Remarks Awake and on vent support .Hgb now stable. Still on Vent support and on A/C 18 now FIO2 35%. Good output. CXR shows basal atelectasis Objective Vital Signs Date Time Temp Pulse Resp B/P Pulse Ox O2 Delivery O2 Flow Rate FiO2 06/20/16 12:00 78 06/20/16 12:00 35 06/20/16 11:16 95 35 06/20/16 10:00 78 06/20/16 08:00 40 06/20/16 08:00 102 06/20/16 08:00 97.4 101 8 198/89 99 06/20/16 07:47 35 06/20/16 07:37 96 40 06/20/16 06:00 74 06/20/16 04:07 98 40 06/20/16 04:00 77 06/20/16 04:00 97.1 77 16 139/65 99 06/20/16 04:00 40 06/20/16 02:00 84 06/20/16 01:10 98 40 06/20/16 00:00 74 06/20/16 00:00 96.9 74 16 117/55 95 06/20/16 00:00 40 06/19/16 22:05 94 40 06/19/16 22:00 85 06/19/16 20:00 40 06/19/16 20:00 97.0 78 16 118/57 90 06/19/16 20:00 78 06/19/16 19:13 94 40 06/19/16 18:00 88 06/19/16 17:52 95 40 06/19/16 16:00 40 06/19/16 16:00 79 06/19/16 16:00 97.3 79 16 116/57 91 06/19/16 14:42 93 40 06/19/16 14:00 89 I/O 06/19/16 06/19/16 06/19/16 06/20/16 06/20/16 06/20/16 07:00 15:00 23:00 07:00 15:00 23:00 Intake Total 974 ml 1377 ml 2365 ml 1279 ml Output Total 200 ml 175 ml 300.0 ml 200 ml Balance 774 ml 1202 ml 2065.0 ml 1079 ml IV Total 974 ml 986 ml 1897 ml 1082 ml Tube Feeding 141 ml 218 ml 197 ml Tube Irrigant 250 ml 250 ml Output Urine Total 200 ml 175 ml 100 ml 200 ml Tube Feeding Residual Discard 200.0 ml # Bowel Movements 0 0 0 0 Result Diagram: 06/20/1635406/20/16354 Objective Remarks GENERAL: This is averagely built elderly white female who is in bed. She is responsive, intubated, assisting the ventilator. HEENT: Head normocephalic. Pupils are reactive and equal. Throat is clear. Nasal mucosa edematous. NECK: Supple. No bruits or thyroid enlargement or lymphadenopathy. CHEST: Equal movements with percussion note, resonant throughout. Breath sounds slightly diminished over the periphery with Few basal Crackles. HEART: The heart sounds are irregular. S1-S2 with no murmur. No S3 gallop. ABDOMEN: Soft, protuberant, without masses. No organomegaly or tenderness. The bowel sounds are active. EXTREMITIES: No edema. Peripheral pulses are diminished. There is no calf tenderness or swelling. NEUROLOGIC: She is moving all extremities . Lethargic RECTAL: Exam is deferred. SKIN: No lesions. Assessment and Plan Assessment and Plan IMPRESSION 1. Acute respiratory failure. 2. COPD with emphysema, chronic bronchitis. 3. History of hypertension. 4. History of breast cancer with right mastectomy and radiation therapy. 5. GI Bleeding. Plan : 1. Wean Vent to rate 12, and FIO2 35 %. 2. CXR in am 3. NIF ,FVC ABG in am. 4. Reduce sedation 5. Cont Antibiotics as ordered. 6. Tube feeds at 40 CC , Jevity. 6. Nebs qid , duoneb. 7. Taper IV solumedrol to BID Darlene Horn MD Jun 20, 2016 12:48
[2016-06-20] MEDS: LEVOFLOXACIN 750 MG PREMIX INJ 150 ML IV SCH (15:32)
[2016-06-20] MEDS: METOCLOPRAMIDE HCL 10 MG/2 ML VIAL IV PUSH PRN (20:45)
[2016-06-21] VITALS (20 sets, daily range): BP systolic 105–182; BP diastolic 55–96; PULSE 70–115; RESP 14–18; TEMP 97.4–99.8; O2SAT 90–98
[2016-06-21] MEDS: INSULIN NovoLIN REGULAR SUPPLEMENTAL SCALE SQ SCH ×4 (02:50→20:25)
[2016-06-21] MEDS: PROPOFOL 1000 MG/100 ML INJ 100 ML IV SCH ×2 (03:08→10:23)
[2016-06-21] MEDS: RESP: ALBUTEROL 2.5 MG/IPRATROPIUM 0.5 MG NEB (SCH) NEB ×6 (03:42→23:17)
[2016-06-21 04:53] LABS: AUTOMATED NEUTROPHIL # 9.9 TH/MM3 (1.8-7.7); HEMATOCRIT 28.9 % (35.0-46.0); HEMO FLAGS DIFF FINAL; LYMPH % 1.6 % (9.0-44.0); LYMPHOCYTE # 0.2 TH/MM3 (1.0-4.8); MEAN CELL VOLUME 85.2 FL (80.0-100.0); MEAN CORPUSCULAR HEMOGLOBIN 28.1 PG (27.0-34.0); MONO % 4.7 % (0.0-8.0); NEUT % 93.7 % (16.0-70.0); PLATELET COUNT 189 TH/MM3 (150-450); RED BLOOD COUNT 3.39 MIL/MM3 (4.00-5.30); RED CELL DISTRIBUTION WIDTH 15.5 % (11.6-17.2); WHITE BLOOD COUNT 10.6 TH/MM3 (4.0-11.0)
[2016-06-21 05:12] LABS: MAGNESIUM 2.3 MG/DL (1.5-2.5); POTASSIUM 4.2 MEQ/L (3.5-5.1)
[2016-06-21] MEDS: methylPREDNISolone SOD SUCC 40 MG/1 ML VIAL IV PUSH SCH ×2 (06:20→17:13)
[2016-06-21] MEDS: CHLORHEXIDINE 0.12% (ORAL KIT) 15 ML CUP MT SCH ×4 (07:18→20:24)
--- NOTE | 2016-06-21 07:24 | HHI.CCPN ---
Subjective Remarks/Hospital Course The patient is a 65 year old female with past medical history of chronic obstructive pulmonary disease on home oxygen nocturnally hypertension, breast cancer, status post chemotherapy and radiation approximately a two years ago. She was admitted to [facility] on June 14, under hospitalist service for any acute hypercapnic respiratory failure and COPD exacerbation. The patient was treated with bronchial bronchodilators and empiric antibiotics. She had multiple arterial blood gases since admission and her last ABG from yesterday afternoon showed pH of 7.33, CO2 59, pAO2 100, bicarb of 30 and saturation of 96% on BiPap 04/11 with 40% FIO2. This morning the patient was in respiratory distress, in addition she was tachypneic, tachycardiac and using her accessory muscles for respirations. She was on a BiPap for a short time without any significant improvements and given her respiratory status, She was subsequently intubated by myself and placed on full mechanical ventilation. 06/12 Patient is on fentanyl infusion for sedation but awake intubated. Afebrile. 06/13 No acute events overnight. Sedated and intubated. Patient tolerated CPAP x 2 hrs yesterday. Afebrile. 06/14 Patient had high peak pressure overnight switched to PRVC/AC mode and Versed drip was added to Fentanyl drip. Tolerating tube feeds. Afebrile. 06/16 no acute events overnight 06/17 EGD performed yesterday with finding of gastric ulcer and duodenal ulcer not actively bleeding 06/18 patient did well on a spontaneous breathing trial yesterday however there was no cuff leak appreciated she will started on Decadron 06/19 extubated yesterday afternoon developed stridor requiring reintubation 06/20 Patient is sedated with Diprivan, Fentanyl and intubated. Afebrile. 06/21 Patient remains sedated and intubated. Did not tolerate CPAP trials yesterday. Afebrile. Now on PRVC/AC RR 18, TV: 450, PEEP: 5, IT:0.8, FIO2 40%. Objective Vital Signs Date Time Temp Pulse Resp B/P Pulse Ox O2 Delivery O2 Flow Rate FiO2 06/21/16 06:00 72 06/21/16 04:09 95 40 06/21/16 04:00 98.1 18 135/63 06/18/16 12:53 Nasal Cannula 4 Intake and Output 06/20/16 06/20/16 06/21/16 08:00 16:00 00:00 Intake Total 1279 ml 693 ml 947 ml Output Total 200 ml 1300 ml 525.0 ml Balance 1079 ml -607 ml 422.0 ml Result Diagram: 06/21/16 0410 06/21/16 0410 Other Results L Laboratory Tests Test 06/20/16 06/20/16 06/21/16 08:26 12:28 04:10 Blood Gas Puncture Site L RAD LT RADIAL Blood Gas Patient Temperature 98.6 98.6 Blood Gas HCO3 23 mmol/L 24 mmol/L Blood Gas Base Excess -2.5 mmol/L -0.8 mmol/L Blood Gas Oxygen Saturation 96 % 95 % Arterial Blood pH 7.27 7.35 Arterial Blood Partial 52 mmHg 45 mmHg Pressure CO2 Arterial Blood Partial 111 mmHg 87 mmHg Pressure O2 Arterial Blood Oxygen Content 14.6 Vol % 13.4 Vol % Arterial Blood 0.9 % 1.3 % Carboxyhemoglobin Arterial Blood Methemoglobin 1.2 % 0.9 % Blood Gas Hemoglobin 10.7 G/DL 10.0 G/DL Oxygen Delivery Device VENTILATOR VENTILATOR Blood Gas Ventilator Setting CPAP 5/12PS A/C450/18/8PEEP Blood Gas Inspired Oxygen 35 % 35 % White Blood Count 10.6 TH/MM3 Red Blood Count 3.39 MIL/MM3 Hemoglobin 9.5 GM/DL Hematocrit 28.9 % Mean Corpuscular Volume 85.2 FL Mean Corpuscular Hemoglobin 28.1 PG Mean Corpuscular Hemoglobin 33.0 % Concent Red Cell Distribution Width 15.5 % Platelet Count 189 TH/MM3 Mean Platelet Volume 9.6 FL Neutrophils (%) (Auto) 93.7 % Lymphocytes (%) (Auto) 1.6 % Monocytes (%) (Auto) 4.7 % Eosinophils (%) (Auto) 0.0 % Basophils (%) (Auto) 0.0 % Neutrophils # (Auto) 9.9 TH/MM3 Lymphocytes # (Auto) 0.2 TH/MM3 Monocytes # (Auto) 0.5 TH/MM3 Eosinophils # (Auto) 0.0 TH/MM3 Basophils # (Auto) 0.0 TH/MM3 CBC Comment DIFF FINAL Differential Comment Sodium Level 146 MEQ/L Potassium Level 4.2 MEQ/L Chloride Level 112 MEQ/L Carbon Dioxide Level 29.0 MEQ/L Anion Gap 5 MEQ/L Blood Urea Nitrogen 39 MG/DL Creatinine 0.88 MG/DL Estimat Glomerular Filtration 64 ML/MIN Rate Random Glucose 109 MG/DL Calcium Level 7.7 MG/DL Phosphorus Level 2.8 MG/DL Magnesium Level 2.3 MG/DL Imaging Last Impressions Chest X-Ray 06/20/16 0600 Signed Impressions: Service Date/Time: Monday, June 20, 2016 03:46 - CONCLUSION: 1. Increasing bibasilar atelectasis versus pneumonia 2. Small right effusion To Dailey MD GI Bleed Scan Nuclear Medicine 06/15/16 0000 Signed Impressions: Service Date/Time: Wednesday, June 15, 2016 11:15 - CONCLUSION: Negative for slight gastrointestinal hemorrhage. Gary Cook MD FACR CT Angiography 06/09/16 0000 Signed Impressions: Service Date/Time: June 06:47 - CONCLUSION: 1. Negative for pulmonary embolus. 2. Moderate to severe emphysema. 3. Multiple calcified gallstones. Antony Ledezma MD Objective Remarks GENERAL: Patient is 65 yo intubated and sedated. SKIN: Warm and dry. HEAD: Normocephalic. EYES: No scleral icterus. No injection or drainage. NECK: Supple, trachea midline. No JVD or lymphadenopathy. CARDIOVASCULAR: Regular rate and rhythm without murmurs, gallops, or rubs. RESPIRATORY: Breath sounds equal bilaterally. No accessory muscle use.Diminished GASTROINTESTINAL: Abdomen soft, non-tender, nondistended. MUSCULOSKELETAL: No cyanosis, or edema. Neuro: Intubated A/P Assessment and Plan 1)VDRF 2)COPD exacerbation 3)Hypertension 4)Acute kidney injury- improved 5)GI bleed -EGD yesterday revealed gastric and duodenal ulcers 6)Anemia 7)Hypernatremia Plan Neuro: On Diprivan, Fentanyl infusion for sedation, daily sedation vacation. CV:Monitor HR and BP keep MAP>65mmHg Echo showed EF 50-55% Pulm: On PRVC/AC RR 18, TV: 450, PEEP: 5, IT:0.8, FIO2 40%. Continue with vent support keep sat >92% Bronchodilators, ICU vent bundle, CPAP trials a stol On Solumederol 40mg Q12, : Monitor renal function, I/O's, electrolytes replacement protocol. On Free water 250ml Q12. Diurese with Bumex 1mg x1 GI: On Glucerna 1.5 @30ml/hr advance to goal rate, on Protonic 40mg BID ID: Continue with empiric abx ( Levaquin)monitor for signs of infections ( Fever , WBC) Heme: Monitor CBC Endo: SSI (low scale) for glycemic control GI prophylaxis- on Protonix 40mg BID DVT prophylaxis- SCD's, not on chemical AC prophylaxis due to GI bleed CCT 30 mins Carolee Martel MD Jun 21, 2016 07:24
[2016-06-21] MEDS ORDERED: BUMETANIDE INJ 1 MG/4 ML VIAL IV PUSH ONE (07:30)
[2016-06-21] MEDS: PANTOPRAZOLE SODIUM 40 MG VIAL IV PUSH SCH ×2 (08:17→20:24)
[2016-06-21] MEDS: hydrALAZINE HCL 20 MG/ML VIAL IV PRN ×3 (08:17→23:26)
[2016-06-21] MEDS: THEOPHYLLINE PO SCH ×2 (08:18→20:24)
[2016-06-21] MEDS: FREE WATER G-TUBE SCH ×2 (08:18→20:24)
[2016-06-21] MEDS: SODIUM CHLORIDE 0.9% FLUSH 5 ML FLUSH FLUSH SCH ×2 (08:18→20:23)
[2016-06-21] MEDS: CALCIPOTRIENE 0.005% CREAM 60 GM TOPICAL SCH ×2 (08:18→20:24)
[2016-06-21] MEDS ORDERED: DILTIAZEM HCL 25 MG/5 ML VIAL IV ONE ×2 (10:00→10:45)
[2016-06-21 10:38] LABS: BLOOD GAS BASE EXCESS 0.4 mmol/L (-2-2); BLOOD GAS CARBOXYHEMOGLOBIN 1.2 % (0-4); BLOOD GAS HCO3 26 mmol/L (22-26); BLOOD GAS O2 HGB SATURATION 97 % (90-100); BLOOD GAS OXYGEN CONTENT 16.4 Vol % (12.0-20.0); BLOOD GAS PCO2 50 mmHg (38-42); BLOOD GAS PO2 158 mmHg (61-120); BLOOD GAS TOTAL HGB 11.8 G/DL (12.0-16.0); TEMP CORR TO 98.6
[2016-06-21 10:39] LABS: CRITICAL VALUE NO; DRAW SITE LT RADIAL; FIO2 45 %; NUMBER OF ARTERIAL PUNCTURES 1; OXYGEN DEVICE VENTILATOR; STAT NO; ULNAR PULSE PRESENT; VENT SETTINGS CPAP 5/10PS
--- NOTE | 2016-06-21 11:24 | HHI.PR ---
Subjective Remarks Awake and on vent support HR >125. Anxious. on CPAP now FIO2 45%. Good output. CXR shows basal atelectasis Objective Vital Signs Date Time Temp Pulse Resp B/P Pulse Ox O2 Delivery O2 Flow Rate FiO2 06/21/16 10:00 114 06/21/16 09:34 45 06/21/16 08:00 97.4 104 14 153/89 97 06/21/16 08:00 115 06/21/16 08:00 40 06/21/16 07:56 98 40 06/21/16 06:00 72 06/21/16 04:09 95 40 06/21/16 04:00 40 06/21/16 04:00 98.1 75 18 135/63 97 06/21/16 04:00 75 06/21/16 02:00 70 06/21/16 01:04 96 40 06/21/16 00:00 98.4 75 18 135/63 95 06/21/16 00:00 40 06/21/16 00:00 75 06/20/16 22:00 69 06/20/16 20:38 96 40 06/20/16 20:00 75 06/20/16 20:00 98.4 75 18 135/63 95 06/20/16 20:00 40 06/20/16 18:00 76 06/20/16 16:00 80 06/20/16 16:00 97.6 81 18 142/66 96 06/20/16 16:00 40 06/20/16 15:37 91 40 06/20/16 14:00 86 06/20/16 12:00 97.7 87 18 146/68 96 06/20/16 12:00 78 06/20/16 12:00 35 I/O 06/20/16 06/20/16 06/20/16 06/21/16 06/21/16 06/21/16 07:00 15:00 23:00 07:00 15:00 23:00 Intake Total 1279 ml 693 ml 947 ml 629 ml Output Total 200 ml 1300 ml 525 ml 350 ml 0 ml Balance 1079 ml -607 ml 422 ml 279 ml 0 ml IV Total 1082 ml 488 ml 451 ml 282 ml Tube Feeding 197 ml 205 ml 246 ml 287 ml Other 250 ml 60 ml Output Urine Total 200 ml 1300 ml 525 ml 350 ml Tube Feeding Residual Discard 0 ml 0 ml 0 ml # Bowel Movements 0 0 0 Result Diagram: 06/21/1640906/21/16409 Objective Remarks GENERAL: This is averagely built elderly white female who is in bed. She is responsive, intubated, assisting the ventilator. HEENT: Head normocephalic. Pupils are reactive and equal. Throat is clear. Nasal mucosa edematous. NECK: Supple. No bruits or thyroid enlargement or lymphadenopathy. CHEST: Equal movements with percussion note, resonant throughout. Breath sounds slightly diminished over the periphery with Bilateral wheeze. HEART: The heart sounds are irregular. S1-S2 with no murmur. No S3 gallop. ABDOMEN: Soft, protuberant, without masses. No organomegaly or tenderness. The bowel sounds are active. EXTREMITIES: No edema. Peripheral pulses are diminished. There is no calf tenderness or swelling. NEUROLOGIC: She is moving all extremities . Lethargic RECTAL: Exam is deferred. SKIN: No lesions. Assessment and Plan Assessment and Plan IMPRESSION 1. Acute respiratory failure. 2. COPD with emphysema, chronic bronchitis. 3. History of hypertension. 4. History of breast cancer with right mastectomy and radiation therapy. 5. GI Bleeding. Plan : 1. Wean Vent to rate 12, and FIO2 35 %. 2. Labs in am 3. NIF ,FVC ABG today while on CPAP 4. Reduce sedation 5. Cont Antibiotics as ordered. 6. Tube feeds at 50 CC. 6. Nebs qid , duoneb. 7. Cont IV solumedrol to BID Darlene oHrn MD Jun 21, 2016 11:24
[2016-06-21] MEDS: DEXMEDETOMIDINE INJ 50 ML IV SCH ×4 (11:25→23:53)
[2016-06-21] MEDS: LEVOFLOXACIN 750 MG PREMIX INJ 150 ML IV SCH (15:04)
--- NOTE | 2016-06-21 16:02 | HHI.GIFU ---
Subjective Remarks Resting in bed. Lightly sedated on vent. No active bleeding. Tolerating tf. Objective Vitals I&O Vital Signs Date Time Temp Pulse Resp B/P Pulse Ox O2 Delivery O2 Flow Rate FiO2 06/21/16 14:00 108 06/21/16 12:58 97.5 108 15 105/55 90 06/21/16 12:00 50 06/21/16 12:00 115 06/21/16 11:37 90 50 06/21/16 10:00 114 06/21/16 09:34 45 06/21/16 08:00 97.4 104 14 153/89 97 06/21/16 08:00 115 06/21/16 08:00 40 06/21/16 07:56 98 40 06/21/16 06:00 72 06/21/16 04:09 95 40 06/21/16 04:00 40 06/21/16 04:00 98.1 75 18 135/63 97 06/21/16 04:00 75 06/21/16 02:00 70 06/21/16 01:04 96 40 06/21/16 00:00 98.4 75 18 135/63 95 06/21/16 00:00 40 06/21/16 00:00 75 06/20/16 22:00 69 06/20/16 20:38 96 40 06/20/16 20:00 75 06/20/16 20:00 98.4 75 18 135/63 95 06/20/16 20:00 40 06/20/16 18:00 76 I/O 06/20/16 06/20/16 06/20/16 06/21/16 06/21/16 06/21/16 07:00 15:00 23:00 07:00 15:00 23:00 Intake Total 1279 ml 693 ml 947 ml 629 ml 782 ml Output Total 200 ml 1300 ml 525 ml 350 ml 1700 ml Balance 1079 ml -607 ml 422 ml 279 ml -918 ml IV Total 1082 ml 488 ml 451 ml 282 ml 438 ml Tube Feeding 197 ml 205 ml 246 ml 287 ml 344 ml Other 250 ml 60 ml Output Urine Total 200 ml 1300 ml 525 ml 350 ml 1700 ml Tube Feeding Residual Discard 0 ml 0 ml 0 ml # Bowel Movements 0 0 0 Laboratory Laboratory Tests Test 06/21/16 06/21/16 04:10 10:30 White Blood Count 10.6 Red Blood Count 3.39 Hemoglobin 9.5 Hematocrit 28.9 Mean Corpuscular Volume 85.2 Mean Corpuscular Hemoglobin 28.1 Mean Corpuscular Hemoglobin 33.0 Concent Red Cell Distribution Width 15.5 Platelet Count 189 Mean Platelet Volume 9.6 Neutrophils (%) (Auto) 93.7 Lymphocytes (%) (Auto) 1.6 Monocytes (%) (Auto) 4.7 Eosinophils (%) (Auto) 0.0 Basophils (%) (Auto) 0.0 Neutrophils # (Auto) 9.9 Lymphocytes # (Auto) 0.2 Monocytes # (Auto) 0.5 Eosinophils # (Auto) 0.0 Basophils # (Auto) 0.0 CBC Comment DIFF FINAL Differential Comment Sodium Level 146 Potassium Level 4.2 Chloride Level 112 Carbon Dioxide Level 29.0 Anion Gap 5 Blood Urea Nitrogen 39 Creatinine 0.88 Estimat Glomerular Filtration 64 Rate Random Glucose 109 Calcium Level 7.7 Phosphorus Level 2.8 Magnesium Level 2.3 Blood Gas Puncture Site LT RADIAL Blood Gas Patient Temperature 98.6 Blood Gas HCO3 26 Blood Gas Base Excess 0.4 Blood Gas Oxygen Saturation 97 Arterial Blood pH 7.33 Arterial Blood Partial 50 Pressure CO2 Arterial Blood Partial 158 Pressure O2 Arterial Blood Oxygen Content 16.4 Arterial Blood 1.2 Carboxyhemoglobin Arterial Blood Methemoglobin 1.0 Blood Gas Hemoglobin 11.8 Oxygen Delivery Device VENTILATOR Blood Gas Ventilator Setting CPAP 5/10PS Blood Gas Inspired Oxygen 45 Date/Time Procedure Status Source Growth 06/19/16 17:38 Gram Stain - Final Complete Sputum Endotracheal 06/19/16 17:38 Sputum Culture - Final Complete Sputum Endotracheal MODERATE GROWTH NORMAL RESPIRATORY TESFAYE Imaging Last Impressions Chest X-Ray 06/20/16 0600 Signed Impressions: Service Date/Time: Monday, June 20, 2016 03:46 - CONCLUSION: 1. Increasing bibasilar atelectasis versus pneumonia 2. Small right effusion To Dailey MD GI Bleed Scan Nuclear Medicine 06/15/16 0000 Signed Impressions: Service Date/Time: Wednesday, June 15, 2016 11:15 - CONCLUSION: Negative for slight gastrointestinal hemorrhage. Gary Cook MD FACR CT Angiography 06/09/16 0000 Signed Impressions: Service Date/Time: June 06:47 - CONCLUSION: 1. Negative for pulmonary embolus. 2. Moderate to severe emphysema. 3. Multiple calcified gallstones. Antony Ledezma MD Physical Exam HEENT: Normocephalic; atraumatic; no jaundice. CHEST: OETT to vent. Resp. even/unlabored CARDIAC: RRR ABDOMEN: Soft, nondistended, nontender; no hepatosplenomegaly; bowel sounds are present in all four quadrants. EXTREMITIES: No clubbing, cyanosis, or edema. SKIN: Gen. edema RESIDENTIAL DIRECT SUPPORT PROFESSIONAL: Lethargic, but opens eyes to name. Assessment and Plan Plan ASSESSMENT: - Lower GIB. S/P EGD/Colonoscopy (06/16/16)---> Single ulcer, retroflexed views revealed no abnormalities, severe diverticulosis was noted in the sigmoid colon, near circumferential abnormal mucosa was found in the sigmoid colon, the mucosa was erythematous and ulcerated, a sessile polp ranging between 3-5mm in size was found in the transverse polyp, an adenomatous polyp was found in the sigmoid colon, polypectomy was performed using snare cautery, retroflexed views revealed medium internal hemorrhoids, revealed external hemorrhoids. Pathology with transverse polyp with tubular adenoma, large villous adenoma in sigmiod colon, the margin of resecton of the stalk appears free from adenomatous change, colonic mucosa with hyalinization of the stroma and loss of crypts consistent with ischemia. HH stable 9.5/28.9. No active bleeding. - Anemia secondary to above. Stable. HH stable. - Respiratory failure and COPD exacerbation. S/P Extubation Monday, but required reintubation. Vent per [facility] Plan: - TF via OGT - Cont. PPI - Monitor HH - Transfuse as necessary - FU JUSTIN in 2 weeks from discharge - Will need repeat colonoscopy in 4-8 weeks - GI will sign off, please reconsult as needed - Patient seen and examined by Dr. Mcleod and myself and this note is written on her behalf. Ana Lilia Faulkner Jun 21, 2016 16:02
[2016-06-22] VITALS (20 sets, daily range): BP systolic 106–181; BP diastolic 57–85; PULSE 65–105; RESP 18–20; TEMP 97.4–99.3; O2SAT 94–98
[2016-06-22] MEDS: DEXMEDETOMIDINE INJ 50 ML IV SCH ×10 (01:47→23:36)
[2016-06-22] MEDS: INSULIN NovoLIN REGULAR SUPPLEMENTAL SCALE SQ SCH ×4 (03:00→20:55)
[2016-06-22] MEDS: RESP: ALBUTEROL 2.5 MG/IPRATROPIUM 0.5 MG NEB (SCH) NEB ×3 (03:51→12:13)
[2016-06-22 05:20] LABS: AUTOMATED NEUTROPHIL # 9.7 TH/MM3 (1.8-7.7); HEMATOCRIT 29.4 % (35.0-46.0); HEMO FLAGS DIFF FINAL; LYMPH % 2.4 % (9.0-44.0); LYMPHOCYTE # 0.2 TH/MM3 (1.0-4.8); MEAN CELL VOLUME 84.9 FL (80.0-100.0); MEAN CORPUSCULAR HEMOGLOBIN 27.4 PG (27.0-34.0); MEAN CORPUSCULAR HGB CONC 32.3 % (32.0-36.0); MONO % 3.9 % (0.0-8.0); NEUT % 93.7 % (16.0-70.0); PLATELET COUNT 145 TH/MM3 (150-450); RED BLOOD COUNT 3.46 MIL/MM3 (4.00-5.30); RED CELL DISTRIBUTION WIDTH 15.4 % (11.6-17.2); WHITE BLOOD COUNT 10.3 TH/MM3 (4.0-11.0)
[2016-06-22] MEDS: PROPOFOL 1000 MG/100 ML INJ 100 ML IV SCH ×3 (05:32→23:36)
[2016-06-22 05:43] LABS: BICARBONATE 29.8 MEQ/L (21.0-32.0); POTASSIUM 4.5 MEQ/L (3.5-5.1)
[2016-06-22] MEDS: methylPREDNISolone SOD SUCC 40 MG/1 ML VIAL IV PUSH SCH ×2 (06:02→17:21)
[2016-06-22] MEDS: PANTOPRAZOLE SODIUM 40 MG VIAL IV PUSH SCH ×2 (07:58→20:19)
[2016-06-22] MEDS: FREE WATER G-TUBE SCH ×3 (07:58→20:18)
[2016-06-22] MEDS: SODIUM CHLORIDE 0.9% FLUSH 5 ML FLUSH FLUSH SCH ×2 (07:59→20:19)
[2016-06-22] MEDS: CALCIPOTRIENE 0.005% CREAM 60 GM TOPICAL SCH ×2 (07:59→20:23)
[2016-06-22] MEDS: CHLORHEXIDINE 0.12% (ORAL KIT) 15 ML CUP MT SCH ×4 (08:00→20:19)
[2016-06-22] MEDS: THEOPHYLLINE PO SCH ×2 (08:01→20:19)
[2016-06-22] MEDS: hydrALAZINE HCL 20 MG/ML VIAL IV PRN ×2 (08:34→19:35)
--- NOTE | 2016-06-22 08:50 | HHI.CCPN ---
Subjective Remarks/Hospital Course The patient is a 65 year old female with past medical history of chronic obstructive pulmonary disease on home oxygen nocturnally hypertension, breast cancer, status post chemotherapy and radiation approximately a two years ago. She was admitted to [facility] on June 14, under hospitalist service for any acute hypercapnic respiratory failure and COPD exacerbation. The patient was treated with bronchial bronchodilators and empiric antibiotics. She had multiple arterial blood gases since admission and her last ABG from yesterday afternoon showed pH of 7.33, CO2 59, pAO2 100, bicarb of 30 and saturation of 96% on BiPap 04/11 with 40% FIO2. This morning the patient was in respiratory distress, in addition she was tachypneic, tachycardiac and using her accessory muscles for respirations. She was on a BiPap for a short time without any significant improvements and given her respiratory status, She was subsequently intubated by myself and placed on full mechanical ventilation. 06/12 Patient is on fentanyl infusion for sedation but awake intubated. Afebrile. 06/13 No acute events overnight. Sedated and intubated. Patient tolerated CPAP x 2 hrs yesterday. Afebrile. 06/14 Patient had high peak pressure overnight switched to PRVC/AC mode and Versed drip was added to Fentanyl drip. Tolerating tube feeds. Afebrile. 06/16 no acute events overnight 06/17 EGD performed yesterday with finding of gastric ulcer and duodenal ulcer not actively bleeding 06/18 patient did well on a spontaneous breathing trial yesterday however there was no cuff leak appreciated she will started on Decadron 06/19 extubated yesterday afternoon developed stridor requiring reintubation 06/20 Patient is sedated with Diprivan, Fentanyl and intubated. Afebrile. 06/21 Patient remains sedated and intubated. Did not tolerate CPAP trials yesterday. Afebrile. Now on PRVC/AC RR 18, TV: 450, PEEP: 5, IT:0.8, FIO2 40%. 06/22 No acute events overnight. On Diprivan, fentanyl and Precedex infusion however she is awake. Afebrile. Objective Vital Signs Date Time Temp Pulse Resp B/P Pulse Ox O2 Delivery O2 Flow Rate FiO2 06/22/16 08:36 97 40 06/22/16 06:00 69 06/22/16 04:00 99.3 18 115/58 06/18/16 12:53 Nasal Cannula 4 Intake and Output 06/21/16 06/21/16 06/22/16 08:00 16:00 00:00 Intake Total 629 ml 782 ml 909 ml Output Total 350.0 ml 1700.0 ml 360.0 ml Balance 279.0 ml -918.0 ml 549.0 ml Result Diagram: 06/22/16 0325 06/22/16 0325 Other Results Laboratory Tests Test 06/21/16 06/22/16 10:30 03:25 Blood Gas Puncture Site LT RADIAL Blood Gas Patient Temperature 98.6 Blood Gas HCO3 26 mmol/L Blood Gas Base Excess 0.4 mmol/L Blood Gas Oxygen Saturation 97 % Arterial Blood pH 7.33 Arterial Blood Partial 50 mmHg Pressure CO2 Arterial Blood Partial 158 mmHg Pressure O2 Arterial Blood Oxygen Content 16.4 Vol % Arterial Blood 1.2 % Carboxyhemoglobin Arterial Blood Methemoglobin 1.0 % Blood Gas Hemoglobin 11.8 G/DL Oxygen Delivery Device VENTILATOR Blood Gas Ventilator Setting CPAP 5/10PS Blood Gas Inspired Oxygen 45 % White Blood Count 10.3 TH/MM3 Red Blood Count 3.46 MIL/MM3 Hemoglobin 9.5 GM/DL Hematocrit 29.4 % Mean Corpuscular Volume 84.9 FL Mean Corpuscular Hemoglobin 27.4 PG Mean Corpuscular Hemoglobin 32.3 % Concent Red Cell Distribution Width 15.4 % Platelet Count 145 TH/MM3 Mean Platelet Volume 10.3 FL Neutrophils (%) (Auto) 93.7 % Lymphocytes (%) (Auto) 2.4 % Monocytes (%) (Auto) 3.9 % Eosinophils (%) (Auto) 0.0 % Basophils (%) (Auto) 0.0 % Neutrophils # (Auto) 9.7 TH/MM3 Lymphocytes # (Auto) 0.2 TH/MM3 Monocytes # (Auto) 0.4 TH/MM3 Eosinophils # (Auto) 0.0 TH/MM3 Basophils # (Auto) 0.0 TH/MM3 CBC Comment DIFF FINAL Differential Comment Sodium Level 145 MEQ/L Potassium Level 4.5 MEQ/L Chloride Level 109 MEQ/L Carbon Dioxide Level 29.8 MEQ/L Anion Gap 6 MEQ/L Blood Urea Nitrogen 41 MG/DL Creatinine 0.87 MG/DL Estimat Glomerular Filtration 65 ML/MIN Rate Random Glucose 126 MG/DL Calcium Level 7.8 MG/DL Imaging Last Impressions Chest X-Ray 06/20/16 0600 Signed Impressions: Service Date/Time: Monday, June 20, 2016 03:46 - CONCLUSION: 1. Increasing bibasilar atelectasis versus pneumonia 2. Small right effusion To Dailey MD GI Bleed Scan Nuclear Medicine 06/15/16 0000 Signed Impressions: Service Date/Time: Wednesday, June 15, 2016 11:15 - CONCLUSION: Negative for slight gastrointestinal hemorrhage. Gary Cook MD FACR CT Angiography 06/09/16 0000 Signed Impressions: Service Date/Time: June 06:47 - CONCLUSION: 1. Negative for pulmonary embolus. 2. Moderate to severe emphysema. 3. Multiple calcified gallstones. Antony Ledezma MD Objective Remarks GENERAL: Patient is 65 yo intubated and sedated. SKIN: Warm and dry. HEAD: Normocephalic. EYES: No scleral icterus. No injection or drainage. NECK: Supple, trachea midline. No JVD or lymphadenopathy. CARDIOVASCULAR: Regular rate and rhythm without murmurs, gallops, or rubs. RESPIRATORY: Breath sounds equal bilaterally. No accessory muscle use.Diminished GASTROINTESTINAL: Abdomen soft, non-tender, nondistended. MUSCULOSKELETAL: No cyanosis, or edema. Neuro: Intubated A/P Assessment and Plan 1)VDRF 2)COPD exacerbation 3)Hypertension 4)Acute kidney injury- improved 5)s/p GI bleed 6)Anemia 7)Hypernatremia Plan Neuro: On Diprivan, Fentanyl infusion for sedation, daily sedation vacation. On Precedex drip to facilitate with weaning trials. CV: Monitor HR and BP keep MAP>65mmHg Echo showed EF 50-55% Pulm: On PRVC/AC RR 18, TV: 450, PEEP: 5, IT:0.8, FIO2 50%. Decrease FIO2 40% Continue with vent support keep sat >92% Bronchodilators, ICU vent bundle, CPAP trials as aamir On Solumederol 40mg Q12, : Monitor renal function, I/O's, electrolytes replacement protocol. On Free water 250ml Q12. Place on D51/2NS@75ml/hr GI: On Protonic 40mg BID, hold tube feeds for recurrent GI bleed GI is following, for CT abd/pelvis S/P EGD/Colonoscopy (06/16/16)---> Single ulcer, retroflexed views revealed no abnormalities, severe diverticulosis was noted in the sigmoid colon, ID: Continue with empiric abx ( Levaquin)monitor for signs of infections ( Fever , WBC) Heme: Monitor CBC. H/H stable Endo: SSI (low scale) for glycemic control GI prophylaxis- on Protonix 40mg BID DVT prophylaxis- SCD's, not on chemical AC prophylaxis due to GI bleed CCT 30 mins Carolee Martel MD Jun 22, 2016 08:50
[2016-06-22 11:43] LABS: HEMATOCRIT 30.7 % (35.0-46.0); REVIEW FLAG FINAL
--- NOTE | 2016-06-22 12:36 | HHI.GIFU ---
Subjective Remarks Reconsulted for bleeding. Received call this morning that patient had a large amount of bloody stool- maroon with clots. Stat HH was stable. Pt lightly sedated, denies any abdominal pain. (Ana Lilia Faulkner) Objective Vitals I&O Vital Signs Date Time Temp Pulse Resp B/P Pulse Ox O2 Delivery O2 Flow Rate FiO2 06/22/16 12:15 94 40 06/22/16 08:36 97 40 06/22/16 08:36 40 06/22/16 06:00 69 06/22/16 04:15 97 40 06/22/16 04:00 50 06/22/16 04:00 71 06/22/16 04:00 99.3 71 18 115/58 97 06/22/16 02:00 76 06/22/16 01:08 96 40 06/22/16 00:00 99.3 100 20 118/58 94 06/22/16 00:00 50 06/22/16 00:00 100 06/21/16 23:20 165/69 06/21/16 22:00 82 06/21/16 20:00 99.8 86 18 112/59 95 06/21/16 20:00 86 06/21/16 20:00 50 06/21/16 19:59 95 50 06/21/16 18:00 96 06/21/16 16:29 91 50 06/21/16 16:00 100 06/21/16 16:00 97.9 98 18 182/96 91 06/21/16 16:00 40 06/21/16 14:00 108 06/21/16 12:58 97.5 108 15 105/55 90 I/O 06/21/16 06/21/16 06/21/16 06/22/16 06/22/16 06/22/16 07:00 15:00 23:00 07:00 15:00 23:00 Intake Total 629 ml 782 ml 909 ml 715 ml Output Total 350 ml 1700 ml 360 ml 450 ml 150.0 ml Balance 279 ml -918 ml 549 ml 265 ml -150.0 ml IV Total 282 ml 438 ml 357 ml 349 ml Tube Feeding 287 ml 344 ml 302 ml 306 ml Other 60 ml 250 ml 60 ml Output Urine Total 350 ml 1700 ml 360 ml 450 ml Tube Feeding Residual Discard 0 ml 0 ml 0 ml 0 ml 150.0 ml # Bowel Movements 0 1 1 1 Laboratory Laboratory Tests Test 06/22/16 06/22/16 03:25 10:45 White Blood Count 10.3 Red Blood Count 3.46 Hemoglobin 9.5 9.6 Hematocrit 29.4 30.7 Mean Corpuscular Volume 84.9 Mean Corpuscular Hemoglobin 27.4 Mean Corpuscular Hemoglobin 32.3 Concent Red Cell Distribution Width 15.4 Platelet Count 145 Mean Platelet Volume 10.3 Neutrophils (%) (Auto) 93.7 Lymphocytes (%) (Auto) 2.4 Monocytes (%) (Auto) 3.9 Eosinophils (%) (Auto) 0.0 Basophils (%) (Auto) 0.0 Neutrophils # (Auto) 9.7 Lymphocytes # (Auto) 0.2 Monocytes # (Auto) 0.4 Eosinophils # (Auto) 0.0 Basophils # (Auto) 0.0 CBC Comment DIFF FINAL Differential Comment Sodium Level 145 Potassium Level 4.5 Chloride Level 109 Carbon Dioxide Level 29.8 Anion Gap 6 Blood Urea Nitrogen 41 Creatinine 0.87 Estimat Glomerular Filtration 65 Rate Random Glucose 126 Calcium Level 7.8 Date/Time Procedure Status Source Growth 06/19/16 17:38 Gram Stain - Final Complete Sputum Endotracheal 06/19/16 17:38 Sputum Culture - Final Complete Sputum Endotracheal MODERATE GROWTH NORMAL RESPIRATORY TESFAYE Imaging Last Impressions Chest X-Ray 06/20/16 0600 Signed Impressions: Service Date/Time: Monday, June 20, 2016 03:46 - CONCLUSION: 1. Increasing bibasilar atelectasis versus pneumonia 2. Small right effusion To Dailey MD GI Bleed Scan Nuclear Medicine 06/15/16 0000 Signed Impressions: Service Date/Time: Wednesday, June 15, 2016 11:15 - CONCLUSION: Negative for slight gastrointestinal hemorrhage. Gary Cook MD FACR CT Angiography 06/09/16 0000 Signed Impressions: Service Date/Time: June 06:47 - CONCLUSION: 1. Negative for pulmonary embolus. 2. Moderate to severe emphysema. 3. Multiple calcified gallstones. Antony Ledezma MD Physical Exam HEENT: Normocephalic; atraumatic; no jaundice. CHEST: OETT to vent. Resp. even/unlabored CARDIAC: RRR ABDOMEN: Soft, nondistended, nontender; no hepatosplenomegaly; bowel sounds are present in all four quadrants. EXTREMITIES: No clubbing, cyanosis, or edema. SKIN: Gen. edema NURSING RESIDENT: Lethargic, but opens eyes to name. (Ana Lilia Faulkner) Assessment and Plan Plan ASSESSMENT: - Lower GIB. S/P EGD/Colonoscopy (06/16/16)---> Single ulcer, retroflexed views revealed no abnormalities, severe diverticulosis was noted in the sigmoid colon, near circumferential abnormal mucosa was found in the sigmoid colon, the mucosa was erythematous and ulcerated, a sessile polp ranging between 3-5mm in size was found in the transverse polyp, an adenomatous polyp was found in the sigmoid colon, polypectomy was performed using snare cautery, retroflexed views revealed medium internal hemorrhoids, revealed external hemorrhoids. Pathology with transverse polyp with tubular adenoma, large villous adenoma in sigmiod colon, the margin of resection of the stalk appears free from adenomatous change, colonic mucosa with hyalinization of the stroma and loss of crypts consistent with ischemia. She was doing well and therefore we signed off yesterday, but was called this am after patient had a large bloody stool with maroon blood/clots. Rpt. HH was stable- 9.5 this am and 9.6 after bloody stool. Will get CTA and GS evaluation. Likely related to ischemic colitis. - Anemia secondary to above. Stable. HH stable. - Respiratory failure and COPD exacerbation. S/P Extubation Monday, but required reintubation. Vent per [facility] Plan: - TF via OGT - Cont. PPI - Serial HH q6h - Transfuse as necessary - CTA abdomen/pelvis - GS Evaluation - FU JUSTIN in 2 weeks from discharge - Will need repeat colonoscopy in 4-8 weeks - Patient seen and examined by Dr. Mcleod and myself and this note is written on her behalf. (Ana Lilia Faulkner) Physician Comments seen, examined agree with above (Ellen Mcleod MD) Ana Lilia Faulkner Jun 22, 2016 12:36 Ellen Mcleod MD Jun 22, 2016 15:28
[2016-06-22] MEDS: ALTEPLASE RECOMBINANT 2 MG VIAL IV FLUSH PRN ×2 (15:00→18:17)
[2016-06-22] MEDS: DEXT 5%-NACL 0.45% 1000 ML INJ 1,000 ML IV SCH (15:08)
[2016-06-22] MEDS: LEVOFLOXACIN 750 MG PREMIX INJ 150 ML IV SCH (16:36)
[2016-06-22] MEDS: RESP: ALBUTEROL 2.5 MG/IPRATROPIUM 0.5 MG NEB (PRN) NEB (17:52)
[2016-06-22 18:04] LABS: HEMATOCRIT 27.3 % (35.0-46.0); REVIEW FLAG FINAL
--- NOTE | 2016-06-22 19:08 | HHI.PR ---
Subjective Remarks Awake and on vent support and on A/C 18. . Failed attempt at weaning. Anxious. FIO2 45%. Poor resp effort. CXR shows basal atelectasis Objective Vital Signs Date Time Temp Pulse Resp B/P Pulse Ox O2 Delivery O2 Flow Rate FiO2 06/22/16 18:00 79 06/22/16 17:52 97 40 06/22/16 16:00 40 06/22/16 16:00 97.6 78 18 133/66 96 06/22/16 16:00 78 06/22/16 14:00 92 06/22/16 12:15 94 40 06/22/16 12:00 97.6 90 20 106/57 95 06/22/16 12:00 90 06/22/16 12:00 40 06/22/16 10:30 40 06/22/16 10:00 105 06/22/16 08:36 97 40 06/22/16 08:36 40 06/22/16 08:30 40 06/22/16 08:00 88 06/22/16 08:00 97.5 88 18 181/85 98 06/22/16 06:00 69 06/22/16 04:15 97 40 06/22/16 04:00 50 06/22/16 04:00 71 06/22/16 04:00 99.3 71 18 115/58 97 06/22/16 02:00 76 06/22/16 01:08 96 40 06/22/16 00:00 99.3 100 20 118/58 94 06/22/16 00:00 50 06/22/16 00:00 100 06/21/16 23:20 165/69 06/21/16 22:00 82 06/21/16 20:00 99.8 86 18 112/59 95 06/21/16 20:00 86 06/21/16 20:00 50 06/21/16 19:59 95 50 I/O 06/21/16 06/21/16 06/21/16 06/22/16 06/22/16 06/22/16 07:00 15:00 23:00 07:00 15:00 23:00 Intake Total 629 ml 782 ml 909 ml 715 ml 434 ml Output Total 350 ml 1700 ml 360 ml 450 ml 650.0 ml Balance 279 ml -918 ml 549 ml 265 ml -216.0 ml IV Total 282 ml 438 ml 357 ml 349 ml 284 ml Tube Feeding 287 ml 344 ml 302 ml 306 ml 90 ml Other 60 ml 250 ml 60 ml 60 ml Output Urine Total 350 ml 1700 ml 360 ml 450 ml 500 ml Tube Feeding Residual Discard 0 ml 0 ml 0 ml 0 ml 150.0 ml # Bowel Movements 0 1 1 1 3 Result Diagram: 06/22/16 1640 06/22/16 0325 Objective Remarks GENERAL: This is averagely built elderly white female who is in bed. She is responsive, intubated, assisting the ventilator. HEENT: Head normocephalic. Pupils are reactive and equal. Throat is clear. Nasal mucosa edematous. NECK: Supple. No bruits or thyroid enlargement or lymphadenopathy. CHEST: Equal movements with Breath sounds slightly diminished over the periphery with Bilateral wheeze. HEART: The heart sounds are irregular. S1-S2 with no murmur. No S3 gallop. ABDOMEN: Soft, protuberant, without masses. No organomegaly or tenderness. The bowel sounds are active. EXTREMITIES: No edema. Peripheral pulses are diminished. There is no calf tenderness or swelling. NEUROLOGIC: She is moving all extremities . Lethargic RECTAL: Exam is deferred. SKIN: No lesions. Assessment and Plan Assessment and Plan IMPRESSION 1. Acute respiratory failure. 2. COPD with emphysema, chronic bronchitis. 3. History of hypertension. 4. History of breast cancer with right mastectomy and radiation therapy. 5. GI Bleeding. Plan : 1. Wean Vent to rate 14, and FIO2 35 %. 2. CPAP trial in am. 3. May need Tracheostomy if fails T Bar trial. 4. Reduce sedation 5. Cont Antibiotics as ordered. 6. Tube feeds at 50 CC. 6. Nebs qid , duoneb. 7. Cont IV Solumedrol 40 mg BID Darlene Horn MD Jun 22, 2016 19:08
[2016-06-22 22:26] LABS: HEMATOCRIT 27.6 % (35.0-46.0); REVIEW FLAG FINAL
[2016-06-23] VITALS (24 sets, daily range): BP systolic 98–160; BP diastolic 58–84; PULSE 52–110; RESP 18–24; TEMP 97.4–97.9; O2SAT 92–100
[2016-06-23] MEDS ORDERED: IOHEXOL 350 MG/ML 10 ML VIAL (for RAD DIAG) IV ONE ×2 (00:45→16:39)
[2016-06-23] MEDS: hydrALAZINE HCL 20 MG/ML VIAL IV PRN ×3 (01:10→10:18)
--- NOTE | 2016-06-23 01:51 | RADRPT ---
EXAM DATE/TIME: 06/23/2016 00:41 [facility] COMPARISON: CT PULMONARY ANGIOGRAM, June 09, 2016, 6:47. INDICATIONS : Bleeding, evaluate for ischemic colitis. IV CONTRAST: 97 cc Omnipaque 350 (iohexol) IV ORAL CONTRAST: No oral contrast ingested. RADIATION DOSE: 16.93 CTDIvol (mGy) MEDICAL HISTORY : Hypertension. Cancer of unknown origin. SURGICAL HISTORY : None. ENCOUNTER: Initial ACUITY: 2 weeks PAIN SCALE: Non-responsive LOCATION: abdomen TECHNIQUE: Volumetric scanning was performed using a multi-row detector CT scanner. The data was post processed with a variety of visualization algorithms including full volume maximum intensity projection, multi -planar sliding thin slab reformation, curved planar reformation, and surface rendering techniques. Using automated exposure control and adjustment of the mA and/or kV according to patient size, radiat ion dose was kept as low as reasonably achievable to obtain optimal diagnostic quality images. FINDINGS: Small bilateral pleural effusions are identified. There is subsegmental atelectasis in the right base . There is a 3 mm pleural-based nodule in the left base. Followup CT scan in 6 months is recommended . Visualized portion the pulmonary vasculature in the left lower lobe is tiny nonocclusive pulmonary embolism extending into a segmental branch on the left. The liver and spleen are normal in size and no focal defects are identified. There are multiple stone s within the gallbladder without wall thickening or pericholecystic fluid the largest measuring 3 mm. The pancreas demonstrates no evidence of mass and there is no dilatation of the pancreatic duct. The adrenal glands and kidneys appear normal bilaterally. No hydronephrosis or mass lesions are identifi ed. There is diffuse edema in the subcutaneous tissues consistent with anasarca. Free fluid is presen t in the pelvis. A Espinosa catheter is present within the bladder which does not allow for evaluation. There is diverticulosis without evidence of diverticulitis. The aorta is normal in caliber. There is no evidence of aneurysm or dissection. The renal artery orig ins are patent bilaterally. The celiac axis and superior mesenteric artery origins are also patent. CONCLUSION: 1. No evidence of mesenteric ischemia 2. Ascites 3. Nonocclusive pulmonary embolism involving the left lower lobe. CT angiography of the chest could b e performed to further evaluate this if clinically indicated. 4. Cholelithiasis 5. Anasarca 6. 3 mm nodule left base. Followup CT scan in 6 months is recommended. To Dailey MD on June 23, 2016 at 1:44 Board Certified Radiologist. This report was verified electronically.
[2016-06-23] MEDS: DEXMEDETOMIDINE INJ 50 ML IV SCH ×3 (02:50→09:42)
[2016-06-23] MEDS: INSULIN NovoLIN REGULAR SUPPLEMENTAL SCALE SQ SCH ×4 (03:27→19:55)
--- NOTE | 2016-06-23 04:42 | RADRPT ---
EXAM DATE/TIME: 06/23/2016 03:01 [facility] COMPARISON: CHEST SINGLE AP, June 20, 2016, 3:46. INDICATIONS : Shortness of breath MEDICAL HISTORY : Hypertension. Carcinoma, breast. Chronic obstructive pulmonary disease. SURGICAL HISTORY : None. ENCOUNTER: Subsequent ACUITY: 1 week PAIN SCORE: Non-responsive. LOCATION: Bilateral chest FINDINGS: The cardiac silhouette is normal in transverse diameter. The patient is rotated into the right teacher industrial arts ior oblique position. Support lines and tubes are in satisfactory position. There is resolving bibasi lar edema with decreasing effusions. CONCLUSION: 1. Resolving bibasilar edema and bilateral effusions To Dailey MD on June 23, 2016 at 4:40 Board Certified Radiologist. This report was verified electronically.
[2016-06-23 04:46] LABS: AUTOMATED NEUTROPHIL # 10.6 TH/MM3 (1.8-7.7); HEMATOCRIT 26.6 % (35.0-46.0); HEMO FLAGS DIFF FINAL; LYMPH % 1.8 % (9.0-44.0); LYMPHOCYTE # 0.2 TH/MM3 (1.0-4.8); MEAN CELL VOLUME 84.4 FL (80.0-100.0); MEAN CORPUSCULAR HEMOGLOBIN 27.7 PG (27.0-34.0); MEAN CORPUSCULAR HGB CONC 32.8 % (32.0-36.0); MONO % 2.2 % (0.0-8.0); PLATELET COUNT 139 TH/MM3 (150-450); RED BLOOD COUNT 3.15 MIL/MM3 (4.00-5.30); RED CELL DISTRIBUTION WIDTH 15.3 % (11.6-17.2)
[2016-06-23 05:32] LABS: BICARBONATE 32.6 MEQ/L (21.0-32.0)
[2016-06-23] MEDS: PROPOFOL 1000 MG/100 ML INJ 100 ML IV SCH ×3 (05:33→23:43)
[2016-06-23] MEDS: methylPREDNISolone SOD SUCC 40 MG/1 ML VIAL IV PUSH SCH ×2 (05:34→18:24)
[2016-06-23] MEDS: DEXT 5%-NACL 0.45% 1000 ML INJ 1,000 ML IV SCH (05:34)
[2016-06-23 05:52] LABS: CALCIUM-PROTEIN CORRECTED 8.9 MG/DL (8.5-10.1)
--- NOTE | 2016-06-23 07:22 | MB ---
cc: JAYDE CHUNG M.D. DATE OF CONSULTATION 06/22/2016 REASON FOR CONSULTATION Lower GI bleed, ischemic colitis. BRIEF HISTORY This is an unfortunate 65-year-old woman who is hospitalized in the [facility] room 505A and has been there since June 09, 2016. She initially presented with respiratory distress, acute exacerbation of COPD, hypoxia and pneumonia. She apparently has developed some lower GI bleed and as far as I can tell, she has received a total of one unit of blood. She had previously undergone a colonoscopy and upper endoscopy. The colonoscopy demonstrated a near circumferential abnormal mucosa in the sigmoid colon and severe diverticulosis. She had several small polyps that were removed. She was felt with this exacerbation of blood clots to have ischemic colitis. A CTA of the abdomen was performed which showed no evidence of mesenteric ischemia. Her hemoglobin this morning is 8.7. She remains hemodynamically stable. There are no family members at the bedside. The nurse came to the bedside in case. She just started tube feeding. The patient overnight had no further evidence of GI bleed. She had a small amount of dark liquidy stool and no evidence again of any bleeding. PAST MEDICAL HISTORY Her history is obtained from the chart. She apparently has a history of: 1. Hypertension 2. COPD with nocturnal oxygen 3. History of right breast cancer with right mastectomy and reconstruction. 4. She has had chemotherapy and radiation therapy two years ago. 5. She has had a meniscus repair. MEDICATIONS Her medications list includes: 1. Lisinopril 2. Theophylline 3. Inhalers ALLERGIES SHE HAS ALLERGY TO DOXICYCLINE. FAMILY HISTORY Breast cancer in her sister. SOCIAL HISTORY Prior tobacco abuser, quit 17 years ago. No alcohol or drug abuse. Lives with her . REVIEW OF SYSTEMS The review of systems is unobtainable. PHYSICAL EXAM Her physical exam shows an intubated older woman who is not responsive. She is on propofol. HEAD, EYES, EARS, NOSE, AND THROAT: She has an endotracheal tube in place. Her pupils were 3 mm, round and nonreactive. Her sclerae were anicteric. She is overall anasarcic, fairly puffy, but not tensely edematous. She has a left internal jugular central line. She has a an orogastric tube in place with tube feeding going through it. Her trachea appears midline. LUNGS: She has equal bilateral breath sounds anteriorly. HEART: Her heart sounds are distant, but appear without obvious murmur, rub or gallop. BREASTS: She has scarring from breast reconstructive surgery. ABDOMEN: Her abdomen is actually soft. It is not firm at all. It is not distended. There are a few bowel sounds. No obvious scars. No obvious hernias. There is no reaction to deep palpation of the abdomen. I cannot hear any bruits. EXTREMITIES: Her extremities show some edema, appears to be on the resolving side again not real tense edema, but definitely edema present. She has sequential compression device on. I can palpate radial and dorsalis pedis pulses. NEUROLOGIC: Again neurologically, she is obtunded. She is on medications for sedation and intubation. LABORATORY DATA Her laboratory values show a white count of 11 with 96% neutrophils. She has a hemoglobin of 8.7, platelet count of 139. Coag studies on the 14 of June were totally within normal limits. Her potassium is 4, creatinine 0.65. Her BUN is 35. She has a total protein of 4.5, prior albumin check was at 2. IMAGING STUDIES A CTA of the abdomen shows no evidence of mesenteric ischemia. She does have ascites and nonocclusive pulmonary embolism in the left lower lobe, cholelithiasis, anasarca, 3 mm nodule in the left base. CT scan followup was recommended. She had a chest x-ray which showed resolving bibasilar edema and bilateral effusions. ASSESSMENT This is a 65-year-old woman with question of ischemic colitis and lower GI bleed who has no evidence on physical examination or CT angiography of mesenteric ischemia. Certainly at this point, she is a high-risk a surgical candidate and there is really not any indication at this point for abdominal surgery. Most often times even in patient's who get ischemic colitis, this is adequately treated with resuscitation and support and not surgical intervention. I would be reluctant to advise any surgery at this time. I appreciate the opportunity to see this woman. I will sign off, but be available to return to see this patient should any indication for surgery arise. I have discussed my impression with the patient's bedside nurse. MD HIRAL Pacheco/JACIEL /7:01 AM /7:11 AM
[2016-06-23] MEDS: CHLORHEXIDINE 0.12% (ORAL KIT) 15 ML CUP MT SCH ×3 (08:00→19:54)
[2016-06-23] MEDS: RESP: ALBUTEROL 1.25 MG/3 ML NEB (PRN) NEB (08:27)
[2016-06-23] MEDS: PANTOPRAZOLE SODIUM 40 MG VIAL IV PUSH SCH ×2 (08:57→19:54)
[2016-06-23] MEDS: THEOPHYLLINE PO SCH ×2 (09:00→19:55)
[2016-06-23] MEDS: FREE WATER G-TUBE SCH (09:00)
[2016-06-23] MEDS: SODIUM CHLORIDE 0.9% FLUSH 5 ML FLUSH FLUSH SCH ×2 (09:01→19:55)
[2016-06-23] MEDS: CALCIPOTRIENE 0.005% CREAM 60 GM TOPICAL SCH ×2 (09:02→19:55)
[2016-06-23] MEDS ORDERED: BUMETANIDE INJ 1 MG/4 ML VIAL IV PUSH ONE (10:15)
[2016-06-23] MEDS: BUDESONIDE-FORMOTEROL 80/4.5 MCG INHALER INH SCH ×2 (10:18→19:54)
[2016-06-23 10:48] LABS: BLOOD GAS BASE EXCESS 0.5 mmol/L (-2-2); BLOOD GAS CARBOXYHEMOGLOBIN 1.1 % (0-4); BLOOD GAS HCO3 27 mmol/L (22-26); BLOOD GAS METHEMOGLOBIN 1.1 % (0-2); BLOOD GAS O2 HGB SATURATION 94 % (90-100); BLOOD GAS OXYGEN CONTENT 15.4 Vol % (12.0-20.0); BLOOD GAS PCO2 64 mmHg (38-42); BLOOD GAS PO2 94 mmHg (61-120); BLOOD GAS TOTAL HGB 11.6 G/DL (12.0-16.0); CRITICAL VALUE YES; DRAW SITE LT RADIAL; FIO2 40 %; NUMBER OF ARTERIAL PUNCTURES 1; OXYGEN DEVICE VENTILATOR; STAT NO; TEMP CORR TO 98.6; VENT SETTINGS CPAPPEEP5/PS5
[2016-06-23] MEDS: RESP: ALBUTEROL 2.5 MG/IPRATROPIUM 0.5 MG NEB (PRN) NEB (11:18)
--- NOTE | 2016-06-23 11:18 | HHI.CCPN ---
Subjective Remarks/Hospital Course The patient is a 65 year old female with past medical history of chronic obstructive pulmonary disease on home oxygen nocturnally, hypertension, breast cancer, status post chemotherapy and radiation approximately a two years ago. She was admitted to [facility] on June 14, under hospitalist service for any acute hypercapnic respiratory failure and COPD exacerbation. The patient was treated with bronchial bronchodilators and empiric antibiotics. She had multiple arterial blood gases since admission and her last ABG from yesterday afternoon showed pH of 7.33, CO2 59, pAO2 100, bicarb of 30 and saturation of 96% on BiPap 04/11 with 40% FIO2. This morning the patient was in respiratory distress, in addition she was tachypneic, tachycardiac and using her accessory muscles for respirations. She was on a BiPap for a short time without any significant improvements and given her respiratory status, She was subsequently intubated by myself and placed on full mechanical ventilation. 06/12 Patient is on fentanyl infusion for sedation but awake intubated. Afebrile. 06/13 No acute events overnight. Sedated and intubated. Patient tolerated CPAP x 2 hrs yesterday. Afebrile. 06/14 Patient had high peak pressure overnight switched to PRVC/AC mode and Versed drip was added to Fentanyl drip. Tolerating tube feeds. Afebrile. 06/16 no acute events overnight 06/17 EGD performed yesterday with finding of gastric ulcer and duodenal ulcer not actively bleeding 06/18 patient did well on a spontaneous breathing trial yesterday however there was no cuff leak appreciated she will started on Decadron 06/19 extubated yesterday afternoon developed stridor requiring reintubation 06/20 Patient is sedated with Diprivan, Fentanyl and intubated. Afebrile. 06/21 Patient remains sedated and intubated. Did not tolerate CPAP trials yesterday. Afebrile. Now on PRVC/AC RR 18, TV: 450, PEEP: 5, IT:0.8, FIO2 40%. 06/22 No acute events overnight. On Diprivan, fentanyl and Precedex infusion however she is awake. Afebrile. 06/23: Failed weaning trials again today due to tachypnea, and ABG 7.25/64 on 60 MIN SBT. Discussed with daughter and patient at bedside. Both agreeable for tracheostomy. Will plan for tomorrow. Objective Vital Signs Date Time Temp Pulse Resp B/P Pulse Ox O2 Delivery O2 Flow Rate FiO2 06/23/16 10:00 110 06/23/16 08:27 96 40 06/23/16 08:00 97.4 18 132/58 Intake and Output 06/22/16 06/22/16 06/23/16 08:00 16:00 00:00 Intake Total 715 ml 434 ml 1099 ml Output Total 600.0 ml 500 ml 375 ml Balance 115.0 ml -66 ml 724 ml Result Diagram: 06/23/16 0340 06/23/16 0340 Other Results Laboratory Tests Test 06/23/16 10:37 Blood Gas Puncture Site LT RADIAL Blood Gas Patient Temperature 98.6 Blood Gas HCO3 27 mmol/L (22-26) Blood Gas Base Excess 0.5 mmol/L (-2-2) Blood Gas Oxygen Saturation 94 % (90-100) Arterial Blood pH 7.25 (7.380-7.420) Arterial Blood Partial 64 mmHg (38-42) Pressure CO2 Arterial Blood Partial 94 mmHg Pressure O2 (61-120) Arterial Blood Oxygen Content 15.4 Vol % (12.0-20.0) Arterial Blood 1.1 % (0-4) Carboxyhemoglobin Arterial Blood Methemoglobin 1.1 % (0-2) Blood Gas Hemoglobin 11.6 G/DL (12.0-16.0) Oxygen Delivery Device VENTILATOR Blood Gas Ventilator Setting CPAPPEEP5/PS5 Blood Gas Inspired Oxygen 40 % Imaging Last Impressions Chest X-Ray 06/20/16 0600 Signed Impressions: Service Date/Time: Monday, June 20, 2016 03:46 - CONCLUSION: 1. Increasing bibasilar atelectasis versus pneumonia 2. Small right effusion To Dailey MD GI Bleed Scan Nuclear Medicine 06/15/16 0000 Signed Impressions: Service Date/Time: Wednesday, June 15, 2016 11:15 - CONCLUSION: Negative for slight gastrointestinal hemorrhage. Gary Cook MD FACR CT Angiography 06/09/16 0000 Signed Impressions: Service Date/Time: June 06:47 - CONCLUSION: 1. Negative for pulmonary embolus. 2. Moderate to severe emphysema. 3. Multiple calcified gallstones. Antony Ledezma MD Objective Remarks GENERAL: Patient is 65 yo intubated and awake alert. Patient has accessory muscle use while on C Pap SKIN: Warm and dry. HEAD: Normocephalic. EYES: No scleral icterus. No injection or drainage. NECK: Supple, trachea midline. No JVD or lymphadenopathy. CARDIOVASCULAR: Regular rate and rhythm without murmurs, gallops, or rubs. RESPIRATORY: Breath sounds equal bilaterally, with bilateral expiratory wheezes. Bilateral accessory muscle use while on C Pap GASTROINTESTINAL: Abdomen soft, non-tender, nondistended. MUSCULOSKELETAL: Swelling of the right upper extremity Neuro: Intubated. Awake alert follows commands Urinary Catheter: Yes Assessment to: Continue A/P Assessment and Plan 1)Acute hypoxemic and hypercarbic respiratory failure 2)COPD exacerbation 3)Hypertension 4)Acute kidney injury- improved 5)s/p GI bleed 6)Anemia 7)Hypernatremia Plan Neuro: On Diprivan, Fentanyl infusion for sedation, daily sedation vacation. On Precedex drip to facilitate with weaning trials. CV: Monitor HR and BP keep MAP>65mmHg Echo showed EF 50-55% Pulm: On PRVC/AC RR 18, TV: 450, PEEP: 5, IT:0.8, FIO2 50%. Decrease FIO2 40% Continue with vent support keep sat >90%. Failed CPAP trials again today with tachypnea and respiratory distress and PH 7.25 PCO2 64 on ABG after 60 MIN SBT Bronchodilators, ICU vent bundle, CPAP trials as aamir On Solumederol 40mg Q12, resume Symbicort : Monitor renal function, I/O's, electrolytes replacement protocol. On Free water 250ml Q12. DC D51/2NS@75ml/hr GI: On Protonic 40mg BID, resume tube feeds, NPO after midnight GI is following, for CT abd/pelvis S/P EGD/Colonoscopy (06/16/16)---> Single ulcer, retroflexed views revealed no abnormalities, severe diverticulosis was noted in the sigmoid colon, ID: Continue with empiric abx ( Levaquin)monitor for signs of infections ( Fever , WBC) Heme: Monitor CBC. H/H stable Endo: SSI (low scale) for glycemic control GI prophylaxis- on Protonix 40mg BID DVT prophylaxis- SCD's, not on chemical AC prophylaxis due to GI bleed CCT 35 mins Dispo: Discussed with patient and daughter. Unable to wean, will proceed with tracheostomy in AM Ahmet Lee MD Jun 23, 2016 11:18
[2016-06-23] MEDS: RESP: ALBUTEROL 2.5 MG/IPRATROPIUM 0.5 MG NEB (SCH) NEB ×4 (12:47→23:09)
--- NOTE | 2016-06-23 13:01 | HHI.PR ---
Subjective Remarks Awake and on vent support and on A/C 18. .Again Failed attempt at weaning. Anxious. FIO2 40%. O 2 Sats 95. CXR shows basal atelectasis Objective Vital Signs Date Time Temp Pulse Resp B/P Pulse Ox O2 Delivery O2 Flow Rate FiO2 06/23/16 11:12 92 40 06/23/16 10:42 93 40 06/23/16 10:00 110 06/23/16 09:40 95 40 06/23/16 09:20 97 40 06/23/16 09:20 40 06/23/16 08:27 96 40 06/23/16 08:00 97.4 52 18 132/58 97 06/23/16 08:00 40 06/23/16 08:00 52 06/23/16 06:00 54 06/23/16 04:12 97 40 06/23/16 04:00 97.4 53 18 117/59 97 06/23/16 04:00 40 06/23/16 04:00 53 06/23/16 02:00 55 06/23/16 01:08 98 40 06/23/16 00:00 53 06/23/16 00:00 40 06/23/16 00:00 97.4 53 18 160/74 97 06/22/16 23:30 98 100 06/22/16 22:08 98 40 06/22/16 22:00 65 06/22/16 20:00 70 06/22/16 20:00 40 06/22/16 20:00 97.4 70 18 163/72 96 06/22/16 19:10 96 40 06/22/16 18:00 79 06/22/16 17:52 97 40 06/22/16 16:00 40 06/22/16 16:00 97.6 78 18 133/66 96 06/22/16 16:00 78 06/22/16 14:00 92 I/O 06/22/16 06/22/16 06/22/16 06/23/16 06/23/16 06/23/16 07:00 15:00 23:00 07:00 15:00 23:00 Intake Total 715 ml 434 ml 1099 ml 760 ml Output Total 450 ml 650.0 ml 375 ml 425 ml Balance 265 ml -216.0 ml 724 ml 335 ml IV Total 349 ml 284 ml 849 ml 700 ml Tube Feeding 306 ml 90 ml 0 ml Other 60 ml 60 ml 250 ml 60 ml Output Urine Total 450 ml 500 ml 375 ml 425 ml Tube Feeding Residual Discard 0 ml 150.0 ml # Bowel Movements 1 3 Result Diagram: 06/23/1633906/23/16339 Objective Remarks GENERAL: This is averagely built elderly white female who is in bed. She is responsive, intubated, assisting the ventilator. HEENT: Head normocephalic. Pupils are reactive and equal. Throat is clear. Nasal mucosa clear. NECK: Supple. No bruits or thyroid enlargement or lymphadenopathy. CHEST: Equal movements with Breath with Bilateral wheeze. HEART: The heart sounds are irregular. S1-S2 with no murmur. No S3 gallop. ABDOMEN: Soft, protuberant, without masses. No organomegaly or tenderness. The bowel sounds are active. EXTREMITIES: No edema. Peripheral pulses are diminished. There is no calf tenderness or swelling. NEUROLOGIC: She is moving all extremities . Lethargic RECTAL: Exam is deferred. SKIN: No lesions. Assessment and Plan Assessment and Plan IMPRESSION 1. Acute respiratory failure. 2. COPD with emphysema, chronic bronchitis. 3. History of hypertension. 4. History of breast cancer with right mastectomy and radiation therapy. 5. GI Bleeding. Plan : 1. Cont Vent at A/C 18,PEEP +5 , and FIO2 35 %. 2. CPAP trial in am. 3. For Trach in am. 4. Reduce sedation 5. Cont Antibiotics as ordered. 6. Tube feeds at 50 CC. 6. Nebs qid , duoneb. 7. IV Solumedrol 40 mg BID 8. CBC,BMP Darlene Horn MD Jun 23, 2016 13:01
--- NOTE | 2016-06-23 13:26 | RADRPT ---
EXAM DATE/TIME: 06/23/2016 12:03 [facility] COMPARISON: No previous studies available for comparison. INDICATIONS : Bilateral arm swelling. MEDICAL HISTORY : Hypertension. Chronic obstructive pulmonary disease. Emphysema. Dyspnea. Breast CA. SURGICAL HISTORY : Mastectomy, right. Bilateral cataracts. Full upper dentures. ENCOUNTER: Initial ACUITY: 4 - 6 days PAIN SCORE: Non-responsive LOCATION: Bilateral arm. FINDINGS: RIGHT UPPER EXTREMITY: There is spontaneous flow documented in the brachial, basilic, cephalic, axillary, and subclavian vei ns. The vessels are compressible and augmentation response is documented. No filling defects are se en. The flow is phasic with respiration. Direction of flow in the jugular vein is caudal. LEFT UPPER EXTREMITY: There is echogenic noncompressible material seen throughout the cephalic vein. There is spontaneous f low documented in the brachial, basilic, axillary, and subclavian veins. The vessels are compressibl e and augmentation response is documented. No filling defects are seen. The flow is phasic with res piration. Direction of flow in the jugular vein is caudal. CONCLUSION: 1. Nonocclusive thrombus seen throughout the left cephalic vein. This is a superficial venous structu re. 2. No DVT. Kenny Devine Jr., MD on June 23, 2016 at 13:20 Board Certified Radiologist. This report was verified electronically.
--- NOTE | 2016-06-23 16:02 | RADRPT ---
EXAM DATE/TIME: 06/23/2016 15:42 [facility] COMPARISON: CT PULMONARY ANGIOGRAM, June 09, 2016, 6:47. INDICATIONS : Respiratory distress and shortness of breath. IV CONTRAST: 75 cc Omnipaque 350 (iohexol) IV RADIATION DOSE: 23.42 CTDIvol (mGy) MEDICAL HISTORY : Hypertension. Chronic obstructive pulmonary disease. SURGICAL HISTORY : None. ENCOUNTER: Initial ACUITY: 1 day PAIN SCALE: 3/10 LOCATION: chest TECHNIQUE: Volumetric scanning of the chest was performed using a pulmonary embolism protocol MIP images were re constructed. Using automated exposure control and adjustment of the mA and/or kV according to patien t size, radiation dose was kept as low as reasonably achievable to obtain optimal diagnostic quality images. FINDINGS: PULMONARY ARTERIES: Filling defects are identified on the left consistent with acute pulmonary emboli. Small volume throm bus is seen involving the lingular and basilar segmental branches. No large saddle emboli observed. LUNGS: Pronounced emphysematous changes. PLEURAE: Tiny posterior layering bilateral pleural effusions. MEDIASTINUM: There is good visualization of the great vessels of the middle mediastinum. No evidence of mediastin al or hilar adenopathy/mass. MUSCULOSKELETAL: Within normal limits for patient age. MISCELLANEOUS: Diffuse edema throughout the subcutaneous tissues of the flanks. Calcified gallstones. Trace amount o f free fluid adjacent to the spleen. A right breast implant observed. CONCLUSION: 1. Acute small volume pulmonary emboli involving the lingula and left lower lobe. 2. Pronounced emphysematous changes. 3. Anasarca. 4. Tiny bilateral pleural effusions. 5. Trace amount of free fluid within the abdomen. Kenny Devine Jr., MD on June 23, 2016 at 15:54 Board Certified Radiologist. This report was verified electronically.
--- NOTE | 2016-06-23 16:36 | HHI.GIFU ---
Subjective Remarks Resting in bed. Lightly sedated. On vent, but alert and able to answer questions by nodding yes/no. Denies n/v/abdominal pain. Nurse reports that she had small dark maroon stool- looked like old blood. No fresh active bleeding. (Ana Lilia Faulkner) Objective Vitals I&O Vital Signs Date Time Temp Pulse Resp B/P Pulse Ox O2 Delivery O2 Flow Rate FiO2 06/23/16 14:24 97 40 06/23/16 12:00 101 06/23/16 12:00 40 06/23/16 12:00 97.5 101 20 98/58 93 06/23/16 11:20 40 06/23/16 11:12 92 40 06/23/16 10:42 93 40 06/23/16 10:00 110 06/23/16 09:40 40 06/23/16 09:40 95 40 06/23/16 09:20 97 40 06/23/16 09:20 40 06/23/16 09:20 40 06/23/16 08:27 96 40 06/23/16 08:00 97.4 52 18 132/58 97 06/23/16 08:00 40 06/23/16 08:00 52 06/23/16 06:00 54 06/23/16 04:12 97 40 06/23/16 04:00 97.4 53 18 117/59 97 06/23/16 04:00 40 06/23/16 04:00 53 06/23/16 02:00 55 06/23/16 01:08 98 40 06/23/16 00:00 53 06/23/16 00:00 40 06/23/16 00:00 97.4 53 18 160/74 97 06/22/16 23:30 98 100 06/22/16 22:08 98 40 06/22/16 22:00 65 06/22/16 20:00 70 06/22/16 20:00 40 06/22/16 20:00 97.4 70 18 163/72 96 06/22/16 19:10 96 40 06/22/16 18:00 79 06/22/16 17:52 97 40 I/O 06/22/16 06/22/16 06/22/16 06/23/16 06/23/16 06/23/16 07:00 15:00 23:00 07:00 15:00 23:00 Intake Total 715 ml 434 ml 1099 ml 760 ml Output Total 450 ml 650.0 ml 375 ml 425 ml Balance 265 ml -216.0 ml 724 ml 335 ml IV Total 349 ml 284 ml 849 ml 700 ml Tube Feeding 306 ml 90 ml 0 ml Other 60 ml 60 ml 250 ml 60 ml Output Urine Total 450 ml 500 ml 375 ml 425 ml Tube Feeding Residual Discard 0 ml 150.0 ml # Bowel Movements 1 3 Laboratory Laboratory Tests Test 06/22/16 06/22/16 06/23/16 06/23/16 16:40 22:00 03:40 10:37 Hemoglobin 8.8 9.0 8.7 Hematocrit 27.3 27.6 26.6 White Blood Count 11.0 Red Blood Count 3.15 Mean Corpuscular Volume 84.4 Mean Corpuscular Hemoglobin 27.7 Mean Corpuscular Hemoglobin 32.8 Concent Red Cell Distribution Width 15.3 Platelet Count 139 Mean Platelet Volume 9.9 Neutrophils (%) (Auto) 96.0 Lymphocytes (%) (Auto) 1.8 Monocytes (%) (Auto) 2.2 Eosinophils (%) (Auto) 0.0 Basophils (%) (Auto) 0.0 Neutrophils # (Auto) 10.6 Lymphocytes # (Auto) 0.2 Monocytes # (Auto) 0.2 Eosinophils # (Auto) 0.0 Basophils # (Auto) 0.0 CBC Comment DIFF FINAL Differential Comment Sodium Level 144 Potassium Level 4.0 Chloride Level 107 Carbon Dioxide Level 32.6 Anion Gap 4 Blood Urea Nitrogen 35 Creatinine 0.65 Estimat Glomerular Filtration 91 Rate Random Glucose 159 Calcium Level 7.4 Protein Corrected Calcium 8.9 Total Protein 4.5 Blood Gas Puncture Site LT RADIAL Blood Gas Patient Temperature 98.6 Blood Gas HCO3 27 Blood Gas Base Excess 0.5 Blood Gas Oxygen Saturation 94 Arterial Blood pH 7.25 Arterial Blood Partial 64 Pressure CO2 Arterial Blood Partial 94 Pressure O2 Arterial Blood Oxygen Content 15.4 Arterial Blood 1.1 Carboxyhemoglobin Arterial Blood Methemoglobin 1.1 Blood Gas Hemoglobin 11.6 Oxygen Delivery Device VENTILATOR Blood Gas Ventilator Setting CPAPPEEP5/PS5 Blood Gas Inspired Oxygen 40 Date/Time Procedure Status Source Growth 06/19/16 17:38 Gram Stain - Final Complete Sputum Endotracheal 06/19/16 17:38 Sputum Culture - Final Complete Sputum Endotracheal MODERATE GROWTH NORMAL RESPIRATORY TESFAYE Imaging Last Impressions Upper Extremity Ultrasound 06/23/16 0000 Signed Impressions: Service Date/Time: June 12:03 - CONCLUSION: 1. Nonocclusive thrombus seen throughout the left cephalic vein. This is a superficial venous structure. 2. No DVT. Kenny Devine Jr., MD Chest X-Ray 06/23/16 0000 Signed Impressions: Service Date/Time: June 03:01 - CONCLUSION: 1. Resolving bibasilar edema and bilateral effusions To Dailey MD CT Angiography 06/23/16 0000 Signed Impressions: Service Date/Time: June 15:42 - CONCLUSION: 1. Acute small volume pulmonary emboli involving the lingula and left lower lobe. 2. Pronounced emphysematous changes. 3. Anasarca. 4. Tiny bilateral pleural effusions. 5. Trace amount of free fluid within the abdomen. Kenny Devine Jr., MD Abdomen/Pelvis CT 06/23/16 0000 Signed Impressions: Service Date/Time: June 00:41 - CONCLUSION: 1. No evidence of mesenteric ischemia 2. Ascites 3. Nonocclusive pulmonary embolism involving the left lower lobe. CT angiography of the chest could be performed to further evaluate this if clinically indicated. 4. Cholelithiasis 5. Anasarca 6. 3 mm nodule left base. Followup CT scan in 6 months is recommended. To Dailey MD GI Bleed Scan Nuclear Medicine 06/15/16 0000 Signed Impressions: Service Date/Time: Wednesday, June 15, 2016 11:15 - CONCLUSION: Negative for slight gastrointestinal hemorrhage. Gary Cook MD FACR Physical Exam HEENT: Normocephalic; atraumatic; no jaundice. CHEST: OETT to vent. Resp. even/unlabored CARDIAC: RRR ABDOMEN: Soft, nondistended, nontender; no hepatosplenomegaly; bowel sounds are present in all four quadrants. EXTREMITIES: No clubbing, cyanosis, or edema. SKIN: Gen. edema [employer]: Lethargic, but opens eyes and follows commands (Ana Lilia Faulkner) Assessment and Plan Plan ASSESSMENT: - Lower GIB. S/P EGD/Colonoscopy (06/16/16)---> Single ulcer, retroflexed views revealed no abnormalities, severe diverticulosis was noted in the sigmoid colon, near circumferential abnormal mucosa was found in the sigmoid colon, the mucosa was erythematous and ulcerated, a sessile polp ranging between 3-5mm in size was found in the transverse polyp, an adenomatous polyp was found in the sigmoid colon, polypectomy was performed using snare cautery, retroflexed views revealed medium internal hemorrhoids, revealed external hemorrhoids. Pathology with transverse polyp with tubular adenoma, large villous adenoma in sigmiod colon, the margin of resection of the stalk appears free from adenomatous change, colonic mucosa with hyalinization of the stroma and loss of crypts consistent with ischemia. She was doing well and therefore we signed off yesterday, but was called yesterday am after patient had a large bloody stool with maroon blood/clots. Likely related to ischemic colitis. CTA (06/23/16)----> 1. No evidence of mesenteric ischemia 2. Ascites 3. Nonocclusive pulmonary embolism involving the left lower lobe. CT angiography of the chest could be performed to further evaluate this if clinically indicated. 4. Cholelithiasis 5. Anasarca 6. 3 mm nodule left base. Followup CT scan in 6 months is recommended. HH Stable. 8.7. Nurse reports very small stool, dark maroon in color, appeared to be old blood. S/P GS evaluation. - Anemia secondary to above. Stable. HH stable. - Respiratory failure and COPD exacerbation. S/P Extubation Monday, but required reintubation. CT with small volume pulmonary embolic involving the lingula and left lower lobe, pleural effusions. Vent per [facility], plan for trach tomorrow. Plan: - TF via OGT - Cont. PPI - Monitor HH - Transfuse as necessary - S/P GS Evaluation - FU [facility]IN in 2 weeks from discharge - Will need repeat colonoscopy in 4-8 weeks - Patient seen and examined by Dr. Mcleod and myself and this note is written on her behalf. (Ana Lilia Faulkner) Physician Comments seen, examined agree with above discussed with dr richardson (Ellen Mcleod MD) Ana Lilia Faulkner Jun 23, 2016 16:36 Ellen Mcleod MD Jun 23, 2016 17:41
[2016-06-23] MEDS: LEVOFLOXACIN 750 MG PREMIX INJ 150 ML IV SCH (18:24)
[2016-06-23 18:26] LABS: HEMATOCRIT 29.8 % (35.0-46.0); MEAN CELL VOLUME 83.8 FL (80.0-100.0); MEAN CORPUSCULAR HEMOGLOBIN 27.5 PG (27.0-34.0); MEAN CORPUSCULAR HGB CONC 32.8 % (32.0-36.0); PLATELET COUNT 181 TH/MM3 (150-450); RED BLOOD COUNT 3.55 MIL/MM3 (4.00-5.30); RED CELL DISTRIBUTION WIDTH 15.4 % (11.6-17.2); REVIEW FLAG FINAL
[2016-06-23 18:36] LABS: APTT (PATIENT) 25.9 SEC (24.3-30.1); PROTHROMBIN TIME - PATIENT 11.1 SEC (9.8-11.6)
[2016-06-23] MEDS: fentaNYL DRIP 250 ML IV SCH (23:43)
[2016-06-24] VITALS (18 sets, daily range): BP systolic 106–150; BP diastolic 54–97; PULSE 78–95; RESP 16–20; TEMP 98–98.8; O2SAT 94–99
[2016-06-24] MEDS ORDERED: HEPARIN SODIUM - IV 10,000 UNITS/10 ML VIAL IV PRN ×2
[2016-06-24 00:38] LABS: APTT (PATIENT) 74.5 SEC (24.3-30.1)
[2016-06-24] MEDS: HEPARIN-D5W INJ 250 ML IV SCH ×2 (00:45→23:57)
[2016-06-24] MEDS: INSULIN NovoLIN REGULAR SUPPLEMENTAL SCALE SQ SCH ×4 (02:41→20:34)
[2016-06-24] MEDS: RESP: ALBUTEROL 2.5 MG/IPRATROPIUM 0.5 MG NEB (SCH) NEB ×6 (03:25→23:14)
[2016-06-24] MEDS: PROPOFOL 1000 MG/100 ML INJ 100 ML IV SCH ×5 (04:00→23:56)
[2016-06-24] MEDS: methylPREDNISolone SOD SUCC 40 MG/1 ML VIAL IV PUSH SCH ×2 (05:19→16:30)
[2016-06-24 06:11] LABS: APTT (PATIENT) 77.7 SEC (24.3-30.1)
[2016-06-24 06:12] LABS: BICARBONATE 31.7 MEQ/L (21.0-32.0); POTASSIUM 4.2 MEQ/L (3.5-5.1)
[2016-06-24] MEDS: BUDESONIDE-FORMOTEROL 80/4.5 MCG INHALER INH SCH ×2 (07:56→20:33)
[2016-06-24] MEDS: PANTOPRAZOLE SODIUM 40 MG VIAL IV PUSH SCH ×2 (07:56→20:33)
[2016-06-24] MEDS: SODIUM CHLORIDE 0.9% FLUSH 5 ML FLUSH FLUSH SCH ×2 (07:57→20:33)
[2016-06-24] MEDS: THEOPHYLLINE PO SCH ×2 (07:57→20:33)
[2016-06-24] MEDS: CHLORHEXIDINE 0.12% (ORAL KIT) 15 ML CUP MT SCH ×2 (07:57→20:32)
[2016-06-24] MEDS: CALCIPOTRIENE 0.005% CREAM 60 GM TOPICAL SCH ×2 (09:00→20:34)
[2016-06-24 09:33] LABS: APTT (PATIENT) 30.1 SEC (24.3-30.1)
[2016-06-24] MEDS ORDERED: MIDAZOLAM 100 MG/NS 100 ML DRIP Premix IV SCH (09:45)
[2016-06-24] MEDS ORDERED: MIDAZOLAM HCL 5 MG/ML VIAL (1 ML) IV ONE (10:00)
[2016-06-24] MEDS ORDERED: ROCURONIUM INJ 50 MG/5 ML VIAL IV ONE (10:00)
[2016-06-24] MEDS ORDERED: fentaNYL CITRATE 250 MCG/5 ML AMP IV PUSH ONE (10:00)
--- NOTE | 2016-06-24 11:00 | PD.PROCEDR ---
Procedure Note Procedure Percutaneous Dilation Tracheostomy Tube Placement Diagnosis: Severe COPD Indications: Failure to wean Anesthesia: Continuos Propofol and Versed, PRN Fentanyl Neuromuscular Blockade: Rocuronium 50 mg Description of the Procedure: The patient was sedated and paralyzed. The patient's neck was slightly extended. Landmarks were palpated and the anatomy of the anterior neck was deemed normal. A time out procedure was performed. The patient was placed on a volume control mode of ventilation, on 100% FiO2. The patient was prepped and draped sterilely. A bronchoscope was inserted into the endotracheal tube for endoscopic guidance (see separate bronchoscopy procedure note). Site was anesthetized with 1% lidocaine with 1:100k epinephrine was injected subcutaneously in the midline neck 1 cm above sternal notch. An approximately 2cm skin incision was made using a #15 blade. The cricoid cartilage, thyroid tissue, and tracheal rings were palpated in the midline. Under direct bronchoscopic guidance, the endotracheal tube was retracted to a level above the level of the skin incision. At this point, a introducer needle/catheter was advanced midline, was visualized in the lumen of the trachea. The needle was withdrawn leaving the catheter in place. J-shaped guidewire was advanced through the catheter into the lumen of the trachea, under direct bronchoscopic visualization. Using a modified Seldinger technique, a 14 Fr, dilator was used, followed by a Blue Rhino Percutaneous Tracheostomy Dilator, and finally a 28 Fr tracheostomy loading catheter with 8.0 Cuffed Shiley tracheostomy tube. The loading catheter and guidewire were removed and the tracheostomy tube was confirmed in the lumen of the trachea with bronchoscopy, end-tidal CO2, and returning volumes on the ventilator. The tracheostomy was sewn to the skin with interrupted 2.0 Prolene sutures, and a tracheostomy tie was applied to the skin. There were no immediate complications. There was less than 3 ml EBL. A chest x-ray has been ordered. I personally performed the procedure along with Ahmet Benitez MD Jun 24, 2016 11:00
--- NOTE | 2016-06-24 11:13 | HHI.CCPN ---
Subjective Remarks/Hospital Course The patient is a 65 year old female with past medical history of chronic obstructive pulmonary disease on home oxygen nocturnally, hypertension, breast cancer, status post chemotherapy and radiation approximately a two years ago. She was admitted to [facility] on June 14, under hospitalist service for any acute hypercapnic respiratory failure and COPD exacerbation. The patient was treated with bronchial bronchodilators and empiric antibiotics. She had multiple arterial blood gases since admission and her last ABG from yesterday afternoon showed pH of 7.33, CO2 59, pAO2 100, bicarb of 30 and saturation of 96% on BiPap 04/11 with 40% FIO2. This morning the patient was in respiratory distress, in addition she was tachypneic, tachycardiac and using her accessory muscles for respirations. She was on a BiPap for a short time without any significant improvements and given her respiratory status, She was subsequently intubated by myself and placed on full mechanical ventilation. 06/12 Patient is on fentanyl infusion for sedation but awake intubated. Afebrile. 06/13 No acute events overnight. Sedated and intubated. Patient tolerated CPAP x 2 hrs yesterday. Afebrile. 06/14 Patient had high peak pressure overnight switched to PRVC/AC mode and Versed drip was added to Fentanyl drip. Tolerating tube feeds. Afebrile. 06/16 no acute events overnight 06/17 EGD performed yesterday with finding of gastric ulcer and duodenal ulcer not actively bleeding 06/18 patient did well on a spontaneous breathing trial yesterday however there was no cuff leak appreciated she will started on Decadron 06/19 extubated yesterday afternoon developed stridor requiring reintubation 06/20 Patient is sedated with Diprivan, Fentanyl and intubated. Afebrile. 06/21 Patient remains sedated and intubated. Did not tolerate CPAP trials yesterday. Afebrile. Now on PRVC/AC RR 18, TV: 450, PEEP: 5, IT:0.8, FIO2 40%. 06/22 No acute events overnight. On Diprivan, fentanyl and Precedex infusion however she is awake. Afebrile. 06/23: Failed weaning trials again today due to tachypnea, and ABG 7.25/64 on 60 MIN SBT. Discussed with daughter and patient at bedside. Both agreeable for tracheostomy. Will plan for tomorrow. 06/24: Remains awake on vent on propofol and fentanyl. plan for trach today. CTA showed LLL, Lingula PE, heparin started yesterday, held today for trach Objective Vital Signs Date Time Temp Pulse Resp B/P Pulse Ox O2 Delivery O2 Flow Rate FiO2 06/24/16 07:56 95 40 06/24/16 06:00 86 06/24/16 04:00 98.1 16 150/97 Intake and Output 06/23/16 06/23/16 06/24/16 08:00 16:00 00:00 Intake Total 760 ml 423 ml 635 ml Output Total 425 ml 1450 ml 550 ml Balance 335 ml -1027 ml 85 ml Result Diagram: 06/23/16 1800 06/24/16 0530 Imaging Last Impressions Chest X-Ray 06/20/16 0600 Signed Impressions: Service Date/Time: Monday, June 20, 2016 03:46 - CONCLUSION: 1. Increasing bibasilar atelectasis versus pneumonia 2. Small right effusion To Dailey MD GI Bleed Scan Nuclear Medicine 06/15/16 0000 Signed Impressions: Service Date/Time: Wednesday, June 15, 2016 11:15 - CONCLUSION: Negative for slight gastrointestinal hemorrhage. Gary Cook MD FACR CT Angiography 06/09/16 0000 Signed Impressions: Service Date/Time: June 06:47 - CONCLUSION: 1. Negative for pulmonary embolus. 2. Moderate to severe emphysema. 3. Multiple calcified gallstones. Antony Ledezma MD Objective Remarks GENERAL: Patient is 65 yo intubated and awake alert. Awake despite propofol and fentanyl SKIN: Warm and dry. HEAD: Normocephalic. EYES: No scleral icterus. No injection or drainage. NECK: Supple, trachea midline. No JVD or lymphadenopathy. CARDIOVASCULAR: Regular rate and rhythm without murmurs, gallops, or rubs. RESPIRATORY: Breath sounds equal bilaterally, with bilateral expiratory wheezes. GASTROINTESTINAL: Abdomen soft, non-tender, nondistended. MUSCULOSKELETAL: Swelling of the right upper extremity Neuro: Intubated. Awake alert follows commands A/P Assessment and Plan 1)Acute hypoxemic and hypercarbic respiratory failure 2)COPD exacerbation 3)Acute PE LLL and Lingula 4)Acute kidney injury- improved 5)s/p GI bleed 6)Anemia 7)Hypernatremia 8)Hypernatremia Plan Neuro: On Diprivan, Fentanyl infusion for sedation, daily sedation vacation. Resume SAT 24 hours after trach CV: Monitor HR and BP keep MAP>65mmHg Echo showed EF 50-55% Pulm: On PRVC/AC RR 18, TV: 450, PEEP: 5, IT:0.8, FIO2 40%. Plan for tracheostomy today 06/24/16 CTA 06/23/16 showed LLL, Lingula PE, heparin started yesterday, held today for trach. resume 6 hours post trach if no bleeding Failed CPAP trials again 06/23/16 with tachypnea and respiratory distress and PH 7.25 PCO2 64 on ABG after 60 MIN SBT Bronchodilators, ICU vent bundle, CPAP trials as tolerated in 24 hours after trach On Solumederol 40mg Q12, Symbicort : Monitor renal function, I/O's, electrolytes replacement protocol. On Free water 250ml Q12. GI: On Protonic 40mg BID, resume tube feeds in 4-6 hours after trach GI is following, for CT abd/pelvis S/P EGD/Colonoscopy (06/16/16)---> Single ulcer, retroflexed views revealed no abnormalities, severe diverticulosis was noted in the sigmoid colon, IV Heparin cleared by GI Dr Mcleod 06/24/16 ID: Continue with empiric abx ( Levaquin)monitor for signs of infections ( Fever , WBC) Heme: Monitor CBC. H/H stable Endo: SSI (low scale) for glycemic control GI prophylaxis- on Protonix 40mg BID DVT prophylaxis- SCD's, IV Heparin for PE CCT 32 mins excluding procedures Ahmte Lee MD Jun 24, 2016 11:13
--- NOTE | 2016-06-24 11:27 | RADRPT ---
EXAM DATE/TIME: 06/24/2016 10:55 [facility] COMPARISON: CHEST SINGLE AP, June 23, 2016, 3:01. INDICATIONS: Evaluate post tracheostomy. MEDICAL HISTORY: Hypertension. Chronic obstructive pulmonary disease. SURGICAL HISTORY: None. ENCOUNTER: Initial ACUITY: 1 day PAIN SCORE: Non-responsive. LOCATION: Bilateral chest FINDINGS: Trache tube, central venous catheter are in good position. The lungs are hyperinflated. Minimal par enchymal changes are seen in the right base. CONCLUSION: 1. Trache tube in good position. 2. Minimal parenchymal changes right base. Gary Cook MD FACR on June 24, 2016 at 11:18 Board Certified Radiologist. This report was verified electronically.
--- NOTE | 2016-06-24 12:29 | HHI.GIFU ---
Subjective Remarks Patient had a trach done today, nurse by bed side inserting NGT. no bleeding reported, hh stable (Lissy Nunez [employer]) Objective Vitals I&O Vital Signs Date Time Temp Pulse Resp B/P Pulse Ox O2 Delivery O2 Flow Rate FiO2 06/24/16 11:13 95 50 06/24/16 10:15 96 100 06/24/16 09:32 98 100 06/24/16 07:56 95 40 06/24/16 06:00 86 06/24/16 04:07 96 40 06/24/16 04:00 92 06/24/16 04:00 40 06/24/16 04:00 98.1 92 16 150/97 97 06/24/16 02:00 83 06/24/16 01:15 99 40 06/24/16 00:00 95 06/24/16 00:00 40 06/24/16 00:00 98.0 95 18 124/62 99 06/23/16 23:09 99 40 06/23/16 22:00 91 06/23/16 20:45 98 40 06/23/16 20:00 103 06/23/16 20:00 97.9 103 20 148/80 100 06/23/16 20:00 40 06/23/16 18:10 98 40 06/23/16 18:00 105 06/23/16 16:00 105 06/23/16 16:00 97.8 105 24 148/84 100 06/23/16 16:00 40 06/23/16 15:30 100 06/23/16 14:24 97 40 06/23/16 14:00 105 I/O 06/23/16 06/23/16 06/23/16 06/24/16 06/24/16 06/24/16 07:00 15:00 23:00 07:00 15:00 23:00 Intake Total 760 ml 423 ml 635 ml 425 ml Output Total 425 ml 1450 ml 550 ml 300 ml Balance 335 ml -1027 ml 85 ml 125 ml Intake Oral 0 ml 0 ml IV Total 700 ml 363 ml 400 ml 425 ml Tube Feeding 0 ml 0 ml 175 ml 0 ml Other 60 ml 60 ml 60 ml Output Urine Total 425 ml 1450 ml 550 ml 300 ml # Bowel Movements 0 0 Laboratory Laboratory Tests Test 06/23/16 06/24/16 06/24/1617 18:00 00:00 05:30 08:50 White Blood Count 20.0 Red Blood Count 3.55 Hemoglobin 9.8 Hematocrit 29.8 Mean Corpuscular Volume 83.8 Mean Corpuscular Hemoglobin 27.5 Mean Corpuscular Hemoglobin 32.8 Concent Red Cell Distribution Width 15.4 Platelet Count 181 Mean Platelet Volume 9.8 Prothrombin Time 11.1 Prothromb Time International 1.0 Ratio Activated Partial 25.9 74.5 77.7 30.1 Thromboplast Time Sodium Level 143 Potassium Level 4.2 Chloride Level 107 Carbon Dioxide Level 31.7 Anion Gap 4 Blood Urea Nitrogen 37 Creatinine 0.76 Estimat Glomerular Filtration 76 Rate Random Glucose 78 Calcium Level 7.8 Date/Time Procedure Status Source Growth 06/19/16 17:38 Gram Stain - Final Complete Sputum Endotracheal 06/19/16 17:38 Sputum Culture - Final Complete Sputum Endotracheal MODERATE GROWTH NORMAL RESPIRATORY TESFAYE Imaging Last Impressions Upper Extremity Ultrasound 06/23/16 0000 Signed Impressions: Service Date/Time: June 12:03 - CONCLUSION: 1. Nonocclusive thrombus seen throughout the left cephalic vein. This is a superficial venous structure. 2. No DVT. Kenny Devine Jr., MD Chest X-Ray 06/23/16 0000 Signed Impressions: Service Date/Time: June 03:01 - CONCLUSION: 1. Resolving bibasilar edema and bilateral effusions To Dailey MD CT Angiography 06/23/16 0000 Signed Impressions: Service Date/Time: June 15:42 - CONCLUSION: 1. Acute small volume pulmonary emboli involving the lingula and left lower lobe. 2. Pronounced emphysematous changes. 3. Anasarca. 4. Tiny bilateral pleural effusions. 5. Trace amount of free fluid within the abdomen. Kenny Devine Jr., MD Abdomen/Pelvis CT 06/23/16 0000 Signed Impressions: Service Date/Time: June 00:41 - CONCLUSION: 1. No evidence of mesenteric ischemia 2. Ascites 3. Nonocclusive pulmonary embolism involving the left lower lobe. CT angiography of the chest could be performed to further evaluate this if clinically indicated. 4. Cholelithiasis 5. Anasarca 6. 3 mm nodule left base. Followup CT scan in 6 months is recommended. To Dailey MD GI Bleed Scan Nuclear Medicine 06/15/16 0000 Signed Impressions: Service Date/Time: Wednesday, June 15, 2016 11:15 - CONCLUSION: Negative for slight gastrointestinal hemorrhage. Gary Cook MD FACR Physical Exam HEENT: Normocephalic; atraumatic; no jaundice. CHEST: vented via trach.. Resp. even/unlabored CARDIAC: RRR ABDOMEN: Soft, nondistended, nontender; no hepatosplenomegaly; bowel sounds are present in all four quadrants. EXTREMITIES: + edema. SKIN: Gen. edema PARLOR CHAPERONE: sedated on a vent (Lissy Nunez) Assessment and Plan Plan ASSESSMENT: - Lower GIB. no more bleeding, hh stable. S/P EGD/Colonoscopy (06/16/16)---> Single ulcer, retroflexed views revealed no abnormalities, severe diverticulosis was noted in the sigmoid colon, near circumferential abnormal mucosa was found in the sigmoid colon, the mucosa was erythematous and ulcerated, a sessile polp ranging between 3-5mm in size was found in the transverse polyp, an adenomatous polyp was found in the sigmoid colon, polypectomy was performed using snare cautery, retroflexed views revealed medium internal hemorrhoids, revealed external hemorrhoids. Pathology with transverse polyp with tubular adenoma, large villous adenoma in sigmoid colon, the margin of resection of the stalk appears free from adenomatous change, colonic mucosa with hyalinization of the stroma and loss of crypts consistent with ischemia. She was doing well and therefore we signed off, but called again after patient had a large bloody stool with maroon blood/clots. CTA (06/23/16)----> 1. No evidence of mesenteric ischemia 2. Ascites 3. Nonocclusive pulmonary embolism involving the left lower lobe. CT angiography of the chest could be performed to further evaluate this if clinically indicated. 4. Cholelithiasis 5. Anasarca 6. 3 mm nodule left base. Followup CT scan in 6 months is recommended. S/P GS evaluation. - Anemia secondary to above. Stable. HH stable. - Respiratory failure and COPD exacerbation. S/P Extubation Monday, but required reintubation and now via trach. CT with small volume pulmonary embolic involving the lingula and left lower lobe, pleural effusions. per [facility] Plan: - TF via NGT - Cont. PPI - Monitor HH - Transfuse as necessary - S/P GS Evaluation - Will need repeat colonoscopy in 4-8 weeks - Patient seen and examined by Dr. Mcleod and myself and this note is written on her behalf. (Lissy Nunez) Physician Comments seen, examined agree with above (Ellen Mcleod MD) Lissy Nunez Jun 24, 2016 12:29 Ellen Mcleod MD Jun 24, 2016 15:32
[2016-06-24] MEDS: fentaNYL DRIP 250 ML IV SCH (14:22)
[2016-06-24 15:58] LABS: HEMATOCRIT 24.6 % (35.0-46.0); MEAN CELL VOLUME 84.3 FL (80.0-100.0); MEAN CORPUSCULAR HEMOGLOBIN 27.8 PG (27.0-34.0); PLATELET COUNT 153 TH/MM3 (150-450); RED BLOOD COUNT 2.91 MIL/MM3 (4.00-5.30); REVIEW FLAG FINAL; WHITE BLOOD COUNT 10.8 TH/MM3 (4.0-11.0)
[2016-06-24] MEDS: LEVOFLOXACIN 750 MG PREMIX INJ 150 ML IV SCH (16:28)
--- NOTE | 2016-06-24 20:36 | HHI.PR ---
Subjective Remarks Awake and on vent support and on A/C 16. .Had Trach done today FIO2 40%. O 2 Sats 93. Lethargic. Objective Vital Signs Date Time Temp Pulse Resp B/P Pulse Ox O2 Delivery O2 Flow Rate FiO2 06/24/16 16:00 40 06/24/16 16:00 98.3 88 20 106/70 97 06/24/16 15:49 95 40 06/24/16 14:42 99 40 06/24/16 12:00 50 06/24/16 12:00 98.3 78 18 106/54 94 06/24/16 11:13 95 50 06/24/16 10:15 96 100 06/24/16 09:32 98 100 06/24/16 08:00 98.8 95 18 144/62 95 06/24/16 08:00 40 06/24/16 07:56 95 40 06/24/16 06:00 86 06/24/16 04:07 96 40 06/24/16 04:00 92 06/24/16 04:00 40 06/24/16 04:00 98.1 92 16 150/97 97 06/24/16 02:00 83 06/24/16 01:15 99 40 06/24/16 00:00 95 06/24/16 00:00 40 06/24/16 00:00 98.0 95 18 124/62 99 06/23/16 23:09 99 40 06/23/16 22:00 91 06/23/16 20:45 98 40 I/O 06/23/16 06/23/16 06/23/16 06/24/16 06/24/16 06/24/16 07:00 15:00 23:00 07:00 15:00 23:00 Intake Total 760 ml 423 ml 635 ml 425 ml 650 ml Output Total 425 ml 1450 ml 550 ml 300 ml 200 ml Balance 335 ml -1027 ml 85 ml 125 ml 450 ml Intake Oral 0 ml 0 ml IV Total 700 ml 363 ml 400 ml 425 ml 650 ml Tube Feeding 0 ml 0 ml 175 ml 0 ml 0 ml Other 60 ml 60 ml 60 ml 0 ml Output Urine Total 425 ml 1450 ml 550 ml 300 ml 200 ml # Bowel Movements 0 0 0 Result Diagram: 06/24/16 1300 06/24/16 0530 Objective Remarks GENERAL: This is averagely built elderly white female who is on the vent.. She is responsive, assisting the ventilator. HEENT: Head normocephalic. Pupils are reactive and equal. Throat is clear. Nasal mucosa clear. NECK: Supple. No bruits or thyroid enlargement or lymphadenopathy. CHEST: Equal movements with Breath with Bilateral wheeze. HEART: The heart sounds are irregular. S1-S2 with no murmur. No S3 gallop. ABDOMEN: Soft, protuberant, without masses. No organomegaly or tenderness. The bowel sounds are active. EXTREMITIES: No edema. Peripheral pulses are diminished. There is no calf tenderness or swelling. NEUROLOGIC: She is moving all extremities . Lethargic RECTAL: Exam is deferred. SKIN: No lesions. Assessment and Plan Assessment and Plan IMPRESSION 1. Vent Dependant respiratory failure. 2. COPD with emphysema, chronic bronchitis. 3. History of hypertension. 4. History of breast cancer with right mastectomy and radiation therapy. 5. GI Bleeding. Plan : 1. Cont Vent at A/C 18,PEEP +5 , and FIO2 40 %. 2. CPAP trial in am. 3. Chest X ray in am 4. Reduce sedation 5. Cont Antibiotics as ordered. 6. Tube feeds at 50 CC. 6. Nebs qid , duoneb. 7. IV Solumedrol 40 mg BID 8. Tube feeds at 50 CC . 9. PEG tube next week Darlene Horn MD Jun 24, 2016 20:36
[2016-06-24 22:59] LABS: APTT (PATIENT) 65.6 SEC (24.3-30.1)
[2016-06-25] VITALS (18 sets, daily range): BP systolic 95–176; BP diastolic 3–78; PULSE 62–121; RESP 10–25; TEMP 98.1–99; O2SAT 93–100
[2016-06-25] MEDS: fentaNYL DRIP 250 ML IV SCH ×2 (00:52→22:13)
[2016-06-25] MEDS: ONDANSETRON HCL 4 MG/2 ML VIAL IV PUSH PRN (00:52)
[2016-06-25] MEDS: INSULIN NovoLIN REGULAR SUPPLEMENTAL SCALE SQ SCH ×4 (03:00→20:25)
[2016-06-25] MEDS: PROPOFOL 1000 MG/100 ML INJ 100 ML IV SCH ×2 (03:18→04:46)
[2016-06-25] MEDS: RESP: ALBUTEROL 2.5 MG/IPRATROPIUM 0.5 MG NEB (SCH) NEB ×5 (03:27→19:35)
--- NOTE | 2016-06-25 04:17 | RADRPT ---
EXAM DATE/TIME: 06/25/2016 02:52 [facility] COMPARISON: CHEST SINGLE AP, June 24, 2016, 10:55. INDICATIONS : Shortness of breath, possible pulmonary disease. MEDICAL HISTORY : Hypertension. Chronic obstructive pulmonary disease. SURGICAL HISTORY : None. ENCOUNTER: Subsequent ACUITY: 2 days PAIN SCORE: Non-responsive. LOCATION: Bilateral chest FINDINGS: The cardiac silhouette is normal in transverse diameter. Support lines and tubes are in satisfactory position. There is right basilar edema versus pneumonia. A small right sided effusion is present. The left lung is free of acute parenchymal opacity. CONCLUSION: 1. Right basilar edema versus pneumonia. There has been no significant change when compared to the pr ior exam. To Dailey MD on June 25, 2016 at 4:15 Board Certified Radiologist. This report was verified electronically.
[2016-06-25] MEDS: methylPREDNISolone SOD SUCC 40 MG/1 ML VIAL IV PUSH SCH ×2 (04:46→17:37)
[2016-06-25 05:15] LABS: AUTOMATED NEUTROPHIL # 9.7 TH/MM3 (1.8-7.7); HEMATOCRIT 23.6 % (35.0-46.0); HEMO FLAGS DIFF FINAL; LYMPH % 2.8 % (9.0-44.0); LYMPHOCYTE # 0.3 TH/MM3 (1.0-4.8); MEAN CELL VOLUME 84.6 FL (80.0-100.0); MEAN CORPUSCULAR HEMOGLOBIN 27.8 PG (27.0-34.0); MEAN CORPUSCULAR HGB CONC 32.9 % (32.0-36.0); MONO % 4.2 % (0.0-8.0); PLATELET COUNT 155 TH/MM3 (150-450); RED BLOOD COUNT 2.79 MIL/MM3 (4.00-5.30); RED CELL DISTRIBUTION WIDTH 15.4 % (11.6-17.2); WHITE BLOOD COUNT 10.5 TH/MM3 (4.0-11.0)
[2016-06-25 05:41] LABS: ANION GAP 6 MEQ/L (5-15); AST (GOT) 12 U/L (15-37); BICARBONATE 31.5 MEQ/L (21.0-32.0); BLOOD UREA NITROGEN 38 MG/DL (7-18); CHLORIDE 107 MEQ/L (98-107); GLOMERULAR FILTRATION RATE 77 ML/MIN (>89); MAGNESIUM 2.3 MG/DL (1.5-2.5); POTASSIUM 4.1 MEQ/L (3.5-5.1); SODIUM (NA) 144 MEQ/L (136-145)
[2016-06-25 05:44] LABS: ALKALINE PHOSPHATASE 46 U/L (45-117); ALT (GPT) 11 U/L (10-53); TOTAL BILIRUBIN ADULT 0.3 MG/DL (0.2-1.0)
[2016-06-25 06:25] LABS: APTT (PATIENT) 137.8 SEC (24.3-30.1)
[2016-06-25] MEDS: CHLORHEXIDINE 0.12% (ORAL KIT) 15 ML CUP MT SCH ×2 (08:00→20:42)
[2016-06-25 08:30] LABS: APTT (PATIENT) GREATER THAN 153.4 SEC (24.3-30.1)
[2016-06-25] MEDS: CALCIPOTRIENE 0.005% CREAM 60 GM TOPICAL SCH ×2 (09:00→20:43)
[2016-06-25] MEDS: BUDESONIDE-FORMOTEROL 80/4.5 MCG INHALER INH SCH ×2 (09:00→21:00)
[2016-06-25] MEDS: THEOPHYLLINE PO SCH ×2 (09:00→20:43)
[2016-06-25] MEDS: SODIUM CHLORIDE 0.9% FLUSH 5 ML FLUSH FLUSH SCH ×2 (09:31→20:42)
[2016-06-25] MEDS: PANTOPRAZOLE SODIUM 40 MG VIAL IV PUSH SCH ×2 (09:31→20:42)
[2016-06-25 14:14] LABS: APTT (PATIENT) 27.8 SEC (24.3-30.1)
--- NOTE | 2016-06-25 14:45 | HHI.CCPN ---
Subjective Remarks/Hospital Course The patient is a 65 year old female with past medical history of chronic obstructive pulmonary disease on home oxygen nocturnally, hypertension, breast cancer, status post chemotherapy and radiation approximately a two years ago. She was admitted to [facility] on June 14, under hospitalist service for any acute hypercapnic respiratory failure and COPD exacerbation. The patient was treated with bronchial bronchodilators and empiric antibiotics. She had multiple arterial blood gases since admission and her last ABG from yesterday afternoon showed pH of 7.33, CO2 59, pAO2 100, bicarb of 30 and saturation of 96% on BiPap 04/11 with 40% FIO2. This morning the patient was in respiratory distress, in addition she was tachypneic, tachycardiac and using her accessory muscles for respirations. She was on a BiPap for a short time without any significant improvements and given her respiratory status, She was subsequently intubated by myself and placed on full mechanical ventilation. 06/12 Patient is on fentanyl infusion for sedation but awake intubated. Afebrile. 06/13 No acute events overnight. Sedated and intubated. Patient tolerated CPAP x 2 hrs yesterday. Afebrile. 06/14 Patient had high peak pressure overnight switched to PRVC/AC mode and Versed drip was added to Fentanyl drip. Tolerating tube feeds. Afebrile. 06/16 no acute events overnight 06/17 EGD performed yesterday with finding of gastric ulcer and duodenal ulcer not actively bleeding 06/18 patient did well on a spontaneous breathing trial yesterday however there was no cuff leak appreciated she will started on Decadron 06/19 extubated yesterday afternoon developed stridor requiring reintubation 06/20 Patient is sedated with Diprivan, Fentanyl and intubated. Afebrile. 06/21 Patient remains sedated and intubated. Did not tolerate CPAP trials yesterday. Afebrile. Now on PRVC/AC RR 18, TV: 450, PEEP: 5, IT:0.8, FIO2 40%. 06/22 No acute events overnight. On Diprivan, fentanyl and Precedex infusion however she is awake. Afebrile. 06/23: Failed weaning trials again today due to tachypnea, and ABG 7.25/64 on 60 MIN SBT. Discussed with daughter and patient at bedside. Both agreeable for tracheostomy. Will plan for tomorrow. 06/24: Remains awake on vent on propofol and fentanyl. plan for trach today. CTA showed LLL, Lingula PE, heparin started yesterday, held today for trach 06/25: Afebrile. CPAP trials begun at 9 AM. Propofol infusion off. Continues on fentanyl infusion at 50 mcgs. Interacting with family. Heparin infusion continues. Objective Vital Signs Date Time Temp Pulse Resp B/P Pulse Ox O2 Delivery O2 Flow Rate FiO2 06/25/16 10:53 98 35 06/25/16 06:00 62 06/25/16 04:00 99.0 18 133/59 Intake and Output 06/24/16 06/24/16 06/25/16 08:00 16:00 00:00 Intake Total 425 ml 650 ml 620 ml Output Total 300 ml 200 ml 200 ml Balance 125 ml 450 ml 420 ml Result Diagram: 06/25/16 0440 06/25/16 0440 Imaging Last Impressions Chest X-Ray 06/20/16 0600 Signed Impressions: Service Date/Time: Monday, June 20, 2016 03:46 - CONCLUSION: 1. Increasing bibasilar atelectasis versus pneumonia 2. Small right effusion To Dailey MD GI Bleed Scan Nuclear Medicine 06/15/16 0000 Signed Impressions: Service Date/Time: Wednesday, June 15, 2016 11:15 - CONCLUSION: Negative for slight gastrointestinal hemorrhage. Gary Cook MD FACR CT Angiography 06/09/16 0000 Signed Impressions: Service Date/Time: June 06:47 - CONCLUSION: 1. Negative for pulmonary embolus. 2. Moderate to severe emphysema. 3. Multiple calcified gallstones. Antony Ledezma MD Objective Remarks GENERAL: Patient is 65 yo intubated and awake alert. Awake, GCS 11T with fentanyl infusion SKIN: Warm and dry. HEAD: Normocephalic. EYES: No scleral icterus. No injection or drainage. NECK: Supple, trachea midline. No JVD or lymphadenopathy. CARDIOVASCULAR: Regular rate and rhythm without murmurs, gallops, or rubs. RESPIRATORY: Breath sounds equal bilaterally, with bilateral expiratory wheezes. GASTROINTESTINAL: Abdomen soft, protuberant non-tender, nondistended. MUSCULOSKELETAL: Swelling of the right upper extremity Neuro: Intubated. Awake alert follows commands Urinary Catheter: Yes A/P Assessment and Plan 1)Acute hypoxemic and hypercarbic respiratory failure 2)COPD exacerbation 3)Acute PE LLL and Lingula 4)Acute kidney injury- improved 5)s/p GI bleed 6)Anemia 7)Hypernatremia Plan Neuro: GCS 11 T On Fentanyl infusion for sedation Daily sedation vacation. Currently on CPAP trials ,denies pain CV: Monitor HR and BP keep MAP>65mmHg Echo showed EF 50-55% Pulm: Mechanical ventilator settings On PRVC/AC RR 18, TV: 450, PEEP: 5, IT:0.8 , FIO2 40%. Tracheostomy 06/24/16-site without bleeding or drainage CTA 06/23/16 showed LLL, Lingula PE, heparininfusion began 06/23 Failed CPAP trials again 06/23/16 with tachypnea and respiratory distress and PH 7.25 PCO2 64 on ABG after 60 MIN SBT Bronchodilators, ICU vent bundle, CPAP trials as tolerated in 24 hours after trach On Solumederol 40mg Q12, Symbicort : Monitor renal function, I/O's, electrolytes replacement protocol. On Free water 250ml Q12. GI: On Protonix 40mg BID Tube feeds tolerate GI is following, for CT abd/pelvis S/P EGD/Colonoscopy (06/16/16)---> Single ulcer, retroflexed views revealed no abnormalities, severe diverticulosis was noted in the sigmoid colon, IV Heparin cleared by GI Dr Mcleod 06/24/16 Next week Plan for PEG ID: Continue with empiric abx ( Levaquin)monitor for signs of infections ( Fever , WBC) Heme: Monitor CBC. H/H stable Endo: SSI (low scale) for glycemic control GI prophylaxis- on Protonix 40mg BID DVT prophylaxis- SCD's, IV Heparin infusion for PE my billing statement This patient remains critically ill with one or more organ systems which are or may become a threat to life. I have spent in excess of 35 minutes discontinuously in the care and management of this patient. This time is exclusive of procedures, and includes, but is not limited to, evaluation of the patient, review of the medical record, discussions with family, consultants, nursing staff, or respiratory therapy, and documentation in the medical record. Physician Krysta Tamez MD Jun 25, 2016 14:45
--- NOTE | 2016-06-25 15:06 | HHI.PR ---
Subjective Remarks Awake and on vent support and on CPAP today and seems to tolerate it.. FIO2 35 %. O 2 Sats 95 Objective Vital Signs Date Time Temp Pulse Resp B/P Pulse Ox O2 Delivery O2 Flow Rate FiO2 06/25/16 10:53 98 35 06/25/16 10:51 35 06/25/16 08:00 87 06/25/16 08:00 98.6 87 18 138/3 97 06/25/16 08:00 40 06/25/16 07:20 97 40 06/25/16 06:00 62 06/25/16 04:17 100 40 06/25/16 04:00 80 06/25/16 04:00 99.0 80 18 133/59 100 06/25/16 04:00 40 06/25/16 02:00 77 06/25/16 01:22 100 40 06/25/16 00:00 98.3 76 25 95/50 97 06/25/16 00:00 76 06/25/16 00:00 40 06/24/16 22:00 87 06/24/16 20:43 97 40 06/24/16 20:00 40 06/24/16 20:00 98.6 80 18 147/68 95 06/24/16 20:00 80 06/24/16 16:00 40 06/24/16 16:00 98.3 88 20 106/70 97 06/24/16 15:49 95 40 I/O 06/24/16 06/24/16 06/24/16 06/25/16 06/25/16 06/25/16 07:00 15:00 23:00 07:00 15:00 23:00 Intake Total 425 ml 650 ml 620 ml 484 ml Output Total 300 ml 200 ml 200 ml 300 ml Balance 125 ml 450 ml 420 ml 184 ml Intake Oral 0 ml 0 ml 0 ml IV Total 425 ml 650 ml 446 ml 484 ml Tube Feeding 0 ml 0 ml 174 ml 0 ml Other 0 ml Output Urine Total 300 ml 200 ml 200 ml 300 ml # Bowel Movements 0 0 0 0 Result Diagram: 06/25/1643906/25/16439 Objective Remarks GENERAL: This is averagely built elderly white female who is on the vent.. She is responsive, assisting the ventilator. HEENT: Head normocephalic. Pupils are reactive and equal. Throat is clear. Nasal mucosa clear. NECK: Supple. No bruits or thyroid enlargement or lymphadenopathy. CHEST: Equal movements with decreased breath sounds. HEART: The heart sounds are irregular. S1-S2 with no murmur. No S3 gallop. ABDOMEN: Soft, protuberant, without masses. No organomegaly or tenderness. The bowel sounds are active. EXTREMITIES: No edema. Peripheral pulses are diminished. There is no calf tenderness or swelling. NEUROLOGIC: She is moving all extremities . Lethargic RECTAL: Exam is deferred. SKIN: No lesions. Assessment and Plan Assessment and Plan IMPRESSION 1. Vent Dependant respiratory failure. 2. COPD with emphysema, chronic bronchitis. 3. History of hypertension. 4. History of breast cancer with right mastectomy and radiation therapy. 5. GI Bleeding. Plan : 1. Cont Vent and to CPAP 5/10 , and FIO2 35 %. 2. A/C rate 10 at HS. 3. CBC,BMP in am 4. D/C sedation 5. Cont Antibiotics as ordered. 6. Tube feeds at 50 CC. 6. Nebs qid , duoneb. 7. PEG on Monday Darlene Horn MD Jun 25, 2016 15:05 Darlene Horn MD Jun 25, 2016 15:05
[2016-06-25] MEDS: hydrALAZINE HCL 20 MG/ML VIAL IV PRN ×2 (15:16→20:43)
[2016-06-25] MEDS: LEVOFLOXACIN 750 MG PREMIX INJ 150 ML IV SCH (17:36)
[2016-06-25] MEDS ORDERED: ALTEPLASE RECOMBINANT 2 MG VIAL INTRACATH SCH ×2 (21:30)
[2016-06-25 22:52] LABS: APTT (PATIENT) 53.1 SEC (24.3-30.1)
[2016-06-26] VITALS (20 sets, daily range): BP systolic 142–166; BP diastolic 64–72; PULSE 85–105; RESP 9–18; TEMP 98.3–99; O2SAT 93–98
[2016-06-26] MEDS: RESP: ALBUTEROL 2.5 MG/IPRATROPIUM 0.5 MG NEB (SCH) NEB ×7 (00:01→23:44)
[2016-06-26] MEDS: fentaNYL DRIP 250 ML IV SCH (02:04)
[2016-06-26] MEDS: HEPARIN-D5W INJ 250 ML IV SCH (02:05)
[2016-06-26 02:47] LABS: APTT (PATIENT) 51.3 SEC (24.3-30.1)
[2016-06-26] MEDS: INSULIN NovoLIN REGULAR SUPPLEMENTAL SCALE SQ SCH ×4 (03:00→20:09)
--- NOTE | 2016-06-26 04:18 | RADRPT ---
EXAM DATE/TIME: 06/26/2016 03:25 [facility] COMPARISON: CHEST SINGLE AP, June 25, 2016, 2:52. INDICATIONS : Shortness of breath, possible pulmonary disease. MEDICAL HISTORY : Hypertension. Chronic obstructive pulmonary disease. SURGICAL HISTORY : None. ENCOUNTER: Subsequent ACUITY: 3 days PAIN SCORE: Non-responsive. LOCATION: Bilateral chest FINDINGS: The cardiac silhouette is enlarged in transverse diameter. A tracheostomy tube is in place in the mid line. There is right lower lobe atelectasis versus pneumonia. There has been no significant change wh en compared to the prior exam. The left lung is free of acute parenchymal opacity. CONCLUSION: 1. Right lower lobe atelectasis versus pneumonia. There has been no significant change when compared to the prior exam. To Dailey MD on June 26, 2016 at 4:16 Board Certified Radiologist. This report was verified electronically.
[2016-06-26 04:49] LABS: HEMATOCRIT 27.6 % (35.0-46.0); MEAN CELL VOLUME 85.5 FL (80.0-100.0); MEAN CORPUSCULAR HEMOGLOBIN 27.6 PG (27.0-34.0); MEAN CORPUSCULAR HGB CONC 32.3 % (32.0-36.0); PLATELET COUNT 194 TH/MM3 (150-450); RED BLOOD COUNT 3.23 MIL/MM3 (4.00-5.30); RED CELL DISTRIBUTION WIDTH 15.2 % (11.6-17.2); REVIEW FLAG FINAL; WHITE BLOOD COUNT 14.5 TH/MM3 (4.0-11.0)
[2016-06-26 05:17] LABS: BICARBONATE 30.6 MEQ/L (21.0-32.0); MAGNESIUM 2.5 MG/DL (1.5-2.5); POTASSIUM 4.1 MEQ/L (3.5-5.1)
[2016-06-26] MEDS: methylPREDNISolone SOD SUCC 40 MG/1 ML VIAL IV PUSH SCH ×2 (05:42→17:15)
[2016-06-26 07:10] LABS: APTT (PATIENT) 44.5 SEC (24.3-30.1)
[2016-06-26] MEDS: CHLORHEXIDINE 0.12% (ORAL KIT) 15 ML CUP MT SCH ×2 (08:23→20:12)
[2016-06-26] MEDS: BUDESONIDE-FORMOTEROL 80/4.5 MCG INHALER INH SCH ×2 (08:23→20:09)
[2016-06-26] MEDS: PANTOPRAZOLE SODIUM 40 MG VIAL IV PUSH SCH ×2 (08:23→20:09)
[2016-06-26] MEDS: THEOPHYLLINE PO SCH ×2 (08:24→21:00)
[2016-06-26] MEDS: SODIUM CHLORIDE 0.9% FLUSH 5 ML FLUSH FLUSH SCH ×2 (08:24→20:08)
[2016-06-26] MEDS: CALCIPOTRIENE 0.005% CREAM 60 GM TOPICAL SCH ×2 (08:26→20:10)
[2016-06-26 10:32] LABS: BLOOD GAS BASE EXCESS 3.8 mmol/L (-2-2); BLOOD GAS CARBOXYHEMOGLOBIN 1.6 % (0-4); BLOOD GAS HCO3 29 mmol/L (22-26); BLOOD GAS METHEMOGLOBIN 1.2 % (0-2); BLOOD GAS O2 HGB SATURATION 91 % (90-100); BLOOD GAS OXYGEN CONTENT 11.3 Vol % (12.0-20.0); BLOOD GAS PCO2 55 mmHg (38-42); BLOOD GAS PO2 66 mmHg (61-120); BLOOD GAS TOTAL HGB 8.8 G/DL (12.0-16.0); CRITICAL VALUE YES; DRAW SITE LT RADIAL; FIO2 45 %; NUMBER OF ARTERIAL PUNCTURES 1; OXYGEN DEVICE VENTILATOR; STAT NO; TEMP CORR TO 98.6; ULNAR PULSE PRESENT; VENT SETTINGS CPAP 5/8PS
--- NOTE | 2016-06-26 11:20 | HHI.GIFU ---
Subjective Remarks Awake on Cpap (to trach), denies n/v/abdominal pain. Nurse reports no further bleeding. (Ana Lilia Faulkner) Objective Vitals I&O Vital Signs Date Time Temp Pulse Resp B/P Pulse Ox O2 Delivery O2 Flow Rate FiO2 06/26/16 10:00 97 06/26/16 08:00 45 06/26/16 08:00 98.6 91 9 161/69 94 06/26/16 08:00 100 06/26/16 07:38 50 06/26/16 07:38 95 45 06/26/16 06:00 85 06/26/16 04:15 93 50 06/26/16 04:00 98.6 105 15 158/67 95 06/26/16 04:00 50 06/26/16 04:00 105 06/26/16 02:00 97 06/26/16 01:19 94 50 06/26/16 00:00 96 06/26/16 00:00 98.5 96 18 142/64 93 06/26/16 00:00 35 06/25/16 22:00 108 06/25/16 20:00 98.7 103 19 176/78 96 06/25/16 20:00 35 06/25/16 20:00 103 06/25/16 19:36 94 35 06/25/16 18:00 102 06/25/16 16:00 98.1 118 12 145/69 93 06/25/16 16:00 40 06/25/16 16:00 119 06/25/16 15:21 95 35 06/25/16 14:00 121 06/25/16 12:00 102 06/25/16 12:00 98.2 97 10 167/74 98 06/25/16 12:00 40 I/O 06/25/16 06/25/16 06/25/16 06/26/16 06/26/16 06/26/16 07:00 15:00 23:00 07:00 15:00 23:00 Intake Total 484 ml 651 ml 310 ml 503 ml Output Total 300 ml 450 ml 525 ml 225 ml Balance 184 ml 201 ml -215 ml 278 ml Intake Oral 0 ml 0 ml 0 ml 0 ml IV Total 484 ml 479 ml 242 ml 298 ml Tube Feeding 0 ml 172 ml 68 ml 205 ml Output Urine Total 300 ml 450 ml 525 ml 225 ml # Bowel Movements 0 0 0 0 Laboratory Laboratory Tests Test 06/25/16 06/25/16 06/26/16 06/26/16 12:37 20:45 01:12 04:00 Activated Partial 27.8 53.1 51.3 44.5 Thromboplast Time White Blood Count 14.5 Red Blood Count 3.23 Hemoglobin 8.9 Hematocrit 27.6 Mean Corpuscular Volume 85.5 Mean Corpuscular Hemoglobin 27.6 Mean Corpuscular Hemoglobin 32.3 Concent Red Cell Distribution Width 15.2 Platelet Count 194 Mean Platelet Volume 9.7 Sodium Level 143 Potassium Level 4.1 Chloride Level 106 Carbon Dioxide Level 30.6 Anion Gap 6 Blood Urea Nitrogen 34 Creatinine 0.75 Estimat Glomerular Filtration 77 Rate Random Glucose 92 Calcium Level 8.1 Phosphorus Level 3.2 Magnesium Level 2.5 Test 06/26/16 10:25 Blood Gas Puncture Site LT RADIAL Blood Gas Patient Temperature 98.6 Blood Gas HCO3 29 Blood Gas Base Excess 3.8 Blood Gas Oxygen Saturation 91 Arterial Blood pH 7.35 Arterial Blood Partial 55 Pressure CO2 Arterial Blood Partial 66 Pressure O2 Arterial Blood Oxygen Content 11.3 Arterial Blood 1.6 Carboxyhemoglobin Arterial Blood Methemoglobin 1.2 Blood Gas Hemoglobin 8.8 Oxygen Delivery Device VENTILATOR Blood Gas Ventilator Setting CPAP 5/8PS Blood Gas Inspired Oxygen 45 Imaging Last Impressions Chest X-Ray 06/26/16 0600 Signed Impressions: Service Date/Time: Sunday, June 26, 2016 03:25 - CONCLUSION: 1. Right lower lobe atelectasis versus pneumonia. There has been no significant change when compared to the prior exam. To Dailey MD Upper Extremity Ultrasound 06/23/16 0000 Signed Impressions: Service Date/Time: June 12:03 - CONCLUSION: 1. Nonocclusive thrombus seen throughout the left cephalic vein. This is a superficial venous structure. 2. No DVT. Kenny Devine Jr., MD CT Angiography 06/23/16 0000 Signed Impressions: Service Date/Time: June 15:42 - CONCLUSION: 1. Acute small volume pulmonary emboli involving the lingula and left lower lobe. 2. Pronounced emphysematous changes. 3. Anasarca. 4. Tiny bilateral pleural effusions. 5. Trace amount of free fluid within the abdomen. Kenny Devine Jr., MD Abdomen/Pelvis CT 06/23/16 0000 Signed Impressions: Service Date/Time: June 00:41 - CONCLUSION: 1. No evidence of mesenteric ischemia 2. Ascites 3. Nonocclusive pulmonary embolism involving the left lower lobe. CT angiography of the chest could be performed to further evaluate this if clinically indicated. 4. Cholelithiasis 5. Anasarca 6. 3 mm nodule left base. Followup CT scan in 6 months is recommended. To Dailey MD GI Bleed Scan Nuclear Medicine 06/15/16 0000 Signed Impressions: Service Date/Time: Wednesday, June 15, 2016 11:15 - CONCLUSION: Negative for slight gastrointestinal hemorrhage. Gary Cook MD FACR Physical Exam HEENT: Normocephalic; atraumatic; no jaundice. CHEST: Trach to cpap. Resp. even/unlabored CARDIAC: RRR ABDOMEN: Soft, nondistended, nontender; no hepatosplenomegaly; bowel sounds are present in all four quadrants. EXTREMITIES: + edema. SKIN: Gen. edema ASSAYER HELPER: sedated on a vent (Ana Lilia Faulkner BIRTHING NURSE) Assessment and Plan Plan ASSESSMENT: - Lower GIB. S/P EGD/Colonoscopy (06/16/16)---> Single ulcer, retroflexed views revealed no abnormalities, severe diverticulosis was noted in the sigmoid colon, near circumferential abnormal mucosa was found in the sigmoid colon, the mucosa was erythematous and ulcerated, a sessile polp ranging between 3-5mm in size was found in the transverse polyp, an adenomatous polyp was found in the sigmoid colon, polypectomy was performed using snare cautery, retroflexed views revealed medium internal hemorrhoids, revealed external hemorrhoids. Pathology with transverse polyp with tubular adenoma, large villous adenoma in sigmoid colon, the margin of resection of the stalk appears free from adenomatous change, colonic mucosa with hyalinization of the stroma and loss of crypts consistent with ischemia. CTA (06/23/16)----> 1. No evidence of mesenteric ischemia 2. Ascites 3. Nonocclusive pulmonary embolism involving the left lower lobe. CT angiography of the chest could be performed to further evaluate this if clinically indicated. 4. Cholelithiasis 5. Anasarca 6. 3 mm nodule left base. Followup CT scan in 6 months is recommended. S/P GS evaluation. Pt has not had any further bleeding and HH is stable at 8.9/27.6. - Anemia secondary to above. HH is stable at 8.9/27.6. - Respiratory failure and COPD exacerbation. S/P tracheostomy. CT with small volume pulmonary embolic involving the lingula and left lower lobe, pleural effusions. per [facility] Plan: - TF via NGT - Cont. PPI - Monitor HH - Transfuse as necessary - S/P GS Evaluation - Will need repeat colonoscopy in 4-8 weeks - May need G tube, but she is doing well on CPAP and therefore we will wait and see if she is able to weaned off, if she is not able to be weaned then she will likely need a feeding tube next week - Patient seen and examined by Dr. Mcleod and myself and this note is written on her behalf. (Ana Lilia Faulkner) Physician Comments seen, examined agree with above (Ellen Mcleod MD) Ana Lilia Faulkner Jun 26, 2016 11:20 Ellen Mcleod MD Jun 26, 2016 13:13
--- NOTE | 2016-06-26 14:45 | HHI.PR ---
Subjective Remarks Awake and on vent support and on CPAP today and tolerating it well Able to follow commands . FIO2 35 %. O 2 Sats 95. Family at bedside. Objective Vital Signs Date Time Temp Pulse Resp B/P Pulse Ox O2 Delivery O2 Flow Rate FiO2 06/26/16 12:55 98 45 06/26/16 10:00 97 06/26/16 08:00 45 06/26/16 08:00 98.6 91 9 161/69 94 06/26/16 08:00 100 06/26/16 07:38 50 06/26/16 07:38 95 45 06/26/16 06:00 85 06/26/16 04:15 93 50 06/26/16 04:00 98.6 105 15 158/67 95 06/26/16 04:00 50 06/26/16 04:00 105 06/26/16 02:00 97 06/26/16 01:19 94 50 06/26/16 00:00 96 06/26/16 00:00 98.5 96 18 142/64 93 06/26/16 00:00 35 06/25/16 22:00 108 06/25/16 20:00 98.7 103 19 176/78 96 06/25/16 20:00 35 06/25/16 20:00 103 06/25/16 19:36 94 35 06/25/16 18:00 102 06/25/16 16:00 98.1 118 12 145/69 93 06/25/16 16:00 40 06/25/16 16:00 119 06/25/16 15:21 95 35 I/O 06/25/16 06/25/16 06/25/16 06/26/16 06/26/16 06/26/16 07:00 15:00 23:00 07:00 15:00 23:00 Intake Total 484 ml 651 ml 310 ml 503 ml Output Total 300 ml 450 ml 525 ml 225 ml Balance 184 ml 201 ml -215 ml 278 ml Intake Oral 0 ml 0 ml 0 ml 0 ml IV Total 484 ml 479 ml 242 ml 298 ml Tube Feeding 0 ml 172 ml 68 ml 205 ml Output Urine Total 300 ml 450 ml 525 ml 225 ml # Bowel Movements 0 0 0 0 Result Diagram: 06/26/1639906/26/160 Objective Remarks GENERAL: This is averagely built elderly white female who is on the vent.. She is responsive, assisting the ventilator.Trach in place. HEENT: Head normocephalic. Pupils are reactive and equal. Throat is clear. Nasal mucosa clear.NG is in. NECK: Supple. No bruits or thyroid enlargement or lymphadenopathy. CHEST: Equal movements with decreased breath sounds.Occ wheeze heard. HEART: The heart sounds are irregular. S1-S2 with no murmur. No S3 gallop. ABDOMEN: Soft, protuberant, without masses. No organomegaly or tenderness. The bowel sounds are active. EXTREMITIES: No edema. Peripheral pulses are diminished. There is no calf tenderness or swelling. NEUROLOGIC: She is moving all extremities . Lethargic RECTAL: Exam is deferred. SKIN: No lesions. Assessment and Plan Assessment and Plan IMPRESSION 1. Vent Dependant respiratory failure. 2. COPD with emphysema, chronic bronchitis. 3. History of hypertension. 4. History of breast cancer with right mastectomy and radiation therapy. 5. GI Bleeding. Plan : 1. Cont Vent and to CPAP 5/10 , and FIO2 35 %. Try T bar upto 2 hrs today 2. A/C rate 10 at HS. 3. CXR in am 4. D/C NG after PEG 5. Cont Antibiotics as ordered. 6. Tube feeds at 50 CC. 6. Nebs qisusanne , lucia. 7. PEG on Monday Darlene Horn MD Jun 26, 2016 14:45
[2016-06-26] MEDS: METOCLOPRAMIDE HCL 10 MG/2 ML VIAL IV PUSH PRN (15:52)
[2016-06-26] MEDS: LEVOFLOXACIN 750 MG PREMIX INJ 150 ML IV SCH (15:52)
[2016-06-26] MEDS: SODIUM CHLOR 0.9% 1000 ML INJ 1,000 ML IV SCH (16:32)
--- NOTE | 2016-06-26 16:51 | HHI.CCPN ---
Subjective Remarks/Hospital Course The patient is a 65 year old female with past medical history of chronic obstructive pulmonary disease on home oxygen nocturnally, hypertension, breast cancer, status post chemotherapy and radiation approximately a two years ago. She was admitted to [facility] on June 14, under hospitalist service for any acute hypercapnic respiratory failure and COPD exacerbation. The patient was treated with bronchial bronchodilators and empiric antibiotics. She had multiple arterial blood gases since admission and her last ABG from yesterday afternoon showed pH of 7.33, CO2 59, pAO2 100, bicarb of 30 and saturation of 96% on BiPap 04/11 with 40% FIO2. This morning the patient was in respiratory distress, in addition she was tachypneic, tachycardiac and using her accessory muscles for respirations. She was on a BiPap for a short time without any significant improvements and given her respiratory status, She was subsequently intubated by myself and placed on full mechanical ventilation. 06/12 Patient is on fentanyl infusion for sedation but awake intubated. Afebrile. 06/13 No acute events overnight. Sedated and intubated. Patient tolerated CPAP x 2 hrs yesterday. Afebrile. 06/14 Patient had high peak pressure overnight switched to PRVC/AC mode and Versed drip was added to Fentanyl drip. Tolerating tube feeds. Afebrile. 06/16 no acute events overnight 06/17 EGD performed yesterday with finding of gastric ulcer and duodenal ulcer not actively bleeding 06/18 patient did well on a spontaneous breathing trial yesterday however there was no cuff leak appreciated she will started on Decadron 06/19 extubated yesterday afternoon developed stridor requiring reintubation 06/20 Patient is sedated with Diprivan, Fentanyl and intubated. Afebrile. 06/21 Patient remains sedated and intubated. Did not tolerate CPAP trials yesterday. Afebrile. Now on PRVC/AC RR 18, TV: 450, PEEP: 5, IT:0.8, FIO2 40%. 06/22 No acute events overnight. On Diprivan, fentanyl and Precedex infusion however she is awake. Afebrile. 06/23: Failed weaning trials again today due to tachypnea, and ABG 7.25/64 on 60 MIN SBT. Discussed with daughter and patient at bedside. Both agreeable for tracheostomy. Will plan for tomorrow. 06/24: Remains awake on vent on propofol and fentanyl. plan for trach today. CTA showed LLL, Lingula PE, heparin started yesterday, held today for trach 06/25: Afebrile. CPAP trials begun at 9 AM. Propofol infusion off. Continues on fentanyl infusion at 50 mcgs. Interacting with family. Heparin infusion continues. 06/26: The patient was informed of 's today. With supportive personnel pre-stent family at bedside. IV infusion sedatives all discontinued. Ativan when necessary IV for anxiety/agitation ordered. The patient continues on CPAP trials successfully, plans for piece trials in a.m.. The patient was noted to have emesis and tube feeds have been off with subsequent decreasing urinary output. Reglan has been instituted in scheduled doses. Normal saline at 75 cc an hour instituted while tube feeds are off. Objective Vital Signs Date Time Temp Pulse Resp B/P Pulse Ox O2 Delivery O2 Flow Rate FiO2 06/26/16 16:10 96 45 06/26/16 14:00 104 06/26/16 12:00 98.8 11 147/64 Intake and Output 06/25/16 06/25/16 06/26/16 08:00 16:00 00:00 Intake Total 484 ml 651 ml 310 ml Output Total 300 ml 450 ml 525 ml Balance 184 ml 201 ml -215 ml Result Diagram: 06/26/16 0400 06/26/16 0400 Other Results Laboratory Tests Test 06/26/16 10:25 Blood Gas Puncture Site LT RADIAL Blood Gas Patient Temperature 98.6 Blood Gas HCO3 29 mmol/L (22-26) Blood Gas Base Excess 3.8 mmol/L (-2-2) Blood Gas Oxygen Saturation 91 % (90-100) Arterial Blood pH 7.35 (7.380-7.420) Arterial Blood Partial 55 mmHg (38-42) Pressure CO2 Arterial Blood Partial 66 mmHg Pressure O2 (61-120) Arterial Blood Oxygen Content 11.3 Vol % (12.0-20.0) Arterial Blood 1.6 % (0-4) Carboxyhemoglobin Arterial Blood Methemoglobin 1.2 % (0-2) Blood Gas Hemoglobin 8.8 G/DL (12.0-16.0) Oxygen Delivery Device VENTILATOR Blood Gas Ventilator Setting CPAP 5/8PS Blood Gas Inspired Oxygen 45 % Imaging Last Impressions Chest X-Ray 06/20/16 0600 Signed Impressions: Service Date/Time: Monday, June 20, 2016 03:46 - CONCLUSION: 1. Increasing bibasilar atelectasis versus pneumonia 2. Small right effusion To Dailey MD GI Bleed Scan Nuclear Medicine 06/15/16 0000 Signed Impressions: Service Date/Time: Wednesday, June 15, 2016 11:15 - CONCLUSION: Negative for slight gastrointestinal hemorrhage. Gary Cook MD FACR CT Angiography 06/09/16 0000 Signed Impressions: Service Date/Time: June 06:47 - CONCLUSION: 1. Negative for pulmonary embolus. 2. Moderate to severe emphysema. 3. Multiple calcified gallstones. Antony Ledezma MD Objective Remarks GENERAL: Patient is 65 yo intubated and awake alert. Awake, GCS 11T with fentanyl infusion SKIN: Warm and dry. HEAD: Normocephalic. EYES: No scleral icterus. No injection or drainage. NECK: Supple, trachea midline. No JVD or lymphadenopathy. CARDIOVASCULAR: Regular rate and rhythm without murmurs, gallops, or rubs. RESPIRATORY: Breath sounds equal bilaterally, with bilateral expiratory wheezes. GASTROINTESTINAL: Abdomen soft, protuberant non-tender, nondistended. MUSCULOSKELETAL: Swelling of the right upper extremity Neuro: Intubated. Awake alert follows commands Urinary Catheter: Yes Espinosa insert reason: Measure Accurate Output Vascular Central Line Catheter: Yes Assessment to: Remove A/P Assessment and Plan 1)Acute hypoxemic and hypercarbic respiratory failure 2)COPD exacerbation 3)Acute PE LLL and Lingula 4)Acute kidney injury- improved 5)s/p GI bleed 6)Anemia 7)Hypernatremia Plan Neuro: GCS 11 T. IV infusions discontinued. Ativan 1 mg every 4 hours when necessary, [place] 5/325-6 hours when necessary for pain Currently on CPAP trials ,denies pain CV: Monitor HR and BP keep MAP>65mmHg Echo showed EF 50-55% Pulm: Mechanical ventilator settings On PRVC/AC RR 18, TV: 450, PEEP: 5, IT:0.8 , FIO2 40%. Tracheostomy 06/24/16-site without bleeding or drainage CTA 06/23/16 showed LLL, Lingula PE, heparin infusion began 06/23. Plan to transition Successful CPAP trials Plan for T piece trials in a.m. Bronchodilators, ICU vent bundle On Solumederol 40mg Q12, Symbicort : Monitor renal function, I/O's, electrolytes replacement protocol. On Free water 250ml Q12. GI: On Protonix 40mg BID High residuals, tube feeds currently off. Reglan 5 mg 3 times a day GI is following, for CT abd/pelvis S/P EGD/Colonoscopy (06/16/16)---> Single ulcer, retroflexed views revealed no abnormalities, severe diverticulosis was noted in the sigmoid colon, IV Heparin cleared by GI Dr Mcleod 06/24/16 Next week Plan for PEG ID: Continue with empiric abx ( Levaquin)monitor for signs of infections ( Fever , WBC) Heme: Monitor CBC. 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 I have spent in excess of 31 minutes discontinuously in the care and management of this patient. This time is exclusive of procedures, and includes, but is not limited to, evaluation of the patient, review of the medical record, discussions with family, consultants, nursing staff, or respiratory therapy, and documentation in the medical record. Physician Krysta Tamez MD Jun 26, 2016 16:51
[2016-06-26] MEDS: ONDANSETRON HCL 4 MG/2 ML VIAL IV PUSH PRN (18:59)
[2016-06-26] MEDS: hydrALAZINE HCL 20 MG/ML VIAL IV PRN (20:11)
[2016-06-26] MEDS: METOCLOPRAMIDE HCL 10 MG/2 ML VIAL IM SCH (20:11)
[2016-06-27] VITALS (21 sets, daily range): BP systolic 135–157; BP diastolic 62–69; PULSE 85–112; RESP 10–15; TEMP 98–99; O2SAT 90–98
[2016-06-27] MEDS: INSULIN NovoLIN REGULAR SUPPLEMENTAL SCALE SQ SCH ×4 (03:00→19:18)
[2016-06-27] MEDS: RESP: ALBUTEROL 2.5 MG/IPRATROPIUM 0.5 MG NEB (SCH) NEB ×4 (03:58→20:14)
--- NOTE | 2016-06-27 05:04 | RADRPT ---
EXAM DATE/TIME: 06/27/2016 03:34 [facility] COMPARISON: CHEST SINGLE AP, June 26, 2016, 3:25. INDICATIONS : Shortness of breath, possible pulmonary disease. MEDICAL HISTORY : Hypertension. Chronic obstructive pulmonary disease. SURGICAL HISTORY : None. ENCOUNTER: Subsequent ACUITY: 4 - 6 days PAIN SCORE: Non-responsive. LOCATION: Bilateral chest FINDINGS: There is a tracheostomy tube in place. There is an NG tube with its tip in the stomach. The heart siz e is normal. There is increased density at the right mid and lower lung with silhouetting of the righ t hemidiaphragm. Left lung is clear. CONCLUSION: Right lower lobe suspected consolidation. Some degree of effusion cannot be excluded on the right. Jesus Enriquez MD on June 27, 2016 at 5:02 Board Certified Radiologist. This report was verified electronically.
[2016-06-27] MEDS: SODIUM CHLOR 0.9% 1000 ML INJ 1,000 ML IV SCH ×2 (05:20→17:23)
[2016-06-27] MEDS: methylPREDNISolone SOD SUCC 40 MG/1 ML VIAL IV PUSH SCH ×2 (05:24→17:23)
[2016-06-27] MEDS: METOCLOPRAMIDE HCL 10 MG/2 ML VIAL IM SCH ×2 (05:24→14:00)
[2016-06-27 05:49] LABS: HEMATOCRIT 24.7 % (35.0-46.0); MEAN CELL VOLUME 84.5 FL (80.0-100.0); MEAN CORPUSCULAR HEMOGLOBIN 28.5 PG (27.0-34.0); MEAN CORPUSCULAR HGB CONC 33.7 % (32.0-36.0); PLATELET COUNT 182 TH/MM3 (150-450); RED BLOOD COUNT 2.92 MIL/MM3 (4.00-5.30); RED CELL DISTRIBUTION WIDTH 15.4 % (11.6-17.2); REVIEW FLAG FINAL; WHITE BLOOD COUNT 9.3 TH/MM3 (4.0-11.0)
[2016-06-27 05:57] LABS: APTT (PATIENT) 44.3 SEC (24.3-30.1)
[2016-06-27 06:16] LABS: BICARBONATE 32.6 MEQ/L (21.0-32.0); MAGNESIUM 2.3 MG/DL (1.5-2.5); POTASSIUM 3.9 MEQ/L (3.5-5.1)
[2016-06-27] MEDS: BUDESONIDE-FORMOTEROL 80/4.5 MCG INHALER INH SCH ×2 (07:48→19:28)
[2016-06-27] MEDS: PANTOPRAZOLE SODIUM 40 MG VIAL IV PUSH SCH ×2 (08:01→19:28)
[2016-06-27] MEDS: HEPARIN-D5W INJ 250 ML IV SCH ×2 (08:02→19:32)
[2016-06-27] MEDS: THEOPHYLLINE PO SCH ×2 (08:03→19:18)
[2016-06-27] MEDS: SODIUM CHLORIDE 0.9% FLUSH 5 ML FLUSH FLUSH SCH ×2 (08:03→19:28)
[2016-06-27] MEDS: CHLORHEXIDINE 0.12% (ORAL KIT) 15 ML CUP MT SCH ×2 (08:03→19:28)
[2016-06-27] MEDS: CALCIPOTRIENE 0.005% CREAM 60 GM TOPICAL SCH ×2 (08:04→20:11)
[2016-06-27] MEDS ORDERED: ETOMIDATE 40 MG/20 ML VIAL ONE (09:46)
[2016-06-27] MEDS ORDERED: PROPOFOL 1000 MG/100 ML INJ 100 ML ONE (09:47)
[2016-06-27] MEDS: ONDANSETRON HCL 4 MG/2 ML VIAL IV PUSH PRN (12:01)
--- NOTE | 2016-06-27 13:16 | HHI.PR ---
Subjective Remarks Awake and on vent support and on CPAP today and tolerating it well . Writing notes . FIO2 35 %. O 2 Sats 97. Family at bedside.Will have PEG . Objective Vital Signs Date Time Temp Pulse Resp B/P Pulse Ox O2 Delivery O2 Flow Rate FiO2 06/27/16 12:53 95 45 06/27/16 10:40 90 45 06/27/16 10:00 112 06/27/16 08:00 45 06/27/16 08:00 106 06/27/16 08:00 98.9 103 12 142/66 96 06/27/16 07:38 93 40 06/27/16 07:38 40 06/27/16 06:00 86 06/27/16 04:00 40 06/27/16 04:00 88 06/27/16 04:00 99.0 88 15 135/62 98 06/27/16 03:59 97 40 06/27/16 02:00 86 06/27/16 01:21 96 40 06/27/16 00:00 85 06/27/16 00:00 98.5 85 14 140/63 95 06/27/16 00:00 40 06/26/16 22:21 95 40 06/26/16 22:00 88 06/26/16 20:50 45 06/26/16 20:50 98 45 06/26/16 20:00 95 06/26/16 20:00 99.0 95 16 166/72 97 06/26/16 20:00 45 06/26/16 19:42 97 45 06/26/16 18:00 86 06/26/16 16:10 96 45 06/26/16 16:00 98.3 99 9 164/68 96 06/26/16 16:00 99 06/26/16 16:00 45 06/26/16 14:00 104 I/O 06/26/16 06/26/16 06/26/16 06/27/16 06/27/16 06/27/16 07:00 15:00 23:00 07:00 15:00 23:00 Intake Total 503 ml 487 ml 578 ml 765 ml Output Total 225 ml 200 ml 850 ml 425 ml Balance 278 ml 287 ml -272 ml 340 ml Intake Oral 0 ml 0 ml 0 ml 0 ml IV Total 298 ml 356 ml 578 ml 627 ml Tube Feeding 205 ml 131 ml 0 ml 138 ml Output Urine Total 225 ml 200 ml 850 ml 425 ml # Bowel Movements 0 0 0 0 Result Diagram: 06/27/163 06/27/16 0453 Objective Remarks GENERAL: This is averagely built elderly white female who is on the vent.. She is responsive, assisting the ventilator.Trach in place. HEENT: Head normocephalic. Pupils are reactive and equal. Throat is clear. Nasal mucosa clear.NG is in. NECK: Supple. No bruits or thyroid enlargement or lymphadenopathy. CHEST: Equal movements with decreased breath sounds. Few basal crackles. HEART: The heart sounds are irregular. S1-S2 with no murmur. No S3 gallop. ABDOMEN: Soft, protuberant, without masses. No organomegaly or tenderness. The bowel sounds are active. EXTREMITIES: Min edema. Peripheral pulses are diminished. There is no calf tenderness or swelling. NEUROLOGIC: She is moving all extremities .alert oriented. RECTAL: Exam is deferred. SKIN: No lesions. Assessment and Plan Assessment and Plan IMPRESSION 1. Vent Dependant respiratory failure. 2. COPD with emphysema, chronic bronchitis. 3. History of hypertension. 4. History of breast cancer with right mastectomy and radiation therapy. 5. GI Bleeding. Plan : 1. Cont Vent and to CPAP 5/10 , and FIO2 40 %. 2. T Bar 45 % upto 4 hrs daily. 3. CXR ,BMP in am 4. Arrange Transfer to LTAC 5. Cont Antibiotics as ordered. 6. Tube feeds at 50 CC. 6. Nebs qid , duoneb. 7. PEG per GI. Darlene Horn MD Jun 27, 2016 13:16
--- NOTE | 2016-06-27 13:22 | HHI.GIFU ---
Subjective Remarks Resting in bed. No active bleeding. Nurse reports that she has a hard time getting to her goal rate on TF because she has nausea/vomiting when this is increased. No abdominal pain. (Ana Lilia Faulkner) Objective Vitals I&O Vital Signs Date Time Temp Pulse Resp B/P Pulse Ox O2 Delivery O2 Flow Rate FiO2 06/27/16 12:53 95 45 06/27/16 10:40 90 45 06/27/16 10:00 112 06/27/16 08:00 45 06/27/16 08:00 106 06/27/16 08:00 98.9 103 12 142/66 96 06/27/16 07:38 93 40 06/27/16 07:38 40 06/27/16 06:00 86 06/27/16 04:00 40 06/27/16 04:00 88 06/27/16 04:00 99.0 88 15 135/62 98 06/27/16 03:59 97 40 06/27/16 02:00 86 06/27/16 01:21 96 40 06/27/16 00:00 85 06/27/16 00:00 98.5 85 14 140/63 95 06/27/16 00:00 40 06/26/16 22:21 95 40 06/26/16 22:00 88 06/26/16 20:50 45 06/26/16 20:50 98 45 06/26/16 20:00 95 06/26/16 20:00 99.0 95 16 166/72 97 06/26/16 20:00 45 06/26/16 19:42 97 45 06/26/16 18:00 86 06/26/16 16:10 96 45 06/26/16 16:00 98.3 99 9 164/68 96 06/26/16 16:00 99 06/26/16 16:00 45 06/26/16 14:00 104 I/O 06/26/16 06/26/16 06/26/16 06/27/16 06/27/16 06/27/16 07:00 15:00 23:00 07:00 15:00 23:00 Intake Total 503 ml 487 ml 578 ml 765 ml Output Total 225 ml 200 ml 850 ml 425 ml Balance 278 ml 287 ml -272 ml 340 ml Intake Oral 0 ml 0 ml 0 ml 0 ml IV Total 298 ml 356 ml 578 ml 627 ml Tube Feeding 205 ml 131 ml 0 ml 138 ml Output Urine Total 225 ml 200 ml 850 ml 425 ml # Bowel Movements 0 0 0 0 Laboratory Laboratory Tests Test 06/27/16 06/27/16 04:53 04:56 White Blood Count 9.3 Red Blood Count 2.92 Hemoglobin 8.3 Hematocrit 24.7 Mean Corpuscular Volume 84.5 Mean Corpuscular Hemoglobin 28.5 Mean Corpuscular Hemoglobin 33.7 Concent Red Cell Distribution Width 15.4 Platelet Count 182 Mean Platelet Volume 10.3 Sodium Level 143 Potassium Level 3.9 Chloride Level 104 Carbon Dioxide Level 32.6 Anion Gap 6 Blood Urea Nitrogen 30 Creatinine 0.62 Estimat Glomerular Filtration 96 Rate Random Glucose 87 Calcium Level 7.8 Phosphorus Level 2.4 Magnesium Level 2.3 Activated Partial 44.3 Thromboplast Time Imaging Last Impressions Chest X-Ray 06/27/16 0600 Signed Impressions: Service Date/Time: Monday, June 27, 2016 03:34 - CONCLUSION: Right lower lobe suspected consolidation. Some degree of effusion cannot be excluded on the right. Jesus Enriquez MD Upper Extremity Ultrasound 06/23/16 0000 Signed Impressions: Service Date/Time: June 12:03 - CONCLUSION: 1. Nonocclusive thrombus seen throughout the left cephalic vein. This is a superficial venous structure. 2. No DVT. Kenny Devine Jr., MD CT Angiography 06/23/16 0000 Signed Impressions: Service Date/Time: June 15:42 - CONCLUSION: 1. Acute small volume pulmonary emboli involving the lingula and left lower lobe. 2. Pronounced emphysematous changes. 3. Anasarca. 4. Tiny bilateral pleural effusions. 5. Trace amount of free fluid within the abdomen. Kenny Devine Jr., MD Abdomen/Pelvis CT 06/23/16 0000 Signed Impressions: Service Date/Time: June 00:41 - CONCLUSION: 1. No evidence of mesenteric ischemia 2. Ascites 3. Nonocclusive pulmonary embolism involving the left lower lobe. CT angiography of the chest could be performed to further evaluate this if clinically indicated. 4. Cholelithiasis 5. Anasarca 6. 3 mm nodule left base. Followup CT scan in 6 months is recommended. To Dailey MD GI Bleed Scan Nuclear Medicine 06/15/16 0000 Signed Impressions: Service Date/Time: Wednesday, June 15, 2016 11:15 - CONCLUSION: Negative for slight gastrointestinal hemorrhage. Gary Cook MD FACR Physical Exam HEENT: Normocephalic; atraumatic; no jaundice. CHEST: Trach to cpap. Resp. even/unlabored CARDIAC: RRR ABDOMEN: Soft, nondistended, nontender; no hepatosplenomegaly; bowel sounds are present in all four quadrants. EXTREMITIES: + edema. SKIN: Gen. edema [employer]: alert, follows commands, nods appropriately (Ana Lilia Faulkner) Assessment and Plan Plan ASSESSMENT: - Lower GIB. S/P EGD/Colonoscopy (06/16/16)---> Single ulcer, retroflexed views revealed no abnormalities, severe diverticulosis was noted in the sigmoid colon, near circumferential abnormal mucosa was found in the sigmoid colon, the mucosa was erythematous and ulcerated, a sessile polp ranging between 3-5mm in size was found in the transverse polyp, an adenomatous polyp was found in the sigmoid colon, polypectomy was performed using snare cautery, retroflexed views revealed medium internal hemorrhoids, revealed external hemorrhoids. Pathology with transverse polyp with tubular adenoma, large villous adenoma in sigmoid colon, the margin of resection of the stalk appears free from adenomatous change, colonic mucosa with hyalinization of the stroma and loss of crypts consistent with ischemia. CTA (06/23/16)----> 1. No evidence of mesenteric ischemia 2. Ascites 3. Nonocclusive pulmonary embolism involving the left lower lobe. CT angiography of the chest could be performed to further evaluate this if clinically indicated. 4. Cholelithiasis 5. Anasarca 6. 3 mm nodule left base. Followup CT scan in 6 months is recommended. S/P GS evaluation. Pt has not had any further bleeding and HH is stable at 8.3/24.7. - Dysphagia, FEN. Nurse reports CCM wanting PEG tube placed. However, nurse reports that she is having a hard time getting to GR on TF's because every time they increase this, she has nausea/vomiting. Will consult IR for G/J tube placement. - Anemia secondary to above. HH is stable at 8.3/24.7. - Respiratory failure and COPD exacerbation. S/P tracheostomy. CT with small volume pulmonary embolic involving the lingula and left lower lobe, pleural effusions. per [facility] Plan: - TF via NGT - Cont. PPI - Monitor HH - Transfuse as necessary - Consult IR for G/J tube placement - S/P GS Evaluation - Will need repeat colonoscopy in 4-8 weeks - Supportive care - Patient seen and examined by Dr. Escobedo and myself and this note is written on his behalf. (Ana Lilia Faulkner) Physician Comments patient was seen and examined, we will do J tube by IR. we will F/U as needed, patient will need to be seen as outpatient for repeat colonoscopy (González Escobedo MD) Ana Lilia Faulkner Jun 27, 2016 13:22 González Escobedo MD Jun 27, 2016 19:14
[2016-06-27] MEDS: METOCLOPRAMIDE HCL 10 MG/2 ML VIAL IV PUSH SCH ×2 (14:00→20:11)
--- NOTE | 2016-06-27 14:34 | HHI.CCPN ---
Subjective Remarks/Hospital Course The patient is a 65 year old female with past medical history of chronic obstructive pulmonary disease on home oxygen nocturnally, hypertension, breast cancer, status post chemotherapy and radiation approximately a two years ago. She was admitted to [facility] on June 14, under hospitalist service for any acute hypercapnic respiratory failure and COPD exacerbation. The patient was treated with bronchial bronchodilators and empiric antibiotics. She had multiple arterial blood gases since admission and her last ABG from yesterday afternoon showed pH of 7.33, CO2 59, pAO2 100, bicarb of 30 and saturation of 96% on BiPap 04/11 with 40% FIO2. This morning the patient was in respiratory distress, in addition she was tachypneic, tachycardiac and using her accessory muscles for respirations. She was on a BiPap for a short time without any significant improvements and given her respiratory status, She was subsequently intubated by myself and placed on full mechanical ventilation. 06/12 Patient is on fentanyl infusion for sedation but awake intubated. Afebrile. 06/13 No acute events overnight. Sedated and intubated. Patient tolerated CPAP x 2 hrs yesterday. Afebrile. 06/14 Patient had high peak pressure overnight switched to PRVC/AC mode and Versed drip was added to Fentanyl drip. Tolerating tube feeds. Afebrile. 06/16 no acute events overnight 06/17 EGD performed yesterday with finding of gastric ulcer and duodenal ulcer not actively bleeding 06/18 patient did well on a spontaneous breathing trial yesterday however there was no cuff leak appreciated she will started on Decadron 06/19 extubated yesterday afternoon developed stridor requiring reintubation 06/20 Patient is sedated with Diprivan, Fentanyl and intubated. Afebrile. 06/21 Patient remains sedated and intubated. Did not tolerate CPAP trials yesterday. Afebrile. Now on PRVC/AC RR 18, TV: 450, PEEP: 5, IT:0.8, FIO2 40%. 06/22 No acute events overnight. On Diprivan, fentanyl and Precedex infusion however she is awake. Afebrile. 06/23: Failed weaning trials again today due to tachypnea, and ABG 7.25/64 on 60 MIN SBT. Discussed with daughter and patient at bedside. Both agreeable for tracheostomy. Will plan for tomorrow. 06/24: Remains awake on vent on propofol and fentanyl. plan for trach today. CTA showed LLL, Lingula PE, heparin started yesterday, held today for trach 06/25: Afebrile. CPAP trials begun at 9 AM. Propofol infusion off. Continues on fentanyl infusion at 50 mcgs. Interacting with family. Heparin infusion continues. 06/26: The patient was informed of 's today. With supportive personnel pre-stent family at bedside. IV infusion sedatives all discontinued. Ativan when necessary IV for anxiety/agitation ordered. The patient continues on CPAP trials successfully, plans for piece trials in a.m.. The patient was noted to have emesis and tube feeds have been off with subsequent decreasing urinary output. Reglan has been instituted in scheduled doses. Normal saline at 75 cc an hour instituted while tube feeds are off. Subjective 06/27: Afebrile. Tolerating T piece trial 10 minutes today. Was on CPAP prior throughout the a.m. Plan for GJ tube in a.m. No bowel movement 4 days. Objective Vital Signs Date Time Temp Pulse Resp B/P Pulse Ox O2 Delivery O2 Flow Rate FiO2 06/27/16 14:00 103 06/27/16 13:45 92 T-piece 6.00 45 06/27/16 12:00 98.5 11 157/66 Intake and Output 06/26/16 06/26/16 06/27/16 08:00 16:00 00:00 Intake Total 503 ml 487 ml 578 ml Output Total 225 ml 200 ml 850 ml Balance 278 ml 287 ml -272 ml Result Diagram: 06/27/16 0453 06/27/16 0453 Imaging Last Impressions Chest X-Ray 06/27/16 0600 Signed Impressions: Service Date/Time: Monday, June 27, 2016 03:34 - CONCLUSION: Right lower lobe suspected consolidation. Some degree of effusion cannot be excluded on the right. Jesus Enriquez MD Upper Extremity Ultrasound 06/23/16 0000 Signed Impressions: Service Date/Time: June 12:03 - CONCLUSION: 1. Nonocclusive thrombus seen throughout the left cephalic vein. This is a superficial venous structure. 2. No DVT. Kenny Devine Jr., MD CT Angiography 06/23/16 0000 Signed Impressions: Service Date/Time: June 15:42 - CONCLUSION: 1. Acute small volume pulmonary emboli involving the lingula and left lower lobe. 2. Pronounced emphysematous changes. 3. Anasarca. 4. Tiny bilateral pleural effusions. 5. Trace amount of free fluid within the abdomen. Kenny Devine Jr., MD Abdomen/Pelvis CT 06/23/16 0000 Signed Impressions: Service Date/Time: June 00:41 - CONCLUSION: 1. No evidence of mesenteric ischemia 2. Ascites 3. Nonocclusive pulmonary embolism involving the left lower lobe. CT angiography of the chest could be performed to further evaluate this if clinically indicated. 4. Cholelithiasis 5. Anasarca 6. 3 mm nodule left base. Followup CT scan in 6 months is recommended. To Dailey MD GI Bleed Scan Nuclear Medicine 06/15/16 0000 Signed Impressions: Service Date/Time: Wednesday, June 15, 2016 11:15 - CONCLUSION: Negative for slight gastrointestinal hemorrhage. Gary Cook MD FACR Objective Remarks GENERAL:65 yo female, status post tracheostomy awake and alert and following commands SKIN: Warm and dry. HEAD: Normocephalic. EYES: No scleral icterus. No injection or drainage. NECK: Supple, trachea midline. No JVD or lymphadenopathy. CARDIOVASCULAR: Regular rate and rhythm S1, S2 no S4 without murmur without murmurs, gallops, or rubs. RESPIRATORY: This breath sounds right lower lobe. Positive end expiratory wheeze. GASTROINTESTINAL: Abdomen soft, protuberant non-tender, nondistended. MUSCULOSKELETAL: Swelling of the right upper extremity Neuro: Intubated. Awake alert follows commands A/P Assessment and Plan Neuro/Psych: GCS 11 T. IV infusions discontinued. Xanax 0.125 mg mg every 4 hours when necessary for agitation, [place] 5/325-6 hours when necessary for pain Acetaminophen for fever CV: Hypertension Monitor HR and BP keep MAP>65mmHg Echo showed EF 50-55% At home on lisinopril 5 mill grams by mouth daily. Currently on hold Currently on normal saline at 75 cc an hour Pulm: COPD Vent dependent respiratory failure Left lower lobe PE Left lower lobe pulmonary nodule - 3 mm six-month CT recheck recommended Mechanical ventilator settings On PRVC/AC RR 18, TV: 450, PEEP: 5, IT:0.8, FIO2 40%. Tracheostomy 06/24/16-site without bleeding or drainage CTA 06/23/16 showed LLL, Lingula PE, heparin infusion began 06/23. Plan to transition Successful CPAP trials Plan for T piece trials in a.m. Bronchodilators, ICU vent bundle On Solumederol 40mg Q12, Symbicort 80/4.5 twice a day On theophylline 200 twice a day home. This is currently on hold : Monitor renal function, I/O's, electrolytes replacement protocol. GI: Cholelithiasis Sigmoid ulcer Diverticulosis Gastro-Esophageal reflux disease On Protonix 40mg BID On Prilosec 40 mg by mouth daily at home High residuals, tube feeds currently off. Reglan 5 mg 3 times a day GI is following S/P EGD/Colonoscopy (06/16/16)---> Single ulcer, retroflexed views revealed no abnormalities, severe diverticulosis was noted in the sigmoid colon, IV Heparin cleared by GI Dr Mcleod 06/24/16 Next week Plan for GJ tube ID: Continue with empiric abx ( Levaquin until 06/30)monitor for signs of infections ( Fever, WBC) Heme: Normocytic anemia Thrombocytopenia Monitor CBC. H/H stable Endo: SSI (low scale) for glycemic control GI prophylaxis- on Protonix 40mg BID DVT prophylaxis- SCD's, IV Heparin infusion for PE Critical Care: The total critical care time was 35 minutes. Time to perform other separately billable procedures was not included in the critical care time. Anderson Fabian MD Jun 27, 2016 14:34
[2016-06-27] MEDS: LEVOFLOXACIN 750 MG PREMIX INJ 150 ML IV SCH (16:33)
[2016-06-27] MEDS: ACETAMINOPHEN/HYDROcodone 325 MG/5 MG TAB PO PRN (19:27)
[2016-06-27] MEDS: LORazepam 2 MG/ML VIAL IV PUSH PRN (19:28)
[2016-06-28] VITALS (20 sets, daily range): BP systolic 123–169; BP diastolic 58–81; PULSE 82–101; RESP 12–23; TEMP 98–98.7; O2SAT 93–100
[2016-06-28] MEDS: LORazepam 2 MG/ML VIAL IV PUSH PRN ×2 (02:00→21:11)
[2016-06-28] MEDS: ACETAMINOPHEN/HYDROcodone 325 MG/5 MG TAB PO PRN ×2 (02:00→21:10)
[2016-06-28] MEDS: INSULIN NovoLIN REGULAR SUPPLEMENTAL SCALE SQ SCH ×4 (02:01→21:00)
[2016-06-28] MEDS: RESP: ALBUTEROL 2.5 MG/IPRATROPIUM 0.5 MG NEB (SCH) NEB ×4 (03:27→19:47)
[2016-06-28] MEDS: methylPREDNISolone SOD SUCC 40 MG/1 ML VIAL IV PUSH SCH ×2 (05:27→18:20)
[2016-06-28] MEDS: METOCLOPRAMIDE HCL 10 MG/2 ML VIAL IV PUSH SCH ×3 (05:27→21:11)
[2016-06-28 05:44] LABS: AUTOMATED NEUTROPHIL # 8.8 TH/MM3 (1.8-7.7); HEMATOCRIT 25.3 % (35.0-46.0); HEMO FLAGS DIFF FINAL; LYMPH % 2.6 % (9.0-44.0); LYMPHOCYTE # 0.3 TH/MM3 (1.0-4.8); MEAN CELL VOLUME 85.2 FL (80.0-100.0); MEAN CORPUSCULAR HEMOGLOBIN 27.5 PG (27.0-34.0); MEAN CORPUSCULAR HGB CONC 32.3 % (32.0-36.0); MONO % 5.4 % (0.0-8.0); PLATELET COUNT 178 TH/MM3 (150-450); RED BLOOD COUNT 2.98 MIL/MM3 (4.00-5.30); RED CELL DISTRIBUTION WIDTH 15.4 % (11.6-17.2); WHITE BLOOD COUNT 9.6 TH/MM3 (4.0-11.0)
[2016-06-28 06:18] LABS: ALKALINE PHOSPHATASE 53 U/L (45-117); ALT (GPT) 12 U/L (10-53); ANION GAP 7 MEQ/L (5-15); AST (GOT) 9 U/L (15-37); BICARBONATE 33.5 MEQ/L (21.0-32.0); BLOOD UREA NITROGEN 24 MG/DL (7-18); CHLORIDE 105 MEQ/L (98-107); GLOMERULAR FILTRATION RATE 110 ML/MIN (>89); MAGNESIUM 2.2 MG/DL (1.5-2.5); POTASSIUM 3.7 MEQ/L (3.5-5.1); SODIUM (NA) 145 MEQ/L (136-145); TOTAL BILIRUBIN ADULT 0.4 MG/DL (0.2-1.0)
[2016-06-28 07:00] LABS: APTT (PATIENT) 44.3 SEC (24.3-30.1)
[2016-06-28] MEDS: CHLORHEXIDINE 0.12% (ORAL KIT) 15 ML CUP MT SCH ×2 (08:00→21:12)
[2016-06-28] MEDS: THEOPHYLLINE PO SCH ×2 (09:00→19:09)
[2016-06-28] MEDS: PANTOPRAZOLE SODIUM 40 MG VIAL IV PUSH SCH ×2 (09:01→21:10)
[2016-06-28] MEDS: CALCIPOTRIENE 0.005% CREAM 60 GM TOPICAL SCH ×2 (09:02→21:12)
[2016-06-28] MEDS: SODIUM CHLORIDE 0.9% FLUSH 5 ML FLUSH FLUSH SCH ×2 (09:03→21:13)
[2016-06-28] MEDS: SODIUM CHLOR 0.9% 1000 ML INJ 1,000 ML IV SCH ×2 (09:05→21:11)
[2016-06-28] MEDS: BUDESONIDE-FORMOTEROL 80/4.5 MCG INHALER INH SCH ×2 (09:12→19:09)
--- NOTE | 2016-06-28 10:39 | HHI.CCPN ---
Subjective Remarks/Hospital Course The patient is a 65 year old female with past medical history of chronic obstructive pulmonary disease on home oxygen nocturnally, hypertension, breast cancer, status post chemotherapy and radiation approximately a two years ago. She was admitted to [facility] on June 14, under hospitalist service for any acute hypercapnic respiratory failure and COPD exacerbation. The patient was treated with bronchial bronchodilators and empiric antibiotics. She had multiple arterial blood gases since admission and her last ABG from yesterday afternoon showed pH of 7.33, CO2 59, pAO2 100, bicarb of 30 and saturation of 96% on BiPap 04/11 with 40% FIO2. This morning the patient was in respiratory distress, in addition she was tachypneic, tachycardiac and using her accessory muscles for respirations. She was on a BiPap for a short time without any significant improvements and given her respiratory status, She was subsequently intubated by myself and placed on full mechanical ventilation. 06/12 Patient is on fentanyl infusion for sedation but awake intubated. Afebrile. 06/13 No acute events overnight. Sedated and intubated. Patient tolerated CPAP x 2 hrs yesterday. Afebrile. 06/14 Patient had high peak pressure overnight switched to PRVC/AC mode and Versed drip was added to Fentanyl drip. Tolerating tube feeds. Afebrile. 06/16 no acute events overnight 06/17 EGD performed yesterday with finding of gastric ulcer and duodenal ulcer not actively bleeding 06/18 patient did well on a spontaneous breathing trial yesterday however there was no cuff leak appreciated she will started on Decadron 06/19 extubated yesterday afternoon developed stridor requiring reintubation 06/20 Patient is sedated with Diprivan, Fentanyl and intubated. Afebrile. 06/21 Patient remains sedated and intubated. Did not tolerate CPAP trials yesterday. Afebrile. Now on PRVC/AC RR 18, TV: 450, PEEP: 5, IT:0.8, FIO2 40%. 06/22 No acute events overnight. On Diprivan, fentanyl and Precedex infusion however she is awake. Afebrile. 06/23: Failed weaning trials again today due to tachypnea, and ABG 7.25/64 on 60 MIN SBT. Discussed with daughter and patient at bedside. Both agreeable for tracheostomy. Will plan for tomorrow. 06/24: Remains awake on vent on propofol and fentanyl. plan for trach today. CTA showed LLL, Lingula PE, heparin started yesterday, held today for trach 06/25: Afebrile. CPAP trials begun at 9 AM. Propofol infusion off. Continues on fentanyl infusion at 50 mcgs. Interacting with family. Heparin infusion continues. 06/26: The patient was informed of 's today. With supportive personnel pre-stent family at bedside. IV infusion sedatives all discontinued. Ativan when necessary IV for anxiety/agitation ordered. The patient continues on CPAP trials successfully, plans for piece trials in a.m.. The patient was noted to have emesis and tube feeds have been off with subsequent decreasing urinary output. Reglan has been instituted in scheduled doses. Normal saline at 75 cc an hour instituted while tube feeds are off. 06/27: Afebrile. Tolerating T piece trial 10 minutes today. Was on CPAP prior throughout the a.m. Plan for GJ tube in a.m. No bowel movement 4 days. Subjective 06/28: Afebrile. On CPAP trial since this morning. Plan for GJ tube this afternoon with IR. Positive BM. Objective Vital Signs Date Time Temp Pulse Resp B/P Pulse Ox O2 Delivery O2 Flow Rate FiO2 06/28/16 10:00 96 45 06/28/16 06:00 92 06/28/16 04:00 98.6 14 145/81 06/27/16 13:45 T-piece 6.00 Intake and Output 06/27/16 06/27/16 06/28/16 08:00 16:00 00:00 Intake Total 765 ml 900 ml 852 ml Output Total 425 ml 600 ml 550 ml Balance 340 ml 300 ml 302 ml Result Diagram: 06/28/16 0438 06/28/16 0438 Imaging Last Impressions Chest X-Ray 06/27/16 0600 Signed Impressions: Service Date/Time: Monday, June 27, 2016 03:34 - CONCLUSION: Right lower lobe suspected consolidation. Some degree of effusion cannot be excluded on the right. Jesus Enriquez MD Upper Extremity Ultrasound 06/23/16 0000 Signed Impressions: Service Date/Time: June 12:03 - CONCLUSION: 1. Nonocclusive thrombus seen throughout the left cephalic vein. This is a superficial venous structure. 2. No DVT. Kenny Devine Jr., MD CT Angiography 06/23/16 0000 Signed Impressions: Service Date/Time: June 15:42 - CONCLUSION: 1. Acute small volume pulmonary emboli involving the lingula and left lower lobe. 2. Pronounced emphysematous changes. 3. Anasarca. 4. Tiny bilateral pleural effusions. 5. Trace amount of free fluid within the abdomen. Kenny Devine Jr., MD Abdomen/Pelvis CT 06/23/16 0000 Signed Impressions: Service Date/Time: June 00:41 - CONCLUSION: 1. No evidence of mesenteric ischemia 2. Ascites 3. Nonocclusive pulmonary embolism involving the left lower lobe. CT angiography of the chest could be performed to further evaluate this if clinically indicated. 4. Cholelithiasis 5. Anasarca 6. 3 mm nodule left base. Followup CT scan in 6 months is recommended. To Dailey MD GI Bleed Scan Nuclear Medicine 06/15/16 0000 Signed Impressions: Service Date/Time: Wednesday, June 15, 2016 11:15 - CONCLUSION: Negative for slight gastrointestinal hemorrhage. Gary Cook MD FACR Objective Remarks GENERAL:65 yo female, status post tracheostomy awake and alert and following commands SKIN: Warm and dry. HEAD: Normocephalic. EYES: No scleral icterus. No injection or drainage. NECK: Supple, trachea midline. No JVD or lymphadenopathy. CARDIOVASCULAR: Regular rate and rhythm S1, S2 no S4 without murmur without murmurs, gallops, or rubs. RESPIRATORY: This breath sounds right lower lobe. Positive end expiratory wheeze. GASTROINTESTINAL: Abdomen soft, protuberant non-tender, nondistended. MUSCULOSKELETAL: Swelling of the right upper extremity Neuro: Intubated. Awake alert follows commands A/P Assessment and Plan Neuro/Psych: GCS 11 T. IV infusions discontinued. Xanax 0.125 mg mg every 4 hours when necessary for agitation, [place] 5/325-6 hours when necessary for pain Acetaminophen for fever CV: Hypertension Monitor HR and BP keep MAP>65mmHg Echo showed EF 50-55% At home on lisinopril 5 milligrams by mouth daily. Currently on hold Currently on normal saline at 75 cc an hour Pulm: COPD Vent dependent respiratory failure Left lower lobe PE Left lower lobe pulmonary nodule - 3 mm six-month CT recheck recommended Mechanical ventilator settings On PRVC/AC RR 18, TV: 450, PEEP: 5, IT:0.8, FIO2 40%. Tracheostomy 06/24/16-site without bleeding or drainage CTA 06/23/16 showed LLL, Lingula PE, heparin infusion began 06/23. Plan to transition Successful CPAP trials Plan for T piece trials in a.m. Bronchodilators, ICU vent bundle On Solumederol 40mg Q12, Symbicort 80/4.5 twice a day On theophylline 200 twice a day home. This is currently on hold : Monitor renal function, I/O's, electrolytes replacement protocol. GI: Cholelithiasis Sigmoid ulcer Diverticulosis Gastro-Esophageal reflux disease On Protonix 40mg BID On Prilosec 40 mg by mouth daily at home High residuals, tube feeds currently off. Reglan 5 mg 3 times a day GI is following S/P EGD/Colonoscopy (06/16/16)---> Single ulcer, retroflexed views revealed no abnormalities, severe diverticulosis was noted in the sigmoid colon, IV Heparin cleared by GI Dr Mcleod 06/24/16 Plan for GJ tub todaye ID: Continue with empiric abx (Levaquin until 06/30)monitor for signs of infections ( Fever, WBC) Heme: Normocytic anemia Thrombocytopenia Monitor CBC. H/H stable Endo: SSI (low scale) for glycemic control GI prophylaxis- on Protonix 40mg BID DVT prophylaxis- SCD's, IV Heparin infusion for PE Critical Care: The total critical care time was 35 minutes. Time to perform other separately billable procedures was not included in the critical care time. Anderson Fabian MD Jun 28, 2016 10:39
[2016-06-28] MEDS ORDERED: POTASSIUM PHOSPHATE INJ 30 MMOL in SODIUM CHLOR 0.9% 250 ML INJ 250 ML IV ONE (12:00)
[2016-06-28] MEDS ORDERED: MIDAZOLAM HCL 5 MG/5 ML VIAL ONE (15:53)
[2016-06-28] MEDS ORDERED: fentaNYL CITRATE 250 MCG/5 ML AMP ONE (15:53)
[2016-06-28] MEDS ORDERED: MIDAZOLAM HCL 2 MG/2 ML VIAL ONE (16:42)
[2016-06-28] MEDS ORDERED: IOHEXOL 350 MG/ML 50 ML BTL (for RAD DIAG) G-TUBE ONE (17:00)
--- NOTE | 2016-06-28 17:04 | PD.RAD ---
Post Procedure Progress Note Pre Procedure Diagnosis: (1) Respiratory distress (2) Pneumonia Post Procedure Diagnosis: (1) Respiratory distress (2) Pneumonia Procedure Date: Jun 28, 2016 Supervising Radiologist: Kenny Devine JR Proceduralist/Assist: Elaine Flores, RT(R)(CV), Cara Ordoñez RT(R) Anesthesia: Conscious Sedation Plan of Activity Patient to Unit: Critical Care Patient Condition: Good See PACS Report for procedural detail/treatment Feeding Tube Gastro/Jejunostomy Placement [place]: 22 Findings: Uncomplicated GJ tube placement. Plan T fasteners will fall off in approx 3 weeks. Jr. Nilson,Kenny Francois MD Jun 28, 2016 17:04
--- NOTE | 2016-06-28 18:02 | RADRPT ---
EXAM DATE/TIME: 06/28/2016 15:42 [place] COMPARISON: No previous studies available for comparison. INDICATIONS : Patient with respiratory failure in need of G-J tube placement due to dysphagia. MEDICAL HISTORY : COPD, HTN, Breast cancer with radiation and chemotherapy 2 years ago SURGICAL HISTORY : Right mastectomy, Meniscus tear repair ENCOUNTER: Initial ACUITY: 3 weeks PAIN SCORE: 0/10 FLUORO TIME: 8.4 minutes SEDATION TIME: 30 minutes CONTRAST: 30 cc Omnipaque (iohexol) 350 MEDICATION(S): 1.) 5.5 mg midazolam (Versed) IV 2.) 275 mcg Fentanyl (Sublimaze) IV DEVICE(S): 1.) 22 Fr Transgastric GJ tube PROCEDURE : 1. Limited abdominal ultrasound. 2. Fluoroscopically guided gastrojejunostomy tube placement. 3. Conscious sedation with continuous EKG and oximetry monitoring. The risks, benefits and alternatives to the procedure were explained and verbal and written consent w as obtained. The site was prepped in sterile fashion. Full sterile technique was used, including ca p, mask, sterile gloves and gown and a large sterile sheet. Hand hygiene and 2% chlorhexidine and/or betadine/alcohol prep was utilized per protocol for cutaneous antisepsis. The skin and subcutaneous tissues were infiltrated with local anesthetic solution. Ultrasound was used to villa the position of the liver. 1 mg of Glucagon was administered. The stoma ch was insufflated with room air using. Three percutaneous fasteners were placed to secure the anteri or gastric wall. A small incision was made between the fasteners. The stomach was accessed with an 18 gauge needle. A n 0.035 wire was advanced into the small bowel. The tract was dilated. The gastrojejunostomy tube w as introduced through a peel-away sheath. The position was confirmed with an injection of contrast in both the gastric and jejunal lumens. Conscious sedation was performed with the prescribed dosages and duration as above. The patient marilu ated the procedure well and there were no complications. EKG and oximetry remained stable throughout the procedure. The patient was sent to post anesthesia recovery in stable condition. CONCLUSION: Uncomplicated gastrojejunostomy tube placement as above. Kenny Devine Jr., MD on June 28, 2016 at 17:59 Board Certified Radiologist. This report was verified electronically.
[2016-06-28] MEDS: LEVOFLOXACIN 750 MG PREMIX INJ 150 ML IV SCH (18:20)
[2016-06-29] VITALS (21 sets, daily range): BP systolic 123–179; BP diastolic 60–80; PULSE 80–120; RESP 12–20; TEMP 98–99.1; O2SAT 92–99
[2016-06-29] MEDS: INSULIN NovoLIN REGULAR SUPPLEMENTAL SCALE SQ SCH ×4 (01:59→20:07)
[2016-06-29] MEDS: LORazepam 2 MG/ML VIAL IV PUSH PRN ×2 (02:07→20:03)
[2016-06-29] MEDS: ACETAMINOPHEN/HYDROcodone 325 MG/5 MG TAB PO PRN ×2 (02:08→20:05)
[2016-06-29 03:20] LABS: AUTOMATED NEUTROPHIL # 6.3 TH/MM3 (1.8-7.7); BASOPHIL % 0.1 % (0.0-2.0); HEMATOCRIT 22.6 % (35.0-46.0); HEMO FLAGS DIFF FINAL; LYMPH % 2.7 % (9.0-44.0); LYMPHOCYTE # 0.2 TH/MM3 (1.0-4.8); MEAN CELL VOLUME 85.4 FL (80.0-100.0); MEAN CORPUSCULAR HEMOGLOBIN 27.9 PG (27.0-34.0); MEAN CORPUSCULAR HGB CONC 32.7 % (32.0-36.0); MONO % 2.5 % (0.0-8.0); NEUT % 94.7 % (16.0-70.0); PLATELET COUNT 184 TH/MM3 (150-450); RED BLOOD COUNT 2.64 MIL/MM3 (4.00-5.30); WHITE BLOOD COUNT 6.7 TH/MM3 (4.0-11.0)
[2016-06-29 03:30] LABS: APTT (PATIENT) 52.6 SEC (24.3-30.1)
[2016-06-29 03:35] LABS: BICARBONATE 31.7 MEQ/L (21.0-32.0); POTASSIUM 3.8 MEQ/L (3.5-5.1)
[2016-06-29] MEDS: RESP: ALBUTEROL 2.5 MG/IPRATROPIUM 0.5 MG NEB (SCH) NEB ×4 (03:42→19:57)
[2016-06-29] MEDS: METOCLOPRAMIDE HCL 10 MG/2 ML VIAL IV PUSH SCH ×3 (04:20→20:06)
[2016-06-29] MEDS: methylPREDNISolone SOD SUCC 40 MG/1 ML VIAL IV PUSH SCH ×2 (04:20→17:38)
[2016-06-29] MEDS: CHLORHEXIDINE 0.12% (ORAL KIT) 15 ML CUP MT SCH ×2 (08:00→20:00)
[2016-06-29] MEDS: THEOPHYLLINE PO SCH ×2 (09:00→20:07)
[2016-06-29] MEDS: PANTOPRAZOLE SODIUM 40 MG VIAL IV PUSH SCH ×2 (09:00→20:06)
[2016-06-29] MEDS: BUDESONIDE-FORMOTEROL 80/4.5 MCG INHALER INH SCH ×2 (09:00→20:07)
[2016-06-29] MEDS: CALCIPOTRIENE 0.005% CREAM 60 GM TOPICAL SCH ×2 (09:00→20:09)
[2016-06-29] MEDS: SODIUM CHLORIDE 0.9% FLUSH 5 ML FLUSH FLUSH SCH ×2 (09:00→20:06)
[2016-06-29 09:35] LABS: APTT (PATIENT) 45.4 SEC (24.3-30.1)
[2016-06-29] MEDS: SODIUM CHLOR 0.9% 1000 ML INJ 1,000 ML IV SCH (10:40)
[2016-06-29] MEDS: ONDANSETRON HCL 4 MG/2 ML VIAL IV PUSH PRN (13:34)
--- NOTE | 2016-06-29 15:25 | HHI.CCPN ---
Subjective Remarks/Hospital Course The patient is a 65 year old female with past medical history of chronic obstructive pulmonary disease on home oxygen nocturnally, hypertension, breast cancer, status post chemotherapy and radiation approximately a two years ago. She was admitted to [facility] on June 14, under hospitalist service for any acute hypercapnic respiratory failure and COPD exacerbation. The patient was treated with bronchial bronchodilators and empiric antibiotics. She had multiple arterial blood gases since admission and her last ABG from yesterday afternoon showed pH of 7.33, CO2 59, pAO2 100, bicarb of 30 and saturation of 96% on BiPap 04/11 with 40% FIO2. This morning the patient was in respiratory distress, in addition she was tachypneic, tachycardiac and using her accessory muscles for respirations. She was on a BiPap for a short time without any significant improvements and given her respiratory status, She was subsequently intubated by myself and placed on full mechanical ventilation. 06/12 Patient is on fentanyl infusion for sedation but awake intubated. Afebrile. 06/13 No acute events overnight. Sedated and intubated. Patient tolerated CPAP x 2 hrs yesterday. Afebrile. 06/14 Patient had high peak pressure overnight switched to PRVC/AC mode and Versed drip was added to Fentanyl drip. Tolerating tube feeds. Afebrile. 06/16 no acute events overnight 06/17 EGD performed yesterday with finding of gastric ulcer and duodenal ulcer not actively bleeding 06/18 patient did well on a spontaneous breathing trial yesterday however there was no cuff leak appreciated she will started on Decadron 06/19 extubated yesterday afternoon developed stridor requiring reintubation 06/20 Patient is sedated with Diprivan, Fentanyl and intubated. Afebrile. 06/21 Patient remains sedated and intubated. Did not tolerate CPAP trials yesterday. Afebrile. Now on PRVC/AC RR 18, TV: 450, PEEP: 5, IT:0.8, FIO2 40%. 06/22 No acute events overnight. On Diprivan, fentanyl and Precedex infusion however she is awake. Afebrile. 06/23: Failed weaning trials again today due to tachypnea, and ABG 7.25/64 on 60 MIN SBT. Discussed with daughter and patient at bedside. Both agreeable for tracheostomy. Will plan for tomorrow. 06/24: Remains awake on vent on propofol and fentanyl. plan for trach today. CTA showed LLL, Lingula PE, heparin started yesterday, held today for trach 06/25: Afebrile. CPAP trials begun at 9 AM. Propofol infusion off. Continues on fentanyl infusion at 50 mcgs. Interacting with family. Heparin infusion continues. 06/26: The patient was informed of 's today. With supportive personnel pre-stent family at bedside. IV infusion sedatives all discontinued. Ativan when necessary IV for anxiety/agitation ordered. The patient continues on CPAP trials successfully, plans for piece trials in a.m.. The patient was noted to have emesis and tube feeds have been off with subsequent decreasing urinary output. Reglan has been instituted in scheduled doses. Normal saline at 75 cc an hour instituted while tube feeds are off. 06/27: Afebrile. Tolerating T piece trial 10 minutes today. Was on CPAP prior throughout the a.m. Plan for GJ tube in a.m. No bowel movement 4 days. 06/28: Afebrile. On CPAP trial since this morning. Plan for GJ tube this afternoon with IR. Positive BM. Subjective 06/29: Afebrile. Failed T piece trial after 10 minutes. Continues on CPAP. Coffee-ground emesis noted today. Positive BM. Appears couple. Objective Vital Signs Date Time Temp Pulse Resp B/P Pulse Ox O2 Delivery O2 Flow Rate FiO2 06/29/16 14:00 91 06/29/16 12:35 94 40 06/29/16 12:15 T-piece 5.00 06/29/16 12:00 99.0 14 179/80 Intake and Output 06/28/16 06/28/16 06/29/16 08:00 16:00 00:00 Intake Total 522 ml 780 ml 822 ml Output Total 850 ml 625 ml 850 ml Balance -328 ml 155 ml -28 ml Result Diagram: 06/29/16 0244 06/29/16 0244 Imaging Last Impressions Gastrostomy Tube Placement 06/28/16 0808 Signed Impressions: Service Date/Time: Tuesday, June 28, 2016 15:42 - CONCLUSION: Uncomplicated gastrojejunostomy tube placement as above. Kenny Devine Jr., MD Chest X-Ray 06/27/16 0600 Signed Impressions: Service Date/Time: Monday, June 27, 2016 03:34 - CONCLUSION: Right lower lobe suspected consolidation. Some degree of effusion cannot be excluded on the right. Jesus Enriquez MD Upper Extremity Ultrasound 06/23/16 0000 Signed Impressions: Service Date/Time: June 12:03 - CONCLUSION: 1. Nonocclusive thrombus seen throughout the left cephalic vein. This is a superficial venous structure. 2. No DVT. Kenny Devine Jr., MD CT Angiography 06/23/16 0000 Signed Impressions: Service Date/Time: June 15:42 - CONCLUSION: 1. Acute small volume pulmonary emboli involving the lingula and left lower lobe. 2. Pronounced emphysematous changes. 3. Anasarca. 4. Tiny bilateral pleural effusions. 5. Trace amount of free fluid within the abdomen. Kenny Dveine Jr., MD Abdomen/Pelvis CT 06/23/16 0000 Signed Impressions: Service Date/Time: June 00:41 - CONCLUSION: 1. No evidence of mesenteric ischemia 2. Ascites 3. Nonocclusive pulmonary embolism involving the left lower lobe. CT angiography of the chest could be performed to further evaluate this if clinically indicated. 4. Cholelithiasis 5. Anasarca 6. 3 mm nodule left base. Followup CT scan in 6 months is recommended. To Dailey MD GI Bleed Scan Nuclear Medicine 06/15/16 0000 Signed Impressions: Service Date/Time: Wednesday, June 15, 2016 11:15 - CONCLUSION: Negative for slight gastrointestinal hemorrhage. Gary Cook MD FACR Objective Remarks GENERAL:65 yo female, status post tracheostomy awake and alert and following commands SKIN: Warm and dry. HEAD: Normocephalic. EYES: No scleral icterus. No injection or drainage. NECK: Supple, trachea midline. No JVD or lymphadenopathy. CARDIOVASCULAR: Regular rate and rhythm S1, S2 no S4 without murmur without murmurs, gallops, or rubs. RESPIRATORY: This breath sounds right lower lobe. Positive end expiratory wheeze. GASTROINTESTINAL: Abdomen soft, protuberant non-tender, nondistended. GJ tube is clean dry and intact without bleeding MUSCULOSKELETAL: Swelling of the right upper extremity Neuro: Intubated. Awake alert follows commands A/P Assessment and Plan Neuro/Psych: GCS 11 T. IV infusions discontinued. Xanax 0.125 mg mg every 4 hours when necessary for agitation, [place] 5/325-6 hours when necessary for pain Acetaminophen for fever CV: Hypertension Monitor HR and BP keep MAP>65mmHg Echo showed EF 50-55% At home on lisinopril 5 milligrams by mouth daily. Currently on hold Currently on normal saline at 75 cc an hour Pulm: COPD Vent dependent respiratory failure Left lower lobe PE Left lower lobe pulmonary nodule - 3 mm six-month CT recheck recommended Mechanical ventilator settings On PRVC/AC RR 18, TV: 450, PEEP: 5, IT:0.8, FIO2 40%. Tracheostomy 06/24/16-site without bleeding or drainage CTA 06/23/16 showed LLL, Lingula PE, heparin infusion began 06/23. Plan to transition when appropriate Successful CPAP trials Plan for T piece trials in a.m. Bronchodilators, ICU vent bundle On Solumederol 40mg Q12, Symbicort 80/4.5 twice a day On theophylline 200 twice a day home. This is currently on hold : Monitor renal function, I/O's, electrolytes replacement protocol. GI: Cholelithiasis Sigmoid ulcer Diverticulosis Gastro-Esophageal reflux disease On Protonix 40mg BID On Prilosec 40 mg by mouth daily at home High residuals, tube feeds currently off. Reglan 5 mg 3 times a day GI is following S/P EGD/Colonoscopy (06/16/16)---> Single ulcer, retroflexed views revealed no abnormalities, severe diverticulosis was noted in the sigmoid colon, IV Heparin cleared by GI Dr Mcleod 06/24/16 GJ tub 06/28 without complication ID: Continue with empiric abx (Levaquin until 06/30)monitor for signs of infections ( Fever, WBC) Heme: Normocytic anemia Thrombocytopenia Monitor CBC. H/H stable Endo: SSI (low scale) for glycemic control GI prophylaxis- on Protonix 40mg BID DVT prophylaxis- SCD's, IV Heparin infusion for PE Critical Care: The total care time was 35 minutes. Time to perform other separately billable procedures was not included in the critical care time. Anderson Fabian MD Jun 29, 2016 15:25
[2016-06-29] MEDS: LEVOFLOXACIN 750 MG PREMIX INJ 150 ML IV SCH ×2 (16:36→17:37)
[2016-06-29] MEDS ORDERED: POTASSIUM PHOSPHATE INJ 15 MMOL in SODIUM CHLORIDE 0.9% INJ 150 ML IV ONE (17:00)
--- NOTE | 2016-06-29 17:55 | HHI.PR ---
Subjective Remarks Had PEG tube placed. On vent support . Lethargic , and had coffee ground emesis today FIO2 35 %. O 2 Sats 97. Family at bedside.No fever. Objective Vital Signs Date Time Temp Pulse Resp B/P Pulse Ox O2 Delivery O2 Flow Rate FiO2 06/29/16 16:28 92 40 06/29/16 16:00 45 06/29/16 16:00 91 06/29/16 16:00 99.0 120 14 152/70 95 06/29/16 14:00 91 06/29/16 12:35 94 40 06/29/16 12:15 93 T-piece 5.00 60 06/29/16 12:00 99.0 92 14 179/80 95 06/29/16 12:00 45 06/29/16 12:00 94 06/29/16 11:54 96 40 06/29/16 10:00 94 06/29/16 08:57 95 40 06/29/16 08:55 40 06/29/16 08:00 99.0 92 14 152/73 95 06/29/16 08:00 45 06/29/16 08:00 92 06/29/16 06:00 92 06/29/16 04:11 97 40 06/29/16 04:00 45 06/29/16 04:00 85 06/29/16 04:00 99.0 85 14 127/65 95 06/29/16 02:00 87 06/29/16 01:16 97 40 06/29/16 00:00 98.9 80 12 123/60 96 06/29/16 00:00 80 06/29/16 00:00 45 06/28/16 22:08 96 40 06/28/16 22:00 82 06/28/16 20:00 45 06/28/16 20:00 98.5 85 12 150/64 93 06/28/16 20:00 85 06/28/16 19:47 100 45 06/28/16 18:00 93 I/O 06/28/16 06/28/16 06/28/16 06/29/16 06/29/16 06/29/16 07:00 15:00 23:00 07:00 15:00 23:00 Intake Total 522 ml 780 ml 822 ml 720 ml 720 ml Output Total 850 ml 625 ml 850 ml 400 ml 650 ml Balance -328 ml 155 ml -28 ml 320 ml 70 ml IV Total 522 ml 780 ml 822 ml 610 ml 610 ml Tube Feeding 0 ml 110 ml 110 ml Output Urine Total 850 ml 625 ml 850 ml 400 ml 650 ml # Bowel Movements 2 1 0 1 Result Diagram: 06/29/1624306/29/16243 Objective Remarks GENERAL: This is averagely built elderly white female who is on the vent. She is responsive, assisting the ventilator.Trach in place. HEENT: Head normocephalic. Pupils are reactive and equal. Throat is clear. Nasal mucosa clear. NECK: Supple. No bruits or thyroid enlargement or lymphadenopathy. CHEST: Equal movements with decreased breath sounds. Few wheezes heard HEART: The heart sounds are irregular. S1-S2 with no murmur. No S3 gallop. ABDOMEN: Soft, protuberant, without masses. No organomegaly or tenderness. The bowel sounds are active. EXTREMITIES: Min edema. Peripheral pulses are diminished. There is no calf tenderness or swelling. NEUROLOGIC: She is moving all extremities .alert oriented. RECTAL: Exam is deferred. SKIN: No lesions. Assessment and Plan Assessment and Plan IMPRESSION 1. Vent Dependant respiratory failure. 2. COPD with emphysema, chronic bronchitis. 3. History of hypertension. 4. History of breast cancer with right mastectomy and radiation therapy. 5. GI Bleeding. Plan : 1. Cont Vent and to CPAP 5/10 , and FIO2 35 %. 2. T Bar 40 % upto 2 hrs daily. 3. CBC ,BMP in am 4. Arrange Transfer to LTAC 5. Cont Antibiotics as ordered. 6. Tube feeds at 50 CC. 6. Nebs qid , duoneb. 7. Prednisone 10 mg BID and D/C solumedrol. Darlene Horn MD Jun 29, 2016 17:55
[2016-06-30] VITALS (18 sets, daily range): BP systolic 128–160; BP diastolic 58–78; PULSE 80–99; RESP 14–23; TEMP 98.6–99; O2SAT 91–98
[2016-06-30] MEDS: ACETAMINOPHEN/HYDROcodone 325 MG/5 MG TAB PO PRN (01:06)
[2016-06-30] MEDS: LORazepam 2 MG/ML VIAL IV PUSH PRN (01:06)
[2016-06-30] MEDS: INSULIN NovoLIN REGULAR SUPPLEMENTAL SCALE SQ SCH ×4 (02:08→21:00)
[2016-06-30] MEDS: RESP: ALBUTEROL 2.5 MG/IPRATROPIUM 0.5 MG NEB (SCH) NEB ×4 (03:50→20:34)
[2016-06-30] MEDS: HEPARIN-D5W INJ 250 ML IV SCH (04:03)
[2016-06-30] MEDS: methylPREDNISolone SOD SUCC 40 MG/1 ML VIAL IV PUSH SCH ×2 (04:24→17:16)
[2016-06-30] MEDS: METOCLOPRAMIDE HCL 10 MG/2 ML VIAL IV PUSH SCH ×3 (04:25→21:48)
[2016-06-30 07:15] LABS: AUTOMATED NEUTROPHIL # 7.5 TH/MM3 (1.8-7.7); BASOPHIL % 0.1 % (0.0-2.0); HEMATOCRIT 23.4 % (35.0-46.0); HEMO FLAGS DIFF FINAL; LYMPH % 1.8 % (9.0-44.0); LYMPHOCYTE # 0.1 TH/MM3 (1.0-4.8); MEAN CELL VOLUME 84.5 FL (80.0-100.0); MEAN CORPUSCULAR HEMOGLOBIN 28.2 PG (27.0-34.0); MEAN CORPUSCULAR HGB CONC 33.3 % (32.0-36.0); MONO % 1.8 % (0.0-8.0); NEUT % 96.3 % (16.0-70.0); PLATELET COUNT 195 TH/MM3 (150-450); RED BLOOD COUNT 2.77 MIL/MM3 (4.00-5.30); WHITE BLOOD COUNT 7.8 TH/MM3 (4.0-11.0)
[2016-06-30 07:39] LABS: ALKALINE PHOSPHATASE 54 U/L (45-117); ALT (GPT) 13 U/L (10-53); ANION GAP 5 MEQ/L (5-15); AST (GOT) 9 U/L (15-37); BLOOD UREA NITROGEN 22 MG/DL (7-18); CHLORIDE 105 MEQ/L (98-107); GLOMERULAR FILTRATION RATE 132 ML/MIN (>89); MAGNESIUM 2.1 MG/DL (1.5-2.5); POTASSIUM 3.7 MEQ/L (3.5-5.1); SODIUM (NA) 144 MEQ/L (136-145); TOTAL BILIRUBIN ADULT 0.4 MG/DL (0.2-1.0)
[2016-06-30] MEDS: PANTOPRAZOLE SODIUM 40 MG VIAL IV PUSH SCH ×2 (08:08→21:48)
[2016-06-30] MEDS: SODIUM CHLORIDE 0.9% FLUSH 5 ML FLUSH FLUSH SCH ×2 (08:08→21:09)
[2016-06-30] MEDS: CHLORHEXIDINE 0.12% (ORAL KIT) 15 ML CUP MT SCH ×2 (08:10→21:09)
[2016-06-30] MEDS: BUDESONIDE-FORMOTEROL 80/4.5 MCG INHALER INH SCH ×2 (10:10→21:09)
[2016-06-30] MEDS: CALCIPOTRIENE 0.005% CREAM 60 GM TOPICAL SCH ×2 (10:10→21:00)
--- NOTE | 2016-06-30 13:08 | HHI.PR ---
Subjective Remarks On CPAP and tolerates it. responds to questions. FIO2 45 %. O 2 Sats 97. No fever. Good output. Objective Vital Signs Date Time Temp Pulse Resp B/P Pulse Ox O2 Delivery O2 Flow Rate FiO2 06/30/16 12:57 96 45 06/30/16 12:00 45 06/30/16 08:26 45 06/30/16 08:12 98 50 06/30/16 08:00 45 06/30/16 06:00 83 06/30/16 04:26 97 50 06/30/16 04:00 86 06/30/16 04:00 99.0 86 14 128/58 97 06/30/16 04:00 45 06/30/16 02:00 81 06/30/16 01:12 98 50 06/30/16 00:00 45 06/30/16 00:00 99.0 86 14 141/62 97 06/30/16 00:00 86 06/29/16 22:00 92 06/29/16 20:00 99.1 87 14 148/67 98 06/29/16 20:00 87 06/29/16 20:00 99.1 87 14 140/66 99 06/29/16 20:00 45 06/29/16 20:00 87 06/29/16 20:00 45 06/29/16 19:58 96 50 06/29/16 18:20 98.0 101 20 131/63 98 06/29/16 18:00 91 06/29/16 16:28 92 40 06/29/16 16:00 45 06/29/16 16:00 91 06/29/16 16:00 99.0 120 14 152/70 95 06/29/16 14:00 91 I/O 06/29/16 06/29/16 06/29/16 06/30/16 06/30/16 06/30/16 07:00 15:00 23:00 07:00 15:00 23:00 Intake Total 720 ml 720 ml 912 ml 632 ml Output Total 400 ml 650 ml 600 ml 550 ml Balance 320 ml 70 ml 312 ml 82 ml IV Total 610 ml 610 ml 680 ml 522 ml Tube Feeding 110 ml 110 ml 82 ml 110 ml Packed Cells 150 ml Output Urine Total 400 ml 650 ml 600 ml 550 ml # Bowel Movements 0 1 1 Result Diagram: 06/30/1651623/17 0517 Objective Remarks GENERAL: This is averagely built elderly white female who is on the vent. She is responsive, assisting the ventilator.Trach in place. HEENT: Head normocephalic. Pupils are reactive and equal. Throat is clear. Nasal mucosa clear. NECK: Supple. No bruits or thyroid enlargement or lymphadenopathy. CHEST: Equal movements with decreased breath sounds. Few basal crackles. HEART: The heart sounds are irregular. S1-S2 with no murmur. No S3 gallop. ABDOMEN: Soft, protuberant, without masses. No organomegaly or tenderness. The bowel sounds are active. EXTREMITIES: Min edema. Peripheral pulses are diminished. There is no calf tenderness or swelling. NEUROLOGIC: She is moving all extremities .alert oriented. RECTAL: Exam is deferred. SKIN: No lesions. Assessment and Plan Assessment and Plan IMPRESSION 1. Vent Dependant respiratory failure. 2. COPD with emphysema, chronic bronchitis. 3. History of hypertension. 4. History of breast cancer with right mastectomy and radiation therapy. 5. GI Bleeding. Plan : 1. Cont Vent and to CPAP 5/10 , and FIO2 45 %. 2. T Bar 50 % upto 2 hrs daily. 3. No sedation 4. Arrange Transfer to LTAC 5. Cont Antibiotics as ordered. 6. Tube feeds at 50 CC. 6. Nebs qid , duoneb. 7. Prednisone 10 mg BID and taper. Darlene Horn MD Jun 30, 2016 13:08
--- NOTE | 2016-06-30 15:41 | HHI.CCPN ---
Subjective Remarks/Hospital Course The patient is a 65 year old female with past medical history of chronic obstructive pulmonary disease on home oxygen nocturnally, hypertension, breast cancer, status post chemotherapy and radiation approximately a two years ago. She was admitted to [facility] on June 14, under hospitalist service for any acute hypercapnic respiratory failure and COPD exacerbation. The patient was treated with bronchial bronchodilators and empiric antibiotics. She had multiple arterial blood gases since admission and her last ABG from yesterday afternoon showed pH of 7.33, CO2 59, pAO2 100, bicarb of 30 and saturation of 96% on BiPap 04/11 with 40% FIO2. This morning the patient was in respiratory distress, in addition she was tachypneic, tachycardiac and using her accessory muscles for respirations. She was on a BiPap for a short time without any significant improvements and given her respiratory status, She was subsequently intubated by myself and placed on full mechanical ventilation. 06/12 Patient is on fentanyl infusion for sedation but awake intubated. Afebrile. 06/13 No acute events overnight. Sedated and intubated. Patient tolerated CPAP x 2 hrs yesterday. Afebrile. 06/14 Patient had high peak pressure overnight switched to PRVC/AC mode and Versed drip was added to Fentanyl drip. Tolerating tube feeds. Afebrile. 06/16 no acute events overnight 06/17 EGD performed yesterday with finding of gastric ulcer and duodenal ulcer not actively bleeding 06/18 patient did well on a spontaneous breathing trial yesterday however there was no cuff leak appreciated she will started on Decadron 06/19 extubated yesterday afternoon developed stridor requiring reintubation 06/20 Patient is sedated with Diprivan, Fentanyl and intubated. Afebrile. 06/21 Patient remains sedated and intubated. Did not tolerate CPAP trials yesterday. Afebrile. Now on PRVC/AC RR 18, TV: 450, PEEP: 5, IT:0.8, FIO2 40%. 06/22 No acute events overnight. On Diprivan, fentanyl and Precedex infusion however she is awake. Afebrile. 06/23: Failed weaning trials again today due to tachypnea, and ABG 7.25/64 on 60 MIN SBT. Discussed with daughter and patient at bedside. Both agreeable for tracheostomy. Will plan for tomorrow. 06/24: Remains awake on vent on propofol and fentanyl. plan for trach today. CTA showed LLL, Lingula PE, heparin started yesterday, held today for trach 06/25: Afebrile. CPAP trials begun at 9 AM. Propofol infusion off. Continues on fentanyl infusion at 50 mcgs. Interacting with family. Heparin infusion continues. 06/26: The patient was informed of 's today. With supportive personnel pre-stent family at bedside. IV infusion sedatives all discontinued. Ativan when necessary IV for anxiety/agitation ordered. The patient continues on CPAP trials successfully, plans for piece trials in a.m.. The patient was noted to have emesis and tube feeds have been off with subsequent decreasing urinary output. Reglan has been instituted in scheduled doses. Normal saline at 75 cc an hour instituted while tube feeds are off. 06/27: Afebrile. Tolerating T piece trial 10 minutes today. Was on CPAP prior throughout the a.m. Plan for GJ tube in a.m. No bowel movement 4 days. 06/28: Afebrile. On CPAP trial since this morning. Plan for GJ tube this afternoon with IR. Positive BM. 06/29: Afebrile. Failed T piece trial after 10 minutes. Continues on CPAP. Coffee-ground emesis noted today. Positive BM. Appears comfortable Subjective 06/30: Afebrile. Continues on CPAP. Carol tube feeds. Positive BM. Ecchymosis L arm noted. Objective Vital Signs Date Time Temp Pulse Resp B/P Pulse Ox O2 Delivery O2 Flow Rate FiO2 06/30/16 15:23 91 45 06/30/16 06:00 83 06/30/16 04:00 99.0 14 128/58 06/29/16 12:15 T-piece 5.00 Intake and Output 06/29/16 06/29/16 06/30/16 08:00 16:00 00:00 Intake Total 720 ml 720 ml 912 ml Output Total 400 ml 650 ml 600 ml Balance 320 ml 70 ml 312 ml Result Diagram: 06/30/1651606/30/16 05 Imaging Last 72 hours Impressions Gastrostomy Tube Placement 06/28/16 0808 Signed Impressions: Service Date/Time: [place], June 28, 2016 15:42 - CONCLUSION: Uncomplicated gastrojejunostomy tube placement as above. Kenny Devine Jr., MD Objective Remarks GENERAL:65 yo female, status post tracheostomy awake and alert and following commands SKIN: Warm and dry. L arm ecchymosis HEAD: Normocephalic. EYES: No scleral icterus. No injection or drainage. NECK: Supple, trachea midline. No JVD or lymphadenopathy. CARDIOVASCULAR: Regular rate and rhythm S1, S2 no S4 without murmur without murmurs, gallops, or rubs. RESPIRATORY: This breath sounds right lower lobe. Positive end expiratory wheeze. GASTROINTESTINAL: Abdomen soft, protuberant non-tender, nondistended. GJ tube is clean dry and intact without bleeding MUSCULOSKELETAL: Swelling of the right upper extremity Neuro: Intubated. Awake alert follows commands Urinary Catheter: Yes Assessment to: Continue Espinosa insert reason: Prolonged Immobilization Vascular Central Line Catheter: No Assessment to: Continue A/P Assessment and Plan Neuro/Psych: Xanax 0.125 mg mg every 4 hours when necessary for agitation, [place] 5/325-6 hours when necessary for pain Acetaminophen for fever CV: Hypertension Monitor HR and BP keep MAP>65mmHg Echo showed EF 50-55% At home on lisinopril 5 milligrams by mouth daily. Currently on hold Currently on normal saline at 75 cc an hour. This be discontinued Pulm: COPD Vent dependent respiratory failure Left lower lobe PE Left lower lobe pulmonary nodule - 3 mm six-month CT recheck recommended Mechanical ventilator settings On PRVC/AC RR 18, TV: 450, PEEP: 5, IT:0.8, FIO2 40%. Tracheostomy 06/24/16-site without bleeding or drainage CTA 06/23/16 showed LLL, Lingula PE, heparin infusion began 06/23. Plan to transition when appropriate Successful CPAP trials Plan for reattempt T piece trials in a.m. Bronchodilators, ICU vent bundle On Solumedrol 40mg Q12, Symbicort 80/4.5 twice a day On theophylline 200 twice a day home. Check level in a.m. : Monitor renal function, I/O's, electrolytes replacement protocol. GI: Cholelithiasis Sigmoid ulcer Diverticulosis Gastro-Esophageal reflux disease On Protonix 40mg BID On Prilosec 40 mg by mouth daily at home Tube feeds with Glucerna 1.5 at 45 cc an hour. Reglan 5 mg 3 times a day GI motility GI is following S/P EGD/Colonoscopy (06/16/16)---> Single ulcer, retroflexed views revealed no abnormalities, severe diverticulosis was noted in the sigmoid colon, IV Heparin cleared by GI Dr Mcleod 06/24/16 GJ tube 06/28 without complication ID: Continue with empiric abx (Levaquin until 06/30)monitor for signs of infections ( Fever, WBC) Heme: Normocytic anemia Thrombocytopenia Monitor CBC. Transfuse 1 unit PRBCs yesterday. Hold hep gtt until AM due to ecchymotic L arm Endo: SSI (low scale) for glycemic control GI prophylaxis- on Protonix 40mg BID DVT prophylaxis- SCD's, IV Heparin infusion for PE onhold until 07/01 AM Critical Care: The total care time was 35 minutes. Time to perform other separately billable procedures was not included in the critical care time. Anderson Fabian MD Jun 30, 2016 15:41
[2016-06-30] MEDS ORDERED: SODIUM PHOSPHATE INJ 15 MMOL in SODIUM CHLORIDE 0.9% INJ 150 ML IV ONE (17:00)
[2016-06-30] MEDS: THEOPHYLLINE PO SCH (21:00)
[2016-07-01] VITALS (8 sets, daily range): BP systolic 117–162; BP diastolic 59–66; PULSE 81–89; RESP 10–11; TEMP 99.4–99.5; O2SAT 96–97
[2016-07-01] MEDS: ACETAMINOPHEN 325 MG TAB PO PRN (00:14)
[2016-07-01] MEDS: INSULIN NovoLIN REGULAR SUPPLEMENTAL SCALE SQ SCH ×2 (03:00→09:00)
[2016-07-01] MEDS: RESP: ALBUTEROL 2.5 MG/IPRATROPIUM 0.5 MG NEB (SCH) NEB ×2 (03:43→09:21)
[2016-07-01] MEDS: methylPREDNISolone SOD SUCC 40 MG/1 ML VIAL IV PUSH SCH (05:55)
[2016-07-01] MEDS: METOCLOPRAMIDE HCL 10 MG/2 ML VIAL IV PUSH SCH (05:55)
[2016-07-01 06:56] LABS: AUTOMATED NEUTROPHIL # 6.7 TH/MM3 (1.8-7.7); BASOPHIL % 0.2 % (0.0-2.0); EOSINOPHIL # 0.1 TH/MM3 (0-0.4); EOSINOPHIL % 0.8 % (0.0-4.0); HEMATOCRIT 24.9 % (35.0-46.0); HEMO FLAGS DIFF FINAL; LYMPHOCYTE # 0.3 TH/MM3 (1.0-4.8); MEAN CELL VOLUME 85.8 FL (80.0-100.0); MEAN CORPUSCULAR HGB CONC 32.7 % (32.0-36.0); MONO % 5.3 % (0.0-8.0); NEUT % 89.7 % (16.0-70.0); PLATELET COUNT 191 TH/MM3 (150-450); RED BLOOD COUNT 2.91 MIL/MM3 (4.00-5.30); RED CELL DISTRIBUTION WIDTH 15.2 % (11.6-17.2); WHITE BLOOD COUNT 7.5 TH/MM3 (4.0-11.0)
[2016-07-01 07:40] LABS: ANION GAP 4 MEQ/L (5-15); BICARBONATE 36.2 MEQ/L (21.0-32.0); BLOOD UREA NITROGEN 18 MG/DL (7-18); CHLORIDE 105 MEQ/L (98-107); GLOMERULAR FILTRATION RATE 155 ML/MIN (>89); MAGNESIUM 2.1 MG/DL (1.5-2.5); POTASSIUM 3.5 MEQ/L (3.5-5.1); SODIUM (NA) 145 MEQ/L (136-145); THEOPHYLLINE LESS THAN 2.0 MCG/ML (10.0-20.0)
--- NOTE | 2016-07-01 08:20 | HHI.CCPN ---
Subjective Remarks/Hospital Course The patient is a 65 year old female with past medical history of chronic obstructive pulmonary disease on home oxygen nocturnally, hypertension, breast cancer, status post chemotherapy and radiation approximately a two years ago. She was admitted to [facility] on June 14, under hospitalist service for any acute hypercapnic respiratory failure and COPD exacerbation. The patient was treated with bronchial bronchodilators and empiric antibiotics. She had multiple arterial blood gases since admission and her last ABG from yesterday afternoon showed pH of 7.33, CO2 59, pAO2 100, bicarb of 30 and saturation of 96% on BiPap 04/11 with 40% FIO2. This morning the patient was in respiratory distress, in addition she was tachypneic, tachycardiac and using her accessory muscles for respirations. She was on a BiPap for a short time without any significant improvements and given her respiratory status, She was subsequently intubated by myself and placed on full mechanical ventilation. 06/12 Patient is on fentanyl infusion for sedation but awake intubated. Afebrile. 06/13 No acute events overnight. Sedated and intubated. Patient tolerated CPAP x 2 hrs yesterday. Afebrile. 06/14 Patient had high peak pressure overnight switched to PRVC/AC mode and Versed drip was added to Fentanyl drip. Tolerating tube feeds. Afebrile. 06/16 no acute events overnight 06/17 EGD performed yesterday with finding of gastric ulcer and duodenal ulcer not actively bleeding 06/18 patient did well on a spontaneous breathing trial yesterday however there was no cuff leak appreciated she will started on Decadron 06/19 extubated yesterday afternoon developed stridor requiring reintubation 06/20 Patient is sedated with Diprivan, Fentanyl and intubated. Afebrile. 06/21 Patient remains sedated and intubated. Did not tolerate CPAP trials yesterday. Afebrile. Now on PRVC/AC RR 18, TV: 450, PEEP: 5, IT:0.8, FIO2 40%. 06/22 No acute events overnight. On Diprivan, fentanyl and Precedex infusion however she is awake. Afebrile. 06/23: Failed weaning trials again today due to tachypnea, and ABG 7.25/64 on 60 MIN SBT. Discussed with daughter and patient at bedside. Both agreeable for tracheostomy. Will plan for tomorrow. 06/24: Remains awake on vent on propofol and fentanyl. plan for trach today. CTA showed LLL, Lingula PE, heparin started yesterday, held today for trach 06/25: Afebrile. CPAP trials begun at 9 AM. Propofol infusion off. Continues on fentanyl infusion at 50 mcgs. Interacting with family. Heparin infusion continues. 06/26: The patient was informed of 's today. With supportive personnel pre-stent family at bedside. IV infusion sedatives all discontinued. Ativan when necessary IV for anxiety/agitation ordered. The patient continues on CPAP trials successfully, plans for piece trials in a.m.. The patient was noted to have emesis and tube feeds have been off with subsequent decreasing urinary output. Reglan has been instituted in scheduled doses. Normal saline at 75 cc an hour instituted while tube feeds are off. 06/27: Afebrile. Tolerating T piece trial 10 minutes today. Was on CPAP prior throughout the a.m. Plan for GJ tube in a.m. No bowel movement 4 days. 06/28: Afebrile. On CPAP trial since this morning. Plan for GJ tube this afternoon with IR. Positive BM. 06/29: Afebrile. Failed T piece trial after 10 minutes. Continues on CPAP. Coffee-ground emesis noted today. Positive BM. Appears comfortable 06/30: Afebrile. Continues on CPAP. Carol tube feeds. Positive BM. Ecchymosis L arm noted. Subjective 07/01: Afebrile. Currently on ACV ventilation. Tolerating tube feeds. Hemoglobin remained stable. Objective Vital Signs Date Time Temp Pulse Resp B/P Pulse Ox O2 Delivery O2 Flow Rate FiO2 07/01/16 07:45 97 45 07/01/16 06:00 81 07/01/16 04:00 99.4 10 117/59 06/29/16 12:15 T-piece 5.00 Intake and Output 06/30/16 06/30/16 07/01/16 08:00 16:00 00:00 Intake Total 632 ml 875 ml 494 ml Output Total 550 ml 450 ml 300.0 ml Balance 82 ml 425 ml 194.0 ml Result Diagram: 07/01/16 0555 07/01/16 0555 Objective Remarks GENERAL:65 yo female, status post tracheostomy awake and alert and following commands SKIN: Warm and dry. L arm ecchymosis HEAD: Normocephalic. EYES: No scleral icterus. No injection or drainage. NECK: Supple, trachea midline. No JVD or lymphadenopathy. Tracheostomy clean dry and intact CARDIOVASCULAR: Regular rate and rhythm S1, S2 no S4 without murmur without murmurs, gallops, or rubs. RESPIRATORY: This breath sounds right lower lobe. Positive end expiratory wheeze. GASTROINTESTINAL: Abdomen soft, protuberant non-tender, nondistended. GJ tube is clean dry and intact without bleeding MUSCULOSKELETAL: Swelling of the right upper extremity Neuro: Awake alert follows commands Urinary Catheter: Yes Assessment to: Continue Espinosa insert reason: Prolonged Immobilization Vascular Central Line Catheter: No Assessment to: Continue A/P Assessment and Plan Neuro/Psych: Xanax 0.125 mg mg every 4 hours when necessary for agitation, [place] 5/325-6 hours when necessary for pain Acetaminophen for fever CV: Hypertension Monitor HR and BP keep MAP>65mmHg Echo showed EF 50-55% At home on lisinopril 5 milligrams by mouth daily. Currently on hold Pulm: COPD Vent dependent respiratory failure Left lower lobe PE Left lower lobe pulmonary nodule - 3 mm six-month CT recheck recommended Mechanical ventilator settings On PRVC/AC RR 16, TV: 450, PEEP: 5, IT:0.8, FIO2 40%. Tracheostomy 06/24/16-site without bleeding or drainage CTA 06/23/16 showed LLL, Lingula PE, heparin infusion began 06/23. Plan to transition when appropriate Successful CPAP trials Plan for reattempt T piece trials in a.m. Bronchodilators, ICU vent bundle On Solumedrol 40mg Q12, Symbicort 80/4.5 twice a day On theophylline 200 twice a day home. Check level in a.m. : Monitor renal function, I/O's, electrolytes replacement protocol. GI: Cholelithiasis Sigmoid ulcer Diverticulosis Gastro-Esophageal reflux disease On Protonix 40mg BID On Prilosec 40 mg by mouth daily at home Tube feeds with Glucerna 1.5 at 45 cc an hour. Reglan 5 mg 3 times a day GI motility GI is following S/P EGD/Colonoscopy (06/16/16)---> Single ulcer, retroflexed views revealed no abnormalities, severe diverticulosis was noted in the sigmoid colon, IV Heparin cleared by GI Dr Mcleod 06/24/16 GJ tube 06/28 without complication ID: Continue with empiric abx (Levaquin until 06/30)monitor for signs of infections ( Fever, WBC) Heme: Normocytic anemia Thrombocytopenia Monitor CBC. Transfuse 1 unit PRBCs yesterday. Hold hep gtt to be resumed today ecchymotic L arm Endo: SSI (low scale) for glycemic control GI prophylaxis- on Protonix 40mg BID DVT prophylaxis- SCD's, IV Heparin infusion for PE on hold until 07/01 AM Critical Care: The total care time was 35 minutes. Time to perform other separately billable procedures was not included in the critical care time. Anderson Fabian MD Jul 01, 2016 08:20
[2016-07-01] MEDS ORDERED: CALC.005%T TOPICAL (08:25)
[2016-07-01] MEDS ORDERED: PANT40P IV PUSH (08:25)
[2016-07-01] MEDS ORDERED: ACET325T PO (08:25)
[2016-07-01] MEDS ORDERED: ALPR.25 PO (08:25)
[2016-07-01] MEDS ORDERED: IPRASOL NEB (08:25)
[2016-07-01] MEDS ORDERED: SOLU40IN IV PUSH (08:25)
--- NOTE | 2016-07-01 08:27 | HHI.DS ---
Discharge Summary Admission Date Jun 09, 2016 at 03:57 Admitting Diagnosis respiratory distress, acute COPD exacerbation, hypoxia, pneumonia (1) Pneumonia ICD Code: J18.9 (2) Hypoxia ICD Code: R09.02 Diagnosis: Principal (3) Respiratory distress ICD Code: R06.00 Diagnosis: Principal Procedures GJ tube placed 06/28 by IR Percutaneous tracheostomy 06/[address] Lee Brief History History from patient, her at the bedside, ER physician communication, and review of medical records. Patient reported that she came to the hospital because she has been short of breath for the past 2 days. Denies fever. Reports of cough productive of yellowish sputum. Denies any chest pain/palpitations/dizziness/focal weakness. Denies seeing any blood in her stool or urine. Denies abdominal pains. Patient took multiple rounds of nebulizer treatments at home and did not improve much therefore called 911. As per ER report, patient also did receive about 6 rounds of nebulizer treatments between ambulance personnel and ER treatment. She was however not doing well and her saturation was not picking up and therefore she was placed on BiPAP. The time of my exam, patient is awake, alert, oriented. She is on BiPAP. FiO2 of 90%, saturating 96%. After the BiPAP placement, patient also became hypotensive with systolic in the 70s and diastolic as low as 40s and 50s. However patient is awake alert and asymptomatic. Not tachycardic. She was given IV fluids bolus total 2 L. After that treatment, patient's blood pressure did pecan picker to about 110/70. CBC/BMP: 07/01/16 0555 07/01/16 0555 Significant Findings Laboratory Tests Test 06/29/16 06/29/16 06/29/16 06/30/16 02:44 08:40 09:52 00:50 Red Blood Count 2.64 MIL/MM3 (4.00-5.30) Hemoglobin 7.4 GM/DL 7.4 GM/DL (11.6-15.3) (11.6-15.3) Hematocrit 22.6 % (35.0-46.0) Neutrophils (%) (Auto) 94.7 % (16.0-70.0) Lymphocytes (%) (Auto) 2.7 % (9.0-44.0) Lymphocytes # (Auto) 0.2 TH/MM3 (1.0-4.8) Activated Partial 52.6 SEC 45.4 SEC Thromboplast Time (24.3-30.1) (24.3-30.1) Sodium Level 146 MEQ/L (136-145) Chloride Level 108 MEQ/L (98-107) Blood Urea Nitrogen 22 MG/DL (7-18) Creatinine 0.46 MG/DL (0.50-1.00) Calcium Level 7.5 MG/DL (8.5-10.1) Phosphorus Level 2.1 MG/DL 1.8 MG/DL (2.5-4.9) (2.5-4.9) Test 06/30/16 07/01/16 05:17 05:55 Red Blood Count 2.77 MIL/MM3 2.91 MIL/MM3 (4.00-5.30) (4.00-5.30) Hemoglobin 7.8 GM/DL 8.1 GM/DL (11.6-15.3) (11.6-15.3) Hematocrit 23.4 % 24.9 % (35.0-46.0) (35.0-46.0) Neutrophils (%) (Auto) 96.3 % 89.7 % (16.0-70.0) (16.0-70.0) Lymphocytes (%) (Auto) 1.8 % 4.0 % (9.0-44.0) (9.0-44.0) Lymphocytes # (Auto) 0.1 TH/MM3 0.3 TH/MM3 (1.0-4.8) (1.0-4.8) Activated Partial 44.0 SEC Thromboplast Time (24.3-30.1) Carbon Dioxide Level 34.0 MEQ/L 36.2 MEQ/L (21.0-32.0) (21.0-32.0) Blood Urea Nitrogen 22 MG/DL (7-18) Creatinine 0.47 MG/DL 0.41 MG/DL (0.50-1.00) (0.50-1.00) Random Glucose 117 MG/DL (74-106) Calcium Level 7.5 MG/DL 7.4 MG/DL (8.5-10.1) (8.5-10.1) Phosphorus Level 2.4 MG/DL 2.1 MG/DL (2.5-4.9) (2.5-4.9) Aspartate Amino Transf 9 U/L (15-37) (AST/SGOT) Total Protein 4.4 GM/DL 4.4 GM/DL (6.4-8.2) (6.4-8.2) Albumin 1.8 GM/DL (3.4-5.0) Anion Gap 4 MEQ/L (5-15) Theophylline Level LESS THAN 2.0 MCG/ML (10.0-20.0) Imaging Last Impressions Gastrostomy Tube Placement 06/28/16 0808 Signed Impressions: Service Date/Time: Tuesday, June 28, 2016 15:42 - CONCLUSION: Uncomplicated gastrojejunostomy tube placement as above. Kenny Devine Jr., MD Chest X-Ray 06/27/16 0600 Signed Impressions: Service Date/Time: Monday, June 27, 2016 03:34 - CONCLUSION: Right lower lobe suspected consolidation. Some degree of effusion cannot be excluded on the right. Jesus Enriquez MD Upper Extremity Ultrasound 06/23/16 0000 Signed Impressions: Service Date/Time: June 12:03 - CONCLUSION: 1. Nonocclusive thrombus seen throughout the left cephalic vein. This is a superficial venous structure. 2. No DVT. Kenny Devine Jr., MD CT Angiography 06/23/16 0000 Signed Impressions: Service Date/Time: June 15:42 - CONCLUSION: 1. Acute small volume pulmonary emboli involving the lingula and left lower lobe. 2. Pronounced emphysematous changes. 3. Anasarca. 4. Tiny bilateral pleural effusions. 5. Trace amount of free fluid within the abdomen. Kenny Devine Jr., MD Abdomen/Pelvis CT 06/23/16 0000 Signed Impressions: Service Date/Time: June 00:41 - CONCLUSION: 1. No evidence of mesenteric ischemia 2. Ascites 3. Nonocclusive pulmonary embolism involving the left lower lobe. CT angiography of the chest could be performed to further evaluate this if clinically indicated. 4. Cholelithiasis 5. Anasarca 6. 3 mm nodule left base. Followup CT scan in 6 months is recommended. To Dailey MD GI Bleed Scan Nuclear Medicine 06/15/16 0000 Signed Impressions: Service Date/Time: Wednesday, June 15, 2016 11:15 - CONCLUSION: Negative for slight gastrointestinal hemorrhage. Gary Cook MD FACR PE at Discharge GENERAL: 68 female, currently on ventilator via tracheostomy SKIN: Left upper extremity ecchymosis HEAD: Atraumatic. Normocephalic. No temporal or scalp tenderness. NECK: Trachea midline. No JVD. Trach as been clean dry and intact CARDIOVASCULAR: Regular rate and rhythm without murmurs, gallops, or rubs. RESPIRATORY: Essentially clear to auscultation without wheezing GASTROINTESTINAL: Abdomen soft, non-tender, nondistended. No guarding. GJ tube is clean dry and intact MUSCULOSKELETAL: Extremities without clubbing, cyanosis, or edema. No calf tenderness. NEUROLOGICAL: Awake and alert. Transfer Summary Neuro/Psych: Xanax 0.125 mg mg every 4 hours when necessary for agitation, [place] 5/325-6 hours when necessary for pain Acetaminophen for fever CV: Hypertension Monitor HR and BP keep MAP>65mmHg Echo showed EF 50-55% At home on lisinopril 5 milligrams by mouth daily. Currently on hold Pulm: COPD Vent dependent respiratory failure Left lower lobe PE Left lower lobe pulmonary nodule - 3 mm six-month CT recheck recommended Mechanical ventilator settings On PRVC/AC RR 16, TV: 450, PEEP: 5, IT:0.8, FIO2 40%. Tracheostomy 06/24/16-site without bleeding or drainage CTA 06/23/16 showed LLL, Lingula PE, heparin infusion began 06/23. Plan to transition when appropriate Successful CPAP trials Plan for reattempt T piece trials in a.m. Bronchodilators, ICU vent bundle On Solumedrol 40mg Q12, Symbicort 80/4.5 twice a day On theophylline 200 twice a day home. Check level in a.m. : Monitor renal function, I/O's, electrolytes replacement protocol. GI: Cholelithiasis Sigmoid ulcer Diverticulosis Gastro-Esophageal reflux disease On Protonix 40mg BID On Prilosec 40 mg by mouth daily at home Tube feeds with Glucerna 1.5 at 45 cc an hour. Reglan 5 mg 3 times a day GI motility GI is following S/P EGD/Colonoscopy (06/16/16)---> Single ulcer, retroflexed views revealed no abnormalities, severe diverticulosis was noted in the sigmoid colon, IV Heparin cleared by GI Dr Mcleod 06/24/16 GJ tube 06/28 without complication ID: Continue with empiric abx (Levaquin until 06/30)monitor for signs of infections ( Fever, WBC) Heme: Normocytic anemia Thrombocytopenia Monitor CBC. Transfuse 1 unit PRBCs yesterday. Hold hep gtt to be resumed today ecchymotic L arm Endo: SSI (low scale) for glycemic control GI prophylaxis- on Protonix 40mg BID DVT prophylaxis- SCD's, IV Heparin infusion for PE on hold until 07/01 AM Hospital Course The patient is a 65 year old female with past medical history of chronic obstructive pulmonary disease on home oxygen nocturnally, hypertension, breast cancer, status post chemotherapy and radiation approximately a two years ago. She was admitted to [facility] on June 14, under hospitalist service for any acute hypercapnic respiratory failure and COPD exacerbation. The patient was treated with bronchial bronchodilators and empiric antibiotics. She had multiple arterial blood gases since admission and her last ABG from yesterday afternoon showed pH of 7.33, CO2 59, pAO2 100, bicarb of 30 and saturation of 96% on BiPap 04/11 with 40% FIO2. This morning the patient was in respiratory distress, in addition she was tachypneic, tachycardiac and using her accessory muscles for respirations. She was on a BiPap for a short time without any significant improvements and given her respiratory status, She was subsequently intubated by myself and placed on full mechanical ventilation. 06/12 Patient is on fentanyl infusion for sedation but awake intubated. Afebrile. 06/13 No acute events overnight. Sedated and intubated. Patient tolerated CPAP x 2 hrs yesterday. Afebrile. 06/14 Patient had high peak pressure overnight switched to PRVC/AC mode and Versed drip was added to Fentanyl drip. Tolerating tube feeds. Afebrile. 06/16 no acute events overnight 06/17 EGD performed yesterday with finding of gastric ulcer and duodenal ulcer not actively bleeding 06/18 patient did well on a spontaneous breathing trial yesterday however there was no cuff leak appreciated she will started on Decadron 06/19 extubated yesterday afternoon developed stridor requiring reintubation 06/20 Patient is sedated with Diprivan, Fentanyl and intubated. Afebrile. 06/21 Patient remains sedated and intubated. Did not tolerate CPAP trials yesterday. Afebrile. Now on PRVC/AC RR 18, TV: 450, PEEP: 5, IT:0.8, FIO2 40%. 06/22 No acute events overnight. On Diprivan, fentanyl and Precedex infusion however she is awake. Afebrile. 06/23: Failed weaning trials again today due to tachypnea, and ABG 7.25/64 on 60 MIN SBT. Discussed with daughter and patient at bedside. Both agreeable for tracheostomy. Will plan for tomorrow. 06/24: Remains awake on vent on propofol and fentanyl. plan for trach today. CTA showed LLL, Lingula PE, heparin started yesterday, held today for trach 06/25: Afebrile. CPAP trials begun at 9 AM. Propofol infusion off. Continues on fentanyl infusion at 50 mcgs. Interacting with family. Heparin infusion continues. 06/26: The patient was informed of 's today. With supportive personnel pre-stent family at bedside. IV infusion sedatives all discontinued. Ativan when necessary IV for anxiety/agitation ordered. The patient continues on CPAP trials successfully, plans for piece trials in a.m.. The patient was noted to have emesis and tube feeds have been off with subsequent decreasing urinary output. Reglan has been instituted in scheduled doses. Normal saline at 75 cc an hour instituted while tube feeds are off. 06/27: Afebrile. Tolerating T piece trial 10 minutes today. Was on CPAP prior throughout the a.m. Plan for GJ tube in a.m. No bowel movement 4 days. 06/28: Afebrile. On CPAP trial since this morning. Plan for GJ tube this afternoon with IR. Positive BM. 06/29: Afebrile. Failed T piece trial after 10 minutes. Continues on CPAP. Coffee-ground emesis noted today. Positive BM. Appears comfortable 06/30: Afebrile. Continues on CPAP. Carol tube feeds. Positive BM. Ecchymosis L arm noted. 07/01: Afebrile. Currently on ACV ventilation. Tolerating tube feeds. Hemoglobin remained stable. Pt Condition on Discharge: Good Discharge Disposition: Disch to Another Hospital Discharge Instructions DIET: Follow Instructions for: On Tube Feeding Activities you can perform: Weight Bearing as Anderson Stover MD Jul 01, 2016 08:27
[2016-07-01] MEDS: CALCIPOTRIENE 0.005% CREAM 60 GM TOPICAL SCH (09:00)
[2016-07-01] MEDS ORDERED: POTASSIUM PHOSPHATE INJ 30 MMOL in SODIUM CHLOR 0.9% 250 ML INJ 250 ML IV ONE (09:00)
[2016-07-01] MEDS: SODIUM CHLORIDE 0.9% FLUSH 5 ML FLUSH FLUSH SCH (09:07)
[2016-07-01] MEDS: BUDESONIDE-FORMOTEROL 80/4.5 MCG INHALER INH SCH (09:07)
[2016-07-01] MEDS: PANTOPRAZOLE SODIUM 40 MG VIAL IV PUSH SCH (09:07)
[2016-07-01] MEDS: CHLORHEXIDINE 0.12% (ORAL KIT) 15 ML CUP MT SCH (09:07)
[2016-07-20] MEDS ORDERED: PRED10 PO (13:20)
[2016-07-20] MEDS ORDERED: CHLO.12%30 SWISH-SPIT (13:20)
[2016-07-20] MEDS ORDERED: ESCI5TAB PO (13:20)
[2016-07-20] MEDS ORDERED: FAMO20TA2 PO (13:20)
[2016-07-20] MEDS ORDERED: HYDR-3516 PO (13:20)
[2016-07-20] MEDS ORDERED: THEO200T9 PO (13:20)
[2016-07-20] MEDS ORDERED: TRAZ50TA12 PO (13:20)
[2016-07-20] MEDS ORDERED: GENTAMICIN SULFATE TOPICAL (13:20)
[2016-07-20] MEDS ORDERED: MIRA33504 PO (13:20)
[2016-07-26] MEDS ORDERED: FAMO40TA PO (13:07)
[2016-07-26] MEDS ORDERED: PRAD150C PO (13:07)
[2016-07-29] MEDS ORDERED: COUM5TAB PO (10:45)
[2016-07-29] MEDS ORDERED: ESCI5TAB PO (10:45)
[2016-07-29] MEDS ORDERED: VENTAER INH (10:45)
[2016-07-29] MEDS ORDERED: TRAZ50TA12 PO (10:45)
[2016-07-29] MEDS ORDERED: IPRASOL NEB (10:45)
[2016-07-29] MEDS ORDERED: THERTAB15 PO (10:45)
[2016-07-29] MEDS ORDERED: FAMO40TA PO (10:45)
[2016-07-29] MEDS ORDERED: THEO200T4 PO (10:45)
[2016-07-29] MEDS ORDERED: ENOX80P SQ (11:51)
[2016-07-30] MEDS ORDERED: ZINC40OI TOP (09:33)
[2016-07-30] MEDS ORDERED: COUM7.5T PO (10:30)
== END 2016-07-01 10:00 | DRG 4 ==
LOC: NEPC 02:05 → NEDA 03:57 → NEDH 08:19 → HIMW 11:30
PROVIDERS: ADMIT Internal Medicine Critical Care Medicine; ATTEND Internal Medicine Critical Care Medicine
PROC: 5A09457 Assistance with Respiratory Ventilation, 24-96 Consecutive Hours, Continuous Positive Airway Pressure (ICD-10-PCS; 2016-06-09)
PROC: 5A1955Z Respiratory Ventilation, Greater than 96 Consecutive Hours (ICD-10-PCS; principal; 2016-06-11)
PROC: 0BH17EZ Insertion of Endotracheal Airway into Trachea, Via Natural or Artificial Opening (ICD-10-PCS; 2016-06-11)
PROC: 30233N1 Transfusion of Nonautologous Red Blood Cells into Peripheral Vein, Percutaneous Approach (ICD-10-PCS; 2016-06-14)
PROC: 0DBN8ZX Excision of Sigmoid Colon, Via Natural or Artificial Opening Endoscopic, Diagnostic (ICD-10-PCS; 2016-06-16)
PROC: 0DBL8ZX Excision of Transverse Colon, Via Natural or Artificial Opening Endoscopic, Diagnostic (ICD-10-PCS; 2016-06-16)
PROC: 0DBN8ZX Excision of Sigmoid Colon, Via Natural or Artificial Opening Endoscopic, Diagnostic (ICD-10-PCS; 2016-06-16)
PROC: 0DJ08ZZ Inspection of Upper Intestinal Tract, Via Natural or Artificial Opening Endoscopic (ICD-10-PCS; 2016-06-16)
PROC: 0BH17EZ Insertion of Endotracheal Airway into Trachea, Via Natural or Artificial Opening (ICD-10-PCS; 2016-06-18)
PROC: 5A1955Z Respiratory Ventilation, Greater than 96 Consecutive Hours (ICD-10-PCS; 2016-06-18)
PROC: 0B113F4 Bypass Trachea to Cutaneous with Tracheostomy Device, Percutaneous Approach (ICD-10-PCS; 2016-06-24)
PROC: 0BJ08ZZ Inspection of Tracheobronchial Tree, Via Natural or Artificial Opening Endoscopic (ICD-10-PCS; 2016-06-24)
PROC: 0DHA3UZ Insertion of Feeding Device into Jejunum, Percutaneous Approach (ICD-10-PCS; 2016-06-28)
DX: J18.9 Pneumonia, unspecified organism (principal); I26.99 Other pulmonary embolism without acute cor pulmonale; N17.9 Acute kidney failure, unspecified; E87.0 Hyperosmolality and hypernatremia; J90 Pleural effusion, not elsewhere classified; K55.9 Vascular disorder of intestine, unspecified; I95.9 Hypotension, unspecified; E87.2 Acidosis; K63.3 Ulcer of intestine; J96.01 Acute respiratory failure with hypoxia; J96.02 Acute respiratory failure with hypercapnia; J44.0 Chronic obstructive pulmonary disease with (acute) lower respiratory infection; J44.1 Chronic obstructive pulmonary disease with (acute) exacerbation; J98.11 Atelectasis; R18.8 Other ascites; Z99.11 Dependence on respirator [ventilator] status; D69.6 Thrombocytopenia, unspecified; Z99.81 Dependence on supplemental oxygen; K25.9 Gastric ulcer, unspecified as acute or chronic, without hemorrhage or perforation; I10 Essential (primary) hypertension; D12.5 Benign neoplasm of sigmoid colon; K57.30 Diverticulosis of large intestine without perforation or abscess without bleeding; K64.4 Residual hemorrhoidal skin tags; K21.9 Gastro-esophageal reflux disease without esophagitis; K64.8 Other hemorrhoids; K80.20 Calculus of gallbladder without cholecystitis without obstruction; R91.1 Solitary pulmonary nodule; D50.9 Iron deficiency anemia, unspecified; F41.9 Anxiety disorder, unspecified; R13.10 Dysphagia, unspecified; Z85.3 Personal history of malignant neoplasm of breast; Z90.11 Acquired absence of right breast and nipple; Z92.21 Personal history of antineoplastic chemotherapy; Z92.3 Personal history of irradiation; Z87.891 Personal history of nicotine dependence
CPT/HCPCS: 31500; 31600; 31624; 36430; 36556; 36600; 49440; 49446; 71010; 71275; 74174; 76937; 76942; 78278; 80048; 80053; 80198; 82272; 82805; 82948; 83605; 83735; 83880; 84100; 84155; 84484; 85014; 85018; 85025; 85027; 85384; 85610; 85730; 86850; 86900; 86901; 86920; 87040; 87070; 87205; 87449; 87641; 87804; 88305; 93005; 93306; 93970; 94002; 94003; 94150; 94640; 94664; 94729; 96365; 96367; 99152; 99153; A9560; C1769; C1874; C1887; C1894; C9113; C9399; J0360; J0456; J1100; J1160; J1610; J1644; J1650; J1940; J1956; J2060; J2250; J2405; J2543; J2765; J2920; J2930; J2997; J3010; J7030; J7040; J7050; J7613; P9016; Q9967

== ENCOUNTER → 2016-07-22 | Outpatient (CLI) | payer MEDICARE ==
[~2016-07-22] VITALS: Ht 152.4 cm; Wt 48.0 kg
[~2016-07-22] MED LIST: ACET325T PO; CHLO.12%30 SWISH-SPIT; COUM5TAB PO; COUM7.5T PO; DO NOT ADM ANY ANTICOAGULANT DRUGS XX PRN; ENOX80P SQ; ESCI5TAB PO; FAMO20TA2 PO; FAMO40TA PO; HYDR-3516 PO; IPRASOL NEB; LACTATED RINGER'S 1,000 ML BAG XX ONE; MIRA33504 PO; PRAD150C PO; PRED10 PO; PROPOFOL 200 MG/20 ML AMP IV ONE; RESP: ALBUTEROL 2.5 MG/IPRATROPIUM 0.5 MG NEB (SCH) ONE; THEO200T4 PO; THERTAB15 PO; TRAZ50TA12 PO; VENTAER INH; ZINC40OI TOP
[2016-07-22 11:00] VITALS: BP 125/69; PULSE 78; RESP 20; TEMP 98; O2SAT 97
--- NOTE | 2016-07-22 13:56 | GIPROC ---
[facility] [address] [facility]. [facility], [address] EGD PROCEDURE REPORT EXAM DATE: 07/22/2016 PATIENT NAME: Saray Plascencia MR #: [id number] BIRTHDATE: 1950 ATTENDING: Gregoria Subramanian MD ORDER #: [id number] [employer]ER: Paco Olivas and Elmo Pelayo STATUS: outpatient INDICATIONS: The patient is a 65 yr old female here for an EGD due to melena PROCEDURE PERFORMED: EGD, diagnostic MEDICATIONS: None and Per Anesthesia. TOPICAL ANESTHETIC: CONSENT: The patient understands the risks and benefits of the procedure and understands that these risks include, but are not limited to: sedation, allergic reaction, infection, perforation and/or bleeding. Alternative means of evaluation and treatment include, among others: physical exam, x-rays, and/or surgical intervention. The patient elects to proceed with this endoscopic procedure. medical equipment was checked for proper function. Hand hygiene and appropriate measures for infection prevention was taken. After the risks, benefits and alternatives of the procedure were thoroughly explained, Informed consent was verified, confirmed and timeout was successfully executed by the treatment team. The patient was anesthetized with topical anesthesia and the Enviable Abodeax [id number] endoscope was introduced through the mouth and advanced to the second portion of the duodenum. Retroflexed views revealed no abnormalities The gastroscope was then slowly withdrawn and removed. STOMACH: There was erythematous moderate gastritis in the gastric antrum. G/J tube in place. Tip in the duodenum. DUODENUM: The duodenal mucosa appeared normal in the 2nd part of the duodenum. ADVERSE EVENTS: There were no complications. IMPRESSIONS: 1. There was erythematous gastritis in the gastric antrum; G/J tube in place. Tip in the duodenum 2. Normal duodenal mucosa in the 2nd part of the duodenum 3. Retroflexed views revealed no abnormalities RECOMMENDATIONS: 1. Anti-reflux regimen 2. Continue PPI PATIENT CONDITION: stable DISPOSITION: Inpatient REPEAT EXAM: Return as needed for EGD Gregoria Subramanian MD eSigned: Gregoria Subramanian MD 07/22/2016 1:56 PM cc: PATIENT NAME: Saray Plascencia MR#: [id number]
[2016-07-22 14:15] VITALS: BP 156/79; PULSE 81; RESP 13; O2SAT 97
== END ==
LOC: HEND 10:31
PROVIDERS: ATTEND Internal Medicine Gastroenterology
DX: K29.70 Gastritis, unspecified, without bleeding (principal); D64.9 Anemia, unspecified; Z93.1 Gastrostomy status
CPT/HCPCS: 00740; 43235; J7120